=== PATIENT | male | born 1945 | race Caucasian/White ===

== ENCOUNTER 2017-05-03 09:51 | Observation (INO) ==
--- NOTE | 2017-05-03 09:58 | Emergency Department Note ---
Disposition Clinical Impression: Thyroid nodule Dysphagia Qualifiers: Dysphagia type: unspecified Qualified Code(s): R13.10 - Dysphagia, unspecified Failure to thrive Qualifiers: Failure to thrive age range: in adult Qualified Code(s): R62.7 - Adult failure to thrive Disposition: Admitted As Inpatient Condition: Good Time of Disposition: 12:27 General Adult HPI - General Chief complaint: ED General Medical Stated complaint: Sore throat Time Seen by Provider: 05/03/17 09:54 Source: patient, EMS Mode of arrival: EMS Limitations: no limitations Nursing Notes Reviewed: Yes Vital Signs Reviewed: Yes - History of Present Illness HPI Narrative: 71-year-old who states he's had a sore throat for about 48 hours. States it's to the point he cannot swallow anything. He points to the anterior throat when asked where it hurts. Pt Subjective Complaint: Sore throat unable to eat or drink Onset (ago): hour(s) (48) Location: other (Throat) Radiation: non-radiation Pain Severity: moderate Quality: aching Consistency: constant Improves with: nothing Worsens with: other (Swallowing) Treatments Prior to Arrival: none - Related Data Home Medications Medication Instructions Recorded Confirmed Amlodipine [Norvasc] 5 mg PO BID 07/05/15 05/03/17 Metoprolol [Lopressor] 12.5 mg PO BID PRN 07/05/15 05/03/17 Simvastatin [Zocor] 20 mg PO HS 07/05/15 05/03/17 Temazepam [Restoril] 15 mg PO HS 09/07/15 05/03/17 Escitalopram [Lexapro] 20 mg PO DAILY 06/18/16 05/03/17 Glucagon,Human Recombinant 1 mg IJ AD PRN 06/18/16 05/03/17 [Glucagon Emergency Kit] Dextran 70/Hypromellose 1 drop OP DAILY PRN 12/08/16 05/03/17 [Artificial Tears Eye Drops] Docusate [Colace] 100 mg PO BID PRN 12/08/16 05/03/17 Insulin Glargine,Hum.rec.anlog 7 unit SQ BID 12/08/16 05/03/17 [Lantus Solostar] Insulin Lispro Protamin/Lispro 0 unit SQ TIDAC MDD SLIDING SCALE 12/08/16 [Humalog Mix 50-50 Kwikpen] Previous Rx's Medication Instructions Recorded hydrALAZINE [HydrALAZINE] 100 mg PO Q8HR #60 tablet 06/23/16 Allergies Allergy/AdvReac Type Severity Reaction Status Date / Time tamsulosin [From Flomax] Allergy Dizziness Verified 07/05/15 17:45 All systems ED: reviewed and negative except as stated. Constitutional: Denies: fever, chills, weakness, weight change Eyes: Denies: eye pain, eye discharge, vision change ENT ED: Reports: throat pain, dysphagia. Denies: ear pain, dental pain, hearing loss, epistaxis, congestion Cardiovascular: Denies: chest pain, palpitations, dyspnea on exertion, edema, syncope Respiratory: Denies: cough, dyspnea, wheezes, hemoptysis, stridor Gastrointestinal: Denies: abdominal pain, nausea, vomiting, diarrhea, constipation, hematemesis, melena, hematochezia Genitourinary: Denies: urgency, dysuria, frequency, hematuria Musculoskeletal: Denies: back pain, neck pain, arthralgia, myalgia Integumentary: Denies: rash, abrasion, lesions Neurological: Denies: headache, weakness, numbness, paresthesias, confusion, abnormal gait, vertigo Psychiatric: Denies: anxiety, depression, suicidal thoughts, homicidal thoughts , auditory hallucinations, visual hallucinations Endocrine: Denies: fatigue Hematological/Lymphatic: Denies: easy bleeding, easy bruising Allergic/Immunologic: Denies: facial swelling, urticaria Past Medical History - Past Medical History Medical history: Reports: diabetes, hyperlipidemia Surgical history: Reports: appendectomy, other Psychiatric history: Reports: depression - Social History Smoking Status: Never smoker Smokeless Tobacco Status: No Alcohol use: Reports: none Drug use: Reports: none Physical Exam - General Limitations: no limitations General appearance: alert, in no apparent distress - Head Head exam: atraumatic, normocephalic, normal inspection - Eye Eye exam: Present: normal appearance, PERRL, EOMI - ENT ENT exam: normal exam, normal oropharynx, mucous membranes moist - Neck Neck exam: Present: normal inspection, full ROM, trachea midline - Chest Chest inspection: Present: normal inspection, symmetric chest wall rise - Respiratory Respiratory exam: Present: normal lung sounds bilaterally - Cardiovascular Cardiovascular exam: Present: regular rate, normal rhythm, normal heart sounds - Abdominal Exam Abdominal exam: Present: soft, Non-Tender. Absent: tenderness, distention, guarding, rebound, rigidity - Extremities Exam Extremities exam: Present: normal inspection, full ROM. Absent: tenderness, pedal edema - Expanded Lower Extremity Exam Neurovascular/Tendon exam: Present: normal capillary refill Gait: observed and normal - Back Exam Back exam: Present: normal inspection, full ROM. Absent: tenderness - Neurological Exam Neurological exam: Present: alert, oriented X3 - Psychiatric Psychiatric exam: Present: normal affect, normal mood - Skin Skin exam: Present: warm, dry, intact, normal color Course - Reevaluation(s) Reevaluation #1: 71-year-old who states he cannot swallow. States it began over the last 48 hours. It has progressed to the point where he says he can't take his medicines. Workup here in the emergency department included a normal visual inspection and a normal CT of soft tissue neck. In light of the patient's inability to take his medications and eat we will go ahead and admit. We did obtain consultation with ENT. Time: 12:25 - Consultations Consultation #1: Discussed with Dr. Green ENT who will see the patient in consultation Time: 12:00 Consultation #2: Discussed with Dr. Severino, admit Time: 12:27 Vital Signs Temperature 98.8 F 05/03/17 09:56 Pulse Rate 107 05/03/17 09:56 Respiratory Rate 18 05/03/17 09:56 Blood Pressure 171/76 05/03/17 09:56 O2 Sat by Pulse Oximetry 97 05/03/17 09:56 Temperature 98.8 F 05/03/17 09:56 Pulse Rate 117 05/03/17 12:39 Respiratory Rate 18 05/03/17 12:39 Blood Pressure 156/66 05/03/17 12:39 O2 Sat by Pulse Oximetry 96 05/03/17 12:39 Oxygen Delivery Oxygen Delivery Room Air Medical Decision Making - Lab Data Result diagrams: 05/03/17 10:25 05/03/17 10:25 Lab Results 05/03/17 05/03/17 Range/Units 10:25 10:25 WBC 11.8 H (4.3-11.1) K/mcL RBC 2.98 L (4.19-5.50) M/mcL Hgb 9.0 L (12.9-16.9) g/dL Hct 29.0 L (37.5-50.1) % MCV 97.3 (83.0-100.0) fL MCH 30.2 (28.0-33.3) pg MCHC 31.0 L (31.6-35.5) g/dL RDW 13.2 (11.5-14.5) % Plt Count 196 (140-400) K/mcL MPV 10.9 (9.4-12.4) fL Immature Gran % 0.7 (0-4) % Seg Neutrophils % 80.0 % Lymphocytes % 10.6 % Monocytes % 8.4 % Eosinophils % 0.0 % Basophils % 0.3 % Neutrophils # 9.4 H (1.6-8.9) K/mcL Lymphocytes # 1.3 (0.6-4.6) K/mcL Monocytes # 1.0 (0.0-1.3) K/mcL Eosinophils # 0.0 (0.0-0.6) K/mcL Basophils # 0.0 (0.0-0.2) K/mcL Sodium 137 (136-145) mEq/L Potassium 5.3 H (3.5-4.5) mEq/L Chloride 108 (98-109) mEq/L Carbon Dioxide 13 L (19-29) mEq/L BUN 67 H (8-26) mg/dL Creatinine 4.12 H (0.72-1.25) mg/dL Est GFR ( Amer) 17 L (> 60) Est GFR (Non-Af Amer) 14 L (> 60) BUN/Creatinine Ratio 16 (6-26) Glucose 406 H (70-99) mg/dL Calculated Osmolality 320 H (280-300) Calcium 9.3 (8.6-10.8) mg/dL
[2017-05-03 10:35] LABS: Basophils % 0.3 %; Immature Granulocytes % 0.7 % (0-4); Lymphocytes # 1.3 K/mcL (0.6-4.6); Lymphocytes % 10.6 %; Mean Corpuscular Hemoglobin 30.2 pg (28.0-33.3); Mean Corpuscular Volume 97.3 fL (83.0-100.0); Mean Platelet Volume 10.9 fL (9.4-12.4); Monocytes % 8.4 %; Neutrophils # 9.4 K/mcL (1.6-8.9); Platelet Count 196 K/mcL (140-400); Red Blood Count 2.98 M/mcL (4.19-5.50); Red Cell Distribution Width 13.2 % (11.5-14.5)
[2017-05-03 10:49] LABS: Calcium 9.3 mg/dL (8.6-10.8); Potassium 5.3 mEq/L (3.5-4.5)
[2017-05-03] MEDS ORDERED: amLODIPine 5 MG TABLET PO ONE (12:24)
[2017-05-03] MEDS ORDERED: Naloxone 0.4 MG/ML INJ IVP PRN (13:17)
[2017-05-03] MEDS ORDERED: Acetaminophen 325 MG TABLET PO PRN (13:17)
[2017-05-03] MEDS ORDERED: 0.9 % Sodium Chloride 1,000 ML IVC SCH (13:30)
[2017-05-03] MEDS ORDERED: D5% in Water 1,000 ML IVC PRN (13:36)
[2017-05-03] MEDS ORDERED: *HR* Dextrose 50 % in Water (Syg) 50 ML SYRINGE IVP PRN (13:36)
[2017-05-03] MEDS ORDERED: Dextrose Gel 15 GM PO PRN ×2 (13:36)
[2017-05-03] MEDS ORDERED: *HR* LORazepam 2 MG/ML VIAL IVP PRN (13:37)
--- NOTE | 2017-05-03 13:44 | Internal Med History&Physical ---
<Eloise Lopez M - Last Filed: 05/03/17 18:28> Date of Encounter: 05/03/17 Time of Encounter: 13:41 Assessment and Plan (1) Dysphagia Current visit: Yes Status: Acute Patient reports severe pain with swallowing over the last 2 days, resulting in poor oral intake and inability to take medications. Exam reveals oral thrush. ENT was consulted by ED, will appreciate their input. Magic mouthwash QID Nystatin swish and swallow QID. Qualifiers: Dysphagia type: unspecified Qualified Code(s): R13.10 - Dysphagia, unspecified (2) Chronic kidney disease, stage V Current visit: Yes Status: Chronic Patient follows with Dr. Card as an outpatient. He is supposed to be educated about dialysis options in the near future. He is at his baseline today. Daily chemistry. Consider consult to Dr. Card. Avoid NSAIDS and nephrotoxins (3) Hypertension Current visit: Yes Status: Chronic Patient reports he has not been taking his medications the last 2 days because of pain with swallowing. BP was elevated here, likely because of failure to take medications. Patient given his dose of amlodipine in ED. Metoprolol 2.5mg IVP Q6hr scheduled. Hydralazine 10mg IVP Q6hr PRN for SBP > 160 or DBP > 100. Transition to home doses of oral medications once patient tolerating PO. Qualifiers: Hypertension type: essential hypertension Qualified Code(s): I10 - Essential (primary) hypertension (4) Thyroid nodule Current visit: Yes Status: Acute CT of the neck revealed 1.7cm thyroid nodule. Thyroid ultrasound ordered. (5) Hyperkalemia Current visit: Yes Status: Acute potassium of 5.3. Kayexalate x 1 dose Will be giving insulin for hyperglycemia as well, which should also bring down the potassium. Recheck chemistry daily. (6) Metabolic acidosis Current visit: Yes Status: Acute CO2 of 13. Give 1 amp of bicarb IVP, followed by 150mEq in 0.45NS at 125mL/hr Recheck chemistry daily. (7) Diabetes mellitus Current visit: Yes Status: Acute check blood sugars Q4hr sliding scale correction dose q4hr long acting insulin levemir 3u BID (home dose 7u BID) hypoglycemic protocol. Qualifiers: Diabetes mellitus type: type 1 Diabetes mellitus complication status: with unspecified complications Qualified Code(s): E10.8 - Type 1 diabetes mellitus with unspecified complications (8) DVT prophylaxis Current visit: Yes Status: Acute anti-embolic stockings heparin SQ TID Internal Medicine - H&P: HPI Chief complaint: throat pain Admitted From: Emergency Dept Plans for Post Hospital Care: Home History of present illness: Mr. Ruiz is a 71 year old male with diabetes, hypertension, hyperlipidemia, chronic kidney disease presented to the emergency department today with sore throat, difficulty swallowing due to the pain, inability to take medications at home. Patient reports that the pain started about 2 days ago and is worsened, he has been unable to eat or drink, and has not been taking his medications because of this. He denies headache, lightheadedness, chest pain, palpitations , shortness of breath. He denies a sensation that his throat is swollen. He reports that his throat hurts all the time but is worse with swallowing. He complains of feeling weak and tired. Evaluation in the ED revealed hyperkalemia with potassium of 5.3, low bicarb of 13. He was hyperglycemic with glucose of 406. BUN and Creatinine were at baseline of 67 and 4.12, respectively and consistent with his CKD 4. Hemoglobin of 9 was stable. Soft tissue neck CT showed no acute abnormality of the soft tissue structures of the neck also revealed a 1.7 cm thyroid nodule. He was tachycardic to the 110s, his blood pressure was also elevated. On exam, patient alert and oriented, in no acute distress. Heart irregular rhythm, tachycardic rate, loud systolic murmur. Lungs are clear bilaterally to auscultation. Tongue with white patches consistent with oral thrush. Pharynx was nonedematous, nonerythematous , no purulent drainage noted. Past Med Surg Social Fam HX - Past Medical History Medical history: diabetes, hyperlipidemia, hypertension, renal disease Psychiatric history: depression - Past Surgical History Surgical History: appendectomy, orthopedic, other, other - Social History Smoking Status: Never smoker Smokeless Tobacco Status: No Alcohol use: none Drug use: none - Family History Mother Living Status: Hx Family Cardiac Disorders: No Hx Family Respiratory Disorders: Yes (TB) Hx Family Cancer: No Hx Family GI Disorders: No Hx Family Endocrine Disorder: No Hx Family Neuromuscular Disorders: No Hx Family Neurologic Disorders: No Hx Family HEENT Disorders: No Hx Family Autoimmune Disorders: No Father Living Status: Hx Family Cardiac Disorders: Yes Hx Family Respiratory Disorders: Yes Hx Family Cancer: No Hx Family GI Disorders: No Hx Family Endocrine Disorder: No Hx Family Neuromuscular Disorders: Yes Hx Family Neurologic Disorders: No Hx Family HEENT Disorders: No Hx Family Autoimmune Disorders: No Internal Medicine - H&P: Meds Amlodipine [Norvasc] 5 mg PO BID 07/05/15 [History] Metoprolol [Lopressor] 12.5 mg PO BID PRN 07/05/15 [History] Simvastatin [Zocor] 20 mg PO HS 07/05/15 [History] Temazepam [Restoril] 15 mg PO HS 09/07/15 [History] Escitalopram [Lexapro] 20 mg PO DAILY 06/18/16 [History] Glucagon,Human Recombinant [Glucagon Emergency Kit] 1 mg IJ AD PRN 06/18/16 [ History] hydrALAZINE [HydrALAZINE] 100 mg PO Q8HR #60 tablet 06/23/16 [Rx] Dextran 70/Hypromellose [Artificial Tears Eye Drops] 1 drop OP DAILY PRN [History] Docusate [Colace] 100 mg PO BID PRN 12/08/16 [History] Insulin Glargine,Hum.rec.anlog [Lantus Solostar] 7 unit SQ BID 12/08/16 [History ] Insulin Lispro Protamin/Lispro [Humalog Mix 50-50 Kwikpen] 0 unit SQ TIDAC MDD SLIDING SCALE 12/08/16 [History] 3 Allergy/AdvReac Type Severity Reaction Status Date / Time tamsulosin [From Flomax] Allergy Dizziness Verified 07/05/15 17:45 All Systems PM: A 10-system review of systems was performed and is negative for pertinent findings except as documented above in the HPI. - Constitutional Constitutional: fatigue, weakness, no chills, no fever(s), no night sweats - EENT Eyes: no change in vision, no discharge, no pain, no photophobia Ears: no ear discharge, no ear pain, no tinnitus Nose, mouth and throat: sore throat, no dysphagia, no nasal discharge, no neck pain - Cardiovascular Cardiovascular ROS IM: no chest pain, no diaphoresis, no dyspnea, no lightheadedness, no palpitations, no syncope - Respiratory Respiratory: no cough, no dyspnea, no wheezing, no excessive phlegm production - Gastrointestinal Gastrointestinal: no abdominal pain, no diarrhea, no hematemesis, no hematochezia, no melena, no nausea, no vomiting - Musculoskeletal Musculoskeletal ROS IM: no numbness, no tingling - Integumentary Integumentary IM: no rash, no unusual bruising - Neurological Neurological ROS: no confusion, no convulsions, no focal weakness, no numbness, no tingling, no tremor(s) - Hematologic/Lymphatic Hematologic/Lymphatic: no easy bruising - Constitutional Vitals: Temp Pulse Resp BP Pulse Ox 98.8 F 117 18 167/68 96 05/03/17 09:56 05/03/17 12:39 05/03/17 13:31 05/03/17 13:31 05/03/17 12:39 General appearance: Present: A&O X 3, pleasant, no acute distress - Head Head exam: Present: atraumatic, normocephalic - Eye Eye exam: Present: PERRL, conjuntiva pink, sclera anicteric Pupils: Present: PERRL - ENT Additional comments: tongue covered in white patch. - Expanded ENT Exam Throat exam: Present: normal inspection. Absent: post pharyngeal edema, tonsillar erythema, tonsillar exudate - Neck Neck exam general surgery: Present: supple, trachea midline. Absent: lymphadenopathy - Respiratory Respiratory exam: Present: CTAB. Absent: accessory muscle use, rales, rhonchi, wheezes - Cardiovascular Cardiovascular exam: Present: RRR, +S1, +S2. Absent: diastolic murmur, gallop, rubs, systolic murmur - GI/Abdominal GI/Abdominal exam: Present: normal bowel sounds, soft, no peritoneal signs. Absent: distended, tenderness - Extremities Exam Extremities exam: Present: warm, radial pulses palpable and symmetrical. Absent : calf tenderness, cyanotic, pedal edema - Neurological Exam Neurological exam: Present: CN II-XII intact, oriented X3, no focal deficits. Absent: facial droop, speech deficit - Skin Skin exam: Present: dry, intact Internal Med - H&P Results - Labs CBC & Chem 7: 05/03/17 10:25 05/03/17 10:25 Labs: All Lab Results (24 Hours) 05/03/17 05/03/17 Range/Units 10:25 10:25 WBC 11.8 H (4.3-11.1) K/mcL RBC 2.98 L (4.19-5.50) M/mcL Hgb 9.0 L (12.9-16.9) g/dL Hct 29.0 L (37.5-50.1) % MCV 97.3 (83.0-100.0) fL MCH 30.2 (28.0-33.3) pg MCHC 31.0 L (31.6-35.5) g/dL RDW 13.2 (11.5-14.5) % Plt Count 196 (140-400) K/mcL MPV 10.9 (9.4-12.4) fL Immature Gran % 0.7 (0-4) % Seg Neutrophils % 80.0 % Lymphocytes % 10.6 % Monocytes % 8.4 % Eosinophils % 0.0 % Basophils % 0.3 % Neutrophils # 9.4 H (1.6-8.9) K/mcL Lymphocytes # 1.3 (0.6-4.6) K/mcL Monocytes # 1.0 (0.0-1.3) K/mcL Eosinophils # 0.0 (0.0-0.6) K/mcL Basophils # 0.0 (0.0-0.2) K/mcL Sodium 137 (136-145) mEq/L Potassium 5.3 H (3.5-4.5) mEq/L Chloride 108 (98-109) mEq/L Carbon Dioxide 13 L (19-29) mEq/L BUN 67 H (8-26) mg/dL Creatinine 4.12 H (0.72-1.25) mg/dL Est GFR ( Amer) 17 L (> 60) Est GFR (Non-Af Amer) 14 L (> 60) BUN/Creatinine Ratio 16 (6-26) Glucose 406 H (70-99) mg/dL Calculated Osmolality 320 H (280-300) Calcium 9.3 (8.6-10.8) mg/dL - Diagnostic Studies Chest x-ray Additional comments: Chest X-Ray 05/03/17 12:21 IMPRESSION: No acute cardiopulmonary process. D/ / 05/03/2017 13:04:00 Dario Higgins MD / [facility] Interpreting Provider: Dario Higgins MD Other Images Additional comments: Soft Tissue Neck CT 05/03/17 09:54 IMPRESSION: No acute abnormality of the soft tissue structures of the neck. D/ / 05/03/2017 11:35:15 Dario Higgins MD / [facility] Interpreting Provider: Dario Higgins MD <Karime Severino - Last Filed: 05/03/17 18:46> Date of Encounter: 05/03/17 Internal Medicine - H&P: HPI History of present illness: Mr. Ruiz is a 71 year old male All Systems PM: A 10-system review of systems was performed and is negative for pertinent findings except as documented above in the HPI. - Constitutional Vitals: Temp Pulse Resp BP Pulse Ox 99.2 F 98 16 133/67 96 05/03/17 18:35 05/03/17 18:35 05/03/17 18:35 05/03/17 18:35 05/03/17 18:35 Internal Med - H&P Results - Labs CBC & Chem 7: 05/03/17 10:25 05/03/17 10:25 - Attending Attestation Patient independently seen and examined with family present at bedside. Pt admitted for dysphagia. ENT on board. Speech therapy consulted. Case discussed with SHAINA Lopez, I agree with her documented findings, assessment, and plan.
[2017-05-03] MEDS ORDERED: Insulin LISPRO 300 UNITS/3 ML VIAL SQ SCH ×2 (15:17→18:00)
[2017-05-03] MEDS: Sodium Bicarbonate 150 MEQ in 0.45 % Sodium Chloride 1,000 ML IVC SCH (15:54)
--- NOTE | 2017-05-03 16:31 | ENT - Consult Note ---
Date of Encounter: 05/03/17 Time of Encounter: 16:28 Assessment and Plan (1) Sore throat Current Visit: Yes Status: Acute 71 y/o M here for sore throat and odynophagia. The only thing remarkable on my exam that I see is what appears to be refluxate on the supraglottic larynx - appears to be the soup he had just eaten before I arrived. Not sure if this is refluxate (which it appears to be as I see this material coming from the posterior CP region) or if it is evidence of penetration on swallow. I don't see signs of infection or any lesions of concern. CT scan showed upper esophageal air, kyphosis, multiple cervical spinal segment fusion w/ osteophytes but no evidence of abscess or lesion. 1. Recommend [facility] eval for swallow to ensure he is not penetrating/aspirating and needs a specialized diet 2. Given the lack of findings otherwise, could consider a PPI trial but given his lack of sx prior to this I don't give this a strong recommendation 3. Given the lack of surgical issue here or issue to follow from an ENT perspective will sign off Call with questions/concerns. History of Present Illness Consult date: 05/03/17 Reason for ENT Consult: other (throat pain) History of present illness: 71 y/o M here for throat pain for 2 days. He woke up at 0200 yesterday AM with a painful throat and trouble swallowing. Also has had a rough voice x 2 days. He has felt run down during this period but not sure what this is related to. No prior throat surgery. Smoking hx as noted in intake H&P. H/O neck fracture years ago. No reflux or trouble swallowing prior to this. Neck mobility stable. No fevers. No trouble breathing. Went to the ED where this AM he had a CT neck w/o contrast (due to kidney issues) that didn't show any acute problems. Admitted for hydration and workup. Past Med Surg Social Fam HX - Past Medical History Medical history: diabetes, hyperlipidemia, hypertension, renal disease Psychiatric history: depression - Past Surgical History Surgical History: appendectomy, orthopedic, other, other - Social History Smoking Status: Never smoker Smokeless Tobacco Status: No Alcohol use: none Drug use: none - Family History Mother Living Status: Hx Family Cardiac Disorders: No Hx Family Respiratory Disorders: Yes (TB) Hx Family Cancer: No Hx Family GI Disorders: No Hx Family Endocrine Disorder: No Hx Family Neuromuscular Disorders: No Hx Family Neurologic Disorders: No Hx Family HEENT Disorders: No Hx Family Autoimmune Disorders: No Father Living Status: Hx Family Cardiac Disorders: Yes Hx Family Respiratory Disorders: Yes Hx Family Cancer: No Hx Family GI Disorders: No Hx Family Endocrine Disorder: No Hx Family Neuromuscular Disorders: Yes Hx Family Neurologic Disorders: No Hx Family HEENT Disorders: No Hx Family Autoimmune Disorders: No Medications and Allergies Amlodipine [Norvasc] 5 mg PO BID 07/05/15 [History] Metoprolol [Lopressor] 12.5 mg PO BID PRN 07/05/15 [History] Simvastatin [Zocor] 20 mg PO HS 07/05/15 [History] Temazepam [Restoril] 15 mg PO HS 09/07/15 [History] Escitalopram [Lexapro] 20 mg PO DAILY 06/18/16 [History] Glucagon,Human Recombinant [Glucagon Emergency Kit] 1 mg IJ AD PRN 06/18/16 [ History] hydrALAZINE [HydrALAZINE] 100 mg PO Q8HR #60 tablet 06/23/16 [Rx] Dextran 70/Hypromellose [Artificial Tears Eye Drops] 1 drop OP DAILY PRN [History] Docusate [Colace] 100 mg PO BID PRN 12/08/16 [History] Insulin Glargine,Hum.rec.anlog [Lantus Solostar] 7 unit SQ BID 12/08/16 [History ] Insulin Lispro Protamin/Lispro [Humalog Mix 50-50 Kwikpen] 0 unit SQ TIDAC MDD SLIDING SCALE 12/08/16 [History] 3 Allergy/AdvReac Type Severity Reaction Status Date / Time tamsulosin [From Flomax] Allergy Dizziness Verified 07/05/15 17:45 ENT Exam Initial Vital Signs Temp Pulse Resp BP Pulse Ox 98.8 F 107 18 171/76 97 05/03/17 09:56 05/03/17 09:56 05/03/17 09:56 05/03/17 09:56 05/03/17 09:56 - ENT normal pinna, normal mucosa, poor chcf, dentures, atraumatic, CN 2-12 grossly intact, Other (scope exam showed what appeared to be refluxate on the supraglottic larynx, moderate VC edema but no mass lesions, ulcerations or lesions otherwise). negative: deviated nasal septum, nasal discharge - Neck no masses, trachea midline, no lymphadectomy Exam Initial Vital Signs Temp Pulse Resp BP Pulse Ox 98.8 F 107 18 171/76 97 05/03/17 09:56 05/03/17 09:56 05/03/17 09:56 05/03/17 09:56 05/03/17 09:56 Results - Labs 05/03/17 10:25 05/03/17 10:25 Abnormal lab results WBC 11.8 K/mcL (4.3-11.1) H 05/03/17 10:25 RBC 2.98 M/mcL (4.19-5.50) L 05/03/17 10:25 Hgb 9.0 g/dL (12.9-16.9) L 05/03/17 10:25 Hct 29.0 % (37.5-50.1) L 05/03/17 10:25 MCHC 31.0 g/dL (31.6-35.5) L 05/03/17 10:25 Neutrophils # 9.4 K/mcL (1.6-8.9) H 05/03/17 10:25 Potassium 5.3 mEq/L (3.5-4.5) H 05/03/17 10:25 Carbon Dioxide 13 mEq/L (19-29) L 05/03/17 10:25 BUN 67 mg/dL (8-26) H 05/03/17 10:25 Creatinine 4.12 mg/dL (0.72-1.25) H 05/03/17 10:25 Est GFR ( Amer) 17 (> 60) L 05/03/17 10:25 Est GFR (Non-Af Amer) 14 (> 60) L 05/03/17 10:25 Glucose 406 mg/dL (70-99) H 05/03/17 10:25 Calculated Osmolality 320 (280-300) H 05/03/17 10:25 All other labs normal. Consult Discharge Plan - Plan Referrals: Sheng Alexandra MD [Primary Care Provider] -
[2017-05-03] MEDS: Pantoprazole 40 MG VIAL IVP SCH (17:51)
[2017-05-03] MEDS: Nystatin SUSP 5 ML UD.LIQ PO SCH ×2 (17:53→21:10)
[2017-05-03] MEDS: *HR* Metoprolol 5 MG/5 ML VIAL IVP SCH ×2 (17:54→18:15)
[2017-05-03] MEDS: Magic Mouthwash 10 ML UD Cup PO SCH ×3 (17:54→21:32)
[2017-05-03] MEDS ORDERED: *HR* Metoprolol 5 MG/5 ML VIAL IVP SCH (18:00)
[2017-05-03] MEDS: Insulin LISPRO 300 UNITS/3 ML VIAL SQ SCH ×2 (18:02→21:09)
[2017-05-03] MEDS: Insulin DETEMIR 100 UNIT/ML X5UNITS SQ SCH (21:07)
[2017-05-03] MEDS: *HR* Heparin 5,000 UNIT/ML VIAL SQ SCH (21:16)
[2017-05-04] MEDS: *HR* Metoprolol 5 MG/5 ML VIAL IVP SCH ×2 (00:27→06:34)
[2017-05-04] MEDS: Insulin LISPRO 300 UNITS/3 ML VIAL SQ SCH ×6 (00:27→21:45)
[2017-05-04] MEDS: Sodium Bicarbonate 150 MEQ in 0.45 % Sodium Chloride 1,000 ML IVC SCH (01:45)
[2017-05-04 05:13] LABS: Basophils % 0.2 %; Eosinophils % 0.1 %; Hematocrit 23.1 % (37.5-50.1); Hemoglobin 7.7 g/dL (12.9-16.9); Immature Granulocytes % 0.4 % (0-4); Lymphocytes # 1.5 K/mcL (0.6-4.6); Lymphocytes % 10.1 %; Mean Corpuscular HGB Conc 33.3 g/dL (31.6-35.5); Mean Corpuscular Hemoglobin 30.7 pg (28.0-33.3); Mean Platelet Volume 11.1 fL (9.4-12.4); Monocytes # 1.3 K/mcL (0.0-1.3); Neutrophils # 11.9 K/mcL (1.6-8.9); Platelet Count 171 K/mcL (140-400); Red Blood Count 2.51 M/mcL (4.19-5.50); Red Cell Distribution Width 13.2 % (11.5-14.5); Segmented Neutrophils % 80.2 %
[2017-05-04] MEDS: *HR* Heparin 5,000 UNIT/ML VIAL SQ SCH ×3 (06:34→21:45)
[2017-05-04 07:22] LABS: Calcium 8.9 mg/dL (8.6-10.8)
[2017-05-04 07:26] LABS: Potassium 3.9 mEq/L (3.5-4.5)
[2017-05-04 08:32] LABS: Bilirubin,Urine Negative (Negative); Blood,Urine Negative (Negative); Clarity,Urine Clear (Clear); Color,Urine Yellow (Yellow); Glucose,Urine (UA) >=1000 mg/dL (Normal); Ketones,Urine Trace mg/dL (Negative); Leukocyte Esterase,Urine Negative (Negative); Nitrite,Urine Negative (Negative); Protein,Urine 100 mg/dL (Neg-Trace); Specific Gravity,Urine 1.019 (1.010-1.025); Urobilinogen,Urine Normal (Normal)
[2017-05-04 08:34] LABS: Bacteria,Urine None Seen per hpf (None-Few); Hyaline Casts,Urine None Seen per lpf (None-Few); Squamous Epithelial Cell,Urine Few per lpf (None-Few); WBC,Urine 0-3 per hpf (0-3)
[2017-05-04] MEDS: Magic Mouthwash 10 ML UD Cup PO SCH ×4 (11:03→21:44)
[2017-05-04] MEDS: Pantoprazole 40 MG VIAL IVP SCH (11:03)
[2017-05-04] MEDS: Insulin DETEMIR 100 UNIT/ML X5UNITS SQ SCH ×2 (11:03→21:45)
[2017-05-04] MEDS: Nystatin SUSP 5 ML UD.LIQ PO SCH ×4 (11:04→21:44)
--- NOTE | 2017-05-04 12:05 | Internal Med Progress Note ---
Date of Encounter: 05/04/17 Time of Encounter: 10:00 - Assessment and plan (1) Dysphagia Current Visit: Yes Status: Acute Assessment and plan: Symptoms have improved since admission. Soft tissue CT of the neck unremarkable. Patient had a modified barium swallow that was unremarkable and he was cleared for soft diet with thin liquids per speech therapy. He was seen and evaluated by ENT who have also signed off. Thyroid ultrasound still pending. On examination, no stridor or drooling. Lungs clear to auscultation bilaterally. We will continue diet as ordered and monitor. Continue Protonix. Of note, patient's girlfriend is leaving for vacation and will be gone for approximately 2 weeks. Patient appears anxious about this making this dysphagia possibly related to globus sensation. We will continue to monitor. ITS Impressions Soft Tissue Neck CT 05/03/17 09:54 IMPRESSION: No acute abnormality of the soft tissue structures of the neck. D/ / 05/03/2017 11:35:15 Dario Higgins MD / [facility] Interpreting Provider: Dario Higgins MD Chest X-Ray 05/03/17 12:21 IMPRESSION: No acute cardiopulmonary process. D/ / 05/03/2017 13:04:00 Dario Higgins MD / [facility] Interpreting Provider: Dario Higgins MD Videofluoroscopic Swallow 05/04/17 07:48 IMPRESSION: Deep laryngeal penetration with thin and nectar thick liquids. No definite evidence of aspiration. Please see separate speech pathology report for full discussion of findings and recommendations. D/ / Long Cummings MD / Long Cummings MD Interpreting Provider: Long Cummings MD Qualifiers: Dysphagia type: unspecified Qualified Code(s): R13.10 - Dysphagia, unspecified (2) Sore throat Current Visit: Yes Status: Acute (3) Thyroid nodule Current Visit: Yes Status: Acute Assessment and plan: Thyroid functioning normal last month. Thyroid ultrasound pending. (4) Anemia in CKD (chronic kidney disease) Current Visit: No Status: Chronic Assessment and plan: Currently at the low end of his normal, we will continue to trend. No signs of active bleeding. Patient stating he does not believe he has ever had to have a blood transfusion. (5) CAD (coronary artery disease) Current Visit: No Status: Chronic Assessment and plan: Patient denies chest pain or shortness of breath (6) Chronic kidney disease, stage IV (severe) Current Visit: No Status: Chronic Assessment and plan: Stable and consistent with his baseline, we will continue to trend closely. (7) Diabetes mellitus Current Visit: Yes Status: Chronic Assessment and plan: Controlled with a recent A1c of 6.2%. Continue sliding scale while admitted. Qualifiers: Diabetes mellitus type: type 1 Diabetes mellitus complication status: with kidney complications Diabetes mellitus complication detail: with chronic kidney disease Chronic kidney disease stage: stage 4 (severe) Qualified Code (s): E10.22 - Type 1 diabetes mellitus with diabetic chronic kidney disease; N18.4 - Chronic kidney disease, stage 4 (severe) Code(s): E11.9 - Type 2 diabetes mellitus without complications (8) Hyperkalemia Current Visit: Yes Status: Resolved (9) Hypertension Current Visit: Yes Status: Chronic Assessment and plan: Poorly controlled. At home, patient is on hydralazine 100 mg 3 times a day, metoprolol 12.5 mg twice a day as needed, amlodipine 5 mg twice a day. These have been continued in PO form now that the patient is able to tolerate a diet. Will monitor and adjust his medications as indicated. Qualifiers: Hypertension type: essential hypertension Qualified Code(s): I10 - Essential (primary) hypertension (10) Metabolic acidosis Current Visit: Yes Status: Resolved (11) DVT prophylaxis Current Visit: Yes Status: Acute Assessment and plan: Subcutaneous heparin being held at this time given his worsening anemia. We will place IPCs - Subjective Interval history: Patient seen and examined. On examination, patient initially asleep. He awakened easily to voice and stated that he was feeling better. He states that he wants to try to eat and drink. - Constitutional Vitals: Temp Pulse Resp BP Pulse Ox 98.3 F 90 18 195/87 97 05/04/17 11:20 05/04/17 11:20 05/04/17 11:20 05/04/17 11:20 05/04/17 11:20 General appearance: Present: A&O X 3, pleasant, no acute distress, answers questions appropriately - Head Head exam: Present: atraumatic, normocephalic - Eye Eye exam: Present: PERRL, conjuntiva pink, sclera anicteric Pupils: Present: PERRL - Neck Neck exam general surgery: Present: supple, trachea midline. Absent: lymphadenopathy - Respiratory Respiratory exam: Present: CTAB. Absent: accessory muscle use, rales, respiratory distress, rhonchi, wheezes - Cardiovascular Cardiovascular exam: Present: RRR, +S1, +S2. Absent: diastolic murmur, gallop, rubs, systolic murmur - GI/Abdominal GI/Abdominal exam: Present: normal bowel sounds, soft, no peritoneal signs. Absent: distended, tenderness - Extremities Exam Extremities exam: Present: warm, radial pulses palpable and symmetrical. Absent : calf tenderness, cyanotic, pedal edema - Neurological Exam Neurological exam: Present: alert, CN II-XII intact, oriented X3, no focal deficits, strengths equal and symetr throughout. Absent: pronater drift, facial droop, speech deficit - Skin Skin exam: Present: dry, intact, pallor, warm Internal Medicine: Result - Labs CBC & Chem 7: 05/04/17 04:52 05/04/17 04:52 Labs: Short CBC 05/04/17 Range/Units 04:52 WBC 14.9 H (4.3-11.1) K/mcL Hgb 7.7 L (12.9-16.9) g/dL Hct 23.1 L (37.5-50.1) % Plt Count 171 (140-400) K/mcL Neutrophils # 11.9 H (1.6-8.9) K/mcL BMP 05/04/17 04:52 Sodium 144 D Potassium 3.9 D Chloride 103 Carbon Dioxide 26 BUN 66 H Creatinine 3.90 H Glucose 92 Calcium 8.9 Urine 05/04/17 Range/Units 08:24 Urine Color Yellow (Yellow) Urine Clarity Clear (Clear) Urine pH 6.0 (5.0-8.0) pH Units Ur Specific [place] 1.019 (1.010-1.025) Urine Protein 100 H (Neg-Trace) mg/dL Urine Glucose (UA) >=1000 H (Normal) mg/dL - Impressions Impressions Videofluoroscopic Swallow 05/04/17 07:48 IMPRESSION: Deep laryngeal penetration with thin and nectar thick liquids. No definite evidence of aspiration. Please see separate speech pathology report for full discussion of findings and recommendations. D/ / Long Cummigns MD / Long Cummings MD Interpreting Provider: Long Cummings MD Consult Discharge Plan - Plan Referrals: Sheng Alexandra MD [Primary Care Provider] -
[2017-05-04] MEDS ORDERED: Artificial Tears SOLN 15 ML BOTTLE OP PRN (12:13)
[2017-05-04] MEDS ORDERED: *HR* HYDROcodone/Acet 5/325 mg TABLET PO PRN (12:22)
[2017-05-04] MEDS ORDERED: *HR* Morphine 2 MG/ML SYRINGE IVP PRN (12:22)
[2017-05-04] MEDS: amLODIPine 5 MG TABLET PO SCH ×2 (13:03→21:44)
[2017-05-04] MEDS: hydrALAZINE 25 MG TABLET PO SCH (18:19)
[2017-05-04] MEDS: Temazepam 15 MG CAPSULE PO SCH (21:44)
[2017-05-05] MEDS: Insulin LISPRO 300 UNITS/3 ML VIAL SQ SCH ×8 (00:01→23:49)
[2017-05-05] MEDS: hydrALAZINE 25 MG TABLET PO SCH ×4 (00:03→23:52)
[2017-05-05 05:03] LABS: Basophils % 0.4 %; Eosinophils # 0.2 K/mcL (0.0-0.6); Eosinophils % 1.7 %; Hematocrit 21.3 % (37.5-50.1); Immature Granulocytes % 0.4 % (0-4); Lymphocytes # 1.6 K/mcL (0.6-4.6); Lymphocytes % 15.4 %; Mean Corpuscular HGB Conc 32.9 g/dL (31.6-35.5); Mean Corpuscular Hemoglobin 30.7 pg (28.0-33.3); Mean Corpuscular Volume 93.4 fL (83.0-100.0); Mean Platelet Volume 10.8 fL (9.4-12.4); Monocytes # 0.8 K/mcL (0.0-1.3); Monocytes % 8.1 %; Neutrophils # 7.5 K/mcL (1.6-8.9); Platelet Count 151 K/mcL (140-400); Red Blood Count 2.28 M/mcL (4.19-5.50); Red Cell Distribution Width 13.3 % (11.5-14.5)
[2017-05-05 05:14] LABS: Calcium 8.5 mg/dL (8.6-10.8); Potassium 3.7 mEq/L (3.5-4.5)
[2017-05-05] MEDS: *HR* Heparin 5,000 UNIT/ML VIAL SQ SCH ×3 (05:53→20:07)
[2017-05-05] MEDS: Nystatin SUSP 5 ML UD.LIQ PO SCH ×4 (08:43→20:06)
[2017-05-05] MEDS: Magic Mouthwash 10 ML UD Cup PO SCH ×4 (08:43→20:06)
[2017-05-05] MEDS: Insulin DETEMIR 100 UNIT/ML X5UNITS SQ SCH ×2 (08:43→20:07)
[2017-05-05] MEDS: amLODIPine 5 MG TABLET PO SCH ×2 (08:43→20:06)
[2017-05-05] MEDS: Pantoprazole 40 MG VIAL IVP SCH (08:43)
[2017-05-05 10:24] LABS: % Iron Saturation 25 % (20-55); Iron 45 mcg/dL (65-175); Transferrin 129 mg/dL (174-364)
[2017-05-05 10:45] LABS: Ferritin 1019 ng/ml (22-275)
[2017-05-05 11:26] LABS: Folate 11.3 ng/mL (7.0-31.4)
--- NOTE | 2017-05-05 13:03 | Internal Med Progress Note ---
Date of Encounter: 05/05/17 Time of Encounter: 10:00 - Assessment and plan (1) Dysphagia Current Visit: Yes Status: Acute Assessment and plan: Symptoms have improved since admission and he is tolerating a soft diet with thin liquids. Soft tissue CT of the neck unremarkable. Patient had a modified barium swallow that was unremarkable. Speech therapy remains onboard. He was seen and evaluated by ENT who have also signed off. Thyroid ultrasound still pending. In review of his chart, patient had an thyroid ultrasound earlier this year and has been seen by oncology. On examination, no stridor or drooling. Lungs clear to auscultation bilaterally. We will continue diet as ordered and monitor. Continue Protonix. Of note, patient's girlfriend is leaving for vacation and will be gone for approximately 2 weeks. Patient appears anxious about this making this dysphagia possibly related to globus sensation. We will continue to monitor. Of note, need to address his worsening anemia prior to disposition. ITS Impressions Soft Tissue Neck CT 05/03/17 09:54 IMPRESSION: No acute abnormality of the soft tissue structures of the neck. D/ / 05/03/2017 11:35:15 Dario Higgins MD / [facility] Interpreting Provider: Dario Higgins MD Chest X-Ray 05/03/17 12:21 IMPRESSION: No acute cardiopulmonary process. D/ / 05/03/2017 13:04:00 Dario Higgins MD / [facility] Interpreting Provider: Dario Higgins MD Videofluoroscopic Swallow 05/04/17 07:48 IMPRESSION: Deep laryngeal penetration with thin and nectar thick liquids. No definite evidence of aspiration. Please see separate speech pathology report for full discussion of findings and recommendations. D/ / Long Cummings MD / Long Cummings MD Interpreting Provider: Long Cummings MD Qualifiers: Dysphagia type: unspecified Qualified Code(s): R13.10 - Dysphagia, unspecified (2) Sore throat Current Visit: Yes Status: Acute (3) Thyroid nodule Current Visit: Yes Status: Acute Assessment and plan: Thyroid functioning normal last month. Thyroid ultrasound pending. He had a thyroid ultrasound with a subsequent biopsy earlier this year. He has been seen by oncology outpatient. (4) Anemia in CKD (chronic kidney disease) Current Visit: No Status: Chronic Assessment and plan: Lower than his normal. Hemoglobin 7.0. Nearly a point drop overnight despite patient not receiving IV fluids. In review of his chart, it appears as if he was needed one unit of packed red blood cells back in 2014 but does not appear as if he has been transfused since that time. Patient stating that he was getting regular doses of IV iron at the cancer center but states that he has not gone for quite some time. We will check iron studies as well as B12 and folate. We will bring nephrology on board. He is followed by Dr. Alicea. Renal functioning stable, possible consideration for Aranesp and IV iron if needed. Appreciate nephrology's input. Patient denies any hematuria, hematochezia. (5) CAD (coronary artery disease) Current Visit: No Status: Chronic Assessment and plan: Patient denies chest pain or shortness of breath (6) Chronic kidney disease, stage IV (severe) Current Visit: No Status: Chronic Assessment and plan: Stable and consistent with his baseline, we will continue to trend closely. Nephrology now on board. (7) Diabetes mellitus Current Visit: Yes Status: Chronic Assessment and plan: Controlled at home with a recent A1c of 6.2%. Of note, patient was given a regular breakfast with regular syrup. Glucose now in excess of 400, we will treat accordingly and monitor closely. Continue sliding scale while admitted. Qualifiers: Diabetes mellitus type: type 1 Diabetes mellitus complication status: with kidney complications Diabetes mellitus complication detail: with chronic kidney disease Chronic kidney disease stage: stage 4 (severe) Qualified Code (s): E10.22 - Type 1 diabetes mellitus with diabetic chronic kidney disease; N18.4 - Chronic kidney disease, stage 4 (severe) Code(s): E11.9 - Type 2 diabetes mellitus without complications (8) Hyperkalemia Current Visit: Yes Status: Resolved (9) Hypertension Current Visit: Yes Status: Chronic Assessment and plan: Poorly controlled yesterday, better controlled today. At home, patient is on hydralazine 100 mg 3 times a day, metoprolol 12.5 mg twice a day as needed, amlodipine 5 mg twice a day. These have been continued in PO form now that the patient is able to tolerate a diet. Will monitor and adjust his medications as indicated. Qualifiers: Hypertension type: essential hypertension Qualified Code(s): I10 - Essential (primary) hypertension (10) Metabolic acidosis Current Visit: Yes Status: Resolved (11) DVT prophylaxis Current Visit: Yes Status: Acute Assessment and plan: Subcutaneous heparin being held at this time given his worsening anemia. We will place IPCs - Subjective Interval history: Patient seen and examined. On examination, patient initially asleep. He awakened easily to voice and stated that he was feeling better. He states that he ate all of his breakfast. He states that he is cold but denies other concerns. - Constitutional Vitals: Temp Pulse Resp BP Pulse Ox 97.8 F 75 16 151/76 94 05/05/17 10:57 05/05/17 10:57 05/05/17 10:57 05/05/17 10:57 05/05/17 10:57 General appearance: Present: A&O X 3, pleasant, no acute distress, answers questions appropriately - Head Head exam: Present: atraumatic, normocephalic - Eye Eye exam: Present: PERRL, conjuntiva pink, sclera anicteric Pupils: Present: PERRL - Neck Neck exam general surgery: Present: supple, trachea midline. Absent: lymphadenopathy - Respiratory Respiratory exam: Present: CTAB. Absent: accessory muscle use, rales, respiratory distress, rhonchi, wheezes - Cardiovascular Cardiovascular exam: Present: RRR, +S1, +S2. Absent: diastolic murmur, gallop, rubs, systolic murmur - GI/Abdominal GI/Abdominal exam: Present: normal bowel sounds, soft, no peritoneal signs. Absent: distended, tenderness - Extremities Exam Extremities exam: Present: warm, radial pulses palpable and symmetrical. Absent : calf tenderness, cyanotic, pedal edema - Neurological Exam Neurological exam: Present: alert, CN II-XII intact, oriented X3, no focal deficits, strengths equal and symetr throughout. Absent: pronater drift, facial droop, speech deficit - Skin Skin exam: Present: dry, intact, pallor, warm Internal Medicine: Result - Labs CBC & Chem 7: 05/05/17 04:49 05/05/17 04:49 Labs: Short CBC 05/05/17 Range/Units 04:49 WBC 10.1 (4.3-11.1) K/mcL Hgb 7.0 L (12.9-16.9) g/dL Hct 21.3 L (37.5-50.1) % Plt Count 151 (140-400) K/mcL Neutrophils # 7.5 (1.6-8.9) K/mcL BMP 05/05/17 04:49 Sodium 138 Potassium 3.7 Chloride 101 Carbon Dioxide 28 BUN 61 H Creatinine 3.46 H Glucose 105 H Calcium 8.5 L Consult Discharge Plan - Plan Referrals: Sheng Alexandra MD [Primary Care Provider] -
[2017-05-05] MEDS ORDERED: Ferumoxytol 510 MG in 0.9 % Sodium Chloride 100 ML IVPB ONE ×2 (13:26→13:30)
[2017-05-05] MEDS ORDERED: Darbepoetin 100 MCG/0.5 ML SYRINGE SQ SCH (13:30)
[2017-05-05] MEDS: Temazepam 15 MG CAPSULE PO SCH (20:06)
[2017-05-06] MEDS: Insulin LISPRO 300 UNITS/3 ML VIAL SQ SCH ×2 (04:06→07:59)
[2017-05-06] MEDS: *HR* Heparin 5,000 UNIT/ML VIAL SQ SCH (04:11)
[2017-05-06 07:09] LABS: Basophils % 0.5 %; Eosinophils # 0.2 K/mcL (0.0-0.6); Eosinophils % 2.7 %; Hematocrit 21.7 % (37.5-50.1); Hemoglobin 7.2 g/dL (12.9-16.9); Immature Granulocytes % 0.8 % (0-4); Lymphocytes # 1.5 K/mcL (0.6-4.6); Mean Corpuscular HGB Conc 33.2 g/dL (31.6-35.5); Mean Corpuscular Hemoglobin 31.3 pg (28.0-33.3); Mean Corpuscular Volume 94.3 fL (83.0-100.0); Mean Platelet Volume 11.3 fL (9.4-12.4); Monocytes # 0.6 K/mcL (0.0-1.3); Monocytes % 10.3 %; Neutrophils # 3.6 K/mcL (1.6-8.9); Platelet Count 158 K/mcL (140-400); Red Cell Distribution Width 12.9 % (11.5-14.5); Segmented Neutrophils % 60.7 %
[2017-05-06 07:11] LABS: Calcium 8.5 mg/dL (8.6-10.8); Potassium 3.6 mEq/L (3.5-4.5)
[2017-05-06 07:41] VITALS: BP 145/77
--- NOTE | 2017-05-06 08:34 | Nephrology Consult Note ---
Date of Encounter: 05/06/17 Time of Encounter: 08:32 Assessment and Plan (1) Anemia in CKD (chronic kidney disease) Current Visit: No Status: Chronic Patient has anemia of chronic kidney disease with mild iron deficiency. He is receiving parenteral iron here in the hospital. He also has been started on Aranesp. He will follow up as an outpatient we will continue the Aranesp and monitor his blood work. In the meantime stool guaiac should also be done to rule out any component of GI blood loss. Qualifiers: Chronic kidney disease stage: stage 4 (severe) Qualified Code(s): N18.4 - Chronic kidney disease, stage 4 (severe); D63.1 - Anemia in chronic kidney disease (2) Odynophagia Current Visit: Yes Status: Acute (3) Chronic kidney disease, stage IV (severe) Current Visit: No Status: Chronic (4) Type 1 diabetes mellitus with diabetic chronic kidney disease Current Visit: No Status: Chronic Qualifiers: Chronic kidney disease stage: stage 4 (severe) Qualified Code(s): E10.22 - Type 1 diabetes mellitus with diabetic chronic kidney disease; N18.4 - Chronic kidney disease, stage 4 (severe) History of Present Illness - History of Present Illness This is a 71-year-old male who is followed as an outpatient for 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 Patient was admitted several days earlier with complaints of odynophagia. He underwent an ENT evaluation as well as a swallowing evaluation. Etiology remains unclear. However his symptoms have now resolved. From a renal perspective he is stable. Creatinine is 3.46 with a GFR of 18. Baseline creatinine is 3.5-4.0. Since patient's been in the hospitals hemoglobin has gone down to 7.2. He is mildly iron deficient. I discussed the case with the hospitalist yesterday and the patient has subsequently received some parenteral iron has been started on Aranesp. Past Med Surg Social Fam HX - Past Medical History Medical history: diabetes, hyperlipidemia, hypertension, renal disease Psychiatric history: depression - Past Surgical History Surgical History: appendectomy, orthopedic, other, other - Social History Smoking Status: Never smoker Smokeless Tobacco Status: No Alcohol use: none Drug use: none - Family History Mother Living Status: Hx Family Cardiac Disorders: No Hx Family Respiratory Disorders: Yes (TB) Hx Family Cancer: No Hx Family GI Disorders: No Hx Family Endocrine Disorder: No Hx Family Neuromuscular Disorders: No Hx Family Neurologic Disorders: No Hx Family HEENT Disorders: No Hx Family Autoimmune Disorders: No Father Living Status: Hx Family Cardiac Disorders: Yes Hx Family Respiratory Disorders: Yes Hx Family Cancer: No Hx Family GI Disorders: No Hx Family Endocrine Disorder: No Hx Family Neuromuscular Disorders: Yes Hx Family Neurologic Disorders: No Hx Family HEENT Disorders: No Hx Family Autoimmune Disorders: No Medications and Allergies Amlodipine [Norvasc] 5 mg PO BID 07/05/15 [History] Metoprolol [Lopressor] 12.5 mg PO BID PRN 07/05/15 [History] Simvastatin [Zocor] 20 mg PO HS 07/05/15 [History] Temazepam [Restoril] 15 mg PO HS 09/07/15 [History] Escitalopram [Lexapro] 20 mg PO DAILY 06/18/16 [History] Glucagon,Human Recombinant [Glucagon Emergency Kit] 1 mg IJ AD PRN 06/18/16 [ History] hydrALAZINE [HydrALAZINE] 100 mg PO Q8HR #60 tablet 06/23/16 [Rx] Dextran 70/Hypromellose [Artificial Tears Eye Drops] 1 drop OP DAILY PRN [History] Docusate [Colace] 100 mg PO BID PRN 12/08/16 [History] Insulin Glargine,Hum.rec.anlog [Lantus Solostar] 7 unit SQ BID 12/08/16 [History ] Insulin Lispro Protamin/Lispro [Humalog Mix 50-50 Kwikpen] 0 unit SQ TIDAC MDD SLIDING SCALE 12/08/16 [History] 3 Allergy/AdvReac Type Severity Reaction Status Date / Time tamsulosin [From Flomax] Allergy Dizziness Verified 07/05/15 17:45 Review of Systems Constitutional: as per HPI Eyes: bilateral: blurred vision (patient denies), diplopia (patient denies) Nose, mouth and throat: sore throat, no dizziness, no headache(s) Cardiovascular: no chest pain, no palpitations Respiratory: no cough, no dyspnea Gastrointestinal: no abdominal pain, no change in bowel habits Musculoskeletal: no muscle weakness, no numbness Integumentary: other Neurological: as per HPI Exam - Vital Signs Vital signs: Initial Vital Signs Temp Pulse Resp BP Pulse Ox 98.8 F 107 18 171/76 97 05/03/17 09:56 05/03/17 09:56 05/03/17 09:56 05/03/17 09:56 05/03/17 09:56 Vital Signs - Last 8 Hours Temp Pulse Resp BP Pulse Ox 05/06/17 07:41 97.8 F 81 16 145/77 95 05/06/17 03:18 98.6 F 86 16 117/53 95 Intake and Output 05/05/17 05/06/17 05/06/17 23:59 07:59 15:59 Intake Total 540 / 540 Output Total 1250 / 1250 Balance 540 / 540 -1250 / -1250 Intake: Oral 540 / 540 Output: Urine 1250 / 1250 Other: Weight 72 kg Blood Glucose* 316 82 Patient Weight 05/06/17 23:59 Weight 72 kg - General Appearance Exam: Patient is alert and oriented. He is in no acute distress. Vital signs are stable. He has diffuse vitiligo. Lungs diminished breath sounds otherwise clear. Heart regular rate and rhythm with a 2/6 talk ejection murmur. Abdomen shows bowel sounds are bruised muscles megaly or tenderness. There is no lower extremity swelling. Results - Lab Results 05/06/17 06:21 05/06/17 06:21 Most recent lab results Calcium 8.5 mg/dL (8.6-10.8) L 05/06/17 06:21 Consult Discharge Plan - Plan Referrals: Sheng Alexandra MD [Primary Care Provider] -
[2017-05-06] MEDS: Magic Mouthwash 10 ML UD Cup PO SCH (08:46)
[2017-05-06] MEDS: hydrALAZINE 25 MG TABLET PO SCH (08:46)
[2017-05-06] MEDS: Nystatin SUSP 5 ML UD.LIQ PO SCH (08:46)
[2017-05-06] MEDS: Pantoprazole 40 MG VIAL IVP SCH (08:46)
[2017-05-06] MEDS: amLODIPine 5 MG TABLET PO SCH (08:46)
[2017-05-06] MEDS: Insulin DETEMIR 100 UNIT/ML X5UNITS SQ SCH (08:47)
--- NOTE | 2017-05-06 09:46 | Discharge Summary ---
Date of Encounter: 05/06/17 Time of Encounter: 09:00 - Discharge Diagnosis (1) Dysphagia Priority: Primary Status: Resolved Comments: able to tolerate soft diet and thin liquids while admitted. Qualifiers: Dysphagia type: unspecified Qualified Code(s): R13.10 - Dysphagia, unspecified (2) Oral candidiasis Priority: Primary Status: Acute Comments: Treated with nystatin and Magic mouthwash while admitted. Will continue upon discharge and have follow-up outpatient. (3) Sore throat Priority: Primary Status: Resolved (4) Thyroid nodule Priority: Secondary Status: Chronic Comments: Thyroid functioning normal last month. Thyroid ultrasound performed earlier this year and was followed by a biopsy. No changes to size. Continue outpatient follow-up with oncology. (5) Anemia in CKD (chronic kidney disease) Priority: Secondary Status: Chronic Comments: Renal functioning remained stable and consistent with his baseline during this admission. He remained at the low end of his hemodynamic status. No indication for blood transfusion. He was given 2 doses of Feraheme and started on Aranesp. Close outpatient follow-up with nephrology and oncology. (6) CAD (coronary artery disease) Priority: Secondary Status: Chronic Comments: Patient denied chest pain or shortness of breath while admitted (7) Chronic kidney disease, stage IV (severe) Priority: Secondary Status: Chronic Comments: Remained stable. He was seen by his vp client services in consultation during this admission. Close outpatient follow-up (8) Diabetes mellitus Priority: Secondary Status: Chronic Comments: Controlled at home with a recent A1c of 6.2%. Slightly uncontrolled initially upon admission given that he was given a non ADA diet, much better controlled prior to discharge. Follow-up outpatient Qualifiers: Diabetes mellitus type: type 1 Diabetes mellitus complication status: with kidney complications Diabetes mellitus complication detail: with chronic kidney disease Chronic kidney disease stage: stage 4 (severe) Qualified Code (s): E10.22 - Type 1 diabetes mellitus with diabetic chronic kidney disease; N18.4 - Chronic kidney disease, stage 4 (severe) Code(s): E11.9 - Type 2 diabetes mellitus without complications (9) Hyperkalemia Priority: Primary Status: Resolved (10) Hypertension Priority: Secondary Status: Chronic Comments: Poorly controlled yesterday initially, but better controlled prior to discharge. He has home health services, recommend continue daily blood pressure checks and keeping a log for primary care team. At home, patient is on hydralazine 100 mg 3 times a day, metoprolol 12.5 mg twice a day as needed, amlodipine 5 mg twice a day. Qualifiers: Hypertension type: essential hypertension Qualified Code(s): I10 - Essential (primary) hypertension (11) Metabolic acidosis Priority: Primary Status: Resolved (12) DVT prophylaxis Priority: Primary Status: Acute Comments: Subcutaneous heparin held given his worsening anemia. IPCs ordered while admitted - Discharge Medications Prescriptions: Magic Mouthwash [Magic Mouthwash BLM] 10 ml PO QID PRN #240 ml PRN Reason: mouth pain Nystatin [Nystatin Suspension] 500,000 units PO QID #120 ml Home Medications: Amlodipine [Norvasc] 5 mg PO BID 07/05/15 [History] Metoprolol [Lopressor] 12.5 mg PO BID PRN 07/05/15 [History] Simvastatin [Zocor] 20 mg PO HS 07/05/15 [History] Temazepam [Restoril] 15 mg PO HS 09/07/15 [History] Escitalopram [Lexapro] 20 mg PO DAILY 06/18/16 [History] Glucagon,Human Recombinant [Glucagon Emergency Kit] 1 mg IJ AD PRN 06/18/16 [ History] hydrALAZINE [HydrALAZINE] 100 mg PO Q8HR #60 tablet 06/23/16 [Rx] Dextran 70/Hypromellose [Artificial Tears Eye Drops] 1 drop OP DAILY PRN [History] Docusate [Colace] 100 mg PO BID PRN 12/08/16 [History] Insulin Glargine,Hum.rec.anlog [Lantus Solostar] 7 unit SQ BID 12/08/16 [History ] Insulin Lispro Protamin/Lispro [Humalog Mix 50-50 Kwikpen] 0 unit SQ TIDAC MDD SLIDING SCALE 12/08/16 [History] Darbepoetin [Aranesp] 100 mcg SQ QWEEK 05/06/17 [Rx] Magic Mouthwash [Magic Mouthwash BLM] 10 ml PO QID PRN #240 ml 05/06/17 [Rx] Nystatin [Nystatin Suspension] 500,000 units PO QID #120 ml 05/06/17 [Rx] Allergies/Adverse Reactions: 3 Allergy/AdvReac Type Severity Reaction Status Date / Time tamsulosin [From Flomax] Allergy Dizziness Verified 07/05/15 17:45 Date of admission: 05/03/17 12:48 Primary care physician: Sheng Alexandra MD Consults: 05/03/17 16:51 Consult to Speech Therapy [CONS] Routine Comment: Evaluate, develop and implement POC Reason for Consult: painful swallowing, please evalute swallow. Call Completed: No 05/05/17 12:55 Consult to Nephrology [CONS] Routine Consulting Provider: Dionicio Alicea Reason for Consult: known to you. CKD4. was getting regular iron infusions but none recently. Hb 7. please eval and advise, thanks Time Notified: 12:56 Call Completed: Yes Discharging clinician: Rachel Bryan Anticipated date of discharge: 05/06/17 - Patient Status Disposition: Home, Self-Care Condition: Good Functional capacity at discharge: independent ambulation Overall status at discharge: patient is progressing back to baseline - Discharge Instructions Follow Up With: Sheng Alexandra MD [Primary Care Provider] - (Appointment web requested. Office to contact patient at home to schedule appointment. ) Dionicio Alicea, [Non-Partnered Physician] - Additional Instructions: Follow-up with primary care provider within one to 2 weeks, follow-up with nephrology as scheduled - Diet and Activity Activity: increase activity as tolerated Diet: diabetic diet, low salt diet Hospital course: Mr. Ruiz is a 71 year old male with past medical history of diabetes, hypertension, hyperlipidemia, chronic kidney disease stage IV. Patient presented to the emergency department chief complaint of sore throat, and difficulty swallowing secondary to pain and inability to take his medications home. Patient stating the pain started 2 days prior to presentation and had worsened and he was unable to eat or drink and has not been able to take his medications. He denied headache, lightheadedness, chest pain, palpitations, shortness of breath. Patient denied sensation that his throat was swollen. He also complained of feeling weak and tired. Workup in the emergency department notable for hyperkalemia and metabolic acidosis. Patient was also hyperglycemic with glucose in excess over 400 upon arrival. Soft tissue neck CT unremarkable. Chest x-ray negative. Patient was admitted to the hospitalist service for further evaluation and management. ENT was brought on board and recommend speech therapy consultation and cleared him from an ENT perspective. Speech therapy recommended a modified barium swallow which was unremarkable and the patient was started on soft food and thin liquid diet which he tolerated well while admitted. He was admitted and observed over the course of 3 nights. Urinalysis was negative. GS swab negative. Blood cultures negative. Metabolic acidosis resolved. His anemia had worsened slightly and became consistent with the low end of his normal. Nephrology was brought on board and he was given 2 doses of IV ferriheme and he was started on weekly Aranesp. Patient remained hemodynamically stable and a transfusion was not indicated. He denied any hematochezia or melena or hematuria. On day of discharge, patient was much more alert and interactive and stated he felt much better. Patient was initially reluctant to go home on Monday because his aide is only available to him on Monday through Monday but he stated that he had sons that could help them out if he needed it. On examination, oral candidiasis was noted the patient was treated with Magic mouthwash and nystatin and his symptoms improved. These were continued upon discharge. He was discharged home in stable of note, patient has had a history of poor follow-up at times-patient stating that he was afraid to follow up with his vp client services because she was afraid of going on dialysis. Patient and I discussed this at length and he stated that he would go to his next appointment. ITS Impressions Soft Tissue Neck CT 05/03/17 09:54 IMPRESSION: No acute abnormality of the soft tissue structures of the neck. D/ / 05/03/2017 11:35:15 Dario Higgins MD / [facility] Interpreting Provider: Dario Higgins MD Chest X-Ray 05/03/17 12:21 IMPRESSION: No acute cardiopulmonary process. D/ / 05/03/2017 13:04:00 Dario Higgins MD / [facility] Interpreting Provider: Dario Higgins MD Videofluoroscopic Swallow 05/04/17 07:48 IMPRESSION: Deep laryngeal penetration with thin and nectar thick liquids. No definite evidence of aspiration. Please see separate speech pathology report for full discussion of findings and recommendations. D/ / Long Cummings MD / Long Cummings MD Interpreting Provider: Long Cummings MD - Time Spent with Patient Total time spent providing and/or coordinating discharge services: - Constitutional Vitals: Temp Pulse Resp BP Pulse Ox 97.8 F 81 16 145/77 95 05/06/17 07:41 05/06/17 07:41 05/06/17 07:41 05/06/17 07:41 05/06/17 07:41 General appearance: Present: A&O X 3, pleasant, no acute distress, answers questions appropriately - Head Head exam: Present: atraumatic, normocephalic - Eye Eye exam: Present: PERRL, conjuntiva pink, sclera anicteric Pupils: Present: PERRL - Neck Neck exam general surgery: Present: supple, trachea midline. Absent: lymphadenopathy - Respiratory Respiratory exam: Present: CTAB. Absent: accessory muscle use, rales, respiratory distress, rhonchi, wheezes - Cardiovascular Cardiovascular exam: Present: RRR, +S1, +S2. Absent: diastolic murmur, gallop, rubs, systolic murmur - GI/Abdominal GI/Abdominal exam: Present: normal bowel sounds, soft, no peritoneal signs. Absent: distended, tenderness - Extremities Exam Extremities exam: Present: warm, radial pulses palpable and symmetrical. Absent : calf tenderness, cyanotic, pedal edema - Neurological Exam Neurological exam: Present: alert, CN II-XII intact, oriented X3, no focal deficits, strengths equal and symetr throughout. Absent: pronater drift, facial droop, speech deficit - Skin Skin exam: Present: dry, intact, pallor, warm
[2017-05-06] MEDS ORDERED: Ferumoxytol 510 MG in 0.9 % Sodium Chloride 100 ML IVPB ONE (13:27)
== END 2017-05-06 12:03 | disposition home health service (06) ==
LOC: 3BNU 09:51 → EMEROO 09:51 → 3BNU 13:51
PROVIDERS: ADMIT Internal Medicine; ATTEND Nurse Practitioner Family

== ENCOUNTER 2019-02-06 00:51 | Inpatient (IN) ==
[2019-02-06 01:35] LABS: Bilirubin,Urine Negative (Negative); Blood,Urine Negative (Negative); Clarity,Urine Cloudy (Clear); Color,Urine Yellow (Yellow); Glucose,Urine (UA) 250 mg/dL (Normal); Ketones,Urine Negative (Negative); Leukocyte Esterase,Urine Negative (Negative); Nitrite,Urine Negative (Negative); PH,Urine 5.5 pH Units (5.0-8.0); Protein,Urine 100 mg/dL (Neg-Trace); Specific Gravity,Urine 1.015 (1.010-1.025); Urobilinogen,Urine Normal (Normal)
[2019-02-06 01:37] LABS: Basophils # 0.1 K/mcL (0.0-0.2); Basophils % 0.2 %; Eosinophils % 0.1 %; Hematocrit 29.5 % (37.5-50.1); Hemoglobin 9.6 g/dL (12.9-16.9); Immature Granulocytes % 0.7 % (0-4); Lymphocytes % 4.5 %; Mean Corpuscular HGB Conc 32.5 g/dL (31.6-35.5); Mean Corpuscular Hemoglobin 32.8 pg (28.0-33.3); Mean Corpuscular Volume 100.7 fL (83.0-100.0); Mean Platelet Volume 9.6 fL (9.4-12.4); Monocytes # 0.7 K/mcL (0.0-1.3); Monocytes % 3.3 %; Neutrophils # 19.5 K/mcL (1.6-8.9); Platelet Count 322 K/mcL (140-400); Red Blood Count 2.93 M/mcL (4.19-5.50); Red Cell Distribution Width 13.4 % (11.5-14.5); Segmented Neutrophils % 91.2 %
[2019-02-06 01:38] LABS: Bacteria,Urine None Seen per hpf (None-Few); Hyaline Casts,Urine None Seen per lpf (None-Few); RBC,Urine 0-3 per hpf (0-3); Squamous Epithelial Cell,Urine Many per lpf (None-Few); WBC,Urine 0-3 per hpf (0-3)
[2019-02-06 01:45] LABS: INR 0.9; Prothrombin Time 10.3 Seconds (9.4-12.1)
[2019-02-06 01:45] LABS: Amphetamine Screen,Urine Negative ng/mL (Cutoff=1000); Barbiturate Screen,Urine Negative ng/mL (Cutoff=200); Benzodiazepines Screen,Urine Negative ng/mL (Cutoff=200); Cannabinoid Screen,Urine Negative ng/mL (Cutoff = 50); Cocaine Screen,Urine Negative ng/mL (Cutoff= 300); Opiate Screen,Urine Negative ng/mL (Cutoff=300); Phencyclidine Screen,Urine Negative ng/mL (Cutoff=25)
[2019-02-06 01:48] LABS: Activated Partial Thrombo Time 33.7 Seconds (26.0-36.0)
[2019-02-06 01:59] LABS: Alanine Aminotransferase 10 Units/L (7-52); Albumin 3.9 g/dL (3.5-5.7); Albumin/Globulin Ratio 1.4 (1.1-2.2); Alkaline Phosphatase 72 Units/L (34-104); Aspartate Amino Transferase 10 Units/L (13-39); BUN/Creatinine Ratio 14 (6-26); Bilirubin,Indirect 0.3 mg/dL (0.0-1.2); Bilirubin,Total 0.3 mg/dL (0.3-1.0); Blood Urea Nitrogen 64 mg/dL (8-23); Calcium 9.5 mg/dL (8.6-10.3); Carbon Dioxide 22 mEq/L (23-29); Chloride 106 mEq/L (98-107); Ethanol < 10 mg/dL (Less than 10); Globulin 2.7 g/dL (2.4-3.5); Glucose 161 mg/dL (70-105); Osmolality,Calculated 308 (280-300); Potassium 5.1 mEq/L (3.5-5.1); Sodium 138 mEq/L (136-145); Total Protein 6.6 g/dL (6.4-8.9); Troponin I 0.14 ng/mL (< 0.04); eGFR For Non-African Americans 13 (> 60)
[2019-02-06] MEDS ORDERED: *HR* LORazepam 2 MG/ML VIAL IVP ONE ×2 (02:18→11:55)
--- NOTE | 2019-02-06 03:59 | Emergency Department Note ---
Disposition Clinical Impression: Acute alteration in mental status, Hypoglycemia Diabetes Qualifiers: Diabetes mellitus type: type 2 Diabetes mellitus snf insulin use: with snf use Diabetes mellitus complication status: with hypoglycemia Diabetes mellitus complication detail: without coma Qualified Code(s): E11.649 - Type 2 diabetes mellitus with hypoglycemia without coma Disposition: Still a Patient Condition: Good Referrals: NONE,PCP [Primary Care Provider] - Forms: ED Satisfaction Letter Time of Disposition: 06:00 Altered Mental Status HPI - General Chief Complaint: ED Altered Mental Status Stated Complaint: AMS Time Seen by Provider: 02/06/19 00:56 Source: EMS Mode of arrival: EMS Limitations: altered mental status Nursing Notes Reviewed: Yes Vital Signs Reviewed: Yes - History of Present Illness HPI Narrative: 73 year old male presents emergency department for EMS for alteration of mental status after being hypoglycemic. Pt is a known brittle diabetic Son states at 1930 pt was eating dinner when son left the house, son returns at 2225 to find patient sitting on the couch with his head down drooling unconscious. Patient was unresponsive to stimuli. Son checked his sugar and found that it was 31, he did give him 1 mg of glucagon and 15 minutes later sugar was 90, patient was not wanting to come out of the unresponsiveness and it did take several minutes with patient did start to arouse. When patient was arousing he remained altered in mental status, he was fighting his son and seemed very confused. Son called the squad. Squad arrived around 2345 the patient remained altered mental status, he was kind combative and crawling up. Squad nose patient well and states he is a known brittle diabetic however he is normally alert and oriented 3, pleasant. Son denies knowing any ailments, illnesses. Son is unsure patient takes his medicine as prescribed. He states his dad hides a lot and he thinks he takes his medicine but he is not sure. Son does note patient is on a fast acting and long-acting insulin. Pt does have home health that comes M-F in themornings to assist patient. Son checks in on him 1-2 times a day. complaint: altered mental status Onset (ago): Just CHEMICAL EDUCATOR Timing confirmed by: family member Context: history of similar presentation, diabetes Treatments prior to arrival: EMS treatment/medication, other - Related Data Home Medications Medication Instructions Recorded Confirmed Amlodipine [Norvasc] 5 mg PO BID 07/05/15 02/06/18 Metoprolol [Lopressor] 12.5 mg PO BID 07/05/15 02/06/18 Simvastatin [Zocor] 20 mg PO HS 07/05/15 02/06/18 Escitalopram [Lexapro] 20 mg PO DAILY 06/18/16 02/06/18 Glucagon,Human Recombinant 1 mg IJ AD PRN 06/18/16 02/06/18 [Glucagon Emergency Kit] Docusate [Colace] 100 mg PO BID PRN 12/08/16 02/06/18 Insulin Glargine,Hum.rec.anlog 7 unit SQ BID 12/08/16 02/06/18 [Lantus Solostar] Insulin Lispro Protamin/Lispro 0 unit SQ TIDAC MDD SLIDING SCALE 12/08/16 02/06/18 [Humalog Mix 50-50 Kwikpen] hydrALAZINE [HydrALAZINE] 100 mg PO BID 01/23/18 02/06/18 Previous Rx's Medication Instructions Recorded Oxycodone HCl/Acetaminophen 1 each PO Q4HR PRN #5 tablet 07/15/17 [Percocet 5-325 mg Tablet] Ibuprofen [Motrin] 600 mg PO Q6HR PRN #20 tab 03/26/18 Lidocaine Patch [Lidoderm 5% patch] 1 each TP DAILY #7 adh..patch 03/26/18 Allergies Allergy/AdvReac Type Severity Reaction Status Date / Time tamsulosin [From Flomax] Allergy Dizziness Verified 02/06/18 15:33 Limitations: ROS unobtainable due to patients medical condition Past Medical History - Past Medical History Attestation: Yes The following information was validated with the patient. Source: old records reviewed, obtained from family Medical history: Reports: diabetes, hyperlipidemia, hypertension, renal disease Surgical history: Reports: appendectomy, orthopedic, other, other Psychiatric history: Reports: depression - Social History Smoking Status: Never smoker Smokeless Tobacco Status: No Alcohol use: Reports: none Drug use: Reports: none Physical Exam - General Limitations: altered mental status - Head Head exam: atraumatic, normocephalic, normal inspection - Eye Eye exam: Present: normal appearance, PERRL, EOMI - ENT ENT exam: mucous membranes moist - Neck Neck exam: Present: normal inspection, full ROM, trachea midline - Chest Chest inspection: Present: normal inspection, symmetric chest wall rise - Respiratory Respiratory exam: Present: normal lung sounds bilaterally - Cardiovascular Cardiovascular exam: Present: regular rate, normal rhythm, normal heart sounds - Extremities Exam Extremities exam: Present: normal inspection, full ROM. Absent: tenderness, pedal edema - Skin Skin exam: Present: warm, dry, intact, normal color Course Course Narrative: Cachectic appearing male in no acute distress. Patient is related on the bed, he moves all extremities and head, she is awake however she is not speaking, he is not responding, he appears very confused. EOMIs are intact, no facial drooping, moves all extremities. Unable to follow commands. Accu-Chek upon arrival 162. EKG upon arrival completed 01:08 reveals a sinus tachycardia with ventricular rate of 124 beats for minute. No evidence of ischemic pathology or ectopy. Rest of physical exam other than neurologically is unremarkable. Potential alteration of mental status related to the hypoglycemic, possibly acute cerebral issue, unknown illness. We will obtain labs, head CT, chest x- ray as well as monitor glucose. - Reevaluation(s) Reevaluation #1: Patient remains confused, he is a bit more alert, he answers to his name, he is able to say his name and birthday, his son's name, his dog's name and answer some questions. He is asking for water. Patient does continue to pull at cords and is otherwise continues to be altered. Labs returned with elevated white blood cell count of 12.4, baseline CMP, troponin elevated 0.14, UA is unremarkable, no tox screen. Head CT is having completed 2, first a nondiagnostic given the alteration of mental status and moving, patient is a little bit of Ativan and sent back, again patient extremely anxious and moving however radiologist showed as no obvious intracranial trauma with repeat exams recommended. Chest x-ray returns unremarkable. Patient with elevated white count, no evidence of an infectious etiology, will hold on antibiotics until further testing or symptomology presents itself. Patient does however remain slightly tachycardic, again, no evidence of infectious etiology however we will start giving fluids as patient is cachectic and potentially hypovolemic. Patient is a elevated troponin however his stage IV kidney disease, are most recent troponin was from 2016, patient has not had any chest pain, he has not had any complaints to the son. We will obtain blood cultures, given aspirin. The son is fairly certain patient takes his medicines as prescribed, he does not think he is skipping or taking extra doses states it is possible. Patient will need to be admitted to the hospital for continuation of monitoring of the alteration of mental status. The son is agreeable plan of care. Son fears the patient is released due to his continued headache status and being unable to get around the house well and does continue to have problems as patient only has minimal home healthcare, patient may need a higher level care, adoption social worker and put will be appreciated. Hospitalat this time. Time: 05:08 Reevaluation #2: Continue to away hospitals:, Case will be transferred to [facility] due to shift change. Time: 06:02 Vital Signs Temperature 97.4 F L 02/06/19 00:59 Pulse Rate 125 02/06/19 00:59 Respiratory Rate 22 02/06/19 00:59 Blood Pressure 188/104 02/06/19 00:59 O2 Sat by Pulse Oximetry 100 02/06/19 00:59 Temperature 97.4 F L 02/06/19 00:59 Pulse Rate 126 02/06/19 03:12 Respiratory Rate 20 02/06/19 03:12 Blood Pressure 133/84 02/06/19 03:12 O2 Sat by Pulse Oximetry 97 02/06/19 03:12 Oxygen Delivery Oxygen Delivery Room Air Altered Mental Status - Differential Diagnosis Likely: altered mental status, hypoglycemia. Unlikely: alcoholic intoxication, delirium, dementia, hyponatremia, psychiatric disease, subarachnoid hemorrhage, sepsis, substance use - Lab Data Lab results reviewed: Yes I reviewed the patient's lab results. Result diagrams: 02/06/19 01:28 02/06/19 01:28 Lab Results 02/06/19 02/06/19 02/06/19 Range/Units 01:27 01:27 01:28 WBC 21.4 H (4.3-11.1) K/mcL RBC 2.93 L (4.19-5.50) M/mcL Hgb 9.6 L (12.9-16.9) g/dL Hct 29.5 L (37.5-50.1) % MCV 100.7 H (83.0-100.0) fL MCH 32.8 (28.0-33.3) pg MCHC 32.5 (31.6-35.5) g/dL RDW 13.4 (11.5-14.5) % Plt Count 322 (140-400) K/mcL MPV 9.6 (9.4-12.4) fL Immature Gran % 0.7 (0-4) % Seg Neutrophils % 91.2 % Lymphocytes % 4.5 % Monocytes % 3.3 % Eosinophils % 0.1 % Basophils % 0.2 % Neutrophils # 19.5 H (1.6-8.9) K/mcL Lymphocytes # 1.0 (0.6-4.6) K/mcL Monocytes # 0.7 (0.0-1.3) K/mcL Eosinophils # 0.0 (0.0-0.6) K/mcL Basophils # 0.1 (0.0-0.2) K/mcL PT (9.4-12.1) Seconds INR APTT (26.0-36.0) Seconds Sodium (136-145) mEq/L Potassium (3.5-5.1) mEq/L Chloride (98-107) mEq/L Carbon Dioxide (23-29) mEq/L BUN (8-23) mg/dL Creatinine (0.70-1.30) mg/dL Est GFR ( Amer) (> 60) Est GFR (Non-Af Amer) (> 60) BUN/Creatinine Ratio (6-26) Glucose (70-105) mg/dL Calculated Osmolality (280-300) Lactic Acid (0.5-2.2) mmol/L Calcium (8.6-10.3) mg/dL Total Bilirubin (0.3-1.0) mg/dL Direct Bilirubin (0.0-0.2) mg/dL Indirect Bilirubin (0.0-1.2) mg/dL AST (13-39) Units/L ALT (7-52) Units/L Alkaline Phosphatase (34-104) Units/L Troponin I (< 0.04) ng/mL Serum Total Protein (6.4-8.9) g/dL Albumin (3.5-5.7) g/dL Globulin (2.4-3.5) g/dL Albumin/Globulin Ratio (1.1-2.2) Urine Color Yellow (Yellow) Urine Clarity Cloudy A (Clear) Urine pH 5.5 (5.0-8.0) pH Units Ur Specific [place] 1.015 (1.010-1.025) Urine Protein 100 H (Neg-Trace) mg/dL Urine Glucose (UA) 250 H (Normal) mg/dL Urine Ketones Negative (Negative) mg/dL Urine Blood Negative (Negative) Urine Nitrite Negative (Negative) Urine Bilirubin Negative (Negative) Urine Urobilinogen Normal (Normal) mg/dL Ur Leukocyte Esterase Negative (Negative) Urine Microscopic RBC 0-3 (0-3) per hpf Urine Microscopic WBC 0-3 (0-3) per hpf Ur Squamous Epith Cells Many H (None-Few) per lpf Urine Bacteria None Seen (None-Few) per hpf Hyaline Casts None Seen (None-Few) per lpf Ur Culture Indicated? NO (NO) Urine Opiates Screen Negative (Jwyipc=271) ng/mL Ur Barbiturates Screen Negative (Ugrvin=714) ng/mL Ur Phencyclidine Scrn Negative (Cutoff=25) ng/mL Ur Amphetamines Screen Negative (Ruiiop=2017) ng/mL U Benzodiazepines Scrn Negative (Hcblij=533) ng/mL Urine Cocaine Screen Negative (Cutoff= 300) ng/mL U Marijuana (THC) Screen Negative (Cutoff = 50) ng/mL Ur Drug Screen Interp See Below Ethyl Alcohol (Less than 10) mg/dL 02/06/19 02/06/19 02/06/19 Range/Units 01:28 01:28 01:28 WBC (4.3-11.1) K/mcL RBC (4.19-5.50) M/mcL Hgb (12.9-16.9) g/dL Hct (37.5-50.1) % MCV (83.0-100.0) fL MCH (28.0-33.3) pg MCHC (31.6-35.5) g/dL RDW (11.5-14.5) % Plt Count (140-400) K/mcL MPV (9.4-12.4) fL Immature Gran % (0-4) % Seg Neutrophils % % Lymphocytes % % Monocytes % % Eosinophils % % Basophils % % Neutrophils # (1.6-8.9) K/mcL Lymphocytes # (0.6-4.6) K/mcL Monocytes # (0.0-1.3) K/mcL Eosinophils # (0.0-0.6) K/mcL Basophils # (0.0-0.2) K/mcL PT 10.3 (9.4-12.1) Seconds INR 0.9 APTT 33.7 (26.0-36.0) Seconds Sodium 138 (136-145) mEq/L Potassium 5.1 (3.5-5.1) mEq/L Chloride 106 (98-107) mEq/L Carbon Dioxide 22 L (23-29) mEq/L BUN 64 H (8-23) mg/dL Creatinine 4.42 H (0.70-1.30) mg/dL Est GFR ( Amer) 16 L (> 60) Est GFR (Non-Af Amer) 13 L (> 60) BUN/Creatinine Ratio 14 (6-26) Glucose 161 H (70-105) mg/dL Calculated Osmolality 308 H (280-300) Lactic Acid 2.2 (0.5-2.2) mmol/L Calcium 9.5 (8.6-10.3) mg/dL Total Bilirubin 0.3 (0.3-1.0) mg/dL Direct Bilirubin 0.0 (0.0-0.2) mg/dL Indirect Bilirubin 0.3 (0.0-1.2) mg/dL AST 10 L (13-39) Units/L ALT 10 (7-52) Units/L Alkaline Phosphatase 72 (34-104) Units/L Troponin I 0.14 H* (< 0.04) ng/mL Serum Total Protein 6.6 (6.4-8.9) g/dL Albumin 3.9 (3.5-5.7) g/dL Globulin 2.7 (2.4-3.5) g/dL Albumin/Globulin Ratio 1.4 (1.1-2.2) Urine Color (Yellow) Urine Clarity (Clear) Urine pH (5.0-8.0) pH Units Ur Specific [place] (1.010-1.025) Urine Protein (Neg-Trace) mg/dL Urine Glucose (UA) (Normal) mg/dL Urine Ketones (Negative) mg/dL Urine Blood (Negative) Urine Nitrite (Negative) Urine Bilirubin (Negative) Urine Urobilinogen (Normal) mg/dL Ur Leukocyte Esterase (Negative) Urine Microscopic RBC (0-3) per hpf Urine Microscopic WBC (0-3) per hpf Ur Squamous Epith Cells (None-Few) per lpf Urine Bacteria (None-Few) per hpf Hyaline Casts (None-Few) per lpf Ur Culture Indicated? (NO) Urine Opiates Screen (Xyuocn=800) ng/mL Ur Barbiturates Screen (Lqyfhh=543) ng/mL Ur Phencyclidine Scrn (Cutoff=25) ng/mL Ur Amphetamines Screen (Xgpvse=9743) ng/mL U Benzodiazepines Scrn (Yzwznc=236) ng/mL Urine Cocaine Screen (Cutoff= 300) ng/mL U Marijuana (THC) Screen (Cutoff = 50) ng/mL Ur Drug Screen Interp Ethyl Alcohol < 10 (Less than 10) mg/dL - Radiology Data Radiology results reviewed: Yes I reviewed the patient's radiology results. - EKG Data EKG attestation: Yes I reviewed and interpreted this EKG. TPA Checklist - LKW: 3-4.5 hrs Add. Warnings/Precautions Patient/family understanding: The patient/family members have been counseled and understood the risk, benefit, and alternatives of treatment. S.B.A.Obed. - S.B.A.Juany Situation: Demographics, MOA Background: Presenting Complaint, Relevant PMH, Meds, & Allergies Assessment: Vital Signs, Course and respsone to treatment, Exam Concerns, Patient/Family Expectation, Pertinant Lab Results, Outstanding Labs Recommendation: Barrier(s) to disposition, Recommendation based on pending studies, treatments, or consults S.B.A.R. Report Given to: Cyndie Linares CNP SMaximiliano Repor Time: 06:00
[2019-02-06] MEDS ORDERED: Aspirin 325 MG TABLET PO ONE (04:13)
[2019-02-06] MEDS ORDERED: Haloperidol Lactate 5 MG/ML VIAL IVP ONE (05:01)
--- NOTE | 2019-02-06 06:09 | Emergency Department Note ---
Disposition Clinical Impression: Acute alteration in mental status, Hypoglycemia Diabetes Qualifiers: Diabetes mellitus type: type 2 Diabetes mellitus prison insulin use: with prison use Diabetes mellitus complication status: with hypoglycemia Diabetes mellitus complication detail: without coma Qualified Code(s): E11.649 - Type 2 diabetes mellitus with hypoglycemia without coma Disposition: Admitted As Inpatient Condition: Good Referrals: NONE,PCP [Primary Care Provider] - Forms: ED Satisfaction Letter Time of Disposition: 06:34 General Adult HPI - General Chief complaint: ED Altered Mental Status Stated complaint: AMS Time Seen by Provider: 02/06/19 00:56 Source: EMS Mode of arrival: EMS Limitations: altered mental status - History of Present Illness Pain Scale: 0 - Related Data Home Medications Medication Instructions Recorded Confirmed Amlodipine [Norvasc] 5 mg PO BID 07/05/15 02/06/18 Metoprolol [Lopressor] 12.5 mg PO BID 07/05/15 02/06/18 Simvastatin [Zocor] 20 mg PO HS 07/05/15 02/06/18 Escitalopram [Lexapro] 20 mg PO DAILY 06/18/16 02/06/18 Glucagon,Human Recombinant 1 mg IJ AD PRN 06/18/16 02/06/18 [Glucagon Emergency Kit] Docusate [Colace] 100 mg PO BID PRN 12/08/16 02/06/18 Insulin Glargine,Hum.rec.anlog 7 unit SQ BID 12/08/16 02/06/18 [Lantus Solostar] Insulin Lispro Protamin/Lispro 0 unit SQ TIDAC MDD SLIDING SCALE 12/08/16 02/06/18 [Humalog Mix 50-50 Kwikpen] hydrALAZINE [HydrALAZINE] 100 mg PO BID 01/23/18 02/06/18 Previous Rx's Medication Instructions Recorded Oxycodone HCl/Acetaminophen 1 each PO Q4HR PRN #5 tablet 07/15/17 [Percocet 5-325 mg Tablet] Ibuprofen [Motrin] 600 mg PO Q6HR PRN #20 tab 03/26/18 Lidocaine Patch [Lidoderm 5% patch] 1 each TP DAILY #7 adh..patch 03/26/18 Allergies Allergy/AdvReac Type Severity Reaction Status Date / Time tamsulosin [From Flomax] Allergy Dizziness Verified 02/06/18 15:33 Past Medical History - Past Medical History Medical history: Reports: diabetes, hyperlipidemia, hypertension, renal disease Surgical history: Reports: appendectomy, orthopedic, other, other Psychiatric history: Reports: depression - Social History Smoking Status: Never smoker Smokeless Tobacco Status: No Alcohol use: Reports: none Drug use: Reports: none Physical Exam - General Limitations: altered mental status Course Vital Signs Temperature 97.4 F L 02/06/19 00:59 Pulse Rate 125 02/06/19 00:59 Respiratory Rate 22 02/06/19 00:59 Blood Pressure 188/104 02/06/19 00:59 O2 Sat by Pulse Oximetry 100 02/06/19 00:59 Temperature 97.4 F L 02/06/19 00:59 Pulse Rate 126 02/06/19 03:12 Respiratory Rate 20 02/06/19 03:12 Blood Pressure 133/84 02/06/19 03:12 O2 Sat by Pulse Oximetry 97 02/06/19 03:12 Oxygen Delivery Oxygen Delivery Room Air Medical Decision Making - Lab Data Result diagrams: 02/06/19 01:28 02/06/19 01:28 Lab Results 02/06/19 02/06/19 02/06/19 Range/Units 01:27 01:27 01:28 WBC 21.4 H (4.3-11.1) K/mcL RBC 2.93 L (4.19-5.50) M/mcL Hgb 9.6 L (12.9-16.9) g/dL Hct 29.5 L (37.5-50.1) % MCV 100.7 H (83.0-100.0) fL MCH 32.8 (28.0-33.3) pg MCHC 32.5 (31.6-35.5) g/dL RDW 13.4 (11.5-14.5) % Plt Count 322 (140-400) K/mcL MPV 9.6 (9.4-12.4) fL Immature Gran % 0.7 (0-4) % Seg Neutrophils % 91.2 % Lymphocytes % 4.5 % Monocytes % 3.3 % Eosinophils % 0.1 % Basophils % 0.2 % Neutrophils # 19.5 H (1.6-8.9) K/mcL Lymphocytes # 1.0 (0.6-4.6) K/mcL Monocytes # 0.7 (0.0-1.3) K/mcL Eosinophils # 0.0 (0.0-0.6) K/mcL Basophils # 0.1 (0.0-0.2) K/mcL PT (9.4-12.1) Seconds INR APTT (26.0-36.0) Seconds Sodium (136-145) mEq/L Potassium (3.5-5.1) mEq/L Chloride (98-107) mEq/L Carbon Dioxide (23-29) mEq/L BUN (8-23) mg/dL Creatinine (0.70-1.30) mg/dL Est GFR ( Amer) (> 60) Est GFR (Non-Af Amer) (> 60) BUN/Creatinine Ratio (6-26) Glucose (70-105) mg/dL Calculated Osmolality (280-300) Lactic Acid (0.5-2.2) mmol/L Calcium (8.6-10.3) mg/dL Total Bilirubin (0.3-1.0) mg/dL Direct Bilirubin (0.0-0.2) mg/dL Indirect Bilirubin (0.0-1.2) mg/dL AST (13-39) Units/L ALT (7-52) Units/L Alkaline Phosphatase (34-104) Units/L Troponin I (< 0.04) ng/mL Serum Total Protein (6.4-8.9) g/dL Albumin (3.5-5.7) g/dL Globulin (2.4-3.5) g/dL Albumin/Globulin Ratio (1.1-2.2) Urine Color Yellow (Yellow) Urine Clarity Cloudy A (Clear) Urine pH 5.5 (5.0-8.0) pH Units Ur Specific [place] 1.015 (1.010-1.025) Urine Protein 100 H (Neg-Trace) mg/dL Urine Glucose (UA) 250 H (Normal) mg/dL Urine Ketones Negative (Negative) mg/dL Urine Blood Negative (Negative) Urine Nitrite Negative (Negative) Urine Bilirubin Negative (Negative) Urine Urobilinogen Normal (Normal) mg/dL Ur Leukocyte Esterase Negative (Negative) Urine Microscopic RBC 0-3 (0-3) per hpf Urine Microscopic WBC 0-3 (0-3) per hpf Ur Squamous Epith Cells Many H (None-Few) per lpf Urine Bacteria None Seen (None-Few) per hpf Hyaline Casts None Seen (None-Few) per lpf Ur Culture Indicated? NO (NO) Urine Opiates Screen Negative (Yiwtot=568) ng/mL Ur Barbiturates Screen Negative (Gmhnrt=180) ng/mL Ur Phencyclidine Scrn Negative (Cutoff=25) ng/mL Ur Amphetamines Screen Negative (Cxpsfo=1228) ng/mL U Benzodiazepines Scrn Negative (Kcqpcd=287) ng/mL Urine Cocaine Screen Negative (Cutoff= 300) ng/mL U Marijuana (THC) Screen Negative (Cutoff = 50) ng/mL Ur Drug Screen Interp See Below Ethyl Alcohol (Less than 10) mg/dL 02/06/19 02/06/19 02/06/19 Range/Units 01:28 01:28 01:28 WBC (4.3-11.1) K/mcL RBC (4.19-5.50) M/mcL Hgb (12.9-16.9) g/dL Hct (37.5-50.1) % MCV (83.0-100.0) fL MCH (28.0-33.3) pg MCHC (31.6-35.5) g/dL RDW (11.5-14.5) % Plt Count (140-400) K/mcL MPV (9.4-12.4) fL Immature Gran % (0-4) % Seg Neutrophils % % Lymphocytes % % Monocytes % % Eosinophils % % Basophils % % Neutrophils # (1.6-8.9) K/mcL Lymphocytes # (0.6-4.6) K/mcL Monocytes # (0.0-1.3) K/mcL Eosinophils # (0.0-0.6) K/mcL Basophils # (0.0-0.2) K/mcL PT 10.3 (9.4-12.1) Seconds INR 0.9 APTT 33.7 (26.0-36.0) Seconds Sodium 138 (136-145) mEq/L Potassium 5.1 (3.5-5.1) mEq/L Chloride 106 (98-107) mEq/L Carbon Dioxide 22 L (23-29) mEq/L BUN 64 H (8-23) mg/dL Creatinine 4.42 H (0.70-1.30) mg/dL Est GFR ( Amer) 16 L (> 60) Est GFR (Non-Af Amer) 13 L (> 60) BUN/Creatinine Ratio 14 (6-26) Glucose 161 H (70-105) mg/dL Calculated Osmolality 308 H (280-300) Lactic Acid 2.2 (0.5-2.2) mmol/L Calcium 9.5 (8.6-10.3) mg/dL Total Bilirubin 0.3 (0.3-1.0) mg/dL Direct Bilirubin 0.0 (0.0-0.2) mg/dL Indirect Bilirubin 0.3 (0.0-1.2) mg/dL AST 10 L (13-39) Units/L ALT 10 (7-52) Units/L Alkaline Phosphatase 72 (34-104) Units/L Troponin I 0.14 H* (< 0.04) ng/mL Serum Total Protein 6.6 (6.4-8.9) g/dL Albumin 3.9 (3.5-5.7) g/dL Globulin 2.7 (2.4-3.5) g/dL Albumin/Globulin Ratio 1.4 (1.1-2.2) Urine Color (Yellow) Urine Clarity (Clear) Urine pH (5.0-8.0) pH Units Ur Specific [place] (1.010-1.025) Urine Protein (Neg-Trace) mg/dL Urine Glucose (UA) (Normal) mg/dL Urine Ketones (Negative) mg/dL Urine Blood (Negative) Urine Nitrite (Negative) Urine Bilirubin (Negative) Urine Urobilinogen (Normal) mg/dL Ur Leukocyte Esterase (Negative) Urine Microscopic RBC (0-3) per hpf Urine Microscopic WBC (0-3) per hpf Ur Squamous Epith Cells (None-Few) per lpf Urine Bacteria (None-Few) per hpf Hyaline Casts (None-Few) per lpf Ur Culture Indicated? (NO) Urine Opiates Screen (Qamnbi=114) ng/mL Ur Barbiturates Screen (Zdgaqf=905) ng/mL Ur Phencyclidine Scrn (Cutoff=25) ng/mL Ur Amphetamines Screen (Zjrqyw=3449) ng/mL U Benzodiazepines Scrn (Gmqlbh=699) ng/mL Urine Cocaine Screen (Cutoff= 300) ng/mL U Marijuana (THC) Screen (Cutoff = 50) ng/mL Ur Drug Screen Interp Ethyl Alcohol < 10 (Less than 10) mg/dL Attestation Statement - Attestation Attestation: For this encounter, I have reviewed the [employer]VENTION SPECIALIST or PA documentation, treatment plan, and medical decision making; and I have had face to face time with this patient. Patient 73-year-old Katheryn presents to emergency department with chief complaint of altered mental status after hypoglycemic episode. Patient has a history of brittle diabetes and poorly compliant with his medications. Patient lives alone with minimal home health care. Patient was found unresponsive after an unknown period of time covered in urine. Patient initially had blood sugars in the 30s and was given glucagon and also IV dextrose. The patient normally comes back to his baseline status. Quickly that has been slow to return back to his baseline status family reports that he still confused compared to his normal Physical exam patient is awake alert but does appear to be somewhat drowsy. The patient is slow to answer questions, is able answer some basic questions. Given the patient has significant leukocytosis as well as altered mental status and also given his current home situation the patient's case will be discussed with the hospitalist and the patient to the hospital diagnosis: hypoglycemia, altered mental status, leukocytosis, elevated troponin
[2019-02-06] MEDS: D5% in 0.9% NACL 1,000 ML IVC SCH ×2 (07:10→19:48)
--- NOTE | 2019-02-06 08:30 | Internal Med History&Physical ---
Date of Encounter: 02/06/19 Time of Encounter: 08:30 Internal Medicine - H&P: HPI Chief complaint: Change of mental status History of present illness: Mr. 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 The daughter at bedside stated that her father was in his normal mental status condition at known yesterday and she talked to him on the phone twice, however when her brother return to check on him at night he found his head down and unconscious as well as unresponsive to stimuli the patient son checked his blood sugar and it was 31 so he gave him 1 mg of glucagon . Patient become more arousable however continue to be confused , at the bedside he would not respond to verbal stimuli cannot answer any questions, 2 attempts to obtain CAT scan of his head was unsuccessful due to agitation, that did not respond to Ativan and Haldol administration. neurology was consulted for further evaluation and management Past Med Surg Social Fam HX - Past Medical History Medical history: diabetes, hyperlipidemia, hypertension, renal disease Additional medical history: diabetic foot ulcers, osteomyelitis, vitiligo, nephrolithasis, neuropathy, ed, Psychiatric history: depression - Past Surgical History Surgical History: appendectomy, orthopedic, other, other Additional surgical history: foot surgeries, hip fracture repair - Social History Smoking Status: Never smoker Smokeless Tobacco Status: No Alcohol use: none Drug use: none - Family History Mother Living Status: Hx Family Cardiac Disorders: No Hx Family Respiratory Disorders: Yes (TB) Hx Family Cancer: No Hx Family GI Disorders: No Hx Family Endocrine Disorder: No Hx Family Neuromuscular Disorders: No Hx Family Neurologic Disorders: No Hx Family HEENT Disorders: No Hx Family Autoimmune Disorders: No Father Living Status: Hx Family Cardiac Disorders: Yes Hx Family Respiratory Disorders: Yes Hx Family Cancer: No Hx Family GI Disorders: No Hx Family Endocrine Disorder: No Hx Family Neuromuscular Disorders: Yes Hx Family Neurologic Disorders: No Hx Family HEENT Disorders: No Hx Family Autoimmune Disorders: No Internal Medicine - H&P: Meds Amlodipine [Norvasc] 5 mg PO BID 07/05/15 [History] Metoprolol [Lopressor] 12.5 mg PO BID 07/05/15 [History] Simvastatin [Zocor] 20 mg PO HS 07/05/15 [History] Escitalopram [Lexapro] 20 mg PO DAILY 06/18/16 [History] Glucagon,Human Recombinant [Glucagon Emergency Kit] 1 mg IJ AD PRN 06/18/16 [History] Docusate [Colace] 100 mg PO BID PRN 12/08/16 [History] Insulin Glargine,Hum.rec.anlog [Lantus Solostar] 7 unit SQ BID 12/08/16 [History] Insulin Lispro Protamin/Lispro [Humalog Mix 50-50 Kwikpen] 0 unit SQ TIDAC MDD SLIDING SCALE 12/08/16 [History] Oxycodone HCl/Acetaminophen [Percocet 5-325 mg Tablet] 1 each PO Q4HR PRN #5 tablet 07/15/17 [Rx] hydrALAZINE [HydrALAZINE] 100 mg PO BID 01/23/18 [History] Ibuprofen [Motrin] 600 mg PO Q6HR PRN #20 tab 03/26/18 [Rx] Lidocaine Patch [Lidoderm 5% patch] 1 each TP DAILY #7 adh..patch 03/26/18 [Rx] Allergy/AdvReac Type Severity Reaction Status Date / Time tamsulosin [From Flomax] Allergy Dizziness Verified 02/06/18 15:33 ROS unobtainable: due to endotracheal tube - Constitutional Vitals: Temp Pulse Resp BP Pulse Ox 98.8 F 97 18 171/83 96 02/06/19 07:56 02/06/19 07:56 02/06/19 07:56 02/06/19 07:56 02/06/19 07:56 Exam: As below - Head Head exam: Present: atraumatic, normocephalic - Neck Neck exam general surgery: Present: supple, trachea midline. Absent: lymphadenopathy - Cardiovascular Cardiovascular exam: Present: RRR, +S1, +S2. Absent: diastolic murmur, gallop, rubs, systolic murmur - GI/Abdominal GI/Abdominal exam: Present: normal bowel sounds, soft, no peritoneal signs. Absent: distended, tenderness - Extremities Exam Extremities exam: Present: warm, radial pulses palpable and symmetrical. Absent: calf tenderness, cyanotic, pedal edema - Neurological Exam Neurological exam: Present: altered Internal Med - H&P Results - Labs CBC & Chem 7: 02/07/19 06:40 02/07/19 06:40 Labs: Short CBC 02/06/19 Range/Units 01:28 WBC 21.4 H (4.3-11.1) K/mcL Hgb 9.6 L (12.9-16.9) g/dL Hct 29.5 L (37.5-50.1) % Plt Count 322 (140-400) K/mcL Neutrophils # 19.5 H (1.6-8.9) K/mcL BMP 02/06/19 01:28 Sodium 138 Potassium 5.1 Chloride 106 Carbon Dioxide 22 L BUN 64 H Creatinine 4.42 H Glucose 161 H Calcium 9.5 Cardiac Enzymes 02/06/19 Range/Units 01:28 Troponin I 0.14 H* (< 0.04) ng/mL Liver Function 02/06/19 Range/Units 01:28 Total Bilirubin 0.3 (0.3-1.0) mg/dL Direct Bilirubin 0.0 (0.0-0.2) mg/dL AST 10 L (13-39) Units/L ALT 10 (7-52) Units/L Alkaline Phosphatase 72 (34-104) Units/L Albumin 3.9 (3.5-5.7) g/dL Urine 02/06/19 Range/Units 01:27 Urine Color Yellow (Yellow) Urine Clarity Cloudy A (Clear) Urine pH 5.5 (5.0-8.0) pH Units Ur Specific [place] 1.015 (1.010-1.025) Urine Protein 100 H (Neg-Trace) mg/dL Urine Glucose (UA) 250 H (Normal) mg/dL - Impressions ITS Impressions Chest X-Ray 02/06/19 00:57 IMPRESSION: No acute findings. D/ / Cherelle Jones MD / Cherelle Jones MD Interpreting Provider: Cherelle Jones MD Head CT 02/06/19 00:57 IMPRESSION: Nondiagnostic examination secondary to severe motion artifact, despite repeating the imaging sequence. Short-term interval follow-up examination could be performed when patient is better able to tolerate the exam. D/ / Mihai Lorenz MD / Mihai Lorenz MD Interpreting Provider: Mihai Lorenz MD Head CT 02/06/19 02:53 IMPRESSION: Exam severely limited by motion artifact. No convincing evidence of acute process. Repeat examination could be performed when patient is better able to tolerate the exam. D/ / Mihai Lorenz MD / Mihai Lorenz MD Interpreting Provider: Mihai Lorenz MD - Assessment and Plan (1) Delirium Current Visit: Yes Status: Acute Assessment and plan: The patient neurological status of unclear etiology , could be related to underlying infectious etiology giving elevated white blood cells , however there is no obvious source of infection. Toxic metabolic encephalopathy and seizure could not be excluded, CT of head limited by motion artifact however repeat imaging shows no obvious acute process, we will repeat CT scan of the head and consult neurology for further evaluation and management . (2) Hypoglycemia Current Visit: Yes Status: Acute Assessment and plan: We will hold home medication and start the patient and insulin sliding scale with coverage (3) Diabetes Current Visit: No Status: Chronic Assessment and plan: We will hold home medication and start the patient on insulin sliding scales, Qualifiers: Diabetes mellitus type: type 1 Diabetes mellitus complication status: with kidney complications Diabetes mellitus complication detail: with chronic kidney disease Chronic kidney disease stage: stage 5, not on chronic dialysis Qualified Code(s): E10.22 - Type 1 diabetes mellitus with diabetic chronic kidney disease; N18.5 - Chronic kidney disease, stage 5 (4) Anemia in CKD (chronic kidney disease) Current Visit: No Status: Chronic Assessment and plan: We will obtain iron studies, patient might require to be initiated on this routinely stimulating agents, consider consulting with nephrology for further evaluation and management. Qualifiers: Chronic kidney disease stage: stage 4 (severe) Qualified Code(s): N18.4 - Chronic kidney disease, stage 4 (severe); D63.1 - Anemia in chronic kidney disea se (5) Chronic kidney disease, stage IV (severe) Current Visit: No Status: Chronic Assessment and plan: The patient has history of CK disease stage V secondary to diabetic nephropathy 1, creatinine at baseline, we will continue to monitor I&O's, renal dosing of medication as better current EGFR, avoid nephrotoxic meds (6) Hypertension Current Visit: No Status: Chronic Assessment and plan: We will start the patient on when necessary IV antihypertensive for systolic blood pressure above 180 and diastolic blood pressure above 100 Qualifiers: Hypertension type: essential hypertension Qualified Code(s): I10 - Essential (primary) hypertension (7) Metabolic acidosis Current Visit: No Status: Resolved Assessment and plan: Secondary to renal impairment, bicarbonate target is 22 , consider starting sodium bicarbonate tablet. (8) DVT prophylaxis Current Visit: No Status: Acute Assessment and plan: We will start the patient on heparin subcutaneous twice a day - Time Spent With Patient Total time spent is greater than 50% in coordination of care (as documented) at patient's floor/unit and/or counseling patient:
[2019-02-06] MEDS ORDERED: *HR* Dextrose 50 % in Water (Syg) 50 ML SYRINGE IVP PRN (09:26)
[2019-02-06] MEDS ORDERED: D5% in Water 1,000 ML IVC PRN (09:26)
[2019-02-06] MEDS ORDERED: Dextrose Gel 15 GM/37.5 ML TUBE PO PRN ×2 (09:26)
[2019-02-06] MEDS ORDERED: Ondansetron 4 MG/2 ML VIAL IVP PRN (09:28)
[2019-02-06] MEDS ORDERED: Naloxone 0.4 MG/ML INJ IVP PRN (09:28)
--- NOTE | 2019-02-06 09:39 | Electrocardiograph Report ---
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
--- NOTE | 2019-02-06 11:07 | Neurology - Consult Note ---
<Richard Coto - Last Filed: 02/06/19 11:02> Date of Encounter: 02/06/19 Time of Encounter: 11:02 Assessment and Plan (1) Delirium Current Visit: Yes Status: Acute Neurology consulted for acute delirium of unclear etiology Was found at home unresponsive; eventually became easily agitated and combative SIRS x4 with leukocytosis 21.4, Lactic acid 2.2 on admission, tacycardic, and elevated troponin of 0.14 Also found to have hypoglycemia at home with FSBG of 31, serum BG 161 this morning DDX includes toxic metabolic encephalopathy, seizures (no prior hx but did have hypoglycemia and a strong suspicion for infection), [employer] infectious etiology, cerebral ischemia, and other Patient with an acute delirious state, decreased level of consciousness, agitated and combative; baseline he is A&OX3 and calm/cooperative CT of head limited by motion artifact however repeat imaging shows no obvious acute process Chest x-ray negative for acute pulmonary process UA negative for infectious source Urine tox screen negative Neurological exam is limited by delirium, however he is able to freely move all 4 extremities spontaneously. Brainstem reflexes are intact. Deep tendon reflexes are diminished diffusely but intact nonetheless, sensory also intact. I did not identify any meningeal signs on exam, specifically Kernig's and Brudzinski's are negative, also he is afebrile. PLAN: Agree with continuing to rule out infectious sources; blood cultures are pending. Defer to primary team for management Will need repeat CT imaging when stable; ultimately, we will most likely need an MRI to evaluate for cerebral ischemic causes of delirium We will get an EEG now to evaluate for seizures; seizures are certainly a possibility given concern for sepsis/infection and hypoglycemia. However, we will hold off on AEDs. Consider LP if patient does not begin to improve or should he develop fevers History of Present Illness Chief complaint: Altered mental state HPI: Mr. Ruiz is a 73 year old male with a PMH of DM, HLD, HTN and CKD 4. The patient's mental status severely altered and he is unable to provide history of present illness or ROS. No family at bedside at this time. All information obtained from chart review and physician/nurse report. The patient presents to [facility] with an altered mental state. Last known well was approximately 1930 yesterday evening when family reports he was eating dinner and they left the house. His son returned at 2225 to find the patient in an unresponsive state sitting with his head in a downward position and drooling. At that time he was found to be hypoglycemic with a fingerstick blood glucose of 31. His family provided 1 g of glucagon and called EMS. The patient remained unresponsive and did not began to arouse until the EMS arrived. Upon arrival of EMS the patient became slightly more responsive but was very confused, agitated and combative. At baseline the patient is alert and oriented 3 and pleasant. While in the ED he was found to have leukocytosis of unknown etiology. Additionally, he has 3 total positive SIRS criteria with leukocytosis, tachycardia, and an elevated troponin. CBC also revealed a stable chronic anemia. Cancer panel revealed stable chronic kidney disease. Both urinalysis and urine tox screen are negative. CT of the head attempted 2; first CT of the head nondiagnostic due to motion. Repeat CT still limited by motion artifact but does not show any convincing evidence of an acute process. At the time of my evaluation this morning the patient continues to be delirious, noncooperative and combative. He is lethargic and responds to gentle verbal stimulus but will not open eyes or participate in examination. At this juncture etiology for her delirium is unclear. Neurology will continue to follow and evaluate. Past Med Surg Social Fam HX - Past Medical History Medical history: diabetes, hyperlipidemia, hypertension, renal disease Additional medical history: diabetic foot ulcers, osteomyelitis, vitiligo, nephrolithasis, neuropathy, ed, Psychiatric history: depression - Past Surgical History Surgical History: appendectomy, orthopedic, other, other Additional surgical history: foot surgeries, hip fracture repair - Social History Smoking Status: Never smoker Smokeless Tobacco Status: No Alcohol use: none Drug use: none - Family History Mother Living Status: Hx Family Cardiac Disorders: No Hx Family Respiratory Disorders: Yes (TB) Hx Family Cancer: No Hx Family GI Disorders: No Hx Family Endocrine Disorder: No Hx Family Neuromuscular Disorders: No Hx Family Neurologic Disorders: No Hx Family HEENT Disorders: No Hx Family Autoimmune Disorders: No Father Living Status: Hx Family Cardiac Disorders: Yes Hx Family Respiratory Disorders: Yes Hx Family Cancer: No Hx Family GI Disorders: No Hx Family Endocrine Disorder: No Hx Family Neuromuscular Disorders: Yes Hx Family Neurologic Disorders: No Hx Family HEENT Disorders: No Hx Family Autoimmune Disorders: No Medications and Allergies RX: Amlodipine [Norvasc] 5 mg PO BID 07/05/15 [History] RX: Metoprolol [Lopressor] 12.5 mg PO BID 07/05/15 [History] RX: Simvastatin [Zocor] 20 mg PO HS 07/05/15 [History] RX: Escitalopram [Lexapro] 20 mg PO DAILY 06/18/16 [History] RX: Glucagon,Human Recombinant [Glucagon Emergency Kit] 1 mg IJ AD PRN 06/18/16 [History] RX: Docusate [Colace] 100 mg PO BID PRN 12/08/16 [History] RX: Insulin Glargine,Hum.rec.anlog [Lantus Solostar] 7 unit SQ BID 12/08/16 [History] RX: Insulin Lispro Protamin/Lispro [Humalog Mix 50-50 Kwikpen] 0 unit SQ TIDAC MDD SLIDING SCALE 12/08/16 [History] Oxycodone HCl/Acetaminophen [Percocet 5-325 mg Tablet] 1 each PO Q4HR PRN #5 tablet 07/15/17 [Rx] RX: hydrALAZINE [HydrALAZINE] 100 mg PO BID 01/23/18 [History] Ibuprofen [Motrin] 600 mg PO Q6HR PRN #20 tab 03/26/18 [Rx] RX: Lidocaine Patch [Lidoderm 5% patch] 1 each TP DAILY #7 adh..patch 03/26/18 [Rx] Allergy/AdvReac Type Severity Reaction Status Date / Time tamsulosin [From Flomax] Allergy Dizziness Verified 02/06/18 15:33 ROS unobtainable: due to mental status All Systems: The remainder of the systems were reviewed and are negative Physical Examination - Vital Signs Vital Signs: Initial Vital Signs Temp Pulse Resp BP Pulse Ox 97.4 F L 125 22 188/104 100 02/06/19 00:59 02/06/19 00:59 02/06/19 00:59 02/06/19 00:59 02/06/19 00:59 - Exam Exam: Examination: Neurological exam is severely complicated by patient's delirious state General Examination: *CONSTITUTIONAL: Disoriented and delirious. Moderate distress, agitated and combative *GENERAL APPEARANCE OF PATIENT ill-appearing elderly male *EYES: pupils equal, round, reactive to light *CARDIOVASCULAR S1, S2, TACHYCARDIC, no peripheral edema, distal temperature normal, dorsalis pedis pulses normal. See vital signs Musculoskeletal: *GAIT AND STATION not assessed *ASSESSMENT OF MUSCLE STRENGTH IN THE UPPER AND LOWER EXTREMITIES not cooperative with exam but moves all 4 extremities spontaneously *MUSCLE TONE IN THE UPPER AND LOWER EXTREMITIES normal, no rigidity present. No abnormal movements, fasciculations or atrophy identified. *INTEGUMENTARY: No rashes or lesions. Healing ulcerations on bilateral arms Neurological: *ORIENTATION delirious *MENTAL attention span are extremely altered and delirious state *CN II not cooperative with exam; appears to have photophobia, winces and becomes extremely agitated when assessing pupils with light *CN III,IV, PERRLA, doll's eyes intact *SENSORY EXAMINATION agitated to tactile stimuli *REFLEXES: deep tendon reflexes were diminished diffusely, no pathological reflexes were noted. Results - Laboratory Findings CBC and BMP: 02/06/19 01:02/06/19 01:28 Abnormal lab findings: Abnormal lab results WBC 21.4 K/mcL (4.3-11.1) H 02/06/19 01: RBC 2.93 M/mcL (4.19-5.50) L 02/06/19 01:28 Hgb 9.6 g/dL (12.9-16.9) L 02/06/19: Hct 29.5 % (37.5-50.1) L 02/06/19: MCV 100.7 fL (83.0-100.0) H 02/06/19 01:28 19.5 K/mcL (1.6-8.9) H 02/06/19:28 Carbon Dioxide 22 mEq/L (23-29) L 02/06/19 01:28 BUN 64 mg/dL (8-23) H 02/06/19 01:28 4.42 mg/dL (0.70-1.30) H 02/06/19 01:28 Est GFR ( Amer) 16 (> 60) L 02/06/19 01: Est GFR (Non-Af Amer) 13 (> 60) L 02/06/19 01: Glucose 161 mg/dL (70-105) H 02/06/19 01:28 308 (280-300) H 02/06/19 01:28 AST 10 Units/L (13-39) L 02/06/19 01:28 0.14 ng/mL (< 0.04) H* 02/06/19 01:28 Cloudy (Clear) A 02/06/19 01:27 100 mg/dL (Neg-Trace) H 02/06/19 01:27 250 mg/dL (Normal) H 02/06/19 01:27 Ur Squamous Epith Cells Many per lpf (None-Few) H 02/06/19 01:27 - Diagnostic Findings Additional findings: CT/CT head/brain wo con IMPRESSION: Exam severely limited by motion artifact. No convincing evidence of acute process. Repeat examination could be performed when patient is better able to tolerate the exam. Consult Discharge Plan - Plan Referrals: NONE,PCP [Primary Care Provider] - <Leo Campbell - Last Filed: 02/06/19 17:15> Date of Encounter: 02/06/19 Assessment and Plan (1) Delirium Current Visit: Yes Status: Acute I have personally performed a [id number] assessment of the patient and have reviewed the PA/MORTARMAN note. My impressions are as follows: My primary suspicion is that the acute encephalopathy here is more than likely due to the hypoglycemia. Unfortunately this patient has had recurrent episodes of hypoglycemia due to noncompliance. His BUN and creatinine were also elevated at 64 and 4.42 respectively. However his mental status seems to be improving to some extent. He is only briefly arousable and does state his name and knows he is in [facility]. And he drifts back off to sleep. He has no focal or lateralized deficits on exam, there is no nuchal rigidity present. CT scan of the head is degraded by motion artifact however did not reveal any acute hemorrhagic process, no evidence of hydrocephalus. MRI scan is yet pending. I will interpret the EEG today. Urine tox screen was negative UA was negative for infection. We will observe for now. Further recommendations regarding the necessity for lumbar puncture will depend upon how he does overnight. His MAXIMUM TEMPERATURE was 99.2 axillary. History of Present Illness HPI: The chart was reviewed, patient was seen and examined independently. Family members were present in the room and case was discussed with them. Case was discussed with the LUNCH COOK. I agree with his documentation as stated above. Patient has had recurrent episodes of dramatic hypoglycemia. According to the f leslie that there are issues with compliance. Patient is now, but arousable. He knows his name, he knows he is in the hospital. However he is still somewhat agitated and wants to be left alone. ROS unobtainable: due to mental status All Systems: The remainder of the systems were reviewed and are negative Physical Examination - Vital Signs Vital Signs: Initial Vital Signs Temp Pulse Resp BP Pulse Ox 97.4 F L 125 22 188/104 100 02/06/19 00:59 02/06/19 00:59 02/06/19 00:59 02/06/19 00:59 02/06/19 00:59 - Exam Exam: I have personally performed a [id number] assessment of the patient and have reviewed the PA/MORTARMAN note. My impressions are as follows: I agree with the accuracy of the neurologic examination is documented above. Results - Laboratory Findings CBC and BMP: 02/06/19 01:28 02/06/19 01:28 Abnormal lab findings: Abnormal lab results WBC 21.4 K/mcL (4.3-11.1) H 02/06/19 01:28 RBC 2.93 M/mcL (4.19-5.50) L 02/06/19 01:28 Hgb 9.6 g/dL (12.9-16.9) L 02/06/19 01:28 Hct 29.5 % (37.5-50.1) L 02/06/19 01:28 MCV 100.7 fL (83.0-100.0) H 02/06/19 01:28 19.5 K/mcL (1.6-8.9) H 02/06/19 01:28 Carbon Dioxide 22 mEq/L (23-29) L 02/06/19 01:28 BUN 64 mg/dL (8-23) H 02/06/19 01:28 4.42 mg/dL (0.70-1.30) H 02/06/19 01:28 Est GFR ( Amer) 16 (> 60) L 02/06/19 01:28 Est GFR (Non-Af Amer) 13 (> 60) L 02/06/19 01:28 Glucose 161 mg/dL (70-105) H 02/06/19 01:28 POC Glucose 345 mg/dL (70-99) H 02/06/19 16:14 6.5 % (-5.6) H 02/06/19 01:28 308 (280-300) H 02/06/19 01:28 AST 10 Units/L (13-39) L 02/06/19 01:28 0.14 ng/mL (< 0.04) H* 02/06/19 01:28 Cloudy (Clear) A 02/06/19 01:27 100 mg/dL (Neg-Trace) H 02/06/19 01:27 250 mg/dL (Normal) H 02/06/19 01:27 Ur Squamous Epith Cells Many per lpf (None-Few) H 02/06/19 01:27
[2019-02-06] MEDS: Insulin LISPRO 300 UNITS/3 ML VIAL SQ SCH ×3 (12:32→22:16)
[2019-02-06 15:22] LABS: Estimated Average Glucose 140 mg/dl; Hemoglobin A1C 6.5 %
[2019-02-06] MEDS: 0.9 % Sodium Chloride 1,000 ML IVC SCH (17:02)
[2019-02-07] MEDS: 0.9 % Sodium Chloride 1,000 ML IVC SCH ×2 (06:36→17:28)
--- NOTE | 2019-02-07 07:38 | EEG/EMG/Oth Biometrics Report ---
EEG Procedure Report Date of procedure: 02/07/19 EEG Procedure: Routine EEG Procedure Note: This is a report of a 21 channel bipolar and referential montage EEG. A posterior dominant rhythm of 6-7 Hz low voltage theta frequencies identified symmetrically in the posterior head regions. This rhythm does not attenuate with eye opening. Hyperventilation is not performed during the recording. Periods of drowsiness and stage II sleep identified as reference by dropout of posterior dominant rhythm and emergence of vertex activity, K complexes and sleep spindles. Photostimulation is performed and does not produce a driving response. The EKG rhythm strip reveals sinus tachycardia at 108 bpm. Impressions: This EEG recording is abnormal and is consistent with a mild generalized encephalopathy. Is no evidence of epileptiform activity identified during the study. Comment: Etiologies of this interpretation might include toxic, metabolic, postictal or degenerative. Sinus tachycardia is identified during the study is well. Please correlate clinically.
[2019-02-07 07:46] LABS: Basophils % 0.4 %; Eosinophils # 0.1 K/mcL (0.0-0.6); Hematocrit 26.4 % (37.5-50.1); Hemoglobin 8.7 g/dL (12.9-16.9); Immature Granulocytes % 0.6 % (0-4); Lymphocytes # 1.7 K/mcL (0.6-4.6); Lymphocytes % 18.5 %; Mean Corpuscular Hemoglobin 32.8 pg (28.0-33.3); Mean Corpuscular Volume 99.6 fL (83.0-100.0); Mean Platelet Volume 10.3 fL (9.4-12.4); Monocytes # 0.8 K/mcL (0.0-1.3); Neutrophils # 6.4 K/mcL (1.6-8.9); Platelet Count 287 K/mcL (140-400); Red Blood Count 2.65 M/mcL (4.19-5.50); Red Cell Distribution Width 13.2 % (11.5-14.5); Segmented Neutrophils % 70.5 %
[2019-02-07 07:47] LABS: Albumin 3.2 g/dL (3.5-5.7); Albumin/Globulin Ratio 1.5 (1.1-2.2); Bilirubin,Total 0.5 mg/dL (0.3-1.0); Chol/HDL Ratio 6.3 (0-4.9); Globulin 2.2 g/dL (2.4-3.5); Potassium 5.1 mEq/L (3.5-5.1); Total Protein 5.4 g/dL (6.4-8.9)
[2019-02-07 08:13] LABS: Prothrombin Time 10.8 Seconds (9.4-12.1)
[2019-02-07 08:16] LABS: Activated Partial Thrombo Time 30.5 Seconds (26.0-36.0)
[2019-02-07 09:26] LABS: Creatine Kinase 77 Units/L (30-223)
[2019-02-07] MEDS: Insulin LISPRO 300 UNITS/3 ML VIAL SQ SCH ×4 (09:27→23:22)
--- NOTE | 2019-02-07 10:10 | Internal Med Progress Note ---
<Tim Guaman - Last Filed: 02/07/19 14:31> Hospitalist Progress Note - Encounter Date of Encounter: 02/07/19 Time of Encounter: 09:14 - Subjective Interval History: Mr. Ruiz is a 73 yo M with PMH of type 1DM, HLD, HTN, CKD IV, and depression, presented with AMS and hypoglycemia. Patient seen and examined at bedside. He is feeling much better this morning. He is alert and oriented to person and place, but not time or situation. He has no memory of what happened to bring him in to the hospital. He was very agitated and confused throughout the night, but this is improved. Denies any acute complaints. Denies fevers, chills, chest pain, dyspnea, abdominal pain, N/V/D, dysuria, or edema. - Exam Vitals: Temp Pulse Resp BP Pulse Ox 98.8 F 108 18 136/71 97 02/07/19 07:50 02/07/19 07:50 02/07/19 07:50 02/07/19 07:50 02/07/19 07:50 Exam: GEN: No acute distress, A&O2 (person, place) HEAD: Atraumatic, normocephalic EENT: Pupils symmetric, sclera white, conjunctiva pink, mucous membranes moist HEART: RRR, normal S1 and S2, systolic murmur LUNGS: Clear to auscultation bilaterally, no wheezes, rhonchi, or crackles ABD: Soft, nontender, nondistended, bowel sounds present EXT: No edema noted, pulses 2/4 NEURO: No focal deficits, cooperative with exam - Assessment and Plan (1) Elevated troponin Current Visit: Yes Status: Acute Assessment and Plan: Initial troponin 0.14, recheck of 1.49 Denies chest pain or dyspnea EKG in the ED showed sinus tachycardia, repolarization abnormality, borderline ST elevation Demand ischemia 2/2 hypoglycemia vs ACS (risk of DM, HTN, HLD, age) Will start Heparin drip - to be completed 02/09/19 after 48 hours Recheck EKG now (2) Delirium Current Visit: Yes Status: Acute Assessment and Plan: Unclear etiology, but likely secondary to hypoglycemia Unlikely infectious without clear source, leukocytosis resolved after IV fluids Possibly seizure related to hypoglycemia - EEG with only diffuse encephalopathic changes Head CT limited by motion artifact - hold on MRI as he has clinically improved Neurology following - appreciate recommendations PT/OT/SW for discharge planning - he will likely need assistance with his medications even at baseline (3) Type 1 diabetes mellitus Current Visit: Yes Status: Acute Assessment and Plan: A1c 6.5%, patient is now hyperglycemic Required 27U total yesterday for SSI Home regimen from pharmacy is Basaglar 7U + Novolog 3-13U TIDWM Will restart the patient on 10U basal insulin + medium dose SSI (4) Hypoglycemia Current Visit: Yes Status: Resolved Assessment and Plan: Has now resolved. Pt now hyperglycemic The patient is very unclear about what his insulin regimen it Will resume basal insulin at 10 U nightly + medium dose SSI (5) Chronic kidney disease, stage IV (severe) Current Visit: Yes Status: Chronic Assessment and Plan: Renal function stable Monitor I/O's, continue MIVF at this time Avoid nephrotoxic agents as able and renally dose medications (6) Anemia in CKD (chronic kidney disease) Current Visit: No Status: Chronic Assessment and Plan: Hgb 8.7, Iron studies pending No signs of bleeding May require stimulation therapy (7) Hypertension Current Visit: Yes Status: Chronic Assessment and Plan: Has been elevated Will restart home metoprolol 12.5mg BID (8) Depression Current Visit: No Status: Chronic Assessment and Plan: Will hold home lexapro at this time DVT Prophylaxis: currently on heparin drip - Time Spent with Patient Total time spent is greater than 50% in coordination of care (as documented) at patient's floor/unit and/or counseling patient: Internal Medicine: Result - Labs CBC & Chem 7: 02/07/19 06:40 02/07/19 06:40 Labs: Short CBC 02/07/19 Range/Units 06:40 WBC 9.1 D (4.3-11.1) K/mcL Hgb 8.7 L (12.9-16.9) g/dL Hct 26.4 L (37.5-50.1) % Plt Count 287 (140-400) K/mcL Neutrophils # 6.4 (1.6-8.9) K/mcL BMP 02/06/19 02/07/19 01:28 06:40 Sodium 138 136 Potassium 5.1 5.1 Chloride 106 106 Carbon Dioxide 22 L 19 L BUN 64 H 61 H Creatinine 4.42 H 4.34 H Glucose 161 H 310 H Calcium 9.5 9.0 Cardiac Enzymes 02/06/19 Range/Units 01:28 Troponin I 0.14 H* (< 0.04) ng/mL Liver Function 02/06/19 02/07/19 Range/Units 01:28 06:40 Total Bilirubin 0.3 0.5 (0.3-1.0) mg/dL Direct Bilirubin 0.0 (0.0-0.2) mg/dL AST 10 L 14 (13-39) Units/L ALT 10 8 (7-52) Units/L Alkaline Phosphatase 72 64 (34-104) Units/L Albumin 3.9 3.2 L (3.5-5.7) g/dL - ABG Interpretation ABG results: PT/INR, D-dimer PT 10.8 Seconds (9.4-12.1) 02/07/19 06:40 Consult Discharge Plan - Plan Referrals: Sheng Alexandra MD [Partnered Physician] - <Christopher San - Last Filed: 02/07/19 15:13> Hospitalist Progress Note - Encounter Date of Encounter: 02/07/19 Internal Medicine: Result - Labs CBC & Chem 7: 02/07/19 14:19 02/07/19 06:40 - Attending Attestation Patient seen and examined independently, including review of objective data including labs, imaging, and ECGs. I agree with plan of care as documented above by the resident with the following comments: Pt found unresponsive in evening of 02/05 with glucose 30, and pt has since improved to baseline mental status after glucose elevated. Notably, patient appears ready for discharge and denies chest pain; however he did have a mildly elevated troponin on admission which upon recheck today was significantly elevated to 1.4, and thus patient will be started on heparin gtt, started on ASA and statin, resume home metoprolol, check TTE, and repeat ECG today shows sinus rhythm without ST/T abnormalities. Suspect this is all demand from hypoglycemia, but without interval assessments unable to tell until recheck this evening if trop peaked soon after admission and is currently downtrending (which I suspect is the case) or if is still elevating. Also, re discharge planning, pt lives home alone and son says he falls and skips meds and is likely unsafe for return despite his stated desire to go home, and will have PT/OT/SW evaluate and d patuss. <Tim Guaman R - Last Filed: 02/07/19 14:31> (3) Type 1 diabetes mellitus Qualifiers: Diabetes mellitus complication status: with kidney complications Diabetes mellitus complication detail: with chronic kidney disease Chronic kidney disease stage: stage 4 (severe) Qualified Code(s): E10.22 - Type 1 diabetes mellitus with diabetic chronic kidney disease; N18.4 - Chronic kidney disease, stage 4 (severe) (6) Anemia in CKD (chronic kidney disease) Qualifiers: Chronic kidney disease stage: stage 4 (severe) Qualified Code(s): N18.4 - Chronic kidney disease, stage 4 (severe); D63.1 - Anemia in chronic kidney disease (7) Hypertension Qualifiers: Hypertension type: essential hypertension Qualified Code(s): I10 - Essential (primary) hypertension (8) Depression Qualifiers: Depression Type: unspecified Qualified Code(s): F32.9 - Major depressive disorder, single episode, unspecified
--- NOTE | 2019-02-07 12:40 | Neurology Progress Note ---
<Richard Coto - Last Filed: 02/07/19 12:36> Date of Encounter: 02/07/19 Time of Encounter: 12:36 Assessment and Plan (1) Delirium Current Visit: Yes Status: Acute Clinically, the patient has improved significantly overnight and he is no longer encephalopathic. The neurological exam is nonfocal. Last night the MRI scan was unable to be completed. However, with significant improvement and did not feel that this is necessary at this time, also there is no need for lumbar puncture. The EEG was obtained yesterday and was consistent with a mild generalized encephalopathy, no evidence of epileptiform activity identified. At this juncture we feel most likely that his encephalopathic state was caused by hypoglycemia. After thorough discussion with patient and appears that he may be confusing his long-acting and short-acting insulin doses. As we deferred to the primary team for management. Consider a professor of social work consultation for in home management of medications to avoid further hypoglycemic events. The patient is okay to discharge the discretion of the primary team. Subjective Principal diagnosis: Encephalopathy Interval history: The patient was seen in follow-up today for acute delirium. Clinically, the patient has improved significantly overnight. Today he is alert and oriented 4 without any focal neurologic deficits on exam. Objective - Constitutional Vitals: Temp Pulse Resp BP Pulse Ox 98.8 F 102 18 153/76 97 02/07/19 11:13 02/07/19 11:13 02/07/19 11:13 02/07/19 11:13 02/07/19 11:13 Exam: Examination: General Examination: *CONSTITUTIONAL: Alert and oriented x3, no acute distress *GENERAL APPEARANCE OF PATIENT appears healthy and well groomed *EYES: pupils equal, round, reactive to light and accommodation, conjunctiva clear without masses or ulcerations, fundi normal. *CARDIOVASCULAR no peripheral edema, distal temperature normal, dorsalis pedis pulses normal. See vital signs Musculoskeletal: *GAIT AND STATION normal, with normal Romberg testing, no abnormalities such as broad base gait or spasticity *ASSESSMENT OF MUSCLE STRENGTH IN THE UPPER AND LOWER EXTREMITIES bilateral deltoid, bicep, tricep, carburetor rebuilder strength, hip flexors ,anterior tibialis, dorsoflexion of the foot 5/5 *MUSCLE TONE IN THE UPPER AND LOWER EXTREMITIES normal. No abnormal movements, fasciculations or atrophy identified. Neurological: *ORIENTATION to person, situation, time and place *RECURRENT AND REMOTE MEMORY intact *ATTENTION AND CONCENTRATION are normal *LANGUAGE FUNCTION no significant aphasia or dysarthia was noted. *FUND OF KNOWLEDGE aware of current events, past history, vocabulary *MENTAL attention span and concentration normal. *CN II optic fundi were normal, no papilledema noted. *CN III,IV, PERRLA extraocular eye movements were full, no nystagmus and no ptosis noted. *CN V shows normal sensation and jaw opens symmetrically. *CN VII shows normal facial movement symmetrically, upper and lower bilaterally. *CN VIII shows no significant hearing loss on exam *CN IX,,X palate elevated symmetrically *CN XI normal strength in the sternocleidomastoid muscles, symmetrical shoulder shrugging. *CN XII tongue protruded in the midline, with normal strength and movement. *SENSORY EXAMINATION light touch intact *REFLEXES: deep tendon reflexes were normal and symmetrical , grade 2/4 diffusely, no pathological reflexes were noted. *CEREBELLAR TESTING normal finger to nose, heel/knee/garcia *PAIN LEVEL 0/10 Results - Laboratory Findings CBC and BMP: 02/07/19 06:40 02/07/19 06:40 Abnormal lab findings: Abnormal lab results WBC 21.4 K/mcL (4.3-11.1) H 02/06/19 01:28 RBC 2.65 M/mcL (4.19-5.50) L 02/07/19 06:40 Hgb 8.7 g/dL (12.9-16.9) L 02/07/19 06:40 Hct 26.4 % (37.5-50.1) L 02/07/19 06:40 MCV 100.7 fL (83.0-100.0) H 02/06/19 01:28 19.5 K/mcL (1.6-8.9) H 02/06/19 01:28 Carbon Dioxide 19 mEq/L (23-29) L 02/07/19 06:40 BUN 61 mg/dL (8-23) H 02/07/19 06:40 4.34 mg/dL (0.70-1.30) H 02/07/19 06:40 Est GFR ( Amer) 16 (> 60) L 02/07/19 06:40 Est GFR (Non-Af Amer) 13 (> 60) L 02/07/19 06:40 Glucose 310 mg/dL (70-105) H 02/07/19 06:40 POC Glucose 308 mg/dL (70-99) H 02/07/19 12:11 6.5 % (-5.6) H 02/06/19 01:28 311 (280-300) H 02/07/19 06:40 Phosphorus 5.0 mg/dL (2.7-4.5) H 02/07/19 06:40 AST 10 Units/L (13-39) L 02/06/19 01:28 0.14 ng/mL (< 0.04) H* 02/06/19 01:28 5.4 g/dL (6.4-8.9) L 02/07/19 06:40 3.2 g/dL (3.5-5.7) L 02/07/19 06:40 2.2 g/dL (2.4-3.5) L 02/07/19 06:40 Cholesterol 208 mg/dL (< 200) H 02/07/19 06:40 LDL Cholesterol, Calc 155 mg/dL (0-99) H 02/07/19 06:40 33 mg/dL (40-59) L 02/07/19 06:40 6.3 (0-4.9) H 02/07/19 06:40 Cloudy (Clear) A 02/06/19 01:27 100 mg/dL (Neg-Trace) H 02/06/19 01:27 250 mg/dL (Normal) H 02/06/19 01:27 Ur Squamous Epith Cells Many per lpf (None-Few) H 02/06/19 01:27 Consult Discharge Plan - Plan Referrals: Sheng Alexandra MD [Partnered Physician] - <Leo Campbell - Last Filed: 02/07/19 16:50> Date of Encounter: 02/07/19 Assessment and Plan (1) Delirium Current Visit: Yes Status: Acute I have personally performed a [id number] assessment of the patient and have reviewed the PA/STRATEGIC INTELLIGENCE OFFICER note. My impressions are as follows: I agree with the documentation as stated above by CHEMIC MANGLER. Patient had a hypoglycemic encephalopathy. He is physically exhausted however his mentation is back to baseline. Patient will need some counseling and supervision regarding medication administration so that this does not continue to occur. I did explain to he and the family that this can be a life-threatening matter. He also complains of ongoing left hip pain. Perhaps evaluation by orthopedics may be in order. Otherwise, primary etiology for his mental status change was metabolic we will sign off at this time. We will reevaluate your request. Subjective Interval history: Chart was reviewed, patient was seen and examined independently. His was discussed with the CHEMIC MANGLER. I agree with his assessment as stated above. Patient today does report some left hip pain and discomfort. Objective - Constitutional Vitals: Temp Pulse Resp BP Pulse Ox 98.8 F 102 18 153/76 97 02/07/19 11:13 02/07/19 11:13 02/07/19 11:13 02/07/19 11:13 02/07/19 11:13 Exam: I have personally performed a [id number] assessment of the patient and have reviewed the PA/STRATEGIC INTELLIGENCE OFFICER note. My impressions are as follows: The patient does have some give way weakness of the left hip flexors. My examination is otherwise consistent with that which is documented above. Results - Laboratory Findings CBC and BMP: 02/07/19 14:19 02/07/19 06:40 Abnormal lab findings: Abnormal lab results WBC 21.4 K/mcL (4.3-11.1) H 02/06/19 01:28 RBC 2.52 M/mcL (4.19-5.50) L 02/07/19 14: Hgb 8.1 g/dL (12.9-16.9) L 02/07/19 14: Hct 25.2 % (37.5-50.1) L 02/07/19 14:19 MCV 100.7 fL (83.0-100.0) H 02/06/19 01:28 19.5 K/mcL (1.6-8.9) H 02/06/19 01:28 Heparin Anti-Xa, Unfract 0.03 IU/mL (0.30-0.70) L 02/07/19 14:19 Carbon Dioxide 19 mEq/L (23-29) L 02/07/19 06:40 BUN 61 mg/dL (8-23) H 02/07/19 06:40 4.34 mg/dL (0.70-1.30) H 02/07/19 06:40 Est GFR ( Amer) 16 (> 60) L 02/07/19 06:40 Est GFR (Non-Af Amer) 13 (> 60) L 02/07/19 06:40 Glucose 310 mg/dL (70-105) H 02/07/19 06:40 POC Glucose 308 mg/dL (70-99) H 02/07/19 12:11 6.5 % (-5.6) H 02/06/19 01:28 311 (280-300) H 02/07/19 06:40 Phosphorus 5.0 mg/dL (2.7-4.5) H 02/07/19 06:40 AST 10 Units/L (13-39) L 02/06/19 01:28 1.49 ng/mL (< 0.04) H* 02/07/19 11:20 5.4 g/dL (6.4-8.9) L 02/07/19 06:40 3.2 g/dL (3.5-5.7) L 02/07/19 06:40 2.2 g/dL (2.4-3.5) L 02/07/19 06:40 Cholesterol 208 mg/dL (< 200) H 02/07/19 06:40 LDL Cholesterol, Calc 155 mg/dL (0-99) H 02/07/19 06:40 33 mg/dL (40-59) L 02/07/19 06:40 6.3 (0-4.9) H 02/07/19 06:40 Cloudy (Clear) A 02/06/19 01:27 100 mg/dL (Neg-Trace) H 02/06/19 01:27 250 mg/dL (Normal) H 02/06/19 01:27 Ur Squamous Epith Cells Many per lpf (None-Few) H 02/06/19 01:27
[2019-02-07] MEDS ORDERED: Aspirin 325 MG TABLET PO ONE (13:43)
[2019-02-07] MEDS ORDERED: *HR* Heparin 5,000 UNIT/ML VIAL IVP ONE (13:44)
[2019-02-07] MEDS ORDERED: *HR* Heparin 5,000 UNIT/ML VIAL IVP PRN ×2 (13:44)
[2019-02-07] MEDS ORDERED: Heparin 25,000 UNIT/250 ML D5W 25,000 UNIT/250 ML IV.SOLN IVC SCH (13:45)
[2019-02-07 14:33] LABS: Hematocrit 25.2 % (37.5-50.1); Hemoglobin 8.1 g/dL (12.9-16.9); Mean Corpuscular HGB Conc 32.1 g/dL (31.6-35.5); Mean Corpuscular Hemoglobin 32.1 pg (28.0-33.3); Mean Platelet Volume 9.8 fL (9.4-12.4); Platelet Count 250 K/mcL (140-400); Red Blood Count 2.52 M/mcL (4.19-5.50); Red Cell Distribution Width 13.2 % (11.5-14.5)
[2019-02-07 14:40] LABS: Heparin anti-factor XA UFH 0.03 IU/mL (0.30-0.70)
[2019-02-07 14:41] LABS: Prothrombin Time 10.8 Seconds (9.4-12.1)
[2019-02-07] MEDS ORDERED: *HR* Heparin 5,000 UNIT/ML VIAL SQ SCH (18:00)
[2019-02-07] MEDS ORDERED: Insulin DETEMIR 100 UNIT/ML X5UNITS SQ SCH ×2 (21:00)
--- NOTE | 2019-02-07 21:19 | Event Note ---
Date of Encounter: 02/07/19 Time of Encounter: 19:30 I was contacted by patient's nurse with a troponin elevation of 14.46. I arrived at the bedside shortly thereafter to assess patient. Patient is chest pain-free and denies any dyspnea. I reviewed his initial EKG earlier today and ordered stat EKG, which was relatively unchanged. I then contacted interventional cardiology and spoke with Dr. Gonzalez regarding the patient case and his EKG's. Given that he is chest pain-free and asymptomatic, he agrees with the conservative measures at the present time including heparin drip, aspirin he received, beta brian, and statin therapy. Dr. Gonzalez did not feel he needed emergent intervention tonight -- I agree. I discussed with patient and his significant other the need for left heart catheterization and possible intervention tomorrow. Additionally, I explained to him that such intervention may lead to contrast-induced nephropathy and likely end-stage renal disease requiring dialysis. He voiced that he would not want dialysis. I recommended that he at least discuss with cardiology and nephrology all options the morning and weight the risks and benefits. I am moving him to 2A and am also consulting nephrology -- discussed with Drs. Gonzalez and Dr. Saravia.
[2019-02-08 05:44] LABS: Hematocrit 23.3 % (37.5-50.1); Hemoglobin 7.6 g/dL (12.9-16.9); Mean Corpuscular HGB Conc 32.6 g/dL (31.6-35.5); Mean Corpuscular Hemoglobin 32.8 pg (28.0-33.3); Mean Corpuscular Volume 100.4 fL (83.0-100.0); Mean Platelet Volume 10.1 fL (9.4-12.4); Platelet Count 250 K/mcL (140-400); Red Blood Count 2.32 M/mcL (4.19-5.50); Red Cell Distribution Width 13.2 % (11.5-14.5)
[2019-02-08 06:03] LABS: Calcium 8.5 mg/dL (8.6-10.3); Troponin I 11.16 ng/mL (< 0.04)
[2019-02-08] MEDS ORDERED: Insulin LISPRO 300 UNITS/3 ML VIAL SQ ONE (08:10)
--- NOTE | 2019-02-08 08:24 | Internal Med Progress Note ---
<DenizTim Obed - Last Filed: 02/08/19 16:50> Hospitalist Progress Note - Encounter Date of Encounter: 02/08/19 Time of Encounter: 09:32 - Subjective Interval History: Mr. Ruiz is a 73 yo M with PMH of type 1DM, HLD, HTN, CKD IV, and depression, presented with AMS and hypoglycemia. Patient seen and examined at bedside. Overnight events include an increasing troponin, but EKG remained the same. He denies any acute complaints. He continues to deny chest pain or any other acute complaints. He is alert and oriented to person and place, but not time. - Exam Vitals: Temp Pulse Resp BP Pulse Ox 98.4 F 84 19 162/78 98 02/08/19 04:31 02/08/19 04:31 02/08/19 04:31 02/08/19 04:02/08/19 04:31 Exam: GEN: No acute distress, A&O2 (person, place) HEAD: Atraumatic, normocephalic EENT: Pupils symmetric, sclera white, conjunctiva pink, mucous membranes moist HEART: RRR, normal S1 and S2, systolic murmur LUNGS: Clear to auscultation bilaterally, no wheezes, rhonchi, or crackles ABD: Soft, nontender, nondistended, bowel sounds present EXT: No edema noted, pulses 2/4 NEURO: No focal deficits, cooperative with exam - Assessment and Plan (1) Delirium Current Visit: Yes Status: Acute Assessment and Plan: Unclear etiology, but likely secondary to hypoglycemia Unlikely infectious without clear source, leukocytosis resolved after IV fluids Possibly seizure related to hypoglycemia - EEG with only diffuse encephalopathic changes Head CT limited by motion artifact - hold on MRI as he has clinically improved Neurology following - appreciate recommendations PT/OT/SW for discharge planning - he will likely need assistance with his medications even at baseline (2) Type 1 diabetes mellitus Current Visit: Yes Status: Acute Assessment and Plan: A1c 6.5%, patient is now hyperglycemic BG this AM > 400 Home regimen from pharmacy is Basaglar 7U + Novolog 3-13U TIDWM Will increase basal insulin to 15U + medium dose SSI (3) Hypoglycemia Current Visit: Yes Status: Resolved Assessment and Plan: Resolved. Now hyperglycemic The patient is very unclear about what his insulin regimen it Plan as above (4) Chronic kidney disease, stage IV (severe) Current Visit: Yes Status: Chronic Assessment and Plan: Renal function stable Monitor I/O's, continue MIVF at this time Avoid nephrotoxic agents as able and renally dose medications (5) Anemia in CKD (chronic kidney disease) Current Visit: No Status: Chronic Assessment and Plan: Hgb 7.6, drop >2 in 2 days No identifiable source of bleeding Will give 1U pRBCs (6) Hypertension Current Visit: Yes Status: Chronic Assessment and Plan: Elevated on metoprolol Add amlodipine 5mg (7) Depression Current Visit: No Status: Chronic Assessment and Plan: Will hold home lexapro at this time (8) NSTEMI (non-ST elevated myocardial infarction) Current Visit: Yes Status: Acute Assessment and Plan: Troponin now downtrending Denies chest pain or dyspnea EKG has remained consistent with NSR, repolarization abnormality, borderline ST elevation Cardiology consulted - patient does not want LHC d/t poor renal function Stopped heparin drip and started Plavix Continue statin and BB DVT Prophylaxis: SQ heparin - Time Spent with Patient Total time spent is greater than 50% in coordination of care (as documented) at patient's floor/unit and/or counseling patient: Internal Medicine: Result - Labs CBC & Chem 7: 02/08/19 05:00 02/08/19 05:00 Labs: Short CBC 02/07/19 02/08/19 Range/Units 14:19 05:00 WBC 9.4 10.2 (4.3-11.1) K/mcL Hgb 8.1 L 7.6 L (12.9-16.9) g/dL Hct 25.2 L 23.3 L (37.5-50.1) % Plt Count 250 250 (140-400) K/mcL BMP 02/06/19 02/08/19 01:28 05:00 Sodium 138 136 Potassium 5.1 5.0 Chloride 106 106 Carbon Dioxide 22 L 19 L BUN 64 H 64 H Creatinine 4.42 H 4.13 H Glucose 161 H 413 H Calcium 9.5 8.5 L Cardiac Enzymes 02/06/19 02/07/19 02/07/19 Range/Units 01:28 11:20 17:51 Troponin I 0.14 H* 1.49 H* 14.46 H* (< 0.04) ng/mL 02/08/19 Range/Units 05:00 Troponin I 11.16 H* (< 0.04) ng/mL Liver Function 02/06/19 Range/Units 01:28 Total Bilirubin 0.3 (0.3-1.0) mg/dL Direct Bilirubin 0.0 (0.0-0.2) mg/dL AST 10 L (13-39) Units/L ALT 10 (7-52) Units/L Alkaline Phosphatase 72 (34-104) Units/L Albumin 3.9 (3.5-5.7) g/dL - ABG Interpretation ABG results: PT/INR, D-dimer PT 10.8 Seconds (9.4-12.1) 02/07/19 14:19 - Impressions Impressions Echocardiogram 02/07/19 13:45 Impressions: LVEF 65-70%. Mild concentric left ventricular hypertrophy. Mild left ventricular diastolic dysfunction. Normal right ventricular structure and function. Mild-moderate tricuspid regurgitation. Mild pulmonary hypertension. Left Ventricular Wall Motion: Rest Echo Findings All wall segments showed normal motion. Findings: Study Quality * Technically adequate exam. ECG Findings * Normal sinus rhythm. Left Ventricle * LVEF 65-70%. * Normal LV chamber size and systolic function. * Mild concentric left ventricular hypertrophy. * Mild left ventricular diastolic dysfunction. Right Ventricle * Normal right ventricular structure and function. Left Atrium * Normal left atrial size. Right Atrium * Normal right atrial size. Interatrial Septum * Interatrial septum not well evaluated. * No evidence of PFO by color Doppler. Aortic Valve * Trileaflet aortic valve. * Mildly calcified aortic valve leaflets. * No aortic stenosis. * No aortic regurgitation. Mitral Valve * Normal mitral valve structure. * No mitral stenosis. * Trace mitral regurgitation. Tricuspid Valve * Normal tricuspid valve structure. * No tricuspid stenosis. * Mild-moderate tricuspid regurgitation. * Estimated RVSP is 43 mmHg. * Estimated RA pressure is 15 mmHg. * Mild pulmonary hypertension. Pulmonic Valve * Pulmonic valve is not well visualized. * No pulmonic stenosis. * Trace pulmonic regurgitation. Aorta * Normally sized aortic root. Pericardium * The pericardium appears normal. IVC * The IVC is dilated. * < 50% respiratory change. Consult Discharge Plan - Plan Referrals: Sheng Alexandra MD [Partnered Physician] - <Christopher San - Last Filed: 02/08/19 18:12> Hospitalist Progress Note - Encounter Date of Encounter: 02/08/19 - Assessment and Plan (1) Chronic kidney disease, stage IV (severe) Current Visit: Yes Status: Chronic (2) Anemia in CKD (chronic kidney disease) Current Visit: No Status: Chronic (3) Depression Current Visit: No Status: Chronic (4) Hypertension Current Visit: Yes Status: Chronic (5) Hypoglycemia Current Visit: Yes Status: Resolved (6) Delirium Current Visit: Yes Status: Acute (7) Type 1 diabetes mellitus Current Visit: Yes Status: Acute (8) NSTEMI (non-ST elevated myocardial infarction) Current Visit: Yes Status: Acute Internal Medicine: Result - Labs CBC & Chem 7: 02/08/19 05:00 02/08/19 05:00 - Attending Attestation Patient seen and examined independently, including review of objective data including labs and imaging. I agree with plan of care as documented above by the resident with the following comments: Pt p/w encephalopathy 2/2 hypoglycemia further complicated by development of NSTEMI, possibly type 2 demand in setting of hypoglycemia but unable to determine. Pt asymptomatic at this time. TTE unremarkable. Cardio evaluated and after discussion of risks in this gentleman w CKD4, he opted to proceed with medical management. He will continue hep gtt until tomorrow, is started on appropriate medical therapy w exception of ACEi given renal fxn, and will likely d/c to SNF on Monday. <Tim Guaman - Last Filed: 02/08/19 16:50> (2) Type 1 diabetes mellitus Qualifiers: Diabetes mellitus complication status: with kidney complications Diabetes mellitus complication detail: with chronic kidney disease Chronic kidney disease stage: stage 4 (severe) Qualified Code(s): E10.22 - Type 1 diabetes mellitus with diabetic chronic kidney disease; N18.4 - Chronic kidney disease, stage 4 (severe) (5) Anemia in CKD (chronic kidney disease) Qualifiers: Chronic kidney disease stage: stage 4 (severe) Qualified Code(s): N18.4 - Chronic kidney disease, stage 4 (severe); D63.1 - Anemia in chronic kidney disease (6) Hypertension Qualifiers: Hypertension type: essential hypertension Qualified Code(s): I10 - Essential (primary) hypertension (7) Depression Qualifiers: Depression Type: unspecified Qualified Code(s): F32.9 - Major depressive disorder, single episode, unspecified <Christopher San - Last Filed: 02/08/19 18:12> (2) Anemia in CKD (chronic kidney disease) Qualifiers: Chronic kidney disease stage: stage 4 (severe) Qualified Code(s): N18.4 - Chronic kidney disease, stage 4 (severe); D63.1 - Anemia in chronic kidney disease (3) Depression Qualifiers: Depression Type: unspecified Qualified Code(s): F32.9 - Major depressive disorder, single episode, unspecified (4) Hypertension Qualifiers: Hypertension type: essential hypertension Qualified Code(s): I10 - Essential (primary) hypertension (7) Type 1 diabetes mellitus Qualifiers: Diabetes mellitus complication status: with kidney complications Diabetes me llitus complication detail: with chronic kidney disease Chronic kidney disease stage: stage 4 (severe) Qualified Code(s): E10.22 - Type 1 diabetes mellitus with diabetic chronic kidney disease; N18.4 - Chronic kidney disease, stage 4 (s robbie)
[2019-02-08] MEDS: Acetaminophen 325 MG TABLET PO PRN ×2 (10:58→17:32)
[2019-02-08] MEDS: Insulin LISPRO 300 UNITS/3 ML VIAL SQ SCH ×4 (10:59→21:04)
--- NOTE | 2019-02-08 11:29 | Cardiology Consult Note ---
Date of Encounter: 02/08/19 Time of Encounter: 11:26 Assessment and Plan (1) NSTEMI (non-ST elevated myocardial infarction) Current Visit: Yes Status: Acute Presented to the ED for alteration of mental status after being hypoglycemic. Troponin 0.14, 14.46, 11.16. He denies chest pain or dyspnea. No acute ischemic changes on ECG. TTE 02/07/19: LVEF 65-70%. Mild cLVH. Mild LVDD. Normal RV structure and function. Mild-moderate TR. Mild phtn. On heparin gtt. Discussed at length with pt and regarding LHC vs medical management. He has CKD stage IV and is not willing to go on dialysis. Since he is pain free with preserved EF, they prefer medical management. Ideally would recommend heparing gtt ~24-48 hours. HGB this AM 7.6, was 9.6 on admission. Discussed and reviewed with Dr. Gonzalez. Will stop heparin gtt. Start Plavix 75mg daily. Continue ASA, Statin, BB. Discussion w patient/family: The assessment and plan as outlined above was discussed with the patient and/or family members who expressed understanding and agreement. All questions were answered. Thank you for involving us in the care of your patient. Please call with any questions. I will discuss all the above with Dr. Gonzalez and make changes as necessary. History of Present Illness Consult date: 02/08/19 Requesting physician: David Soliman Consult reason: NSTEMI Chief complaint: confusion History of present illness: Mr. 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 Once he woke he was confused/combative. Neurology was consulted for delirium. Troponin 0.14, 14.46, 11.16. Cardiology consulted for further recs. He denies chest pain or dyspnea. Prior CV testing: TTE 02/07/19: LVEF 65-70%. Mild cLVH. Mild LVDD. Normal RV structure and function. Mild-moderate TR. Mild phtn. Past Med Surg Social Fam HX - Past Medical History Medical history: diabetes, hyperlipidemia, hypertension, renal disease Additional medical history: diabetic foot ulcers, osteomyelitis, vitiligo, neph rolithasis, neuropathy, ed, Psychiatric history: depression - Past Surgical History Surgical History: appendectomy, orthopedic, other, other Additional surgical history: foot surgeries, hip fracture repair - Social History Smoking Status: Never smoker Smokeless Tobacco Status: No Alcohol use: none Drug use: none - Family History Mother Living Status: Hx Family Cardiac Disorders: No Hx Family Respiratory Disorders: Yes (TB) Hx Family Cancer: No Hx Family GI Disorders: No Hx Family Endocrine Disorder: No Hx Family Neuromuscular Disorders: No Hx Family Neurologic Disorders: No Hx Family HEENT Disorders: No Hx Family Autoimmune Disorders: No Father Living Status: Hx Family Cardiac Disorders: Yes Hx Family Respiratory Disorders: Yes Hx Family Cancer: No Hx Family GI Disorders: No Hx Family Endocrine Disorder: No Hx Family Neuromuscular Disorders: Yes Hx Family Neurologic Disorders: No Hx Family HEENT Disorders: No Hx Family Autoimmune Disorders: No Medications and Allergies Metoprolol [Lopressor] 12.5 mg PO BID 07/05/15 [History] Escitalopram [Lexapro] 20 mg PO DAILY 06/18/16 [History] Glucagon,Human Recombinant [Glucagon Emergency Kit] 1 mg IJ AD PRN 06/18/16 [History] Acetaminophen [Tylenol] 650 mg PO DAILY PRN 02/07/19 [History] Insulin ASPART [Novolog Flexpen] 3 - 13 units SQ TIDAC 02/07/19 [History] Insulin Glargine,Hum.rec.anlog [Basaglar Kwikpen U-100] 7 unit SQ HS 02/07/19 [ History] Allergy/AdvReac Type Severity Reaction Status Date / Time tamsulosin [From Flomax] Allergy HEADACHES Verified 02/07/19 13:31 All Systems Review: The remainder of the systems were reviewed and are negative - Cardiovascular Cardiovascular: as per HPI Physical Examination Vital Signs, Last 4 Hours Temp Pulse Resp BP Pulse Ox 02/08/19 10:12 98.1 F 93 20 152/89 99 Vital Signs Temp Pulse Resp BP Pulse Ox 02/08/19 10:12 98.1 F 93 20 152/89 99 02/08/19 04:31 98.4 F 84 19 162/78 98 02/08/19 01:43 98.4 F 92 19 156/72 98 02/07/19 22:08 98.5 F 82 19 162/84 98 02/07/19 17:24 98.2 F 81 18 126/68 99 Intake and Output 05/30/19 05/31/19 05/31/19 23:59 07:59 15:59 Intake Total 1111 / 3191 Output Total 300 / 525 300 / 300 Balance 811 / 2666 20 / -280 -300 / -280 Intake: IV Fluids 1110 0.9 % Sodium Chloride 1,000 ML 1000 / 2000 @ 100 mls/hr IVC .Q10H [facility] Rx#: [id number] Heparin 25,000 UNIT/250 ML D5W 111 / 111 25,000 unit In 250 ml @ 12 UNIT /KG/HR 8.97 mls/hr IVC .Q24H [facility] Rx#:[id number] Output: Urine 300 / 525 300 / 300 Other: Blood Glucose* 176 426 General: Conversant, No Apparent Distress HEENT: Atraumatic, Normocephaly, Mucus Membranes Moist Neck: No JVD, Normal carotid pulses Cardiac: Reg Rate and Rhythm, Normal S1 and S2, No Murmur Lungs: Normal Breath Sounds, No Wheeze, Rales, Rhonchi Neuro: Alert and responsive, Other (confused at times) Abdomen: Soft, Non-Tender Skin: No rashes noted on visualized skin Musculoskeletal: No Chest Wall Tenderness Extremities: No Clubbing, No Cyanosis, No Edema, Normal Pulses Results 02/08/19 05:00 02/08/19 05:00 Lab Results 02/07/19 02/07/19 02/07/19 11:20 14:19 14:19 WBC 9.4 Hgb 8.1 L Hct 25.2 L Plt Count 250 INR 1.0 Sodium Potassium Chloride Carbon Dioxide BUN Creatinine Glucose Calcium Troponin I 1.49 H* 02/07/19 02/08/19 02/08/19 17:51 05:00 05:00 WBC 10.2 Hgb 7.6 L Hct 23.3 L Plt Count 250 INR Sodium 136 Potassium 5.0 Chloride 106 Carbon Dioxide 19 L BUN 64 H Creatinine 4.13 H Glucose 413 H Calcium 8.5 L Troponin I 14.46 H* 11.16 H* Short CBC 02/08/19 02/07/19 Range/Units 05:00 14:19 WBC 10.2 9.4 (4.3-11.1) K/mcL Hgb 7.6 L 8.1 L (12.9-16.9) g/dL Hct 23.3 L 25.2 L (37.5-50.1) % Plt Count 250 250 (140-400) K/mcL BMP 02/08/19 Range/Units 05:00 Sodium 136 (136-145) mEq/L Potassium 5.0 (3.5-5.1) mEq/L Chloride 106 (98-107) mEq/L Carbon Dioxide 19 L (23-29) mEq/L BUN 64 H (8-23) mg/dL Creatinine 4.13 H (0.70-1.30) mg/dL Glucose 413 H (70-105) mg/dL Calcium 8.5 L (8.6-10.3) mg/dL Cardiac Enzymes 02/08/19 02/07/19 02/07/19 Range/Units 05:00 17:51 11:20 Troponin I 11.16 H* 14.46 H* 1.49 H* (< 0.04) ng/mL Impressions Echocardiogram 02/07/19 13:45 Impressions: LVEF 65-70%. Mild concentric left ventricular hypertrophy. Mild left ventricular diastolic dysfunction. Normal right ventricular structure and function. Mild-moderate tricuspid regurgitation. Mild pulmonary hypertension. Left Ventricular Wall Motion: Rest Echo Findings All wall segments showed normal motion. Findings: Study Quality * Technically adequate exam. ECG Findings * Normal sinus rhythm. Left Ventricle * LVEF 65-70%. * Normal LV chamber size and systolic function. * Mild concentric left ventricular hypertrophy. * Mild left ventricular diastolic dysfunction. Right Ventricle * Normal right ventricular structure and function. Left Atrium * Normal left atrial size. Right Atrium * Normal right atrial size. Interatrial Septum * Interatrial septum not well evaluated. * No evidence of PFO by color Doppler. Aortic Valve * Trileaflet aortic valve. * Mildly calcified aortic valve leaflets. * No aortic stenosis. * No aortic regurgitation. Mitral Valve * Normal mitral valve structure. * No mitral stenosis. * Trace mitral regurgitation. Tricuspid Valve * Normal tricuspid valve structure. * No tricuspid stenosis. * Mild-moderate tricuspid regurgitation. * Estimated RVSP is 43 mmHg. * Estimated RA pressure is 15 mmHg. * Mild pulmonary hypertension. Pulmonic Valve * Pulmonic valve is not well visualized. * No pulmonic stenosis. * Trace pulmonic regurgitation. Aorta * Normally sized aortic root. Pericardium * The pericardium appears normal. IVC * The IVC is dilated. * < 50% respiratory change. Active Medications Acetaminophen (Tylenol) 650 mg PO Q6HR PRN PRN Reason: Mild Pain/Fever Stop: 08/08/19 09:29 Last Admin: 02/08/19 10:58 Dose: 650 mg Documented by: Aspirin (Aspirin Ec) 81 mg PO DAILY [facility] Stop: 08/11/19 09:01 Atorvastatin Calcium (Lipitor) 80 mg PO HS [facility] Stop: 08/10/19 21:01 Dextrose/Water (Dextrose 50% (Syg)) 25 ml IVP AD PRN PRN Reason: Hypoglycemia Stop: 08/08/19 09:27 Glucagon (Glucagen) 1 mg IM ONCE PRN PRN Reason: Hypoglycemia Stop: 08/08/19 09:27 Glucose (Gluctose) 15 gm PO ONCE PRN PRN Reason: Hypoglycemia Stop: 08/08/19 09:27 Glucose (Gluctose) 30 gm PO ONCE PRN PRN Reason: Hypoglycemia Stop: 08/08/19 09:27 Heparin Sodium (Porcine) (Heparin) 4,000 unit IVP Q6HR PRN PRN Reason: SEE COMMENTS Stop: 08/09/19 13:45 Heparin Sodium (Porcine) (Heparin) 2,000 unit IVP Q6H PRN PRN Reason: SEE COMMENTS Stop: 08/09/19 13:45 Dextrose (Dextrose 5%) 1,000 mls @ 100 mls/hr IVC .Q10H PRN PRN Reason: HYPOGLYCEMIA Stop: 08/08/19 09:27 Sodium Chloride (0.9 % Sodium Chloride) 1,000 mls @ 100 mls/hr IVC .Q10H [facility] Stop: 08/08/19 16:31 Last Admin: 02/07/19 17:28 Dose: 100 mls/hr Documented by: Heparin Sodium/Dextrose (Heparin 25,000 Unit/250 Ml D5w) 25,000 unit in 250 mls @ 8.97 mls/hr IVC .Q24H [facility]; Protocol Stop: 08/09/19 13:46 Last Titration: 02/08/19 06:50 Dose: 10.03 unit/kg/hr, 7.5 mls/hr Documented by: Insulin Detemir (Levemir) 15 unit SQ [facility] Stop: 08/10/19 21:01 Insulin Human Lispro (Humalog) 0 units SQ HS [facility]; Protocol Stop: 08/08/19 21:01 Last Admin: 02/07/19 23:22 Dose: Not Given Documented by: Insulin Human Lispro (Humalog) 0 units SQ TIDAC [facility]; Protocol Stop: 08/08/19 11:31 Last Admin: 02/08/19 10:59 Dose: 16 units Documented by: Metoprolol Tartrate (Lopressor) 12.5 mg PO BID [facility] Stop: 08/09/19 14:01 Last Admin: 02/08/19 10:58 Dose: 12.5 mg Documented by: Naloxone HCl (Narcan) 0.4 mg IVP Q2MPRN PRN PRN Reason: SEE COMMENTS Stop: 08/08/19 09:29 Ondansetron HCl (Zofran) 4 mg IVP Q8HR PRN PRN Reason: Nausea And Vomiting Stop: 08/08/19 09:29 - Imaging and Cardiology Echo: report reviewed - EKG Interpretation EKG results cardiology: personally reviewed, other (12 hr tele AVG HR 76, SR) Consult Discharge Plan - Plan Referrals: Sheng Alexandra MD [Partnered Physician] -
[2019-02-08] MEDS ORDERED: 0.9 % Sodium Chloride 250 ML ONE (12:59)
--- NOTE | 2019-02-08 14:17 | Electrocardiograph Report ---
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
[2019-02-08] MEDS: 0.9 % Sodium Chloride 1,000 ML IVC SCH ×2 (17:32→17:37)
[2019-02-08] MEDS: *HR* Heparin 5,000 UNIT/ML VIAL SQ SCH (17:55)
[2019-02-08 18:34] LABS: Hematocrit 26.4 % (37.5-50.1); Hemoglobin 8.6 g/dL (12.9-16.9)
--- NOTE | 2019-02-08 18:45 | Nephrology Consult Note ---
Date of Encounter: 02/08/19 Time of Encounter: 09:40 Assessment and Plan (1) Chronic kidney disease, stage V Current Visit: No Status: Chronic He has long-standing chronic kidney disease stage V, it appears. He was formally followed by Dr. Card who, per report, recently retired. Most of the history was derived from the patient's longtime partner who sat with him at bedside. Of note, the patient told me he would not want a heart cath, as he would never want to be placed on chronic dialysis. I updated the patient's nurse. He appears to be at his baseline renal function, and since I respect his wishes, I will not recommend dialysis at this point, but if he were to change his mind, then dialysis would be an option. I recommend following a renal protective strategy; such as avoiding nephrotoxic agents, strict I's and O's, daily weights, renal diet. Thank you for consult in the [facility], and I will follow with you. (2) Anemia in CKD (chronic kidney disease) Current Visit: No Status: Chronic I would only recommend EPO if he were to start chronic dialysis in this setting. Okay to replace iron if needed. Qualifiers: Chronic kidney disease stage: stage 4 (severe) Qualified Code(s): N18.4 - Chronic kidney disease, stage 4 (severe); D63.1 - Anemia in chronic kidney disease (3) Hypertension Current Visit: Yes Status: Chronic Will monitor Qualifiers: Hypertension type: essential hypertension Qualified Code(s): I10 - Essential (primary) hypertension (4) NSTEMI (non-ST elevated myocardial infarction) Current Visit: Yes Status: Acute As per primary/cardiology (5) Diabetes mellitus Current Visit: Yes Status: Chronic Long-standing diabetes, as per primary. Qualifiers: Diabetes mellitus type: type 2 Diabetes mellitus fpc insulin use: with superintendent terminal use Diabetes mellitus complication status: with hypoglycemia Diabetes mellitus complication detail: without coma Qualified Code(s): E11.649 - Type 2 diabetes mellitus with hypoglycemia without coma; Z79.4 - nursing home (c urrent) use of insulin History of Present Illness - Reason for Consult Consult date: 02/07/19 Acute Kidney Injury, Chronic Kidney Disease Requesting physician: David Soliman - Chief Complaint COLLIN on CKD - History of Present Illness The patient is a very pleasant 73-year-old male with a past medical history of long-standing insulin-dependent diabetes, chronic kidney disease stage V, anemia, coronary artery disease and etc. Nephrology was consulted overnight while my colleague Dr. Ndiaye was on-call. I started my call today at 0800. The patient was accompanied by his longtime partner, and they both reported that he would never want long-term dialysis, but he may be open the short-term dialysis if it was absolutely needed. He affirmed feeling generally fatigued, diminished appetite, but did not affirming having madalyn chest pain d uring my interview and exam. He stated that he has been known to have chronic kidney disease stage V for quite some time. He said that he formally saw Dr. Card in the past (of note, this provider no longer practices at [facility] per report, and so the [facility] group was consulted instead). The patient denied taking NSAIDs, has not had recent surgeries at another facility. He reported having good urine flow without burning urination or abdominal pain, and affirmed that he has no first-degree relatives with any family history of ESRD. Past Med Surg Social Fam HX - Past Medical History Medical history: diabetes, hyperlipidemia, hypertension, renal disease Additional medical history: diabetic foot ulcers, osteomyelitis, vitiligo, nephrolithasis, neuropathy, ed, Psychiatric history: depression - Past Surgical History Surgical History: appendectomy, orthopedic, other, other Additional surgical history: foot surgeries, hip fracture repair - Social History Smoking Status: Never smoker Smokeless Tobacco Status: No Alcohol use: none Drug use: none - Family History Mother Living Status: Hx Family Cardiac Disorders: No Hx Family Respiratory Disorders: Yes (TB) Hx Family Cancer: No Hx Family GI Disorders: No Hx Family Endocrine Disorder: No Hx Family Neuromuscular Disorders: No Hx Family Neurologic Disorders: No Hx Family HEENT Disorders: No Hx Family Autoimmune Disorders: No Father Living Status: Hx Family Cardiac Disorders: Yes Hx Family Respiratory Disorders: Yes Hx Family Cancer: No Hx Family GI Disorders: No Hx Family Endocrine Disorder: No Hx Family Neuromuscular Disorders: Yes Hx Family Neurologic Disorders: No Hx Family HEENT Disorders: No Hx Family Autoimmune Disorders: No Medications and Allergies Metoprolol [Lopressor] 12.5 mg PO BID 07/05/15 [History] Escitalopram [Lexapro] 20 mg PO DAILY 06/18/16 [History] Glucagon,Human Recombinant [Glucagon Emergency Kit] 1 mg IJ AD PRN 06/18/16 [History] Acetaminophen [Tylenol] 650 mg PO DAILY PRN 02/07/19 [History] Insulin ASPART [Novolog Flexpen] 3 - 13 units SQ TIDAC 02/07/19 [History] Insulin Glargine,Hum.rec.anlog [Basaglar Kwikpen U-100] 7 unit SQ HS 02/07/19 [History] Allergy/AdvReac Type Severity Reaction Status Date / Time tamsulosin [From Flomax] Allergy HEADACHES Verified 02/07/19 13:31 Review of Systems All Systems: reviewed and no additional remarkable complaints except as stated Exam - Vital Signs Vital signs: Initial Vital Signs Temp Pulse Resp BP Pulse Ox 97.4 F L 125 22 188/104 100 02/06/19 00:59 02/06/19 00:59 02/06/19 00:59 02/06/19 00:59 02/06/19 00:59 Vital Signs - Last 8 Hours Temp Pulse Resp BP Pulse Ox 02/08/19 16:17 98 F 89 14 183/83 99 02/08/19 13:34 98.1 F 83 16 163/88 99 02/08/19 13:19 98.1 F 83 16 156/80 99 02/08/19 12:58 97.8 F 81 19 153/67 99 Intake and Output 02/08/19 02/08/19 02/08/19 07:59 15:59 23:59 Intake Total 1020 / 1320 0 / 1320 300 / 1320 Output Total 300 / 1000 700 / 1000 Balance 1020 / 320 -300 / 320 -400 / 320 Intake: IV Fluids 1020 / 1020 0.9 % Sodium Chloride 1,000 ML 1000 / 1000 @ 100 mls/hr IVC .Q10H [facility] Rx#: [id number] Heparin 25,000 UNIT/250 ML D5W 20 / 20 25,000 unit In 250 ml @ 12 UNIT /KG/HR 8.97 mls/hr IVC .Q24H [facility] Rx#:[id number] Blood Product 0 / 300 300 / 300 Rbcs Leuko Poor As-1 Unit 0 / 300 300 / 300 [id number] Output: Urine 300 / 1000 700 / 1000 Other: Blood Glucose* 426 213 101 - General Appearance General appearance: appears started age, cachectic, chronically ill, fatigue, frail EENT: ATNC, PERRL, mucous membranes dry Neck: no JVD, supple Respiratory: course breath sounds Cardiology: no edema, normal S1, normal S2 - Dialysis Access Additional Comments: In terms of AV access, he does not have a Fistula First in place Gastrointestinal: normoactive bowel sounds, no tenderness, no guarding Integumentary: ecchymotic, hyperpigmentation Neurologic: no focal deficit, no asterixis, disoriented Musculoskeletal: no erythema, no cyanosis, no clubbing Psychiatric: mood/affect appropriate, cooperative Results - Lab Results 02/08/19 05:00 02/08/19 05:00 Consult Discharge Plan - Plan Referrals: Sheng Alexandra MD [Partnered Physician] -
[2019-02-08] MEDS ORDERED: Insulin DETEMIR 100 UNIT/ML X5UNITS SQ SCH (21:00)
--- NOTE | 2019-02-08 21:14 | Electrocardiograph Report ---
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
[2019-02-09] MEDS: 0.9 % Sodium Chloride 1,000 ML IVC SCH ×2 (00:09→02:59)
[2019-02-09] MEDS: Acetaminophen 325 MG TABLET PO PRN (00:32)
[2019-02-09] MEDS: *HR* Heparin 5,000 UNIT/ML VIAL SQ SCH ×2 (05:05→17:17)
--- NOTE | 2019-02-09 07:49 | Internal Med Progress Note ---
<Tim Guaman - Last Filed: 02/09/19 12:58> Hospitalist Progress Note - Encounter Date of Encounter: 02/09/19 Time of Encounter: 12:58 - Subjective Interval History: Mr. Ruiz is a 73 yo M with PMH of type 1DM, HLD, HTN, CKD IV, and depression, presented with AMS and hypoglycemia. Patient seen and examined at bedside. No acute overnight events. States he is feeling well with no acute complaints. - Exam Vitals: Temp Pulse Resp BP Pulse Ox 99.8 F H 80 16 171/97 98 02/09/19 04:28 02/09/19 04:28 02/09/19 04:28 02/09/19 04:28 02/09/19 04:28 Exam: GEN: No acute distress, alert and oriented HEAD: Atraumatic, normocephalic EENT: Pupils symmetric, sclera white, conjunctiva pink, mucous membranes moist HEART: RRR, normal S1 and S2, systolic murmur LUNGS: Clear to auscultation bilaterally, no wheezes, rhonchi, or crackles ABD: Soft, nontender, nondistended, bowel sounds present EXT: No edema noted, pulses 2/4 NEURO: No focal deficits, cooperative with exam - Assessment and Plan (1) Delirium Current Visit: Yes Status: Acute Assessment and Plan: Unclear etiology, but likely secondary to hypoglycemia. Now improving Unlikely infectious without clear source, leukocytosis resolved after IV fluids Possibly seizure related to hypoglycemia - EEG with only diffuse encephalopathic changes Head CT limited by motion artifact - hold on MRI as he has clinically improved PT/OT/SW for discharge planning - planning for ECF when available, likely 02/11/19 (2) Type 1 diabetes mellitus Current Visit: Yes Status: Acute Assessment and Plan: BG remains elevated now Increase basal insulin to 18 U and increase to high-dose scale (3) Hypoglycemia Current Visit: Yes Status: Resolved Assessment and Plan: Resolved. Now hyperglycemic The patient is very unclear about what his insulin regimen it Plan as above (4) Chronic kidney disease, stage IV (severe) Current Visit: Yes Status: Chronic Assessment and Plan: Renal function stable yesterday, still waiting on this AM labs Monitor I/O's, may discontinue MIVF at this time Avoid nephrotoxic agents as able and renally dose medications (5) Anemia in CKD (chronic kidney disease) Current Visit: No Status: Chronic Assessment and Plan: Hgb stable last night, waiting AM labs No acute bleeding, anemia appears chronic Continue iron supplementation (6) Hypertension Current Visit: Yes Status: Chronic Assessment and Plan: On metoprolol, added amlodipine 5mg this morning Continue to monitor and adjust as needed (7) Depression Current Visit: No Status: Chronic Assessment and Plan: Resume home Lexapro (8) NSTEMI (non-ST elevated myocardial infarction) Current Visit: Yes Status: Acute Assessment and Plan: Continues to deny chest pain or dyspnea Patient does not want [facility] d/t poor renal function Cardiology has stopped the heparin drip and switch the patient to Plavix Continue aspirin, statin, and beta brian DVT Prophylaxis: SQ heparin - Time Spent with Patient Total time spent is greater than 50% in coordination of care (as documented) at patient's floor/unit and/or counseling patient: Internal Medicine: Result - Labs CBC & Chem 7: 02/08/19 18:10 02/08/19 05:00 Labs: Short CBC 02/08/19 Range/Units 18:10 Hgb 8.6 L (12.9-16.9) g/dL Hct 26.4 L (37.5-50.1) % - ABG Interpretation ABG results: PT/INR, D-dimer PT 10.8 Seconds (9.4-12.1) 02/07/19 14:19 Consult Discharge Plan - Plan Referrals: Sheng Alexandra MD [Partnered Physician] - <Christopher San - Last Filed: 02/09/19 14:03> Hospitalist Progress Note - Encounter Date of Encounter: 02/09/19 - Assessment and Plan (1) Hypoglycemia Current Visit: Yes Status: Resolved (2) NSTEMI (non-ST elevated myocardial infarction) Current Visit: Yes Status: Acute (3) Chronic kidney disease, stage IV (severe) Current Visit: Yes Status: Chronic (4) Delirium Current Visit: Yes Status: Acute (5) Type 1 diabetes mellitus Current Visit: Yes Status: Acute Internal Medicine: Result - Labs CBC & Chem 7: 02/08/19 18:10 02/08/19 05:00 - Attending Attestation Patient seen and examined independently, including review of objective data including labs. I agree with plan of care as documented above by the resident with the following comments: 73 M w hx DM1, CKD4, CAD, who p/w delirium 2/2 hypoglycemia, subsequently found to have NSTEMI trop peak 14. Due to CKD4 and strong desire to avoid HD, pt opted to forego [facility] and pursue medical therapy. Is on BB, statin, ASA, Plavix, and not on ACEi 2/2 renal dysfxn. Sugars difficult to control as mostly quite elevated, although pt did have hypoglycemia this AM w reported BG 31 which was rapidly corrected. Plan d/c to SNF on Monday. <Tim Guaman R - Last Filed: 02/09/19 12:58> (2) Type 1 diabetes mellitus Qualifiers: Diabetes mellitus complication status: with kidney complications Diabetes mellitus complication detail: with chronic kidney disease Chronic kidney disease stage: stage 4 (severe) Qualified Code(s): E10.22 - Type 1 diabetes mellitus with diabetic chronic kidney disease; N18.4 - Chronic kidney disease, stage 4 (severe) (5) Anemia in CKD (chronic kidney disease) Qualifiers: Chronic kidney disease stage: stage 4 (severe) Qualified Code(s): N18.4 - Chronic kidney disease, stage 4 (severe); D63.1 - Anemia in chronic kidney disease (6) Hypertension Qualifiers: Hypertension type: essential hypertension Qualified Code(s): I10 - Essential (primary) hypertension (7) Depression Qualifiers: Depression Type: unspecified Qualified Code(s): F32.9 - Major depressive disorder, single episode, unspecified <Christopher San - Last Filed: 02/09/19 14:03> (5) Type 1 diabetes mellitus Qualifiers: Diabetes mellitus complication status: with kidney complications Diabetes mellitus complication detail: with chronic kidney disease Chronic kidney disease stage: stage 4 (severe) Qualified Code(s): E10.22 - Type 1 diabetes mellitus with diabetic chronic kidney disease; N18.4 - Chronic kidney disease, stage 4 (severe)
[2019-02-09] MEDS: Insulin LISPRO 300 UNITS/3 ML VIAL SQ SCH ×4 (08:26→21:54)
[2019-02-09] MEDS: amLODIPine 5 MG TABLET PO SCH (08:44)
[2019-02-09] MEDS: Aspirin Enteric Coated 81 MG Tablet PO SCH (08:44)
--- NOTE | 2019-02-09 11:02 | Nephrology Progress Note ---
Date of Encounter: 02/09/19 Time of Encounter: 08:55 - Assessment and Plan (1) Chronic kidney disease, stage V Current Visit: No Status: Chronic He has long-standing chronic kidney disease stage V. Yesterday his labs demonstrated stable renal function, but today there are still no renal function labs (though ordered in advance). I called the inpatient laboratory/phlebotomy Department and inquired why blood work has not been drawn yet. They said they are short staffed. Assuming that his labs are stable, then I would be reassured. He was formally followed by Dr. Card who, per report, recently retired. Of note, the patient told me he would not want a heart cath, as he would never want to be placed on chronic dialysis. I recommend following a renal protective strategy; such as avoiding nephrotoxic agents, strict I's and O's, daily weights, renal diet. Thank you (2) Anemia in CKD (chronic kidney disease) Current Visit: No Status: Chronic I would only recommend EPO if he were to start chronic dialysis in this setting. Okay to replace iron if needed. Qualifiers: Chronic kidney disease stage: stage 4 (severe) Qualified Code(s): N18.4 - Chronic kidney disease, stage 4 (severe); D63.1 - Anemia in chronic kidney disease (3) Hypertension Current Visit: Yes Status: Chronic Will monitor Qualifiers: Hypertension type: essential hypertension Qualified Code(s): I10 - Essential (primary) hypertension (4) NSTEMI (non-ST elevated myocardial infarction) Current Visit: Yes Status: Acute As per primary/cardiology (5) Diabetes mellitus Current Visit: Yes Status: Chronic Long-standing diabetes, as per primary. Qualifiers: Diabetes mellitus type: type 2 Diabetes mellitus [facility] insulin use: with adjunct faculty for medical terminology use Diabetes mellitus complication status: with hypoglycemia Diabetes mellitus complication detail: without coma Qualified Code(s): E11.649 - Type 2 diabetes mellitus with hypoglycemia without coma; Z79.4 - half-way (current) use of insulin Subjective Principal diagnosis: Encephalopathy Interval history: Patient was by himself in his room when he was seen and examined earlier today. He did not affirm nausea, vomiting, diarrhea, and reported feeling slightly better. He says he has chronic mobility issues and is frail when he tries to walk (pre-existing); and, he typically uses a walker. Objective - Vital Signs Vital signs: Vital Signs Temp Pulse Resp BP Pulse Ox 02/09/19 07:54 97.9 F 90 20 189/80 92 02/09/19 04:28 99.8 F H 80 16 171/97 98 02/08/19 23:48 98.7 F 90 17 99 02/08/19 19:24 98.3 F 86 17 176/88 99 02/08/19 16:17 98 F 89 14 183/83 99 02/08/19 13:34 98.1 F 83 16 163/88 99 02/08/19 13:19 98.1 F 83 16 156/80 99 02/08/19 12:58 97.8 F 81 19 153/67 99 Intake and Output 02/08/19 02/09/19 02/09/19 23:59 07:59 15:59 Intake Total 420 / 1440 1000 / 1360 360 / 1360 Output Total 1000 / 1300 250 / 250 Balance -580 / 140 1000 / 1110 110 / 1110 Intake: IV Fluids 1000 / 1000 0.9 % Sodium Chloride 1,000 ML 1000 / 1000 @ 100 mls/hr IVC .Q10H [facility] Rx#: [id number] Oral 120 / 120 360 / 360 Blood Product 300 / 300 Rbcs Leuko Poor As-1 Unit 300 / 300 [id number] Output: Urine 1000 / 1300 250 / 250 Other: Meal Breakfast Percent of Meal Consumed 90% Blood Glucose* 271 34 128 - General Appearance General appearance: Present: appears started age, cachectic, fatigue, frail EENT: Present: ATNC, PERRL, mucous membranes moist Neck: Present: no JVD, supple Respiratory: Present: clear Cardiology: Present: no edema, regular rate, regular rhythm, normal S1, normal S2 Gastrointestinal: Present: normoactive bowel sounds, no tenderness, no guarding Integumentary: Present: hyperpigmentation Neurologic: Present: no focal deficit, no asterixis, alert and oriented x3 Musculoskeletal: Present: no erythema, no cyanosis, no clubbing Psychiatric: Present: mood/affect appropriate, cooperative - Lab 02/08/19 18:10 02/08/19 05:00 Consult Discharge Plan - Plan Referrals: Sheng Alexandra MD [Partnered Physician] -
[2019-02-09] MEDS ORDERED: Insulin LISPRO 300 UNITS/3 ML VIAL SQ SCH ×2 (13:03)
[2019-02-09] MEDS ORDERED: Insulin DETEMIR 100 UNIT/ML X5UNITS SQ SCH ×2 (21:00)
[2019-02-10] MEDS: *HR* Heparin 5,000 UNIT/ML VIAL SQ SCH ×2 (05:34→16:48)
[2019-02-10] MEDS: Insulin LISPRO 300 UNITS/3 ML VIAL SQ SCH ×4 (07:11→20:36)
[2019-02-10] MEDS: Aspirin Enteric Coated 81 MG Tablet PO SCH (08:23)
[2019-02-10] MEDS: amLODIPine 5 MG TABLET PO SCH (08:23)
[2019-02-10 10:02] LABS: Basophils % 0.6 %; Eosinophils # 0.1 K/mcL (0.0-0.6); Eosinophils % 1.9 %; Hematocrit 25.1 % (37.5-50.1); Hemoglobin 8.1 g/dL (12.9-16.9); Immature Granulocytes % 0.4 % (0-4); Lymphocytes # 1.7 K/mcL (0.6-4.6); Lymphocytes % 22.8 %; Mean Corpuscular HGB Conc 32.3 g/dL (31.6-35.5); Mean Corpuscular Hemoglobin 31.9 pg (28.0-33.3); Mean Corpuscular Volume 98.8 fL (83.0-100.0); Monocytes # 0.8 K/mcL (0.0-1.3); Monocytes % 10.6 %; Neutrophils # 4.6 K/mcL (1.6-8.9); Platelet Count 240 K/mcL (140-400); Red Blood Count 2.54 M/mcL (4.19-5.50); Red Cell Distribution Width 14.1 % (11.5-14.5); Segmented Neutrophils % 63.7 %
[2019-02-10 10:17] LABS: Calcium 8.8 mg/dL (8.6-10.3); Potassium 4.8 mEq/L (3.5-5.1)
--- NOTE | 2019-02-10 10:40 | Nephrology Progress Note ---
Date of Encounter: 02/10/19 Time of Encounter: 09:33 - Assessment and Plan (1) Chronic kidney disease, stage V Current Visit: No Status: Chronic He has had GFRs for Non- of <15 for >3 months, which equals stage V CKD. He has not been uremic, and he voiced that dialysis is not a treatment that he would ever want. Continue to follow a renal protective strategy to help preserve renal function. Since he is at his baseline, and dialysis is not an option according to the patient, I will politely sign-off at this time. Please feel free to call or page me with any nephrology related questions. I recommend he follow up with any book store associate, and he had previously seen Dr. Card, but I would be happy to help in the clinic (patient's choice). (2) Anemia in CKD (chronic kidney disease) Current Visit: No Status: Chronic Qualifiers: Chronic kidney disease stage: stage 5, not on chronic dialysis Qualified Code(s): N18.5 - Chronic kidney disease, stage 5; D63.1 - Anemia in chronic kidney disease (3) Hypertension Current Visit: Yes Status: Chronic Qualifiers: Hypertension type: essential hypertension Qualified Code(s): I10 - Essential (primary) hypertension (4) NSTEMI (non-ST elevated myocardial infarction) Current Visit: Yes Status: Acute (5) Diabetes mellitus Current Visit: Yes Status: Chronic Qualifiers: Diabetes mellitus type: type 2 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 No family members are present in the room at the time. Objective - Vital Signs Vital signs: Vital Signs Temp Pulse Resp BP Pulse Ox 02/10/19 07:04 99.3 F 88 16 160/79 98 02/10/19 04:11 98.9 F 79 17 155/71 98 02/10/19 00:50 99.2 F 82 17 157/72 98 02/09/19 19:54 98.3 F 97 16 189/73 99 02/09/19 16:54 97.6 F 91 20 154/57 100 02/09/19 11:07 97.9 F 79 20 195/70 97 Intake and Output 02/09/19 02/10/19 02/10/19 23:59 07:59 15:59 Intake Total 400 / 1760 360 / 840 480 / 840 Output Total 800 / 1050 425 / 875 450 / 875 Balance -400 / 710 -65 / -35 30 / -35 Intake: Oral 400 / 760 360 / 840 480 / 840 Output: Urine 800 / 1050 425 / 875 450 / 875 Other: Meal Dinner lg coffee ham sandwich Breakfast Percent of Meal Consumed 95% 100% # Voids 1 Blood Glucose* 185 35 110 - General Appearance General appearance: Present: appears started age Exam: He appeared to be resting comfortably in bed EENT: Present: ATNC Neurologic: Present: no focal deficit - Lab 02/10/19 09:28 02/10/19 09:28 Most recent lab results 02/10/19 09:28 Calcium 8.8 Consult Discharge Plan - Plan Additional Instructions: You have several new medications - amlodipine 5mg daily - plavix 75mg daily - aspirin 81mg daily - atorvastatin 40mg every night Continue to monitor blood sugars and eat regular meals to avoid having your blood sugar go too low Referrals: Sheng Alexandra MD [Partnered Physician] - Prescriptions: Aspirin Enteric Coated [Aspirin EC] 81 mg PO DAILY #30 tablet. Ferrous Sulfate 325 mg PO BIDWM #60 tablet Atorvastatin [Lipitor] 40 mg PO HS #30 tablet amLODIPine [Norvasc] 5 mg PO DAILY #30 tablet Clopidogrel [Plavix] 75 mg PO DAILY #30 tablet
--- NOTE | 2019-02-10 13:40 | Discharge Summary ---
<Tim Guaman R - Last Filed: 02/10/19 13:37> - NOTES TO OUTPATIENT PROVIDER Notes to Outpatient Provider: Added amlodipine for better control of HTN. Added plavix by cardiology. Found to have NSTEMI, but did not want LHC due to poor renal function. Orders not resulted at time of discharge: Pending orders 02/06/19 08:31 Culture,Blood [BC] Stat Estimated PT Needs at Discharge: SNF/ECF Estimated OT Needs at Discharge: SNF/ECF Date of Encounter: 02/10/19 Time of Encounter: 13:37 - Discharge Diagnosis (1) Delirium Priority: Secondary Status: Acute (2) Hypoglycemia Priority: Secondary Status: Resolved (3) Chronic kidney disease, stage IV (severe) Priority: Secondary Status: Chronic (4) Type 1 diabetes mellitus Priority: Secondary Status: Acute Qualifiers: Diabetes mellitus complication status: with kidney complications Diabetes mellitus complication detail: with chronic kidney disease Chronic kidney disease stage: stage 4 (severe) Qualified Code(s): E10.22 - Type 1 diabetes mellitus with diabetic chronic kidney disease; N18.4 - Chronic kidney disease, stage 4 (severe) (5) NSTEMI (non-ST elevated myocardial infarction) Priority: Primary Status: Acute Hospital course: Mr. Ruiz is a 73 yo M with PMH of type 1 DM, HTN, HLD, and CKD stage V, presented to the hospital with altered mental status after family found him hypoglycemic (blood glucose of 31). He was very somnolent and confused on initial presentation. Head CT showed no convincing evidence of acute process, however was limited by motion artifact. His hypoglycemia was treated, and the patient's delirium improved. EEG showed generalized encephalopathy, without evidence of epilepsy. Neurology was consult and he stated that his altered mental status was likely secondary to his hypoglycemia. He had a non-focal neurological exam. Can not rule out an isolated seizure related to hypoglycemia. It appears the patient has been confused about his insulin regimen at home, and may even be switching his basal and short-acting insulins. He was also found to have an NSTEMI, but denied any chest pain. Cardiology consulted, but the patient did not want a LHC due to fear of worsening renal function from the contrast. He has non-oliguric CKD V and does not want dialysis. He was transitioned from heparin drip to plavix. He will continue plavix, atorvastatin, and aspirin. He was also hypertensive during his hospitalization, so amlodipine was added to his home metoprolol. He also has anemia with Hgb stable around 8- 9. He did get 1U pRBCs in anticipation for LHC that eventually never happened. Started iron supplementation as well. That patient was evaluated by PT, OT, and SW, who recommended SNF upon discharge. Discharge discussed with: patient - Time Spent with Patient Total time spent providing and/or coordinating discharge services: - Discharge Medications Prescriptions: New RX: Clopidogrel [Plavix] 75 mg PO DAILY #30 tablet RX: Ferrous Sulfate 325 mg PO BIDWM #60 tablet RX: Atorvastatin [Lipitor] 40 mg PO HS #30 tablet RX: amLODIPine [Norvasc] 5 mg PO DAILY #30 tablet RX: Aspirin Enteric Coated [Aspirin EC] 81 mg PO DAILY #30 tablet. Continued RX: Metoprolol [Lopressor] 12.5 mg PO BID RX: Escitalopram [Lexapro] 20 mg PO DAILY RX: Glucagon,Human Recombinant [Glucagon Emergency Kit] 1 mg IJ AD PRN PRN Reason: sugar RX: Insulin ASPART [Novolog Flexpen] 3 - 13 units SQ TIDAC RX: Insulin Glargine,Hum.rec.anlog [Basaglar Kwikpen U-100] 7 unit SQ HS RX: Acetaminophen [Tylenol] 650 mg PO DAILY PRN PRN Reason: Pain Home Medications: RX: Metoprolol [Lopressor] 12.5 mg PO BID 07/05/15 [History] RX: Escitalopram [Lexapro] 20 mg PO DAILY 06/18/16 [History] RX: Glucagon,Human Recombinant [Glucagon Emergency Kit] 1 mg IJ AD PRN 06/18/16 [History] RX: Acetaminophen [Tylenol] 650 mg PO DAILY PRN 02/07/19 [History] RX: Insulin ASPART [Novolog Flexpen] 3 - 13 units SQ TIDAC 02/07/19 [History] RX: Insulin Glargine,Hum.rec.anlog [Basaglar Kwikpen U-100] 7 unit SQ HS 02/07/19 [History] RX: Aspirin Enteric Coated [Aspirin EC] 81 mg PO DAILY #30 tablet. 02/10/19 [Rx] RX: Atorvastatin [Lipitor] 40 mg PO HS #30 tablet 02/10/19 [Rx] RX: Clopidogrel [Plavix] 75 mg PO DAILY #30 tablet 02/10/19 [Rx] RX: Ferrous Sulfate 325 mg PO BIDWM #60 tablet 02/10/19 [Rx] RX: amLODIPine [Norvasc] 5 mg PO DAILY #30 tablet 02/10/19 [Rx] Allergies/Adverse Reactions: Allergy/AdvReac Type Severity Reaction Status Date / Time tamsulosin [From Flomax] Allergy HEADACHES Verified 02/07/19 13:31 Date of admission: 02/07/19 17:52 Primary care physician: PCP NONE Consults: 02/06/19 10:17 Consult to Medical Information Officer [CONS] Routine Reason for SW Consult: family may want ECF 02/06/19 16:33 Consult to Interpret Exam [CONS] Routine Consulting Provider: Leo Campbell Consult to Interpret Exam: Interpret EEG 02/07/19 11:57 Consult to Occupational Therapy [CONS] Routine Comment: Evaluate, develop and implement POC Reason for Consult: weakness Does patient have active BEDREST order?: No Is patient medically & hemodynamically stable?: Yes Patient assessed for mobility or mobilized this visit?: No Consult to Physical Therapy [CONS] Routine Comment: Evaluate, develop and implement POC Reason for Consult: weakness Does patient have active BEDREST order?: No Is patient medically & hemodynamically stable?: Yes Patient assessed for mobility or mobilized this visit?: No 02/07/19 19:36 Consult to Cardiology [CONS] Routine Comment: Consulting Provider: Cardiology Vashti Reason for Consult: NSTEMI Call Completed: No 02/07/19 21:03 Consult to Nephrology [CONS] Routine Consulting Provider: Kidney Vashti/KING/RANDY/GAUDENCIO Reason for Consult: CKD5; needs [facility] Call Completed: Yes Discharging clinician: Christopher San Anticipated date of discharge: 02/11/19 - Constitutional Vitals: Temp Pulse Resp BP Pulse Ox 98.2 F 78 16 182/91 99 02/10/19 11:01 02/10/19 11:01 02/10/19 11:01 02/10/19 11:01 02/10/19 11:01 General appearance: Present: mild distress Exam: GEN: No acute distress, alert and oriented HEAD: Atraumatic, normocephalic EENT: Pupils symmetric, sclera white, conjunctiva pink, mucous membranes moist HEART: RRR, normal S1 and S2, systolic murmur LUNGS: Clear to auscultation bilaterally, no wheezes, rhonchi, or crackles ABD: Soft, nontender, nondistended, bowel sounds present EXT: No edema noted, pulses 2/4 NEURO: No focal deficits, cooperative with exam - Patient Status Disposition: Transfer SNF Condition: Fair - Discharge Instructions Follow Up With: Sheng Alexandra MD [Partnered Physician] - Additional Instructions: You have several new medications - amlodipine 5mg daily - plavix 75mg daily - aspirin 81mg daily - atorvastatin 40mg every night Continue to monitor blood sugars and eat regular meals to avoid having your blood sugar go too low - Diet and Activity Activity: as per physical therapy Diet: diabetic diet, low fat, low cholesterol <Christopher San - Last Filed: 02/10/19 14:25> Date of Encounter: 02/10/19 Date of admission: 02/07/19 17:52 Primary care physician: PCP NONE Consults: 02/06/19 10:17 Consult to Medical Information Officer [CONS] Routine Reason for SW Consult: family may want ECF 02/06/19 16:33 Consult to Interpret Exam [CONS] Routine Consulting Provider: Leo Campbell Consult to Interpret Exam: Interpret EEG 02/07/19 11:57 Consult to Occupational Therapy [CONS] Routine Comment: Evaluate, develop and implement POC Reason for Consult: weakness Does patient have active BEDREST order?: No Is patient medically & hemodynamically stable?: Yes Patient assessed for mobility or mobilized this visit?: No Consult to Physical Therapy [CONS] Routine Comment: Evaluate, develop and implement POC Reason for Consult: weakness Does patient have active BEDREST order?: No Is patient medically & hemodynamically stable?: Yes Patient assessed for mobility or mobilized this visit?: No 02/07/19 19:36 Consult to Cardiology [CONS] Routine Comment: Consulting Provider: Cardiology Vashti Reason for Consult: NSTEMI Call Completed: No 02/07/19 21:03 Consult to Nephrology [CONS] Routine Consulting Provider: Kidney Vashti/KING/RANDY/GAUDENCIO Reason for Consult: CKD5; needs [facility] Call Completed: Yes - Patient Status Functional capacity at discharge: independent ambulation Overall status at discharge: patient is back to baseline - Attending Attestation Patient seen and examined. I agree with the discharge plan as documented above by the resident. In summary, pt w hx DM1 and CKD4 p/w acute metabolic encephalopathy from severe hypoglycemia, which improved with glucose supplementation. Did end up initially getting head CT, neuro consult, and EEG, all of which were unremarkable. Pt noted on admission to [facility], peaked at 14 during hospitalization, suggestive of NSTEMI. Due to pt's CKD4, he was wary of possibly needing HD following LHC, and thus per Cardio and Neph opted for medical management except ACEi due to renal function. Per PT/OT, pt needing skilled care and will d/c to SNF. Initially planned d/c for today but will now not be until tomorrow.
--- NOTE | 2019-02-10 14:00 | Physician Discharge Referral ---
ExtendedCare Referral Info Transfer To: SNF Provider in Charge: Felt Machine Mechanic Institutional Level of Care: Skilled - Diagnosis (1) NSTEMI (non-ST elevated myocardial infarction) Priority: Primary Status: Acute (2) Delirium Priority: Secondary Status: Acute (3) Hypoglycemia Priority: Secondary Status: Resolved (4) Chronic kidney disease, stage IV (severe) Priority: Secondary Status: Chronic (5) Type 1 diabetes mellitus Priority: Secondary Status: Acute Prognosis: Fair - Transfer Medications Prescriptions: Aspirin Enteric Coated [Aspirin EC] 81 mg PO DAILY #30 tablet. Ferrous Sulfate 325 mg PO BIDWM #60 tablet Atorvastatin [Lipitor] 40 mg PO HS #30 tablet amLODIPine [Norvasc] 5 mg PO DAILY #30 tablet Clopidogrel [Plavix] 75 mg PO DAILY #30 tablet Home Medications: Metoprolol [Lopressor] 12.5 mg PO BID 07/05/15 [History] Escitalopram [Lexapro] 20 mg PO DAILY 06/18/16 [History] Glucagon,Human Recombinant [Glucagon Emergency Kit] 1 mg IJ AD PRN 06/18/16 [History] Acetaminophen [Tylenol] 650 mg PO DAILY PRN 02/07/19 [History] Insulin ASPART [Novolog Flexpen] 3 - 13 units SQ TIDAC 02/07/19 [History] Insulin Glargine,Hum.rec.anlog [Basaglar Kwikpen U-100] 7 unit SQ HS 02/07/19 [History] Aspirin Enteric Coated [Aspirin EC] 81 mg PO DAILY #30 tablet. 02/10/19 [Rx] Atorvastatin [Lipitor] 40 mg PO HS #30 tablet 02/10/19 [Rx] Clopidogrel [Plavix] 75 mg PO DAILY #30 tablet 02/10/19 [Rx] Ferrous Sulfate 325 mg PO BIDWM #60 tablet 02/10/19 [Rx] amLODIPine [Norvasc] 5 mg PO DAILY #30 tablet 02/10/19 [Rx] Allergies/Adverse Reactions: Allergy/AdvReac Type Severity Reaction Status Date / Time tamsulosin [From Flomax] Allergy HEADACHES Verified 02/07/19 13:31 - Respiratory Orders Smoking Cessation: Smoking cessation has been advised. For more information, call the [employer] Tobacco Quit Line at 5-217-HZCU-NOW. - Advance Directives Code Status: Full Code - Rehabiliation Orders Rehab Orders: Evaluation for Physical Therapy, Evaluation for Occupational Therapy - Diet Orders Renal CERTIFICATION: I certify that the transfer of the above named patient to an Extended Care Facility is necessary for the continuing treatment of the diagnosis listed. The above information is true and accurate reflection of patient's current condition. Confidential - Redisclosure prohibited without a patient's written consent.
[2019-02-10] MEDS: Acetaminophen 325 MG TABLET PO PRN (14:52)
[2019-02-10] MEDS ORDERED: Insulin DETEMIR 100 UNIT/ML X5UNITS SQ SCH (21:00)
[2019-02-11] MEDS: *HR* Heparin 5,000 UNIT/ML VIAL SQ SCH (05:17)
--- NOTE | 2019-02-11 08:06 | Internal Med Progress Note ---
Hospitalist Progress Note - Encounter Date of Encounter: 02/11/19 Time of Encounter: 08:06 - Subjective Interval History: Pt denies acute needs. Ready for d/c. - Exam Vitals: Temp Pulse Resp BP Pulse Ox 98.4 F 88 16 197/85 97 02/11/19 07:42 02/11/19 07:42 02/11/19 07:42 02/11/19 07:42 02/11/19 07:42 Exam: GEN: No acute distress, awake and oriented HEAD: Atraumatic, normocephalic EENT: Pupils symmetric, sclera white, conjunctiva pink, mucous membranes moist HEART: RRR, normal S1 and S2, systolic murmur LUNGS: Clear to auscultation bilaterally, no wheezes, rhonchi, or crackles ABD: Soft, nontender EXT: No edema noted, pulses 2+ NEURO: No focal deficits, cooperative with exam - Summary of Assessment and Plan Summary of Assessment and Plan: Pt p/w altered mental status from hypoglycemia and found to have NSTEMI, managed medically in context of CKD4 and resistance to idea of dialysis. Per PT/OT, meets for skilled care and will d/c today. See d/c summary dated 02/10 for full d/c details. Internal Medicine: Result - Labs CBC & Chem 7: 02/10/19 09:28 02/10/19 09:28 Labs: Short CBC 02/10/19 Range/Units 09:28 WBC 7.3 (4.3-11.1) K/mcL Hgb 8.1 L (12.9-16.9) g/dL Hct 25.1 L (37.5-50.1) % Plt Count 240 (140-400) K/mcL Neutrophils # 4.6 (1.6-8.9) K/mcL BMP 02/10/19 09:28 Sodium 138 Potassium 4.8 Chloride 108 H Carbon Dioxide 21 L BUN 60 H Creatinine 4.26 H Glucose 141 H Calcium 8.8 - ABG Interpretation ABG results: PT/INR, D-dimer PT 10.8 Seconds (9.4-12.1) 02/07/19 14:19 Consult Discharge Plan - Plan Additional Instructions: You have several new medications - amlodipine 5mg daily - plavix 75mg daily - aspirin 81mg daily - atorvastatin 40mg every night Continue to monitor blood sugars and eat regular meals to avoid having your blood sugar go too low Referrals: Sheng Alexandra MD [Partnered Physician] - Prescriptions: Aspirin Enteric Coated [Aspirin EC] 81 mg PO DAILY #30 tablet. Ferrous Sulfate 325 mg PO BIDWM #60 tablet Atorvastatin [Lipitor] 40 mg PO HS #30 tablet amLODIPine [Norvasc] 5 mg PO DAILY #30 tablet Clopidogrel [Plavix] 75 mg PO DAILY #30 tablet
[2019-02-11] MEDS: Insulin LISPRO 300 UNITS/3 ML VIAL SQ SCH ×2 (08:15→11:38)
[2019-02-11] MEDS: Aspirin Enteric Coated 81 MG Tablet PO SCH (08:15)
[2019-02-11] MEDS ORDERED: amLODIPine 5 MG TABLET PO SCH (09:00)
[2019-02-11 11:23] VITALS: BP 170/68
== END 2019-02-11 13:18 | DRG 280 ==
LOC: EMEROOARM 00:51 → 3ANU 00:51 → SUATTDRO 06:42 → 3ANU 07:47 → 2ANU 02-07 21:47
PROVIDERS: ADMIT Pediatrics; ATTEND Internal Medicine

== ENCOUNTER 2019-02-12 19:29 | Inpatient (IN) ==
[2019-02-12] MEDS ORDERED: 0.9 % Sodium Chloride 1,000 ML IVC ONE (19:54)
--- NOTE | 2019-02-12 20:01 | Emergency Department Note ---
Disposition Clinical Impression: Acute non-ST segment elevation myocardial infarction, Chronic progressive renal failure, Hyperkalemia, DKA (diabetic ketoacidoses), Cardiac dysrhythmia, unspecified Disposition: Admitted As Inpatient Condition: Critical Forms: ED Satisfaction Letter Time of Disposition: 22:40 General Adult HPI - General Chief complaint: ED Nausea/Vomiting/Diarrhea Stated complaint: high blood sugar Time Seen by Provider: 02/12/19 19:38 Source: EMS Limitations: no limitations Nursing Notes Reviewed: Yes Vital Signs Reviewed: Yes - History of Present Illness HPI Narrative: Patient presents to emergency Department from residential facility for high blood sugar. He was just discharged from the hospital after a three-day admission to the hospital for low blood sugar and non-ST segment elevation myocardial infarction. The patient has no acute symptoms he states he feels tired but that sustained when he fell he was discharged from the hospital. He denies headache neck pain chest pain shortness of breath abdominal pain nausea vomiting diarrhea or urinary changes. He is a relatively poor historian and does not volunteer much information but answers all questions appropriately and is awake and oriented. Unclear from the nursing facility at this time is whether or not they gave him his insulin we will contact them and find out if they provided his diabetic medications as he does have these. They reported a fingerstick greater than 500, paramedics report blood sugar 436, upon arrival 455 at the bedside. Patient is denying any fevers or chills he is denying diarrhea he is denying unilateral numbness or weakness Pain Scale: 0 - Related Data Home Medications Medication Instructions Recorded Confirmed Metoprolol [Lopressor] 12.5 mg PO BID 07/05/15 02/12/19 Glucagon,Human Recombinant 1 mg IM AD PRN 06/18/16 02/12/19 [Glucagon Emergency Kit] Acetaminophen [Tylenol] 650 mg PO DAILY PRN 02/07/19 02/12/19 Insulin ASPART [Novolog Flexpen] 0 units SQ TIDAC 02/07/19 02/12/19 Insulin Glargine,Hum.rec.anlog 7 unit SQ HS 02/07/19 02/12/19 [Basaglar Kwikpen U-100] Aspirin 81 mg PO DAILY 02/12/19 02/12/19 Escitalopram [Lexapro] 10 mg PO DAILY 02/12/19 02/12/19 Mirtazapine 7.5 mg PO HS 02/12/19 02/12/19 Previous Rx's Medication Instructions Recorded Atorvastatin [Lipitor] 40 mg PO HS #30 tablet 02/10/19 Clopidogrel [Plavix] 75 mg PO DAILY #30 tablet 02/10/19 Ferrous Sulfate 325 mg PO BIDWM #60 tablet 02/10/19 amLODIPine [Norvasc] 5 mg PO DAILY #30 tablet 02/10/19 Allergies Allergy/AdvReac Type Severity Reaction Status Date / Time tamsulosin [From Flomax] Allergy HEADACHES Verified 02/07/19 13:31 All systems ED: reviewed and negative except as stated. Review of Systems: As Per HPI (Poor historian, as above however denies any si gnificant symptoms on review of systems) Past Medical History - Past Medical History Medical history: Reports: diabetes, hyperlipidemia, hypertension, renal disease Surgical history: Reports: appendectomy, orthopedic, other, other Psychiatric history: Reports: depression - Social History Smoking Status: Never smoker Smokeless Tobacco Status: No Alcohol use: Reports: none Drug use: Reports: none Physical Exam - General Limitations: no limitations General appearance: alert, in no apparent distress Course Vital Signs Temperature 98.4 F 02/12/19 19:33 Pulse Rate 99 02/12/19 19:33 Respiratory Rate 16 02/12/19 19:33 Blood Pressure 146/73 02/12/19 19:33 O2 Sat by Pulse Oximetry 100 02/12/19 19:33 Temperature 98.4 F 02/12/19 19:33 Pulse Rate 107 02/12/19 22:00 Respiratory Rate 18 02/12/19 22:12 Blood Pressure 124/56 02/12/19 22:00 O2 Sat by Pulse Oximetry 99 02/12/19 22:12 Oxygen Delivery Oxygen Delivery Room Air Medical Decision Making - MDM Narrative Medical decision making narrative: Patient had an IV placed, fingerstick was 455 he was started on IV hydration, I did review his echocardiogram which showed an EF of 65% from 2 days ago when he was admitted to the hospital. The patient remained completely symptom free, EKG was performed which showed a normal sinus rhythm with poor R-wave progression, but with no acute change from prior EKG with no ST elevation no ST depression no T-wave inversions no difference from EKG from recent admission within the last 4 days. Chest x-ray as interpreted by radiology showed no acute findings. Patient found to have multiple laboratory abnormalities. He was found to have a leukocytosis of 17,000, stable hemoglobin of 8.4, baseline of 8.1-8.6, platelets were within acceptable limits. Based upon the remainder of his findings have believe his leukocytosis is likely a stress response, he has no clinical evidence of significant infection I did order urinalysis however he was unable to provide a urine sample here in the ER. Prior to laboratory studies being resulted, the patient had an episode on the monitor where he had what appeared to be a sinus pause, he had P waves that march out but no QRS complexes, this lasted about 10-15 seconds before he had spontaneous recurrence of QRS complexes the security systems technician notified us, we immediately went down to the room his heart rate was now normal and he recalls having no symptoms today did not have any witnessed altered mental status was completely alert and awake upon my presentation back to the room, immediately ordered IV calcium, for concerns that he could have some hyperkalemia His laboratory studies then resulted Laboratory studies also demonstrated evidence to suggest diabetic ketoacidosis with a pH of 7.18 a bicarbonate of 12, blood glucose of 455, sodium 126, greater than 2 ketones, a insulin drip was ordered for this patient in regards to this. Potassium was 6.2. High-dose albuterol was also ordered, his insulin drip was ordered already. I contacted nephrology, discuss consideration of a bicarbonate drip he is in agreement with this he was also given a 1 amp pusher bicarbonate. Thereafter the patient had no recurrent cardiac dysrhythmia. The nephrology service is also made aware that the patient is agreeable to dialysis temporarily should he require this. Other laboratory studies were reviewed, and the patient has a troponin of greater than 73 which is up from 11, from his n-STEMI previously consistent with further non-STEMI. I contacted cardiology in regards to this as well as the cardiac sinus pause, they recommended initiating heparin drip and bolus ACS protocol which was ordered. A consideration of potential temporary pacemaker should he have further cardiac dysrhythmia although they recommend correcting blood sugar and hyperkalemia as well. Patient had 3 large-bore IVs initiated, drips included insulin heparin and bicarbonate. Patient managed with high-dose albuterol, IV fluids, IV bicarbonate and IV calcium pushes as well. Patient was admitted to the ICU by the hospitalist service for further evaluation and management. On multiple evaluations of this patient he remains without any recurrence of cardiac dysrhythmia, and without respiratory symptoms or progressive respiratory symptoms and he remains completely asymptomatic. I spent a long time talking with the family and patient about his wishes, he would like to be a full code and would be agreeable to potential intubation as well as dialysis as well as pacemaker placement temporarily should this be needed, here in the emergency department he remains without further recurrent cardiac dysrhythmia or findings. Total critical care time as provided by myself excluding any procedures performed evaluation and management and consultation and multiple repeat evaluations is 105 minutes. - Lab Data Result diagrams: 02/12/19 22:14 02/12/19 20:22 Lab Results 02/12/19 02/12/19 02/12/19 Range/Units 20:22 20:22 20:22 WBC 16.5 H D (4.3-11.1) K/mcL RBC 2.68 L (4.19-5.50) M/mcL Hgb 8.6 L (12.9-16.9) g/dL Hct 26.4 L (37.5-50.1) % MCV 98.5 (83.0-100.0) fL MCH 32.1 (28.0-33.3) pg MCHC 32.6 (31.6-35.5) g/dL RDW 13.6 (11.5-14.5) % Plt Count 298 (140-400) K/mcL MPV 10.0 (9.4-12.4) fL Immature Gran % 1.3 (0-4) % Seg Neutrophils % 82.6 % Lymphocytes % 8.1 % Monocytes % 7.8 % Eosinophils % 0.0 % Basophils % 0.2 % Neutrophils # 13.6 H (1.6-8.9) K/mcL Lymphocytes # 1.3 (0.6-4.6) K/mcL Monocytes # 1.3 (0.0-1.3) K/mcL Eosinophils # 0.0 (0.0-0.6) K/mcL Basophils # 0.0 (0.0-0.2) K/mcL PT (9.4-12.1) Seconds INR Heparin Anti-Xa, Unfract (0.30-0.70) IU/mL VBG pH (7.32-7.42) pH Units VBG pCO2 (41-51) mmHg VBG pO2 (25-50) mmHg VBG HCO3 (21-27) mEq/L Sodium 126 L (136-145) mEq/L Potassium 6.2 H (3.5-5.1) mEq/L Chloride 96 L (98-107) mEq/L Carbon Dioxide 12 L (23-29) mEq/L BUN 92 H (8-23) mg/dL Creatinine 5.04 H (0.70-1.30) mg/dL Est GFR ( Amer) 14 L (> 60) Est GFR (Non-Af Amer) 11 L (> 60) BUN/Creatinine Ratio 18 (6-26) Glucose 449 H (70-105) mg/dL Calculated Osmolality 310 H (280-300) Calcium 9.3 (8.6-10.3) mg/dL Troponin I > 73.00 H* (< 0.04) ng/mL Beta-Hydroxybutyric Acd > 2.00 H (0.02-0.27) mmol/L Person Notif of Crit 02/12/19 02/12/19 02/12/19 Range/Units 20:34 22:14 22:14 WBC 17.9 H (4.3-11.1) K/mcL RBC 2.56 L (4.19-5.50) M/mcL Hgb 8.4 L (12.9-16.9) g/dL Hct 25.1 L (37.5-50.1) % MCV 98.0 (83.0-100.0) fL MCH 32.8 (28.0-33.3) pg MCHC 33.5 (31.6-35.5) g/dL RDW 13.5 (11.5-14.5) % Plt Count 277 (140-400) K/mcL MPV 10.3 (9.4-12.4) fL Immature Gran % (0-4) % Seg Neutrophils % % Lymphocytes % % Monocytes % % Eosinophils % % Basophils % % Neutrophils # (1.6-8.9) K/mcL Lymphocytes # (0.6-4.6) K/mcL Monocytes # (0.0-1.3) K/mcL Eosinophils # (0.0-0.6) K/mcL Basophils # (0.0-0.2) K/mcL PT 10.7 (9.4-12.1) Seconds INR 1.0 Heparin Anti-Xa, Unfract 0.40 (0.30-0.70) IU/mL VBG pH 7.18 L* (7.32-7.42) pH Units VBG pCO2 31 L (41-51) mmHg VBG pO2 68 H (25-50) mmHg VBG HCO3 12 L (21-27) mEq/L Sodium (136-145) mEq/L Potassium (3.5-5.1) mEq/L Chloride (98-107) mEq/L Carbon Dioxide (23-29) mEq/L BUN (8-23) mg/dL Creatinine (0.70-1.30) mg/dL Est GFR ( Amer) (> 60) Est GFR (Non-Af Amer) (> 60) BUN/Creatinine Ratio (6-26) Glucose (70-105) mg/dL Calculated Osmolality (280-300) Calcium (8.6-10.3) mg/dL Troponin I (< 0.04) ng/mL Beta-Hydroxybutyric Acd (0.02-0.27) mmol/L Person Notif of Crit [facility]
[2019-02-12 20:34] LABS: Basophils % 0.2 %; Hematocrit 26.4 % (37.5-50.1); Hemoglobin 8.6 g/dL (12.9-16.9); Immature Granulocytes % 1.3 % (0-4); Lymphocytes # 1.3 K/mcL (0.6-4.6); Lymphocytes % 8.1 %; Mean Corpuscular HGB Conc 32.6 g/dL (31.6-35.5); Mean Corpuscular Hemoglobin 32.1 pg (28.0-33.3); Mean Corpuscular Volume 98.5 fL (83.0-100.0); Monocytes # 1.3 K/mcL (0.0-1.3); Monocytes % 7.8 %; Neutrophils # 13.6 K/mcL (1.6-8.9); Platelet Count 298 K/mcL (140-400); Red Blood Count 2.68 M/mcL (4.19-5.50); Red Cell Distribution Width 13.6 % (11.5-14.5); Segmented Neutrophils % 82.6 %; White Blood Count 16.5 K/mcL (4.3-11.1)
[2019-02-12 20:41] LABS: VBG HCO3 12 mEq/L (21-27); VBG PCO2 31 mmHg (41-51); VBG PH 7.18 pH Units (7.32-7.42); VBG PO2 68 mmHg (25-50)
[2019-02-12] MEDS ORDERED: Insulin Human Regular 100 UNIT in 0.9 % Sodium Chloride 100 ML IVC SCH (20:45)
[2019-02-12 20:56] LABS: BUN/Creatinine Ratio 18 (6-26); Blood Urea Nitrogen 92 mg/dL (8-23); Calcium 9.3 mg/dL (8.6-10.3); Carbon Dioxide 12 mEq/L (23-29); Chloride 96 mEq/L (98-107); Glucose 449 mg/dL (70-105); Osmolality,Calculated 310 (280-300); Potassium 6.2 mEq/L (3.5-5.1); Sodium 126 mEq/L (136-145); eGFR For African Americans 14 (> 60); eGFR For Non-African Americans 11 (> 60)
[2019-02-12 21:05] LABS: Troponin I > 73.00 ng/mL (< 0.04)
[2019-02-12] MEDS ORDERED: Albuterol 2.5 MG/3 ML NEBULIZER IH ONE (21:09)
[2019-02-12] MEDS ORDERED: Calcium Gluconate 1gm/50mL 1 GM/50 ML BAG IV ONE (21:15)
[2019-02-12] MEDS ORDERED: Sodium Bicarbonate 50 MEQ/50 ML VIAL IVP ONE (21:25)
[2019-02-12] MEDS ORDERED: *HR* Heparin 5,000 UNIT/ML VIAL IVP ONE (21:29)
[2019-02-12] MEDS ORDERED: SODIUM BICARBONATE IVC SCH (21:45)
[2019-02-12] MEDS ORDERED: WATER FOR IRRIGATION IVC SCH (21:45)
[2019-02-12] MEDS: Heparin 25,000 UNIT/250 ML D5W 25,000 UNIT/250 ML IV.SOLN IVC SCH (21:58)
[2019-02-12] MEDS ORDERED: 0.9 % Sodium Chloride 500 ML ONE (22:06)
[2019-02-12] MEDS: Sodium Bicarbonate 150 MEQ in D5% in Water 1,000 ML IVC SCH (22:15)
[2019-02-12 22:27] LABS: Hematocrit 25.1 % (37.5-50.1); Hemoglobin 8.4 g/dL (12.9-16.9); Mean Corpuscular HGB Conc 33.5 g/dL (31.6-35.5); Mean Corpuscular Hemoglobin 32.8 pg (28.0-33.3); Mean Platelet Volume 10.3 fL (9.4-12.4); Platelet Count 277 K/mcL (140-400); Red Blood Count 2.56 M/mcL (4.19-5.50); Red Cell Distribution Width 13.5 % (11.5-14.5); White Blood Count 17.9 K/mcL (4.3-11.1)
[2019-02-12 22:41] LABS: Heparin anti-factor XA UFH 0.4 IU/mL (0.30-0.70)
[2019-02-12 22:42] LABS: Prothrombin Time 10.7 Seconds (9.4-12.1)
[2019-02-12] MEDS ORDERED: Naloxone 0.4 MG/ML INJ IVP PRN (22:59)
--- NOTE | 2019-02-12 22:59 | Internal Med History&Physical ---
<Mir Basurto S - Last Filed: 02/12/19 23:24> Date of Encounter: 02/12/19 Time of Encounter: 23:04 Internal Medicine - H&P: HPI Chief complaint: high sugar Admitted From: Long-term Nursing Facility Plans for Post Hospital Care: Home History of present illness: Mr. Ruiz is a 73 year old male with PMH of T1 diabetes, hyperlipidemia, hypertension, vitiligo, and renal disease. He is presenting from snf facility for high blood sugar. They took his blood sugar this afternoon before dinner and it read as critically high. He reportedly slumped over in his chair while the doctor there was evaluating him. The pt reports no acute symptoms or concerns. He does feel tired but states that he has felt real lethargic lately and that it is unchanged from his hospital stay. He denies fevers/chills, any chest pain, breathing difficulties, N/V/D, abdominal pain, numbness or tingling. He was recently at the hospital for hypoglycemia and NSTEMI, where he refused LHC or intervention. In the ER he was found to have an elevated BG. Troponin >73. Cardiology consulted. Appears to be in acute renal failure, nephrology consulted. He also had what appeared to be a sinus pause for 10-15 seconds per t he ER attending where there were P waved but no QRS complexes. He was started on a heparin drip and a bicarbonate drip. He will be admitted to ICU for further treatment. Past Med Surg Social Fam HX - Past Medical History Medical history: diabetes, hyperlipidemia, hypertension, renal disease Additional medical history: diabetic foot ulcers, osteomyelitis, vitiligo, nephrolithasis, neuropathy, ed, Psychiatric history: depression - Past Surgical History Surgical History: appendectomy, orthopedic, other, other Additional surgical history: foot surgeries, hip fracture repair - Social History Smoking Status: Never smoker Smokeless Tobacco Status: No Alcohol use: none Drug use: none - Family History Mother Living Status: Hx Family Cardiac Disorders: No Hx Family Respiratory Disorders: Yes (TB) Hx Family Cancer: No Hx Family GI Disorders: No Hx Family Endocrine Disorder: No Hx Family Neuromuscular Disorders: No Hx Family Neurologic Disorders: No Hx Family HEENT Disorders: No Hx Family Autoimmune Disorders: No Father Living Status: Hx Family Cardiac Disorders: Yes Hx Family Respiratory Disorders: Yes Hx Family Cancer: No Hx Family GI Disorders: No Hx Family Endocrine Disorder: No Hx Family Neuromuscular Disorders: Yes Hx Family Neurologic Disorders: No Hx Family HEENT Disorders: No Hx Family Autoimmune Disorders: No Internal Medicine - H&P: Meds Metoprolol [Lopressor] 12.5 mg PO BID 07/05/15 [History] Glucagon,Human Recombinant [Glucagon Emergency Kit] 1 mg IM AD PRN 06/18/16 [History] Acetaminophen [Tylenol] 650 mg PO DAILY PRN 02/07/19 [History] Insulin ASPART [Novolog Flexpen] 0 units SQ TIDAC 02/07/19 [History] Insulin Glargine,Hum.rec.anlog [Basaglar Kwikpen U-100] 7 unit SQ HS 02/07/19 [History] Atorvastatin [Lipitor] 40 mg PO HS #30 tablet 02/10/19 [Rx] Clopidogrel [Plavix] 75 mg PO DAILY #30 tablet 02/10/19 [Rx] Ferrous Sulfate 325 mg PO BIDWM #60 tablet 02/10/19 [Rx] amLODIPine [Norvasc] 5 mg PO DAILY #30 tablet 02/10/19 [Rx] Aspirin 81 mg PO DAILY 02/12/19 [History] Escitalopram [Lexapro] 10 mg PO DAILY 02/12/19 [History] Mirtazapine 7.5 mg PO HS 02/12/19 [History] Allergy/AdvReac Type Severity Reaction Status Date / Time tamsulosin [From Flomax] Allergy HEADACHES Verified 02/07/19 13:31 All Systems PM: A 10-system review of systems was performed and is negative for pertinent findings except as documented above in the HPI. - Constitutional Constitutional: fatigue, no chills, no fever(s) - EENT Eyes: no blurry vision, no change in vision Ears: no tinnitus Nose, mouth and throat: no bleeding gums, no dysphagia - Cardiovascular Cardiovascular ROS IM: no chest pain, no dyspnea, no dyspnea on exertion - Respiratory Respiratory: no cough, no dyspnea, no hemoptysis, no dyspnea on exertion - Gastrointestinal Gastrointestinal: no abdominal pain, no diarrhea, no nausea, no vomiting - Genitourinary Genitourinary ROS male: no difficulty urinating, no dysuria - Musculoskeletal Musculoskeletal ROS IM: arthralgias, back pain, neck pain - Integumentary Integumentary IM: no erythema, no unusual bruising - Neurological Neurological ROS: weakness, no numbness, no tingling - Psychiatric Psychiatric: anxiety, depression - Endocrine Endocrine IM: no fatigue, no polydipsia, no polyuria - Hematologic/Lymphatic Hematologic/Lymphatic: no easy bleeding, no easy bruising - Constitutional Vitals: Temp Pulse Resp BP Pulse Ox 98.4 F 107 18 124/56 99 02/12/19 19:33 02/12/19 22:00 02/12/19 22:12 02/12/19 22:00 02/12/19 22:12 Exam: general - aox3, nad, laying in bed, pleasant and cooperative heent - ncat, vitiligo on the face, dry MM neck - supple, no jvd cardio - rrr,s1s2,cta no mrg lungs - ctab, not in respiratory distress, no wheeze/rhonchi/rales abd - soft, NTND, no peritoneal signs, no rebound or guarding extremities - moves all extremities equally, no peripheral edema, strength intact neuro - no FND, CN2-12 grossly intact, follows command psych - normal affect/mood skin - warm, dry, some diabetic ulcers on the B/L LE Internal Med - H&P Results - Labs CBC & Chem 7: 02/12/19 22:14 02/12/19 20:22 Labs: Short CBC 02/12/19 02/12/19 Range/Units 20:22 22:14 WBC 16.5 H D 17.9 H (4.3-11.1) K/mcL Hgb 8.6 L 8.4 L (12.9-16.9) g/dL Hct 26.4 L 25.1 L (37.5-50.1) % Plt Count 298 277 (140-400) K/mcL Neutrophils # 13.6 H (1.6-8.9) K/mcL BMP 02/12/19 20:22 Sodium 126 L Potassium 6.2 H Chloride 96 L Carbon Dioxide 12 L BUN 92 H Creatinine 5.04 H Glucose 449 H Calcium 9.3 Cardiac Enzymes 02/12/19 Range/Units 20:22 Troponin I > 73.00 H* (< 0.04) ng/mL - ABG Interpretation ABG results: 02/12/19 20:34 VBG pH 7.18 L* VBG pCO2 31 L VBG pO2 68 H VBG HCO3 12 L - Impressions ITS Impressions Chest X-Ray 02/12/19 19:38 IMPRESSION: No acute cardiopulmonary disease or significant interval change from prior study 02/06/2019 D/ / Deni Pop / Deni Pop Interpreting Provider: Deni oPp - Assessment and Plan (1) DKA (diabetic ketoacidoses) Current Visit: Yes Status: Acute Assessment and plan: Pt with hx of T1DM diagnosed as a child presenting with DKA - no source of infxn identified at this time, possibly precipitated by multiple medical comorbidities and acute illness WBC 17.9, likely componenet of stress demargination Glucose on arrival 449 Sodium 126, psedohyponatremia corrects to 132 (probably some component of poor PO intake as well) Beta hydroxybutyric acid >2 XR chest showed no acute cardiopulmonary disease ABG: pH 7.18, pCO2 31, pO2 68, HCO3 12 - metabolic anion gap acidosis; delta/delta = 1/2, pt does appear to have a component of NAG met acidosis Plan: - UA pending - blood cx pending - complete fluid bolus started in the ER - electrolyte protocol - IVF as per HHS/DKA protocol - insulin drip as per HHS/DKA protocol - continue bicarbonate drip - continue telemetry monitoring - ABG in AM - BMP q2hr - FEN: NPO - dvt prophylaxis: heparin drip - dispo: pt to be evaluated by cardiology, nephrology, ICU admission Qualifiers: Diabetes mellitus type: type 1 Diabetes mellitus complication detail: without coma Qualified Code(s): E10.10 - Type 1 diabetes mellitus with ketoacidosis without coma (2) Acute non-ST segment elevation myocardial infarction Current Visit: Yes Status: Acute Assessment and plan: Pt with troponin of >73, previous admission did defer [facility] - pt denies active chest pain EKG showed NSR without acute ST changes or T wave inversions from previous admission Recent ECHO from 02/07/19: LVEF 65-70%. Mild concentric left ventricular hypertrophy. Mild left ventricular diastolic dysfunction. Normal right ventricular structure and function. Mild-moderate tricuspid regurgitation. Mild pulmonary hypertension. Plan: - cardiology consulted - continue heparin drip - troponin pending for 04:00 - at this time pt wishes to be a FULL CODE and pursue all treatment possibilities (3) Acute renal failure Current Visit: Yes Status: Acute Assessment and plan: Pt with increased creatinine from baseline - admission creatinine 5.04; baseline around 3-4.5 Plan: - nephrology consulted - continue to monitor renal fxn and bmp - strict I&O - avoid nephrotoxic agents - urine studies pending Qualifiers: Acute renal failure type: unspecified Qualified Code(s): N17.9 - Acute kidney failure, unspecified (4) Vitiligo Current Visit: No Status: Chronic Assessment and plan: Chronic. (5) Cardiac dysrhythmia, unspecified Current Visit: Yes Status: Acute Assessment and plan: Pt noted to have dropped beats for about 10-15 mins, completely asymptomatic. Cardiology notified. Pt will continue telemetry monitoring in ICU. Qualifiers: Arrhythmia type: unspecified cardiac arrhythmia Qualified Code(s): I49.9 - Cardiac arrhythmia, unspecified (6) Hyperkalemia Current Visit: Yes Status: Acute Assessment and plan: Potassium 6.2 on admission. Given calcium glucuronate and duonebs in the ER. Repeat pending for midnight 02/13/19. (7) DVT prophylaxis Current Visit: No Status: Acute Assessment and plan: heparin drip (8) Elevated troponin Current Visit: No Status: Acute Assessment and plan: Likely type 1 PR, troponin >73. Pt did refuse LHC on previous admission but now wishes for all intervention. (9) Failure to thrive Current Visit: No Status: Acute Assessment and plan: BMI 19.9, nutrition consulted. Qualifiers: Failure to thrive age range: in adult Qualified Code(s): R62.7 - Adult failure to thrive - Time Spent With Patient Total time spent is greater than 50% in coordination of care (as documented) at patient's floor/unit and/or counseling patient: 25 - 35 minutes <Juan Gonzalez - Last Filed: 02/13/19 02:55> Date of Encounter: 02/12/19 All Systems PM: A 10-system review of systems was performed and is negative for pertinent findings except as documented above in the HPI. - Constitutional Vitals: Temp Pulse Resp BP Pulse Ox 98.4 F 107 18 124/56 99 02/12/19 19:33 02/12/19 22:00 02/12/19 22:12 02/12/19 22:00 02/12/19 22:12 Internal Med - H&P Results - Labs CBC & Chem 7: 02/12/19 22:14 02/13/19 00:58 Labs: Short CBC 02/12/19 02/12/19 Range/Units 20:22 22:14 WBC 16.5 H D 17.9 H (4.3-11.1) K/mcL Hgb 8.6 L 8.4 L (12.9-16.9) g/dL Hct 26.4 L 25.1 L (37.5-50.1) % Plt Count 298 277 (140-400) K/mcL Neutrophils # 13.6 H (1.6-8.9) K/mcL BMP 02/12/19 20:22 Sodium 126 L Potassium 6.2 H Chloride 96 L Carbon Dioxide 12 L BUN 92 H Creatinine 5.04 H Glucose 449 H Calcium 9.3 Cardiac Enzymes 02/12/19 Range/Units 20:22 Troponin I > 73.00 H* (< 0.04) ng/mL - ABG Interpretation ABG results: 02/12/19 20:34 VBG pH 7.18 L* VBG pCO2 31 L VBG pO2 68 H VBG HCO3 12 L - Impressions ITS Impressions Chest X-Ray 02/12/19 19:38 IMPRESSION: No acute cardiopulmonary disease or significant interval change from prior study 02/06/2019 D/ / Deni Pop / Deni Pop Interpreting Provider: Deni Pop - Time Spent With Patient Total time spent is greater than 50% in coordination of care (as documented) at patient's floor/unit and/or counseling patient: Greater than 35 minutes - Attending Attestation I performed a history and physical exam of the patient and discussed management with the resident. I reviewed the resident's note and agree with the documented findings and plan of care. Nii Ruiz is a 73 year old man with diabetes, hypertension, stage V chronic kidney disease and coronary artery disease who was discharged from here only yesterday after being admitted for altered mental status deemed secondary to hypoglycemia but was also found to have an NSTEMI with left heart catheter deferred due to his poor kidney function and his desire to not be on dialysis. He was discharged to nursing facility and was referred back in today because of elevated blood sugar. He denies any clinical symptoms but lab work revealed a troponin level greater than 73, glucose 450, potassium 6.2 and elevated serum ketones. He has an elevated anion from diabetic ketoacidosis and a non-anion gap metabolic acidosis present likely from renal failure with a pH of 7.18 in conjunction with hyperkalemia. His EKG revealed anterior Q waves and T-waves that appear more elevated than his baseline. Will administer calcium gluconate for cardiac membrane stabilization, insulin for both hyperkalemia and DKA as well as sodium bicarbonate infusion tem porarily. Will also start heparin drip for NSTEMI; the elevation in troponin is unprecedented but he lacks any clinical symptoms. Unclear if it is secondary to the DKA and hyperkalemia compounded by worsening renal failure. We will consult both nephrology and cardiology for management assistance. Check electrolytes q2- 4hrs. Monitor on telemetry. Leukocytosis is currently unexplained; again suspect secondary to stress response as there are no signs of infection present. All the same will draw empiric blood cultures and check a urine sample; no indication for antimicrobials at the moment however. SHEILA BONNER.
[2019-02-12] MEDS ORDERED: Potassium Phosphate 44 MEQ in 0.9 % Sodium Chloride 250 ML IVPB PRN (23:02)
[2019-02-12] MEDS ORDERED: D5% in 0.45% NACL 1,000 ML IVC PRN (23:02)
[2019-02-12] MEDS ORDERED: Calcium Gluconate 1gm/50mL 1 GM/50 ML BAG IV PRN (23:10)
[2019-02-13 00:53] LABS: Sodium, Urine 28.5 mEq/L
[2019-02-13] MEDS ORDERED: Insulin Human Regular 10 UNIT in 0.9 % Sodium Chloride 10 ML IV ONE (01:10)
[2019-02-13 01:22] LABS: VBG PH 7.11 pH Units (7.32-7.42)
[2019-02-13] MEDS: 0.9 % Sodium Chloride 1,000 ML IVC SCH ×5 (01:24→07:02)
[2019-02-13] MEDS: Insulin Human Regular 100 UNIT in 0.9 % Sodium Chloride 100 ML IVC SCH ×4 (01:29→08:03)
[2019-02-13 01:47] LABS: Bilirubin,Urine Negative (Negative); Blood,Urine Small (Negative); Clarity,Urine Clear (Clear); Color,Urine Yellow (Yellow); Glucose,Urine (UA) >=1000 mg/dL (Normal); Ketones,Urine Trace mg/dL (Negative); Leukocyte Esterase,Urine Negative (Negative); Nitrite,Urine Negative (Negative); Protein,Urine 30 mg/dL (Neg-Trace); Urobilinogen,Urine Normal (Normal)
[2019-02-13 01:48] LABS: Calcium 8.9 mg/dL (8.6-10.3); Magnesium 1.8 mg/dL (1.6-2.6); Phosphorous 4.9 mg/dL (2.7-4.5); Potassium 4.2 mEq/L (3.5-5.1)
[2019-02-13 01:49] LABS: Bacteria,Urine None Seen per hpf (None-Few); Hyaline Casts,Urine Few per lpf (None-Few); RBC,Urine 0-3 per hpf (0-3); Squamous Epithelial Cell,Urine Many per lpf (None-Few)
[2019-02-13] MEDS: 0.9 % Sodium Chloride w KCl 20 MEQ/1,000 ML MLS IVC SCH ×3 (02:07→06:06)
[2019-02-13 03:47] LABS: Hematocrit 23.4 % (37.5-50.1); Hemoglobin 7.8 g/dL (12.9-16.9); Mean Corpuscular HGB Conc 33.3 g/dL (31.6-35.5); Mean Corpuscular Volume 95.9 fL (83.0-100.0); Mean Platelet Volume 9.9 fL (9.4-12.4); Platelet Count 273 K/mcL (140-400); Red Blood Count 2.44 M/mcL (4.19-5.50); Red Cell Distribution Width 13.4 % (11.5-14.5); White Blood Count 18.9 K/mcL (4.3-11.1)
[2019-02-13 03:56] LABS: Prothrombin Time 10.9 Seconds (9.4-12.1)
[2019-02-13 04:08] LABS: VBG HCO3 14 mEq/L (21-27); VBG PCO2 37 mmHg (41-51); VBG PO2 76 mmHg (25-50)
[2019-02-13 04:09] LABS: Calcium 8.8 mg/dL (8.6-10.3)
[2019-02-13] MEDS: Sodium Bicarbonate 150 MEQ in D5% in Water 1,000 ML IVC SCH ×2 (06:05→15:07)
[2019-02-13 06:11] LABS: Calcium 8.6 mg/dL (8.6-10.3)
[2019-02-13] MEDS: D5% in 0.45% NACL w KCl 20 MEQ/1,000 ML MLS IVC PRN ×2 (07:55→11:57)
--- NOTE | 2019-02-13 08:13 | Nephrology Consult Note ---
Date of Encounter: 02/13/19 Time of Encounter: 08:00 Assessment and Plan (1) ESRD (end stage renal disease) Current Visit: Yes Status: Acute He has a long-standing history of chronic kidney disease and has been in stage V over the last several months. During a recent admission he had adamantly refused starting dialysis. He returns with DKA. The DKA had induced such severe hyperglycemia that he had pseudohyponatremia and hyperkalemia as well as a metabolic acidosis over night. He developed cardiac arrhythmia issues as well, and a very elevated troponin. Last night I had recommended IV fluids, insulin drip protocol for DKA, and because of the hyperkalemic induced arrhythmia(s), I also recommended a bicarbonate drip. The hyperkalemia did res pond with medical management; however, he still is in renal failure and ultimately needs to start chronic dialysis. I previously informed the patient on the last admission that if he were to change his mind, he would have indications to initiate dialysis. He said that he has now changed his mind, and agrees to proceed with initiation of dialysis. Therefore I reviewed the consent process with him including the risks, benefits, alternatives, pros versus cons; and, he he verbally agreed to proceed. The CRUSHER SUPERVISOR was present in the room. Since he does not have a fistula first (his previous geological engineer was Dr. Card who has since retired and no longer has coverage in [facility] for his prior patients, per report), I recommend placement of a dialysis catheter. Ultimately he will need a permacath, but given that he is still in the ICU with an elevated WBC and the BCx are not yet finalized, I will at first request a temporary HD catheter. IR will be consulted. I will place dialysis orders to initiate slowly with a slowly ramp up of the blood flow and dialysate flow over the next 3 days with 3 consecutive dialysis treatments (this approach may help minimize the risks for dialysis dysequalibrium). Thank you for consultation the [facility], and I will closely follow with you. He required critical care time of approximately 40 minutes, which involved documentation, exam/ face to face, the logistics of communication overnight as well as this morning with the ER, IR, the dialysis RNs, as well as the primary hospitalist team. (2) Chronic kidney disease, stage V Current Visit: No Status: Chronic He will now be declared ESRD. (3) DKA (diabetic ketoacidoses) Current Visit: Yes Status: Acute Appreciate the primary team Qualifiers: Diabetes mellitus type: type 1 Diabetes mellitus complication detail: without coma Qualified Code(s): E10.10 - Type 1 diabetes mellitus with ketoacidosis without coma (4) Hyperkalemia Current Visit: Yes Status: Acute Improving, and high risk. (5) Hyponatremia Current Visit: Yes Status: Acute Slowly trending better. Likely multifactorial but probably related to both pseudohyponatremia from the severe DKA/hyperglycemia and renal failure. (6) Anemia in CKD (chronic kidney disease) Current Visit: No Status: Chronic Goal hemoglobin is 10-11. I recommend initiating EPO since he will also be started on chronic dialysis. This is likely a multifactorial anemia. He will need iron studies checked to determine if he needs IV iron as well. Discussed with primary hospitalist/resident. Qualifiers: Chronic kidney disease stage: stage 5, not on chronic dialysis Qualified Code(s): N18.5 - Chronic kidney disease, stage 5; D63.1 - Anemia in chronic kidney disease History of Present Illness - Reason for Consult Consult date: 02/12/19 end stage renal disease Requesting physician: Mir Basurto - Chief Complaint Renal failure - History of Present Illness The patient is a pleasant 73-year-old male with a past medical history of CKD stage V, hypertension, and etc. Nephrology was consulted overnight as he presented with DKA and multiple electrolyte abnormalities. He was recently hospitalized at [facility], and he had turned down the option for starting hemodialysis. Previously he said he saw the now semiretired Dr. Card in the past for Nephrology care. The [facility] no longer has providers that round on their patients in the hospital, so on the last admission the [facility] was consulted; and previously the patient said he wanted to follow up with me in the office. When I spoke to the ER attending overnight, the patient and his family said that he was now willing to initiate dialysis at this point. When I saw the patient this morning in the ICU, his CRUSHER SUPERVISOR was present, and after reviewing the pros and cons as well as the risks, benefits, indications, alternative and etc, he affirmed that he wanted to initiate dialysis. He also had some fluctuating mild confusion (which is consistent with uremia), so a complete history of present illness and review of systems are not thoroughly reliably obtainable from the patient. He has not been taking NSAIDs according to his medicine list. He affirmed having poor appetite, with periodic nausea but no diarrhea or vomiting. He affirmed feeling fatigued and short of breath as well as some generalized chest pain when admitted. He had been placed on an insulin drip as well as a bicarbonate drip when I discussed overnight with the ER. Past Med Surg Social Fam HX - Past Medical History Medical history: diabetes, GERD, hyperlipidemia, hypertension, myocardial infarction, renal disease Additional medical history: diabetic foot ulcers, osteomyelitis, vitiligo, nephrolithasis, neuropathy, ed, Psychiatric history: depression - Past Surgical History Surgical History: appendectomy, orthopedic, other, other Additional surgical history: foot surgeries, hip fracture repair - Social History Smoking Status: Never smoker Smokeless Tobacco Status: No Alcohol use: none Drug use: none - Family History Mother Living Status: Hx Family Cardiac Disorders: No Hx Family Respiratory Disorders: Yes (TB) Hx Family Cancer: No Hx Family GI Disorders: No Hx Family Endocrine Disorder: No Hx Family Neuromuscular Disorders: No Hx Family Neurologic Disorders: No Hx Family HEENT Disorders: No Hx Family Autoimmune Disorders: No Father Living Status: Hx Family Cardiac Disorders: Yes Hx Family Respiratory Disorders: Yes Hx Family Cancer: No Hx Family GI Disorders: No Hx Family Endocrine Disorder: No Hx Family Neuromuscular Disorders: Yes Hx Family Neurologic Disorders: No Hx Family HEENT Disorders: No Hx Family Autoimmune Disorders: No Medications and Allergies Metoprolol [Lopressor] 12.5 mg PO BID 07/05/15 [History] Glucagon,Human Recombinant [Glucagon Emergency Kit] 1 mg IM AD PRN 06/18/16 [History] Acetaminophen [Tylenol] 650 mg PO DAILY PRN 02/07/19 [History] Insulin ASPART [Novolog Flexpen] 0 units SQ TIDAC 02/07/19 [History] Insulin Glargine,Hum.rec.anlog [Basaglar Kwikpen U-100] 7 unit SQ HS 02/07/19 [History] Atorvastatin [Lipitor] 40 mg PO HS #30 tablet 02/10/19 [Rx] Clopidogrel [Plavix] 75 mg PO DAILY #30 tablet 02/10/19 [Rx] Ferrous Sulfate 325 mg PO BIDWM #60 tablet 02/10/19 [Rx] amLODIPine [Norvasc] 5 mg PO DAILY #30 tablet 02/10/19 [Rx] Aspirin 81 mg PO DAILY 02/12/19 [History] Escitalopram [Lexapro] 10 mg PO DAILY 02/12/19 [History] Mirtazapine 7.5 mg PO HS 02/12/19 [History] Allergy/AdvReac Type Severity Reaction Status Date / Time tamsulosin [From Flomax] Allergy HEADACHES Verified 02/07/19 13:31 Review of Systems All Systems: reviewed and no additional remarkable complaints except as stated Exam - Vital Signs Vital signs: Initial Vital Signs Temp Pulse Resp BP Pulse Ox 98.4 F 99 16 146/73 100 02/12/19 19:33 02/12/19 19:33 02/12/19 19:33 02/12/19 19:33 02/12/19 19:33 Vital Signs - Last 8 Hours Temp Pulse Resp BP Pulse Ox 02/13/19 07:59 98.4 F 02/13/19 07:28 99 16 111/67 97 02/13/19 06:00 101 20 103/75 98 02/13/19 05:00 100 16 120/63 98 02/13/19 04:00 102 16 112/91 97 02/13/19 03:07 103 02/13/19 03:00 103 16 116/62 97 02/13/19 02:00 104 18 103/54 96 02/13/19 01:00 104 18 117/71 96 Intake and Output 02/12/19 02/13/19 02/13/19 23:59 07:59 15:59 Intake Total 1578.5 / 1619.0 3206.1 / 3206.1 Output Total 150 / 150 Balance 1578.5 / 1619.0 3056.1 / 3056.1 Intake: IV Fluids 1578.5 / 1619.0 3206.1 / 3206.1 0.9 % Sodium Chloride 500 ML @ 500 / 500 0 mls/hr .ROUTE .STK-MED ONE Rx #:[id number] Calcium Gluconate 1gm/50mL 1 gm 50 / 50 In 50 ml @ 100 mls/hr IV ONCE ONE Rx#:[id number] HumuLIN R 10 UNIT In Normal 10.1 / 10.1 Saline Flush 10 ML @ 1212 mls/ hr IV ONCE ONE Rx#:[id number] 0.9 % Sodium Chloride 1,000 ML 1000 / 1000 @ 999 mls/hr IVC .Q1H1M ONE Rx# :[id number] KCl 20 mEq in 0.9% Sodium 1800 / 1800 Chloride 20 meq In 1,000 ml @ 500 mls/hr IVC .Q2H [facility] Rx#: [id number] Heparin 25,000 UNIT/250 ML D5W 49.2 / 49.2 25,000 unit In 250 ml @ 12 UNIT /KG/HR 8.219 mls/hr IVC .Q24H [facility] Rx#:[id number] HumuLIN R 100 UNIT In 0.9 % 28.5 / 69.0 196.8 / 196.8 Sodium Chloride 100 ML @ 0.1 UNIT/KG/HR 6.918 mls/hr IVC CONT [facility] Rx#:[id number] Sodium Bicarbonate 150 MEQ In 1150 / 1150 Dextrose 5% 1,000 ML @ 150 mls/ hr IVC .Q7H40M [facility] Rx#: [id number] Output: Catheter 150 / 150 Other: Stool Size Large Stool Consistency soft Stool Color Brown # Bowel Movements 1 Weight 68.492 kg 72.8 kg Blood Glucose* 473 170 Patient Weight 02/13/19 23:59 Weight 72.8 kg - General Appearance General appearance: appears started age, cachectic, fatigue, frail EENT: ATNC, PERRL, mucous membranes dry Neck: no JVD, supple Respiratory: clear Cardiology: no murmurs, no edema, regular rate, regular rhythm, normal S1, normal S2 - Dialysis Access Additional Comments: AC access: he does not have a Fistula First. Gastrointestinal: normoactive bowel sounds, no tenderness, no guarding Integumentary: warm and dry Neurologic: no focal deficit, no asterixis, disoriented Musculoskeletal: no deformities, no erythema, no cyanosis, no clubbing Psychiatric: depressed, cooperative Results - Lab Results 02/13/19 03:24 02/13/19 09:38 Most recent lab results 02/12/19 02/13/19 02/13/19 20:22 00:20 00:58 Calcium 9.3 8.9 Phosphorus 4.9 H Magnesium 1.8 Urine Creatinine 61 Urine Sodium 28.5 02/13/19 02/13/19 03:24 05:16 Calcium 8.8 8.6 Phosphorus Magnesium Urine Creatinine Urine Sodium Consult Discharge Plan - Plan Referrals: NONE,PCP [Primary Care Provider] -
[2019-02-13] MEDS ORDERED: 0.9 % Sodium Chloride 250 ML IVC PRN (08:36)
[2019-02-13] MEDS ORDERED: 0.9 % Sodium Chloride 1,000 ML PRIME SCH (08:45)
--- NOTE | 2019-02-13 09:40 | Cardiology Consult Note ---
<Esequiel Velasquez R - Last Filed: 02/13/19 10:48> Date of Encounter: 02/13/19 Time of Encounter: 09:36 Assessment and Plan (1) NSTEMI (non-ST elevated myocardial infarction) Current Visit: No Status: Acute Troponin >73, then 42.47. In setting of DKA and CKD. Recently hospitalized with NSTEMI, declined [facility] d/t risk of NEHA. Peak troponin at that time was 14.46 Creatinine 5.04 on admission. Nephrology consulted and pt is now willing to have dialysis. TTE 02/07/19: LVEF 65-70%. Mild cLVH. Mild LVDD. Normal RV structure and function. Mild-moderate TR. Mild phtn. Check limited TTE. Pt is on heparin gtt. Continue ASA, Statin. Will hold BB d/t sinus pause noted on admission. No recurrence. HBG 7.8 (8.4 on admission). Reviewed past labs. Near baseline. Suspect anemia of chronic disease with his CKD. No recent GI evaluation. Recommend GI consult and evaluation prior to [facility]. Discussed [facility]. Pt would now be willing since he is going on dialysis. Will wait until his overall condition improves, dialysis has been intiated and evaluated by GI. Continue to follow. (2) ESRD (end stage renal disease) Current Visit: Yes Status: Acute Nephrology following with plans to start dialysis. (3) Sinus pause Current Visit: Yes Status: Acute Reported 15 second pause on ED. No recurrence on tele overnight. Hold BB. Continue to monitor. Discussion w patient/family: The assessment and plan as outlined above was discussed with the patient and/or family members who expressed understanding and agreement. All questions were answered. Thank you for involving us in the care of your patient. Please call with any questions. I will discuss all the above with Dr. Jamil and make changes as necessary. History of Present Illness Consult date: 02/13/19 Consult reason: NSTEMI History of present illness: Mr. Ruiz is a 73 year old male PMH of Type I DM, HLD, HTN, vitiligo, and CKD that presents from assisted facility for high blood sugar. They took his blood sugar this afternoon before dinner and it read as critically high. Pt reported feeling tired since his recent hospital stay. He denies fevers/chills, any chest pain or shortness of breath. Troponin >73, then 42.47. Cardiology consulted for further recs. He was recently at the hospital for hypoglycemia and NSTEMI, where he declined [facility] d/t risk of NEHA. Reported sinus pause for 10-15 seconds per the ER attending. Pt found to be in DKA. Creatinine 5.04 on admission. Nephrology consulted and pt is now willing to have dialysis. Prior CV testing: TTE 02/07/19: LVEF 65-70%. Mild cLVH. Mild LVDD. Normal RV structure and func tion. Mild-moderate TR. Mild phtn. Past Med Surg Social Fam HX - Past Medical History Medical history: diabetes, GERD, hyperlipidemia, hypertension, myocardial infarction, renal disease Additional medical history: diabetic foot ulcers, osteomyelitis, vitiligo, nephrolithasis, neuropathy, ed, Psychiatric history: depression - Past Surgical History Surgical History: appendectomy, orthopedic, other, other Additional surgical history: foot surgeries, hip fracture repair - Social History Smoking Status: Never smoker Smokeless Tobacco Status: No Alcohol use: none Drug use: none - Family History Mother Living Status: Hx Family Cardiac Disorders: No Hx Family Respiratory Disorders: Yes (TB) Hx Family Cancer: No Hx Family GI Disorders: No Hx Family Endocrine Disorder: No Hx Family Neuromuscular Disorders: No Hx Family Neurologic Disorders: No Hx Family HEENT Disorders: No Hx Family Autoimmune Disorders: No Father Living Status: Hx Family Cardiac Disorders: Yes Hx Family Respiratory Disorders: Yes Hx Family Cancer: No Hx Family GI Disorders: No Hx Family Endocrine Disorder: No Hx Family Neuromuscular Disorders: Yes Hx Family Neurologic Disorders: No Hx Family HEENT Disorders: No Hx Family Autoimmune Disorders: No Medications and Allergies Metoprolol [Lopressor] 12.5 mg PO BID 07/05/15 [History] Glucagon,Human Recombinant [Glucagon Emergency Kit] 1 mg IM AD PRN 06/18/16 [History] Acetaminophen [Tylenol] 650 mg PO DAILY PRN 02/07/19 [History] Insulin ASPART [Novolog Flexpen] 0 units SQ TIDAC 02/07/19 [History] Insulin Glargine,Hum.rec.anlog [Basaglar Kwikpen U-100] 7 unit SQ HS 02/07/19 [History] Atorvastatin [Lipitor] 40 mg PO HS #30 tablet 02/10/19 [Rx] Clopidogrel [Plavix] 75 mg PO DAILY #30 tablet 02/10/19 [Rx] Ferrous Sulfate 325 mg PO BIDWM #60 tablet 02/10/19 [Rx] amLODIPine [Norvasc] 5 mg PO DAILY #30 tablet 02/10/19 [Rx] Aspirin 81 mg PO DAILY 02/12/19 [History] Escitalopram [Lexapro] 10 mg PO DAILY 02/12/19 [History] Mirtazapine 7.5 mg PO HS 02/12/19 [History] Allergy/AdvReac Type Severity Reaction Status Date / Time tamsulosin [From Flomax] Allergy HEADACHES Verified 02/07/19 13:31 All Systems Review: The remainder of the systems were reviewed and are negative - Constitutional Constitutional: fatigue Physical Examination Vital Signs, Last 4 Hours Temp Pulse Resp BP Pulse Ox 02/13/19 09:00 101 15 108/57 95 02/13/19 08:00 100 17 120/63 95 02/13/19 07:59 98.4 F 02/13/19 07:30 102 02/13/19 07:28 99 16 111/67 97 02/13/19 06:00 101 20 103/75 98 Vital Signs Temp Pulse Resp BP Pulse Ox 02/13/19 09:00 101 15 108/57 95 02/13/19 08:00 100 17 120/63 95 02/13/19 07:59 98.4 F 02/13/19 07:30 102 02/13/19 07:28 99 16 111/67 97 02/13/19 06:00 101 20 103/75 98 02/13/19 05:00 100 16 120/63 98 02/13/19 04:00 102 16 112/91 97 02/13/19 03:07 103 02/13/19 03:00 103 16 116/62 97 02/13/19 02:00 104 18 103/54 96 02/13/19 01:00 104 18 117/71 96 02/13/19 00:00 97.8 F 107 18 101/55 96 02/12/19 22:12 18 99 02/12/19 22:00 107 16 124/56 100 02/12/19 21:00 100 22 145/75 99 02/12/19 19:33 98.4 F 99 16 146/73 100 Intake and Output 02/12/19 02/13/19 02/13/19 23:59 07:59 15:59 Intake Total 1578.5 / 1619.0 3206.1 / 3230.3 24.2 / 3230.3 Output Total 150 / 150 Balance 1578.5 / 1619.0 3056.1 / 3080.3 24.2 / 3080.3 Intake: IV Fluids 1578.5 / 1619.0 3206.1 / 3230.3 24.2 / 3230.3 0.9 % Sodium Chloride 500 ML @ 500 / 500 0 mls/hr .ROUTE .STK-MED ONE Rx #:[id number] Calcium Gluconate 1gm/50mL 1 gm 50 / 50 In 50 ml @ 100 mls/hr IV ONCE ONE Rx#:[id number] HumuLIN R 10 UNIT In Normal 10.1 / 10.1 Saline Flush 10 ML @ 1212 mls/ hr IV ONCE ONE Rx#:[id number] 0.9 % Sodium Chloride 1,000 ML 1000 / 1000 @ 999 mls/hr IVC .Q1H1M ONE Rx# :[id number] KCl 20 mEq in 0.9% Sodium 1800 / 1800 Chloride 20 meq In 1,000 ml @ 500 mls/hr IVC .Q2H [facility] Rx#: [id number] Heparin 25,000 UNIT/250 ML D5W 49.2 / 49.2 25,000 unit In 250 ml @ 12 UNIT /KG/HR 8.219 mls/hr IVC .Q24H [facility] Rx#:[id number] HumuLIN R 100 UNIT In 0.9 % 28.5 / 69.0 196.8 / 221.0 24.2 / 221.0 Sodium Chloride 100 ML @ 0.1 UNIT/KG/HR 6.918 mls/hr IVC CONT [facility] Rx#:[id number] Sodium Bicarbonate 150 MEQ In 1150 / 1150 Dextrose 5% 1,000 ML @ 150 mls/ hr IVC .Q7H40M [facility] Rx#: [id number] Output: Catheter 150 / 150 Other: Stool Size Large Stool Consistency soft Stool Color Brown # Bowel Movements 1 Weight 68.492 kg 72.8 kg Blood Glucose* 473 170 80 Patient Weight 02/13/19 23:59 Weight 72.8 kg General: Conversant, No Apparent Distress HEENT: Atraumatic, Normocephaly, Mucus Membranes Moist Neck: No JVD, Normal carotid pulses Cardiac: Reg Rate and Rhythm, Normal S1 and S2, No Murmur Lungs: Normal Breath Sounds, No Wheeze, Rales, Rhonchi Neuro: Other (lethargic) Abdomen: Soft, Non-Tender Skin: No rashes noted on visualized skin Musculoskeletal: No Chest Wall Tenderness Extremities: No Clubbing, No Cyanosis, No Edema, Normal Pulses Results 02/13/19 03:24 02/13/19 09:38 Lab Results 02/12/19 02/12/19 02/12/19 20:22 20:22 22:14 WBC 16.5 H D 17.9 H Hgb 8.6 L 8.4 L Hct 26.4 L 25.1 L Plt Count 298 277 INR Sodium 126 L Potassium 6.2 H Chloride 96 L Carbon Dioxide 12 L BUN 92 H Creatinine 5.04 H Glucose 449 H Calcium 9.3 Magnesium Troponin I > 73.00 H* 02/12/19 02/13/19 02/13/19 22:14 00:58 03:24 WBC 18.9 H Hgb 7.8 L Hct 23.4 L Plt Count 273 INR 1.0 Sodium 130 L Potassium 4.2 D Chloride 100 Carbon Dioxide 11 L BUN 90 H Creatinine 5.02 H Glucose 458 H Calcium 8.9 Magnesium 1.8 Troponin I 02/13/19 02/13/19 02/13/19 03:24 03:24 03:24 WBC Hgb Hct Plt Count INR 1.0 Sodium 132 L Potassium 4.0 Chloride 103 Carbon Dioxide 14 L BUN 88 H Creatinine 4.80 H Glucose 358 H Calcium 8.8 Magnesium Troponin I 42.47 H* 02/13/19 05:16 WBC Hgb Hct Plt Count INR Sodium 133 L Potassium 4.0 Chloride 104 Carbon Dioxide 17 L BUN 86 H Creatinine 4.61 H Glucose 284 H Calcium 8.6 Magnesium Troponin I Short CBC 02/13/19 02/12/19 02/12/19 Range/Units 03:24 22:14 20:22 WBC 18.9 H 17.9 H 16.5 H D (4.3-11.1) K/mcL Hgb 7.8 L 8.4 L 8.6 L (12.9-16.9) g/dL Hct 23.4 L 25.1 L 26.4 L (37.5-50.1) % Plt Count 273 277 298 (140-400) K/mcL Neutrophils # 13.6 H (1.6-8.9) K/mcL BMP 02/13/19 02/13/19 02/13/19 Range/Units 05:16 03:24 00:58 Sodium 133 L 132 L 130 L (136-145) mEq/L Potassium 4.0 4.0 4.2 D (3.5-5.1) mEq/L Chloride 104 103 100 (98-107) mEq/L Carbon Dioxide 17 L 14 L 11 L (23-29) mEq/L BUN 86 H 88 H 90 H (8-23) mg/dL Creatinine 4.61 H 4.80 H 5.02 H (0.70-1.30) mg/dL Glucose 284 H 358 H 458 H (70-105) mg/dL Calcium 8.6 8.8 8.9 (8.6-10.3) mg/dL 02/12/19 Range/Units 20:22 Sodium 126 L (136-145) mEq/L Potassium 6.2 H (3.5-5.1) mEq/L Chloride 96 L (98-107) mEq/L Carbon Dioxide 12 L (23-29) mEq/L BUN 92 H (8-23) mg/dL Creatinine 5.04 H (0.70-1.30) mg/dL Glucose 449 H (70-105) mg/dL Calcium 9.3 (8.6-10.3) mg/dL Cardiac Enzymes 02/13/19 02/12/19 Range/Units 03:24 20:22 Troponin I 42.47 H* > 73.00 H* (< 0.04) ng/mL Urine 02/13/19 Range/Units 00:20 Urine Color Yellow (Yellow) Urine Clarity Clear (Clear) Urine pH 5.0 (5.0-8.0) pH Units Ur Specific [place] 1.020 (1.010-1.025) Urine Protein 30 H (Neg-Trace) mg/dL Urine Glucose (UA) >=1000 H (Normal) mg/dL Impressions Chest X-Ray 02/12/19 19:38 IMPRESSION: No acute cardiopulmonary disease or significant interval change from prior study 02/06/2019 D/ / Deni Pop / Deni Pop Interpreting Provider: Deni Pop Active Medications Dextrose/Water (Dextrose 50% (Syg)) 25 ml IVP ONCE PRN PRN Reason: Hypoglycemia Heparin Sodium (Porcine) (Heparin) 2,000 unit IVP Q6H PRN PRN Reason: SEE COMMENTS Stop: 08/14/19 21:30 Heparin Sodium/Dextrose (Heparin 25,000 Unit/250 Ml D5w) 25,000 unit in 250 mls @ 8.219 mls/hr IVC .Q24H [facility]; Protocol Stop: 08/14/19 21:31 Last Titration: 02/13/19 04:12 Dose: 11.97 unit/kg/hr, 8.2 mls/hr Documented by: Sodium Bicarbonate 150 meq/ (Dextrose) 1,150 mls @ 150 mls/hr IVC .Q7H40M [facility] Stop: 08/14/19 22:01 Last Admin: 02/13/19 06:05 Dose: Not Given Documented by: Dextrose/Sodium Chloride (D5% And 0.45% Nacl 1000 Ml Bag) 1,000 mls @ 250 mls/hr IVC .Q4H PRN PRN Reason: See comments Stop: 08/14/19 23:03 Potassium Chloride/Dextrose/Sod Cl (Kcl 20meq In D5%-0.45 Nacl) 20 meq in 1,000 mls @ 250 mls/hr IVC .Q4H PRN PRN Reason: See Comments Stop: 08/14/19 23:03 Last Admin: 02/13/19 07:55 Dose: 250 mls/hr Documented by: Magnesium Sulfate 2 gm/ Sodium (Chloride) 104 mls @ 52 mls/hr IVPB Q6H PRN PRN Reason: hypomagnesemia Stop: 08/14/19 23:03 Potassium Chloride (Potassium Chloride 10 Meq/100ml) 10 meq in 100 mls @ 100 mls/hr IVPB Q1H PRN PRN Reason: Potassium less than 3.3 mEq/L Potassium Phosphate 44 meq/ (Sodium Chloride) 260 mls @ 40 mls/hr IVPB Q10H PRN PRN Reason: Phosphate less than 3 Stop: 08/14/19 23:03 Calcium Gluconate (Calcium Gluconate 1gm/50ml) 1 gm in 50 mls @ 100 mls/hr IV Q6H PRN PRN Reason: [id number] Stop: 08/14/19 23:11 Insulin Human Regular 100 unit (/ Sodium Chloride) 101 mls @ 6.918 mls/hr IVC CONT [facility]; Protocol Stop: 08/15/19 00:16 Last Titration: 02/13/19 07:01 Dose: 0.4 unit/kg/hr, 27.7 mls/hr Documented by: Insulin Human Regular 100 unit (/ Sodium Chloride) 101 mls @ 6.918 mls/hr IVC CONT [facility]; Protocol Stop: 08/15/19 00:16 Last Titration: 02/13/19 09:04 Dose: 0.3 unit/kg/hr, 20.8 mls/hr Documented by: Sodium Chloride (0.9 % Sodium Chloride) 250 mls @ 937.5 mls/hr IVC .Q16M PRN PRN Reason: Hypotension Stop: 08/15/19 08:37 Sodium Chloride (0.9 % Sodium Chloride) 1,000 mls @ 0 mls/hr PRIME .Q0M [facility] Stop: 08/15/19 08:46 Naloxone HCl (Narcan) 0.4 mg IVP Q2MPRN PRN PRN Reason: SEE COMMENTS Stop: 08/14/19 23:00 - Imaging and Cardiology Echo: report reviewed - EKG Interpretation EKG results cardiology: personally reviewed (SR), other (No significant events on tele overnight. Pause noted on ED tele strip.) Consult Discharge Plan - Plan Referrals: NONE,PCP [Primary Care Provider] - <Gonzales Jamil - Last Filed: 02/13/19 15:17> Date of Encounter: 02/13/19 - Attending Attestation I have personally performed a face to face evaluation on this patient. I have reviewed and agree with the care plan. History and Exam by me shows: 73-year-old male presents to the emergency department with chest pain recently discharged after a myocardial infarction she is a medical management over any in vasive procedures. Patient. He declined any procedures and wished to continue only with medical management. Today he presents with a significantly elevated troponin and has ultimately decided to pursue cardiac procedures and a possible LHC. His primary decision initially was secondary to chronic kidney disease and fear of worsening kidney function and ultimately hemodialysis. Patient today is likely to pursue hemodialysis therefore the LHC is more reasonable for him at this point. Echocardiogram currently pending previous ejection fraction was preserved. Anemia with unknown cause possibly anemia of chronic disease secondary to see CKD we will defer to primary team and GI for workup in anticipation of possible LHC and dual antiplatelet therapy Assessment and Plan Discussion w patient/family: The assessment and plan as outlined above was discussed with the patient and/or family members who expressed understanding and agreement. All questions were answered. Thank you for involving us in the care of your patient. Please call with any questions. History of Present Illness History of present illness: Mr. Ruiz is a 73 year old male All Systems Review: The remainder of the systems were reviewed and are negative Physical Examination Vital Signs, Last 4 Hours Temp Pulse Resp BP Pulse Ox 02/13/19 15:00 121/66 02/13/19 14:45 133/86 02/13/19 14:30 97.6 F 17 134/75 02/13/19 14:00 100 18 126/59 98 02/13/19 12:00 99 16 131/76 99 02/13/19 11:40 97.6 F Results 02/13/19 03:24 02/13/19 09:38 Lab Results 02/12/19 02/12/19 02/12/19 20:22 20:22 22:14 WBC 16.5 H D 17.9 H Hgb 8.6 L 8.4 L Hct 26.4 L 25.1 L Plt Count 298 277 INR Sodium 126 L Potassium 6.2 H Chloride 96 L Carbon Dioxide 12 L BUN 92 H Creatinine 5.04 H Glucose 449 H Calcium 9.3 Magnesium Troponin I > 73.00 H* 02/12/19 02/13/19 02/13/19 22:14 00:58 03:24 WBC 18.9 H Hgb 7.8 L Hct 23.4 L Plt Count 273 INR 1.0 Sodium 130 L Potassium 4.2 D Chloride 100 Carbon Dioxide 11 L BUN 90 H Creatinine 5.02 H Glucose 458 H Calcium 8.9 Magnesium 1.8 Troponin I 02/13/19 02/13/19 02/13/19 03:24 03:24 03:24 WBC Hgb Hct Plt Count INR 1.0 Sodium 132 L Potassium 4.0 Chloride 103 Carbon Dioxide 14 L BUN 88 H Creatinine 4.80 H Glucose 358 H Calcium 8.8 Magnesium Troponin I 42.47 H* 02/13/19 02/13/19 05:16 09:38 WBC Hgb Hct Plt Count INR Sodium 133 L 137 Potassium 4.0 4.1 Chloride 104 107 Carbon Dioxide 17 L 19 L BUN 86 H 82 H Creatinine 4.61 H 4.78 H Glucose 284 H 66 L Calcium 8.6 8.9 Magnesium Troponin I
[2019-02-13] MEDS ORDERED: *HR* Heparin 5,000 UNIT/ML VIAL ONE (09:48)
--- NOTE | 2019-02-13 09:49 | Internal Med Progress Note ---
<Rachel Wolf - Last Filed: 02/13/19 16:19> Hospitalist Progress Note - Encounter Date of Encounter: 02/13/19 Time of Encounter: 08:00 - Subjective Interval History: Mr. Ruiz is a 73 year old male with PMH of T1 diabetes, hyperlipidemia, hypertension, vitiligo, and renal disease. He is presenting from senior living facility was admitted with DKA, NSTEMI, renal failure. He was started on insulin drip, heparin drip. Today, the patient is resting comfortably in bed alert and oriented times 3. He is tired. He denied any chest pain, palpitations on the shortness of breath, nausea, diaphoresis. He is still able to urinate. He denied feel that he was symptomatic from the hyperglycemia. He has no complaints at this time. - Exam Vitals: Temp Pulse Resp BP Pulse Ox 98.4 F 101 15 108/57 95 02/13/19 07:59 02/13/19 09:00 02/13/19 09:00 02/13/19 09:00 02/13/19 09:00 Exam: Gen.: Vitals noted. No acute distress. AAOx3 HEENT: oropharynx clear, Normocephalic, atraumatic Cardiac: RRR, no murmur, +S1/S2 Pulmonary: CTA bilaterally, no wheezes, rales or rhonchi, equal chest expansion Abdomen: soft, nontender, Bowel sounds noted, no guarding MSK: ROM intact, no joint swelling noted Extremities: no BLE edema, nontender calf, no cyanosis or clubbing Neuro: A&Ox3, moves all extremities, no focal deficits Psych: Appropriate mood and behavior - Assessment and Plan (1) DKA (diabetic ketoacidoses) Current Visit: Yes Status: Acute Assessment and Plan: Diabetic ketoacidosis in the setting of NSTEMI. -Etiology may be NSTEMI as there is no obvious source of infection at this time. Patient a report that he recently improved from having a cough a couple days ago. -Anion gap at admission 18 -anion gap now 11 -chest x-ray unremarkable -urinalysis unremarkable -WBC 18.9 -lactic acid 4.2(3.9) -VBG: pH 7.2, CO2 37, HCO3 14 -beta hydroxybutyric acid > 2.0 -blood cultures negative to date Plan -the patient's anionic gap has closed and will plan for starting subcutaneous insulin and stopping the insulin drip -will recheck lactic acid -will continue to closely monitor electrolytes and glucose -continue Accu check -diabetic diet when able -bicarb drip stop per nephrology (2) ESRD (end stage renal disease) Current Visit: Yes Status: Acute Assessment and Plan: ESRD. He has had CKD-IV for a while now however is now agreeable to dialysis. Previous gynecological assistant Dr. Hicks. -GFR 13 -Creatinine 4.61 -poor urine output Plan -nephrology following and planning for temporary hemodialysis catheter placement today and begin dialysis tomorrow. -Will avoid nephrotoxic agents and renal dose medications -will continue to monitor I&O (3) High anion gap metabolic acidosis Current Visit: Yes Status: Acute Assessment and Plan: Improving. High anion gap metabolic acidosis in the setting of DKA. Anion gap at admission 18 -anion gap now 11 -plan is DKA protocol (4) Anemia in CKD (chronic kidney disease) Current Visit: No Status: Chronic Assessment and Plan: Anemia likely of chronic disease but may be multifactorial with iron deficiency. Baseline hemoglobin 8-9. -hemoglobin 7.8 -MVC normal -patient denies blood in stool. -No obvious active bleeding Plan -gastroenterology consulted at cardiology request for anemia workup. Patient to go for EGD tomorrow morning. NPO midnight -will order iron profile and ferritin, vitamin B12, folate -nephrology planning to give epo -will ask patient about endoscopy history -goal hemoglobin 10 to 11 (5) NSTEMI (non-ST elevated myocardial infarction) Current Visit: No Status: Acute Assessment and Plan: NSTEMI -this is in the setting of DKA. Patient reports being compliant with his medications. -troponin > 73, now 42 -during last admission patient had NSTEMI and refused LHC. -Risk factors diabetes, hypertension, hyperlipidemia, CKD -EKG showed NSR without acute ST changes or T wave inversions from previous admission -ECHO from 02/07/19: LVEF 65-70%. Mild concentric left ventricular hypertrophy. Mild left ventricular diastolic dysfunction. Normal right ventricular structure and function. Mild-moderate tricuspid regurgitation. Mild pulmonary hypertension. Plan -cardiology following and is planning for left heart Tomorrow after initiation of dialysis as the patient is agreeable at this time. -continue heparin drip -continue cardiac telemetry -continue to monitor for chest pain -will plan to treat aggressively risk factor modifications -aspirin, Plavix, atorvastatin, beta brian, CCB when able per cardiology recommendations (6) Hyperkalemia Current Visit: Yes Status: Acute Assessment and Plan: Hyperkalemia in the setting of DKA and ESRD. Potassium admission 6.2. Patient received bicarb drip in ED. -Potassium within normal limits -will continue to monitor (7) Hyponatremia Current Visit: Yes Status: Acute Assessment and Plan: Hyponatremia that is suitable hyponatremia from hyperglycemia. Sodium at admission 126. Sodium now improved. Will continue to monitor. (8) Vitiligo Current Visit: No Status: Chronic Assessment and Plan: Chronic (9) Type 1 diabetes mellitus with diabetic chronic kidney disease Current Visit: No Status: Chronic Assessment and Plan: Patient is known history of type I diabetes on treatment was insulin. Plan as above. (10) Failure to thrive Current Visit: No Status: Acute Assessment and Plan: Nutrition consulted. Patient has a BMI of 21 (11) DVT prophylaxis Current Visit: No Status: Acute Assessment and Plan: Heparin drip (12) Leukocytosis Current Visit: Yes Status: Acute Assessment and Plan: Leukocytosis in the setting of DKA and NSTEMI. -Afebrile, hemodynamically stable. Does not appear septic -No obvious source of infection. Patient denies fever, chills, cough, shortness of breath, abdominal pain, diarrhea, dysuria. -chest x-ray unremarkable -urinalysis unremarkable -WBC 18.9 -lactic acid 4.2(3.9) -blood cultures negative to date Plan -will continue to monitor for fevers -will continue to monitor the WBC -no indication for antibiotics at this time but will continue to reevaluate -will continue to monitor blood cultures - Time Spent with Patient Total time spent is greater than 50% in coordination of care (as documented) at patient's floor/unit and/or counseling patient: Internal Medicine: Result - Labs CBC & Chem 7: 02/13/19 03:24 02/13/19 09:38 Labs: Short CBC 02/12/19 02/12/19 02/13/19 Range/Units 20:22 22:14 03:24 WBC 16.5 H D 17.9 H 18.9 H (4.3-11.1) K/mcL Hgb 8.6 L 8.4 L 7.8 L (12.9-16.9) g/dL Hct 26.4 L 25.1 L 23.4 L (37.5-50.1) % Plt Count 298 277 273 (140-400) K/mcL Neutrophils # 13.6 H (1.6-8.9) K/mcL BMP 02/12/19 02/13/19 02/13/19 20:22 00:58 03:24 Sodium 126 L 130 L 132 L Potassium 6.2 H 4.2 D 4.0 Chloride 96 L 100 103 Carbon Dioxide 12 L 11 L 14 L BUN 92 H 90 H 88 H Creatinine 5.04 H 5.02 H 4.80 H Glucose 449 H 458 H 358 H Calcium 9.3 8.9 8.8 02/13/19 05:16 Sodium 133 L Potassium 4.0 Chloride 104 Carbon Dioxide 17 L BUN 86 H Creatinine 4.61 H Glucose 284 H Calcium 8.6 Cardiac Enzymes 02/12/19 02/13/19 Range/Units 20:22 03:24 Troponin I > 73.00 H* 42.47 H* (< 0.04) ng/mL Urine 02/13/19 Range/Units 00:20 Urine Color Yellow (Yellow) Urine Clarity Clear (Clear) Urine pH 5.0 (5.0-8.0) pH Units Ur Specific [place] 1.020 (1.010-1.025) Urine Protein 30 H (Neg-Trace) mg/dL Urine Glucose (UA) >=1000 H (Normal) mg/dL - ABG Interpretation ABG results: PT/INR, D-dimer PT 10.9 Seconds (9.4-12.1) 02/13/19 03:24 - Impressions Impressions Chest X-Ray 02/12/19 19:38 IMPRESSION: No acute cardiopulmonary disease or significant interval change from prior study 02/06/2019 D/ / Deni Pop / Deni Pop Interpreting Provider: Deni Pop Consult Discharge Plan - Plan Referrals: NONE,PCP [Primary Care Provider] - <Kobi Medina - Last Filed: 02/13/19 18:43> Hospitalist Progress Note - Encounter Date of Encounter: 02/13/19 - Exam Vitals: Temp Pulse Resp BP Pulse Ox 97.3 F L 100 14 145/84 98 02/13/19 16:45 02/13/19 14:00 02/13/19 16:45 02/13/19 16:45 02/13/19 14:00 - Assessment and Plan (1) Type 1 diabetes mellitus with diabetic chronic kidney disease Current Visit: No Status: Chronic (2) Anemia in CKD (chronic kidney disease) Current Visit: No Status: Chronic (3) DVT prophylaxis Current Visit: No Status: Acute (4) Failure to thrive Current Visit: No Status: Acute (5) NSTEMI (non-ST elevated myocardial infarction) Current Visit: No Status: Acute (6) Hyperkalemia Current Visit: Yes Status: Acute (7) DKA (diabetic ketoacidoses) Current Visit: Yes Status: Acute (8) Vitiligo Current Visit: No Status: Chronic (9) ESRD (end stage renal disease) Current Visit: Yes Status: Acute (10) Hyponatremia Current Visit: Yes Status: Acute (11) High anion gap metabolic acidosis Current Visit: Yes Status: Acute (12) Leukocytosis Current Visit: Yes Status: Acute - Time Spent with Patient Total time spent is greater than 50% in coordination of care (as documented) at patient's floor/unit and/or counseling patient: Internal Medicine: Result - Labs CBC & Chem 7: 02/13/19 03:24 02/13/19 09:38 Labs: Short CBC 02/12/19 02/12/19 02/13/19 Range/Units 20:22 22:14 03:24 WBC 16.5 H D 17.9 H 18.9 H (4.3-11.1) K/mcL Hgb 8.6 L 8.4 L 7.8 L (12.9-16.9) g/dL Hct 26.4 L 25.1 L 23.4 L (37.5-50.1) % Plt Count 298 277 273 (140-400) K/mcL Neutrophils # 13.6 H (1.6-8.9) K/mcL BMP 02/12/19 02/13/19 02/13/19 20:22 00:58 03:24 Sodium 126 L 130 L 132 L Potassium 6.2 H 4.2 D 4.0 Chloride 96 L 100 103 Carbon Dioxide 12 L 11 L 14 L BUN 92 H 90 H 88 H Creatinine 5.04 H 5.02 H 4.80 H Glucose 449 H 458 H 358 H Calcium 9.3 8.9 8.8 02/13/19 02/13/19 05:16 09:38 Sodium 133 L 137 Potassium 4.0 4.1 Chloride 104 107 Carbon Dioxide 17 L 19 L BUN 86 H 82 H Creatinine 4.61 H 4.78 H Glucose 284 H 66 L Calcium 8.6 8.9 Cardiac Enzymes 02/12/19 02/13/19 Range/Units 20:22 03:24 Troponin I > 73.00 H* 42.47 H* (< 0.04) ng/mL Urine 02/13/19 Range/Units 00:20 Urine Color Yellow (Yellow) Urine Clarity Clear (Clear) Urine pH 5.0 (5.0-8.0) pH Units Ur Specific [place] 1.020 (1.010-1.025) Urine Protein 30 H (Neg-Trace) mg/dL Urine Glucose (UA) >=1000 H (Normal) mg/dL - ABG Interpretation ABG results: PT/INR, D-dimer PT 10.9 Seconds (9.4-12.1) 02/13/19 03:24 - Impressions Impressions Chest X-Ray 02/12/19 19:38 IMPRESSION: No acute cardiopulmonary disease or significant interval change from prior study 02/06/2019 D/ / Deni Pop / Deni Pop Interpreting Provider: Deni Pop Guidance Ultrasound 02/13/19 00:00 IMPRESSION: Ultrasound-guided temporary HD catheter placement. No immediate complications. A postprocedure radiograph confirms appropriate position in the SVC. The catheter is ready for use. D/ / Stu Shirley MD / Stu Shirley MD Interpreting Provider: Stu Shirley MD Insertion Non-Tunneled Catheter 02/13/19 00:00 IMPRESSION: Ultrasound-guided temporary HD catheter placement. No immediate complications. A postprocedure radiograph confirms appropriate position in the SVC. The catheter is ready for use. D/ / Stu Shirley MD / Stu Shirley MD Interpreting Provider: Stu Shirley MD Chest X-Ray 02/13/19 09:52 IMPRESSION: 1. Right internal jugular approach catheter with the tip at lower SVC. 2. Increased interstitial markings could be due to fluid overload. D/ / Balta Rouse MD / Balta Rouse MD Interpreting Provider: Balta Rouse MD - Attending Attestation I examined this patient and my medical decision-making was reviewed with the Resident Physician. I agree with the documented findings, disposition and treatment plan as described except to the extent set forth below. ____ <Rachel Wolf - Last Filed: 02/13/19 16:19> (1) DKA (diabetic ketoacidoses) Qualifiers: Diabetes mellitus type: type 1 Diabetes mellitus complication detail: without coma Qualified Code(s): E10.10 - Type 1 diabetes mellitus with ketoacidosis without coma (4) Anemia in CKD (chronic kidney disease) Qualifiers: Chronic kidney disease stage: stage 5, not on chronic dialysis Qualified Code(s): N18.5 - Chronic kidney disease, stage 5; D63.1 - Anemia in chronic kidney disease (9) Type 1 diabetes mellitus with diabetic chronic kidney disease Qualifiers: Chronic kidney disease stage: stage 4 (severe) Qualified Code(s): E10.22 - Type 1 diabetes mellitus with diabetic chronic kidney disease; N18.4 - Chronic kidney disease, stage 4 (severe) (10) Failure to thrive Qualifiers: Failure to thrive age range: in adult Qualified Code(s): R62.7 - Adult failure to thrive <RickmaximBeau Schulte - Last Filed: 02/13/19 18:43> (1) Type 1 diabetes mellitus with diabetic chronic kidney disease Qualifiers: Chronic kidney disease stage: stage 4 (severe) Qualified Code(s): E10.22 - Type 1 diabetes mellitus with diabetic chronic kidney disease; N18.4 - Chronic kidney disease, stage 4 (severe) (2) Anemia in CKD (chronic kidney disease) Qualifiers: Chronic kidney disease stage: stage 5, not on chronic dialysis Qualified Code(s): N18.5 - Chronic kidney disease, stage 5; D63.1 - Anemia in chronic kidney disease (4) Failure to thrive Qualifiers: Failure to thrive age range: in adult Qualified Code(s): R62.7 - Adult failure to thrive (7) DKA (diabetic ketoacidoses) Qualifiers: Diabetes mellitus type: type 1 Diabetes mellitus complication detail: without coma Qualified Code(s): E10.10 - Type 1 diabetes mellitus with ketoacidosis without coma
--- NOTE | 2019-02-13 09:54 | IR Procedure Note ---
Date of procedure: 02/13/19 Consent Obtained: Verbal consent, Written consent Timeout: Correct patient and procedure verified, Correct site verified, Time out performed, Skin prep completed Local anesthetic: Lidocaine 1% Was there an assistant refinery operator present: No Results/Findings: Temp HD catheter placement Estimated blood loss (cc): 1 Complications: None; Tolerated procedure well Indications: Renal failure Procedure Performed: Temp HD catheter placement Site/Technique: Temp HD catheter placed bedside Results/Findings (any specimens removed): Catheter is functional Post Procedure Treatment Plan: CXR pending Specimen: none
[2019-02-13 10:13] LABS: Calcium 8.9 mg/dL (8.6-10.3); Potassium 4.1 mEq/L (3.5-5.1)
[2019-02-13] MEDS: *HR* Dextrose 50 % in Water (Syg) 50 ML SYRINGE IVP PRN ×4 (10:20→22:04)
[2019-02-13] MEDS ORDERED: D5% in Water 1,000 ML IVC PRN (11:11)
[2019-02-13] MEDS ORDERED: Dextrose Gel 15 GM/37.5 ML TUBE PO PRN (11:11)
[2019-02-13 11:19] LABS: Hepatitis B Surface Antibody < 3.10 mIU/mL
[2019-02-13 11:31] LABS: Hepatitis B Surface Antigen Nonreactive (Nonreactive)
[2019-02-13] MEDS: Insulin DETEMIR 100 UNIT/ML X5UNITS SQ SCH (11:52)
[2019-02-13] MEDS: Insulin LISPRO 300 UNITS/3 ML VIAL SQ SCH ×4 (12:02→22:33)
[2019-02-13] MEDS ORDERED: *HR* Heparin 10,000 UNIT/10 ML VIAL IV PRN (13:47)
[2019-02-13] MEDS ORDERED: Acetaminophen 325 MG TABLET PO PRN (15:47)
[2019-02-13] MEDS: Dextrose Gel 15 GM/37.5 ML TUBE PO PRN (16:26)
--- NOTE | 2019-02-13 16:52 | Electrocardiograph Report ---
[place] [id number] Test Date: 2019-02-12 Pat Name: Nii Ruiz Department: EXAM5 Room: [facility] Gender: M Inspector Balance Truing: ELENA: 1945 Requested By: Girish Del Rosario Order Number: [id number] Reading MD: Robby Hernandez Measurements Intervals [place] Rate: 99 P: 84 NV: 211 QRS: 59 QRSD: 102 T: 81 QT: 359 QTc: 461 Interpretive Statements Sinus rhythm Anterior infarct, old Electronically Signed On 02-13-2019 16:51:01 EDT by Robby Hernandez
--- NOTE | 2019-02-13 16:55 | Electrocardiograph Report ---
[place] [id number] Test Date: 2019-02-12 Pat Name: Nii Ruiz Department: EXAM5 Room: [facility] Gender: M Director Systems: : 1945 Requested By: Girish Del Rosario Order Number: [id number] Reading MD: Robby Hernandez Measurements Intervals [place] Rate: 107 P: 85 NH: 171 QRS: 59 QRSD: 91 T: 88 QT: 339 QTc: 453 Interpretive Statements Sinus tachycardia Minimal ST depression, lateral leads Borderline ST elevation, anterior leads Electronically Signed On 02-13-2019 16:54:28 EDT by Robby Hernandez
--- NOTE | 2019-02-13 21:46 | Anesthesia Evaluation PreOp ---
Date of Encounter: 02/13/19 Time of Encounter: 21:44 - Past History Planned Operation: EGD (r/o bleed prior to [facility] for NSTEMI) Cardiac History: [place] (admitted for NSTEMI 02-06-19 and d/c'ed with trop peak of 14 and down to 11; TTE 02-07-19 unremarkable; refused LHC at that time due to significant CKD; re-admitted 02-12-19 and noted to have elevated troponin in setting of hypoglycemia and Acute on Chronic renal disease resulting in ESRD requiring dialysis; new NSTEMI? with peak troponin > 70 on 02-12-19; patient underwent first HD session today; limited TTE was completed 02-12-19 for wall motion abnormalities - has NOT been read yet), HTN, Hyperlipidemia, Other (PVD; Patient had recent TTT for NSTEMI 02-06-19 that was unremarkable; however, patient underwent Limited TTE 02-12-19 due to peak trop > 70 - result still pending) Pulmonary History: Denies Any Significant HX ELEVATOR OPERATOR History: Other (altered mental status since admission 02-12-19 for severe hypoglycemia of unknown duration; improved somewhat since admission) Other Medical History: Diabetes Type I (poorly controlled; hypo-glycemic odalis quently), Other (anemia - suspected to be chronic disease but cardiology requested GI eval to rule out bleed since patient is now agreeable to [facility]) Anesthesia History: No Prior Anesthetic Complications (except difficult to emerge after a surgery (either his neck or his hip surgery)) Alcohol Use: none Drug use: none Medications and Allergies Metoprolol [Lopressor] 12.5 mg PO BID 07/05/15 [History] Glucagon,Human Recombinant [Glucagon Emergency Kit] 1 mg IM AD PRN 06/18/16 [History] Acetaminophen [Tylenol] 650 mg PO DAILY PRN 02/07/19 [History] Insulin ASPART [Novolog Flexpen] 0 units SQ TIDAC 02/07/19 [History] Insulin Glargine,Hum.rec.anlog [Basaglar Kwikpen U-100] 7 unit SQ HS 02/07/19 [History] Atorvastatin [Lipitor] 40 mg PO HS #30 tablet 02/10/19 [Rx] Clopidogrel [Plavix] 75 mg PO DAILY #30 tablet 02/10/19 [Rx] Ferrous Sulfate 325 mg PO BIDWM #60 tablet 02/10/19 [Rx] amLODIPine [Norvasc] 5 mg PO DAILY #30 tablet 02/10/19 [Rx] Aspirin 81 mg PO DAILY 02/12/19 [History] Escitalopram [Lexapro] 10 mg PO DAILY 02/12/19 [History] Mirtazapine 7.5 mg PO HS 02/12/19 [History] Allergy/AdvReac Type Severity Reaction Status Date / Time tamsulosin [From Flomax] Allergy HEADACHES Verified 02/07/19 13:31 - Meds/Allergy Pre-op Review Medications Reviewed: Yes Allergies Reviewed: Yes Beta Blockers on Current Med List: No (holding BB due to significant sinus pause on admission) Anesthesia Results - Labs 02/13/19 03:24 02/13/19 09:38 - Imaging EKG: report reviewed, image reviewed (Sinus tachycardia Minimal ST depression, lateral leads Borderline ST elevation, anterior leads) Additional studies: 02-07-19 TTE: Impressions: LVEF 65-70%. Mild concentric left ventricular hypertrophy. Mild left ventricular diastolic dysfunction. Normal right ventricular structure and function. Mild-moderate tricuspid regurgitation. Mild pulmonary hypertension. 02-12-19 Limited TTE resulting PENDING Anesthesia Exam Last Vital Signs Temp 97.7 F 02/13/19 19:02 Pulse 100 02/13/19 19:02 Resp 16 02/13/19 19:02 BP 160/82 02/13/19 19:02 Pulse Ox 98 02/13/19 19:02 Weight: 73 kg - HEENT Pupil (Motor): Pupils equal, EOMI Mallampati: III Teeth: Edentulous Oral Opening: Greater than 3 - ELEVATOR OPERATOR LOC: Oriented - Cardiac Rhythm: Regular Murmur: None - Pulmonary Breath Sounds: bilateral Clear Respiratory Effort: Symmetrical Anesthesia Assess/Plan ASA Score: 4 Level of consciousness: Cooperative Anesthetic Plan: MAC Monitoring Plan: Standard Monitors Recovery Plan: PACU
[2019-02-13] MEDS: Heparin 25,000 UNIT/250 ML D5W 25,000 UNIT/250 ML IV.SOLN IVC SCH (23:19)
[2019-02-14 04:14] LABS: Basophils % 0.1 %; Hematocrit 22.6 % (37.5-50.1); Hemoglobin 7.8 g/dL (12.9-16.9); Immature Granulocytes % 0.5 % (0-4); Lymphocytes # 0.8 K/mcL (0.6-4.6); Lymphocytes % 6.3 %; Mean Corpuscular HGB Conc 34.5 g/dL (31.6-35.5); Mean Corpuscular Hemoglobin 32.2 pg (28.0-33.3); Mean Corpuscular Volume 93.4 fL (83.0-100.0); Mean Platelet Volume 10.1 fL (9.4-12.4); Monocytes # 1.3 K/mcL (0.0-1.3); Monocytes % 9.4 %; Neutrophils # 11.2 K/mcL (1.6-8.9); Platelet Count 252 K/mcL (140-400); Red Blood Count 2.42 M/mcL (4.19-5.50); Red Cell Distribution Width 13.4 % (11.5-14.5); Segmented Neutrophils % 83.7 %; White Blood Count 13.4 K/mcL (4.3-11.1)
[2019-02-14] MEDS: Insulin DETEMIR 100 UNIT/ML X5UNITS SQ SCH ×2 (04:25→19:44)
[2019-02-14 04:32] LABS: Albumin 2.9 g/dL (3.5-5.7); Calcium 8.3 mg/dL (8.6-10.3); Phosphorous 3.3 mg/dL (2.7-4.5); Potassium 4.5 mEq/L (3.5-5.1)
[2019-02-14] MEDS: Heparin 25,000 UNIT/250 ML D5W 25,000 UNIT/250 ML IV.SOLN IVC SCH (04:53)
[2019-02-14 04:57] LABS: Folate 9.2 ng/mL (3.0-16.0)
[2019-02-14] MEDS ORDERED: 0.9 % Sodium Chloride 250 ML IVC PRN (06:54)
[2019-02-14] MEDS ORDERED: *HR* Heparin 5,000 UNIT/ML VIAL IVP PRN (07:28)
--- NOTE | 2019-02-14 08:42 | Internal Med Progress Note ---
<Kobi Medina - Last Filed: 02/14/19 17:40> Hospitalist Progress Note - Encounter Date of Encounter: 02/14/19 - Exam Vitals: Temp Pulse Resp BP Pulse Ox 98.7 F 93 16 153/84 92 02/14/19 16:05 02/14/19 16:05 02/14/19 16:05 02/14/19 16:05 02/14/19 16:05 - Assessment and Plan (1) Type 1 diabetes mellitus with diabetic chronic kidney disease Current Visit: No Status: Chronic (2) Anemia in CKD (chronic kidney disease) Current Visit: No Status: Chronic (3) DVT prophylaxis Current Visit: No Status: Acute (4) Failure to thrive Current Visit: No Status: Acute (5) NSTEMI (non-ST elevated myocardial infarction) Current Visit: Yes Status: Acute (6) Hyperkalemia Current Visit: Yes Status: Resolved (7) DKA (diabetic ketoacidoses) Current Visit: Yes Status: Acute (8) Vitiligo Current Visit: No Status: Chronic (9) ESRD (end stage renal disease) Current Visit: Yes Status: Acute (10) Hyponatremia Current Visit: Yes Status: Acute (11) High anion gap metabolic acidosis Current Visit: Yes Status: Resolved (12) Leukocytosis Current Visit: Yes Status: Acute - Time Spent with Patient Total time spent is greater than 50% in coordination of care (as documented) at patient's floor/unit and/or counseling patient: Internal Medicine: Result - Labs CBC & Chem 7: 02/14/19 04:05 02/14/19 04:05 Labs: Short CBC 02/14/19 Range/Units 04:05 WBC 13.4 H (4.3-11.1) K/mcL Hgb 7.8 L (12.9-16.9) g/dL Hct 22.6 L (37.5-50.1) % Plt Count 252 (140-400) K/mcL Neutrophils # 11.2 H (1.6-8.9) K/mcL BMP 02/14/19 04:05 Sodium 132 L Potassium 4.5 Chloride 100 Carbon Dioxide 24 BUN 46 H Creatinine 3.10 H Glucose 152 H Calcium 8.3 L Liver Function 02/14/19 Range/Units 04:05 Albumin 2.9 L (3.5-5.7) g/dL - ABG Interpretation ABG results: PT/INR, D-dimer PT 10.9 Seconds (9.4-12.1) 02/13/19 03:24 - Impressions Impressions Echocardiogram Limited Views 02/13/19 13:29 Impressions: LVEF 60%. Normal LV chamber size, wall thickness and overall function. Mild segmental left ventricular systolic dysfunction, not described on previous report from 02/07/2019. Left Ventricular Wall Motion: Rest Echo Findings The apical septal and mid anterior septal to were hypokinetic. All other wall segments showed normal motion. Findings: Study Quality * Technically adequate exam. ECG Findings * Normal sinus rhythm. Left Ventricle * LVEF 60%. * Normal LV chamber size, wall thickness and overall function. * Mild segmental left ventricular systolic dysfunction, not described on previous report from 02/07/2019. Right Ventricle * Normal right ventricular structure and function. Retroperitoneum Ultrasound 02/13/19 19:30 IMPRESSION: Overall increased echogenicity of the renal parenchyma, nonspecific finding suggesting medical renal disease. No hydronephrosis. D/ / Waleska Peterson Cha, MD / Waleska Peterson Cha, MD Interpreting Provider: Waleska Peterson Cha, MD Consult Discharge Plan - Plan Referrals: NONE,PCP [Primary Care Provider] - - Attending Attestation I examined this patient and my medical decision-making was reviewed with the Resident Physician. I agree with the documented findings, disposition and maykel tment plan as described except to the extent set forth below. No acute events. Vitals reviewed, labs reviewed. Plan for EGD today. <Nicki Fierro - Last Filed: 02/14/19 20:01> Hospitalist Progress Note - Encounter Date of Encounter: 02/14/19 Time of Encounter: 08:42 - Subjective Interval History: This is a 73-year-old male with past medical history significant for type 1 diabetes mellitus on home insulin, coronary artery disease, hypertension, hyperlipidemia, end-stage renal disease who [facility] with [facility] k[facility]. Patient had been recently admitted and discharged due to hypoglycemia and NSTEMI on 02/11/19. Left heart cath on previous admission had been postponed due to poor renal function. Patient was seen and examined at bedside this morning. No acute complaints at this time. He denies any chest pain, palpitations, shortness of breath, wheezing. Resting comfortably in no acute distress. Vitals hemodynamically stable. Breathing comfortably on room air. - Exam Vitals: Temp Pulse Resp BP Pulse Ox 99.7 F H 105 16 168/95 94 02/14/19 07:10 02/14/19 07:10 02/14/19 07:10 02/14/19 07:10 02/14/19 07:10 Exam: GEN: Vitals stable. No acute distress. AAOx3 HEENT: Atraumatic, Normocephalic, PERRLA, EOMI NECK: Supple, no lymphadenopathy, no JVD CARDIAC: RRR, s1 and s2 present, no murmurs, rubs, gallops PULM: CTAB, not in respiratory distress, no wheezes, rales, crackles, rhonchi ABD: Soft, non-tender, non-distended, no guarding or rebound tenderness. Bowel sounds present EXT: No peripheral edema. No calf tenderness, cyanosis, clubbing NEURO: CN 2-12 grossly intact. No focal neurologic deficits. Follows commands PSYCH: Appropriate mood and affect - Assessment and Plan (1) DKA (diabetic ketoacidoses) Current Visit: Yes Status: Acute Assessment and Plan: This is a 73-year-old male with past medical history significant for type 1 diabetes mellitus on home insulin, coronary artery disease, hypertension, hyperlipidemia, end-stage renal disease who [facility] with diabetic k[facility]. Patient had been recently admitted and discharged due to hypoglycemia and NSTEMI on 02/11/19. Left heart cath on previous admission had been postponed due to poor renal function. - On admission: Anion gap = 18, glucose = 449, beta hydroxybutyric acid greater than 2.00, K = 6.2, lactic acid = 4.2; VBG = 7. - Currently anion gap closed = 8 - Blood glucose this a.m. = 152 - CXR = unremarkable - UA = negative - Blood cultures remain negative to date PLAN: - Continue with low-dose insulin sliding scale - Continue Accu-Cheks before meals and at bedtime - Continue to monitor electrolytes - Begin diabetic diet when patient starts diet - Given ESRD, we will avoid metformin and SGL to inhibitors on discharge (given patient's GFR less than 30) (2) ESRD (end stage renal disease) Current Visit: Yes Status: Acute Assessment and Plan: Patient has end-stage renal disease CKD stage V. - Previous rn charge was Dr. Card - Patient does report that he does still make urine - BUN/Cr = 46/3.10 - Patient had previously refused hemodialysis, but after returning critically ill with DKA yesterday, he agreed to initiate dialysis. - Temporary hemodialysis catheter placed yesterday (02/13/19) - Initial hemodialysis was yesterday. PLAN: - Nephrology is following. We appreciate the recommendations. - They do note that patient will need chronic dialysis moving forward - Plan for hemodialysis today, and possibly tomorrow. - Avoid nephrotoxic agents and renally dose medications - Continue to monitor I's and O's - Daily weights - Pt will need renal diet when starts eating (3) High anion gap metabolic acidosis Current Visit: Yes Status: Resolved Assessment and Plan: High anion gap metabolic acidosis resolved as of today - Anion gap on admission = 18 - Anion gap today = 8 PLAN: - Continue with sliding scale insulin - Accu-Cheks before meals and at bedtime (4) Anemia in CKD (chronic kidney disease) Current Visit: No Status: Chronic Assessment and Plan: Patient likely has anemia of chronic disease, but anemia is likely multifactorial - His baseline hemoglobin seems to be in the 8-10 range - Hb = 7.8 at lowest - Patient has normal MCV; folate and B12 also within normal limits - Patient denied any blood in stool. No signs of any active bleeding PLAN: - Gastroenterology on board. Recommendations appreciated - Plan for EGD today - Follow up iron studies - Per nephrology, goal hemoglobin = 10-11 - With negative EGD, nephrology may consider EPO (5) NSTEMI (non-ST elevated myocardial infarction) Current Visit: Yes Status: Acute Assessment and Plan: Patient presented with an NSTEMI in the setting of DKA - Initial troponins on admission = 73 which trended down to 42 - At previous admission, patient was noted to have NSTEMI; however left heart catheter was not completed due to poor renal function - EKG: Showed normal sinus rhythm without acute ST changes. No changes from previous admission - Most recent echocardiogram (02/13/19): LVEF = 60%, normal left ventricular size, wall thickness, function; mild segmental left ventricular systolic dysfunction which was not described on previous report on 02/07/19 PLAN: - Cardiology is following. Appreciate recommendations. Plan for left heart cath at some point during this admission - Continue on telemetry. Continue to monitor for chest pain - Aggressively treat risk factor modifications - Continue with aspirin and Plavix, amlodipine, atorvastatin, metoprolol - Continue with heparin drip (6) Hyperkalemia Current Visit: Yes Status: Resolved Assessment and Plan: Patient initially noted to have hyperkalemia in the setting of ESRD and DKA - Received bicarbonate drip in the emergency department - K = 4.5 today PLAN: - Continue to monitor (7) Hyponatremia Current Visit: Yes Status: Acute Assessment and Plan: Patient initially noted to have hyponatremia = 126 on admission. Patient p resented with DKA so likely pseudohyponatremia - Currently NA = 132 PLAN: - Continue to monitor (8) Vitiligo Current Visit: No Status: Chronic Assessment and Plan: Chronic condition (9) Type 1 diabetes mellitus with diabetic chronic kidney disease Current Visit: No Status: Chronic Assessment and Plan: Patient has known history of type 1 diabetes mellitus - Treatment with insulin PLAN: - Continue with Accu-Cheks before meals and at bedtime - Continue with low-dose sliding scale - Continue with long-acting Levemir 10 units at bedtime (10) Secondary hyperparathyroidism Current Visit: Yes Status: Acute Assessment and Plan: Calcium = 8.3 - Phosphorus = 3.3 - Vitamin D = 17 - PTH = 230 PLAN: - Given elevated PTH, low calcium, normal phosphate, patient likely has secondary hyperparathyroidism. May be secondary to underlying renal disease. We will treat vitamin D deficiency - We will treat with ergocalciferol 50,000 units once weekly (11) DVT prophylaxis Current Visit: No Status: Acute Assessment and Plan: PLAN: - Currently on heparin drip DVT Prophylaxis: Currently on heparin drip - Time Spent with Patient Total time spent is greater than 50% in coordination of care (as documented) at patient's floor/unit and/or counseling patient: less than 15 minutes Plan of Care Discussed with: patient Internal Medicine: Result - Labs CBC & Chem 7: 02/14/19 04:05 02/14/19 04:05 Labs: Short CBC 06/06/19 Range/Units 04:05 WBC 13.4 H (4.3-11.1) K/mcL Hgb 7.8 L (12.9-16.9) g/dL Hct 22.6 L (37.5-50.1) % Plt Count 252 (140-400) K/mcL Neutrophils # 11.2 H (1.6-8.9) K/mcL BMP 02/13/19 02/14/19 09:38 04:05 Sodium 137 132 L Potassium 4.1 4.5 Chloride 107 100 Carbon Dioxide 19 L 24 BUN 82 H 46 H Creatinine 4.78 H 3.10 H Glucose 66 L 152 H Calcium 8.9 8.3 L Liver Function 02/14/19 Range/Units 04:05 Albumin 2.9 L (3.5-5.7) g/dL - ABG Interpretation ABG results: PT/INR, D-dimer PT 10.9 Seconds (9.4-12.1) 02/13/19 03:24 - Impressions Impressions Guidance Ultrasound 02/13/19 00:00 IMPRESSION: Ultrasound-guided temporary HD catheter placement. No immediate complications. A postprocedure radiograph confirms appropriate position in the SVC. The catheter is ready for use. D/ / Stu Shirley MD / Stu Shirley MD Interpreting Provider: Stu Shirley MD Insertion Non-Tunneled Catheter 02/13/19 00:00 IMPRESSION: Ultrasound-guided temporary HD catheter placement. No immediate complications. A postprocedure radiograph confirms appropriate position in the SVC. The catheter is ready for use. D/ / Stu Shirley MD / Stu Shirley MD Interpreting Provider: Stu Shirley MD Chest X-Ray 02/13/19 09:52 IMPRESSION: 1. Right internal jugular approach catheter with the tip at lower SVC. 2. Increased interstitial markings could be due to fluid overload. D/ / Balta Rouse MD / Balta Rouse MD Interpreting Provider: Balta Rouse MD Retroperitoneum Ultrasound 02/13/19 19:30 IMPRESSION: Overall increased echogenicity of the renal parenchyma, nonspecific finding suggesting medical renal disease. No hydronephrosis. D/ / Waleska Peterson Cha, MD / Waleska Peterson Cha, MD Interpreting Provider: Waleska Peterson Cha, MD <Kobi Medina - Last Filed: 02/14/19 17:40> (1) Type 1 diabetes mellitus with diabetic chronic kidney disease Qualifiers: Chronic kidney disease stage: stage 4 (severe) Qualified Code(s): E10.22 - Type 1 diabetes mellitus with diabetic chronic kidney disease; N18.4 - Chronic kidney disease, stage 4 (severe) (2) Anemia in CKD (chronic kidney disease) Qualifiers: Chronic kidney disease stage: stage 5, not on chronic dialysis Qualified Code(s): N18.5 - Chronic kidney disease, stage 5; D63.1 - Anemia in chronic kidney disease (4) Failure to thrive Qualifiers: Failure to thrive age range: in adult Qualified Code(s): R62.7 - Adult failure to thrive (7) DKA (diabetic ketoacidoses) Qualifiers: Diabetes mellitus type: type 1 Diabetes mellitus complication detail: without coma Qualified Code(s): E10.10 - Type 1 diabetes mellitus with ketoacidosis without coma <Nicki Fierro - Last Filed: 02/14/19 20:01> (1) DKA (diabetic ketoacidoses) Qualifiers: Diabetes mellitus type: type 1 Diabetes mellitus complication detail: without coma Qualified Code(s): E10.10 - Type 1 diabetes mellitus with ketoacidosis without coma (4) Anemia in CKD (chronic kidney disease) Qualifiers: Chronic kidney disease stage: stage 5, not on chronic dialysis Qualified Code(s): N18.5 - Chronic kidney disease, stage 5; D63.1 - Anemia in chronic kidney disease (9) Type 1 diabetes mellitus with diabetic chronic kidney disease Qualifiers: Chronic kidney disease stage: stage 4 (severe) Qualified Code(s): E10.22 - Type 1 diabetes mellitus with diabetic chronic kidney disease; N18.4 - Chronic kidney disease, stage 4 (severe)
[2019-02-14] MEDS ORDERED: amLODIPine 5 MG TABLET PO SCH (09:00)
[2019-02-14] MEDS: Insulin LISPRO 300 UNITS/3 ML VIAL SQ SCH ×4 (09:59→19:45)
[2019-02-14] MEDS: Aspirin 81 MG TAB.CHEW PO SCH (09:59)
--- NOTE | 2019-02-14 10:16 | Nephrology Progress Note ---
Date of Encounter: 02/14/19 Time of Encounter: 07:50 - Assessment and Plan (1) ESRD (end stage renal disease) Current Visit: Yes Status: Acute He has a long-standing history of chronic kidney disease and has been in stage V over the last several months. During a recent admission he had adamantly refused starting dialysis. He returned yesterday critically ill with DKA and very elevated troponins, and he had agreed/consented to initiate HD. He will ne ed chronic dialysis going forward, so before he is discharged, I recommend a Permacath to be placed. SW consulted for dialysis chair time. He will need a second dialysis treatment today, which I reviewed his labs, vitals, med list, progress notes and imaging that required a high degree of E/M plus MDM to compose his dialysis orders. He may need a third dialysis tomorrow, but going forward to be every other day. Okay to proceed with a left heart catheterization, if cardiology recommends. His troponins were quite elevated. Meanwhile follow a renal protective strategy as able, plus avoidance of nephrotoxic agents, renal dosing of medications that are renally cleared, renal diet, plus strict I's and O's and daily weights. Secondary hyperparathyroidism: I recommend starting vitamin D to help suppress the PTH. I will continue to follow with you, and then tomorrow my colleague Dr. Ndiaye wi ll be instructor correspondence school. I will provide a thorough handoff. He remains complex and high risk. Updated the primary team. (2) Chronic kidney disease, stage V Current Visit: No Status: Chronic He will now be declared ESRD. (3) DKA (diabetic ketoacidoses) Current Visit: Yes Status: Acute Appreciate the primary team. DM med mgt as per primary. Should avoid metformin and SGLT2 inhibitors in pt's with a GFR of < 30. Qualifiers: Diabetes mellitus type: type 1 Diabetes mellitus complication detail: without coma Qualified Code(s): E10.10 - Type 1 diabetes mellitus with ketoacidosis without coma (4) Hyperkalemia Current Visit: Yes Status: Acute Improving with glycemic control and initiation of dialysis. His 2nd HD has been ordered for today. (5) Hyponatremia Current Visit: Yes Status: Acute Slowly trending better. Likely multifactorial and in part it was originally pseudohyponatremia from the severe DKA/hyperglycemia. 2nd HD ordered for today. (6) Anemia in CKD (chronic kidney disease) Current Visit: No Status: Chronic Goal hemoglobin is 10-11. I recommend initiating EPO since he will also be started on chronic dialysis. This is likely a multifactorial anemia. Qualifiers: Chronic kidney disease stage: stage 5, not on chronic dialysis Qualified Code(s): N18.5 - Chronic kidney disease, stage 5; D63.1 - Anemia in chronic kidney disease Subjective Principal diagnosis: Renal Failure, DKA, Electrolyte abnormalities Interval history: The patient was seen and examined in his 2A room, as he had transferred out of the ICU since yesterday. He affirmed still feeling fatigued, with a diminished appetite, but did not report chest pain, or cramping with the dialysis treatment from yesterday. He again affirmed that he's willing to continue undergoing HD. I spoke with the heating element winder earlier today. Objective - Vital Signs Vital signs: Vital Signs Temp Pulse Resp BP Pulse Ox 02/14/19 07:10 99.7 F H 105 16 168/95 94 02/14/19 03:37 99.3 F 114 17 135/59 90 02/13/19 23:45 98.7 F 104 17 134/70 94 02/13/19 19:02 97.7 F 100 16 160/82 98 02/13/19 16:45 97.3 F L 14 145/84 02/13/19 16:30 133/72 02/13/19 16:15 140/78 02/13/19 16:00 123/72 02/13/19 15:45 143/81 02/13/19 15:30 140/77 02/13/19 15:15 134/77 02/13/19 15:00 121/66 02/13/19 14:45 133/86 02/13/19 14:30 97.6 F 17 134/75 02/13/19 14:00 100 18 126/59 98 02/13/19 12:00 99 16 131/76 99 02/13/19 11:40 97.6 F 02/13/19 11:00 100 18 129/76 99 Intake and Output 02/13/19 02/14/19 02/14/19 23:59 07:59 15:59 Intake Total 1055.8 / 1055.8 Output Total 500 / 800 Balance -500 / 4271.8 1055.8 / 1055.8 Intake: IV Fluids 1055.8 / 1055.8 Dextrose 5% 1,000 ML @ 100 mls/ 900 / 900 hr IVC .Q10H PRN Rx#:[id number] Heparin 25,000 UNIT/250 ML D5W 155.8 / 155.8 25,000 unit In 250 ml @ 12 UNIT /KG/HR 8.219 mls/hr IVC .Q24H [facility] Rx#:[id number] Output: Urine 0 / 0 Total Dialysis (HD) Output 500 / 500 Other: Stool Size Large Moderate Stool Consistency loose soft Stool Characteristics Normal for Patient Stool Color Brown # Bowel Movements 1 # Bowel Movement Diapers 1 Weight 73 kg Blood Glucose* 93 237 Hemodialysis Net Fluid Removed 0 (mL) - General Appearance Exam: General appearance: appears started age, thin, fatigue, frail EENT: ATNC, PERRL, mucous membranes dry Neck: no JVD, supple Respiratory: clear Cardiology: loud PRICILLA, no edema, regular rate, regular rhythm, normal S1, normal S2 - Dialysis Access Right sided IJ temporary HD catheter with Tegaderm well adhered and C/DI. Gastrointestinal: normoactive bowel sounds, no tenderness, no guarding Integumentary: warm and dry Neurologic: no focal deficit, no asterixis, disoriented Musculoskeletal: no deformities, no erythema, no cyanosis, no clubbing Psychiatric: depressed, cooperative - Lab 02/14/19 04:05 02/14/19 04:05 Most recent lab results 02/14/19 04:05 Calcium 8.3 L Phosphorus 3.3 Consult Discharge Plan - Plan Referrals: NONE,PCP [Primary Care Provider] -
[2019-02-14] MEDS: *HR* Heparin 5,000 UNIT/ML VIAL IVP PRN (11:53)
--- NOTE | 2019-02-14 11:58 | Gastroenterology Consult Note ---
<Justen White - Last Filed: 02/14/19 11:51> Date of Encounter: 02/14/19 Time of Encounter: 11:51 - Assessment and plan (1) Anemia Current Visit: Yes Status: Acute Assessment and plan: Patient presenting with anemia of 7.8. His baseline appears to be around 8-9. He states that he has never had a colonoscopy. Patient has an elevated troponin and cardiology would like to do a LHC so we will work up anemia with an endoscopy planned for today. Qualifiers: Qualified Code(s): D64.9 - Anemia, unspecified; D63.1 - Anemia in chronic kidney disease; Z99.2 - Dependence on renal dialysis - Time Spent With Patient Total time spent is greater than 50% in coordination of care (as documented) at patient's floor/unit and/or counseling patient: GI History of Present Illness - Data of Consult Requesting Physician: Kobi Medina MD - Consult Narrative Reason for consult: Anemia History of present illness: Mr. Ruiz is a 73 year old male consulted to GI for anemia of 7.8. He has a history of1 p.m. on home insulin, CAD, HTN, hyperlipidemia, ESRD. Admitted to hospital on 02/12/19 for DKA, an STEMI, ESRD. At ED she was found to have a troponin greater than 73. On 02/11/19 was recently discharged for hypoglycemia and an STEMI placed on medical management. Cardiology is is planning to do a LHC, however they would like his anemia worked up prior to the procedure. Endoscopy is planned for this afternoon with Dr. Willoughby. Per patient he has been feeling unwell for the past few months. He states that his appetite has decreased however he does not note any weight loss. Denies any changes in bowel movements including bloody stool, constipation, diarrhea. He denies abdominal pain. He has never had a colonoscopy. Patient also denies family history of cancer. Nonsmoker and does not drink alcohol. History significant for T1 DM, CAD, CK D stage IV, NSTEMI. Past Med Surg Social Fam HX - Past Medical History Medical history: diabetes, GERD, hyperlipidemia, hypertension, myocardial infarction, renal disease Additional medical history: diabetic foot ulcers, osteomyelitis, vitiligo, nephrolithasis, neuropathy, ed, Psychiatric history: depression - Past Surgical History Surgical History: appendectomy, orthopedic, other, other Additional surgical history: foot surgeries, hip fracture repair - Social History Smoking Status: Never smoker Smokeless Tobacco Status: No Alcohol use: none Drug use: none - Family History Mother Living Status: Hx Family Cardiac Disorders: No Hx Family Respiratory Disorders: Yes (TB) Hx Family Cancer: No Hx Family GI Disorders: No Hx Family Endocrine Disorder: No Hx Family Neuromuscular Disorders: No Hx Family Neurologic Disorders: No Hx Family HEENT Disorders: No Hx Family Autoimmune Disorders: No Father Living Status: Hx Family Cardiac Disorders: Yes Hx Family Respiratory Disorders: Yes Hx Family Cancer: No Hx Family GI Disorders: No Hx Family Endocrine Disorder: No Hx Family Neuromuscular Disorders: Yes Hx Family Neurologic Disorders: No Hx Family HEENT Disorders: No Hx Family Autoimmune Disorders: No - Gastrointestinal Gastrointestinal: Absent: abdominal pain, bloating, change in bowel habits, coffee ground emesis, constipation, diarrhea, hematemesis, hematochezia, melena, vomiting - Constitutional Constitutional: anorexia, fatigue, no weight loss - Cardiovascular Cardiovascular ROS: Absent: chest pain - Respiratory Respiratory IM: Absent: cough, dyspnea - Genitourinary Genitourinary: Absent: change in color, Urinary frequency - Neurological ROS Neurological GI: Absent: confusion - Constitutional Vitals: Temp Pulse Resp BP Pulse Ox 99.4 F 96 18 156/72 93 02/14/19 11:39 02/14/19 11:39 02/14/19 11:39 02/14/19 11:39 02/14/19 11:39 General appearance: Present: A&O X 3, no acute distress, thin, answers questions appropriately - Head Head exam: Present: atraumatic, normal inspection - Eye Eye exam: Present: EOMI, normal appearance - Respiratory Respiratory exam: Present: CTAB - Cardiovascular Cardiovascular exam: Present: RRR, +S1, +S2 - GI/Abdominal GI/Abdominal exam: Present: normal bowel sounds, soft. Absent: distended, firm, guarding, hernia, hepatomegaly, pulsatile mass, rebound, rigid, tenderness, no peritoneal signs - Expanded GI/Abdominal Exam GI/Abdominal exam expanded: Absent: ascites, tenderness at McBurney's Point - Extremities Exam Extremities exam: Present: normal inspection - Neurological Exam Neurological exam: Present: alert, oriented X3 - Psychiatric Psychiatric exam: Present: normal affect Results - Labs CBC & Chem 7: 02/14/19 04:05 02/14/19 04:05 Labs: Last Result 02/14/19 02/14/19 04:05 04:05 Calcium 8.3 L Vitamin B12 747 Folate 9.2 Entire Visit 02/14/19 02/14/19 04:05 04:05 Hgb 7.8 L Hct 22.6 L Folate 9.2 - ABG ABG results: PT/INR, D-dimer PT 10.9 Seconds (9.4-12.1) 02/13/19 03:24 - Impressions Impressions Guidance Ultrasound 02/13/19 00:00 IMPRESSION: Ultrasound-guided temporary HD catheter placement. No immediate complications. A postprocedure radiograph confirms appropriate position in the SVC. The catheter is ready for use. D/ / Stu Shirley MD / Stu Shirley MD Interpreting Provider: Stu Shirley MD Insertion Non-Tunneled Catheter 02/13/19 00:00 IMPRESSION: Ultrasound-guided temporary HD catheter placement. No immediate complications. A postprocedure radiograph confirms appropriate position in the SVC. The catheter is ready for use. D/ / Stu Shirley MD / Stu Shirley MD Interpreting Provider: Stu Shirley MD Retroperitoneum Ultrasound 02/13/19 19:30 IMPRESSION: Overall increased echogenicity of the renal parenchyma, nonspecific finding suggesting medical renal disease. No hydronephrosis. D/ / Waleska Peterson Cha, MD / Waleska Peterson Cha, MD Interpreting Provider: Waleska Peterson Cha, MD Consult Discharge Plan - Plan Referrals: NONE,PCP [Primary Care Provider] - <Jarvis Willoughby - Last Filed: 02/18/19 05:12> Date of Encounter: 02/14/19 - Time Spent With Patient Total time spent is greater than 50% in coordination of care (as documented) at patient's floor/unit and/or counseling patient: GI History of Present Illness - Data of Consult Requesting Physician: Kobi Medina MD - Consult Narrative History of present illness: Mr. Ruiz is a 73 year old male - Constitutional Vitals: Temp Pulse Resp BP Pulse Ox 98.4 F 81 16 151/77 92 02/18/19 03:50 02/18/19 03:50 02/18/19 03:50 02/18/19 03:50 02/18/19 03:50 Results - Labs CBC & Chem 7: 02/18/19 03:30 02/18/19 03:30 Labs: Last Result 02/18/19 03:30 Calcium 8.2 L Entire Visit 02/18/19 03:30 Hgb 8.4 L Hct 25.0 L - ABG ABG results: PT/INR, D-dimer PT 10.9 Seconds (9.4-12.1) 02/13/19 03:24 - Attending Attestation I have personally performed a face to face evaluation on this patient. I have reviewed and agree with the care plan. History and Exam by me shows: patient admitted with acute HI has multiple comorbidites including ESRD on hemodialysis. Patient needs to be anticoagulated once he has a C and we are asked to evaluate his anemia. Plan EGD and colonoscopy. We have discussed the procedures and signed an informed consent
[2019-02-14] MEDS ORDERED: *HR* Propofol 200 MG/20 ML VIAL IVP ONE (13:11)
[2019-02-14] MEDS ORDERED: Lidocaine -MPF 2% 2 ML VIAL ONE (13:12)
--- NOTE | 2019-02-14 13:52 | Event Note ---
Date of Encounter: 02/14/19 Time of Encounter: 13:30 - Cardiology Event Note Multiple attempts to see patient, has been out of room for testing. TTE reviewed, EF 60% with mild segmental LV systolic dysfunction. Will continue to monitor and follow. Plan for [facility] when able. Nephrology, GI following. EGD today.
[2019-02-14] MEDS ORDERED: *HR* Heparin 10,000 UNIT/10 ML VIAL IV PRN (14:25)
[2019-02-14] MEDS ORDERED: SODIUM CHLORIDE/NAHCO3/KCL/PEG 4,000 ML SOLN.RECON PO ONE (17:00)
[2019-02-14] MEDS: Mirtazapine 15 MG TABLET PO SCH (19:44)
[2019-02-15] MEDS: *HR* Heparin 5,000 UNIT/ML VIAL IVP PRN ×2 (01:13→16:19)
[2019-02-15] MEDS: *HR* Dextrose 50 % in Water (Syg) 50 ML SYRINGE IVP PRN ×3 (04:42→05:30)
[2019-02-15 05:17] LABS: Basophils % 0.2 %; Eosinophils % 0.2 %; Hematocrit 23.5 % (37.5-50.1); Immature Granulocytes % 0.5 % (0-4); Lymphocytes % 17.7 %; Mean Corpuscular Hemoglobin 32.7 pg (28.0-33.3); Mean Corpuscular Volume 95.9 fL (83.0-100.0); Mean Platelet Volume 10.4 fL (9.4-12.4); Monocytes # 1.3 K/mcL (0.0-1.3); Monocytes % 11.2 %; Neutrophils # 7.9 K/mcL (1.6-8.9); Platelet Count 251 K/mcL (140-400); Red Blood Count 2.45 M/mcL (4.19-5.50); Red Cell Distribution Width 13.2 % (11.5-14.5); Segmented Neutrophils % 70.2 %; White Blood Count 11.2 K/mcL (4.3-11.1)
[2019-02-15 05:34] LABS: Calcium 8.4 mg/dL (8.6-10.3); Potassium 3.2 mEq/L (3.5-5.1)
[2019-02-15] MEDS ORDERED: Insulin LISPRO 300 UNITS/3 ML VIAL SQ SCH (06:00)
[2019-02-15] MEDS ORDERED: Propofol 500 MG/50 ML INFUS..BTL ONE (07:02)
[2019-02-15] MEDS ORDERED: Potassium Chloride 40 MEQ, Lidocaine 1% 2 ML in D5% in Water 500 ML IVPB ONE (07:18)
[2019-02-15] MEDS: Insulin LISPRO 300 UNITS/3 ML VIAL SQ SCH ×4 (07:59→22:48)
[2019-02-15] MEDS: Heparin 25,000 UNIT/250 ML D5W 25,000 UNIT/250 ML IV.SOLN IVC SCH (08:00)
--- NOTE | 2019-02-15 09:36 | Internal Med Progress Note ---
<Kobi Medina - Last Filed: 02/15/19 14:25> Hospitalist Progress Note - Encounter Date of Encounter: 02/15/19 - Exam Vitals: Temp Pulse Resp BP Pulse Ox 99.7 F H 95 16 160/72 96 02/15/19 12:07 02/15/19 12:07 02/15/19 12:07 02/15/19 12:07 02/15/19 12:07 - Assessment and Plan (1) Type 1 diabetes mellitus with diabetic chronic kidney disease Current Visit: No Status: Chronic (2) Anemia in CKD (chronic kidney disease) Current Visit: No Status: Chronic (3) DVT prophylaxis Current Visit: No Status: Acute (4) Failure to thrive Current Visit: No Status: Acute (5) NSTEMI (non-ST elevated myocardial infarction) Current Visit: Yes Status: Acute (6) Hyperkalemia Current Visit: Yes Status: Resolved (7) DKA (diabetic ketoacidoses) Current Visit: Yes Status: Acute (8) Vitiligo Current Visit: No Status: Chronic (9) ESRD (end stage renal disease) Current Visit: Yes Status: Acute (10) Hyponatremia Current Visit: Yes Status: Acute (11) High anion gap metabolic acidosis Current Visit: Yes Status: Resolved (12) Leukocytosis Current Visit: Yes Status: Acute - Time Spent with Patient Total time spent is greater than 50% in coordination of care (as documented) at patient's floor/unit and/or counseling patient: Internal Medicine: Result - Labs CBC & Chem 7: 02/15/19 04:20 02/15/19 04:20 Labs: Short CBC 02/15/19 Range/Units 04:20 WBC 11.2 H (4.3-11.1) K/mcL Hgb 8.0 L (12.9-16.9) g/dL Hct 23.5 L (37.5-50.1) % Plt Count 251 (140-400) K/mcL Neutrophils # 7.9 (1.6-8.9) K/mcL BMP 02/15/19 04:20 Sodium 138 Potassium 3.2 L Chloride 101 Carbon Dioxide 29 BUN 27 H Creatinine 2.13 H Glucose 22 L* Calcium 8.4 L - ABG Interpretation ABG results: PT/INR, D-dimer PT 10.9 Seconds (9.4-12.1) 02/13/19 03:24 Consult Discharge Plan - Plan Referrals: NONE,PCP [Primary Care Provider] - - Attending Attestation I examined this patient and my medical decision-making was reviewed with the Resident Physician. I agree with the documented findings, disposition and treatment plan as described except to the extent set forth below. Glucose low today required basal insulin to be held. No complaints. Colonoscopy had poor prep so is going to be redone tomorrow. [facility] when able, currently renal function is better. <Nicki Fierro - Last Filed: 02/15/19 17:01> Hospitalist Progress Note - Encounter Date of Encounter: 02/15/19 Time of Encounter: 09:33 - Subjective Interval History: Patient seen and examined resting comfortably at bedside this morning. He r eports no acute distress. He had just eaten breakfast and come back from his EGD this morning. Overnight, patient was reported to have glucose = 27. Patient was given dextrose and glucose was rechecked and noted to be 114. Glucose was again rechecked an hour later and noted to be 38. Dextrose was given and on recheck glucose was 215. At time of BMP this morning, and 22. We will discontinue long-acting Levemir at this time. We will continue to manage blood sugars with sliding scale. Patient otherwise does not recollect his hypoglycemic episodes. He denies any headaches, chest pain, palpitations, shortness of breath, abdominal pain. No acute complaints at this time. EGD was done this morning. However colonoscopy was unable to be done due to suboptimal preparation. - Exam Vitals: Temp Pulse Resp BP Pulse Ox 99.2 F 96 18 134/84 93 02/15/19 07:46 02/15/19 08:38 02/15/19 08:38 02/15/19 08:38 02/15/19 08:38 Exam: GEN: Pleasant appearing 73-year-old male resting comfortably at bedside. Vitals stable. No acute distress. AAOx3 HEENT: Atraumatic, Normocephalic, PERRLA, EOMI NECK: Supple, no lymphadenopathy, no JVD CARDIAC: RRR, s1 and s2 present, no murmurs, rubs, gallops PULM: CTAB, not in respiratory distress, no wheezes, rales, crackles, rhonchi ABD: Soft, non-tender, non-distended, no guarding or rebound tenderness. Bowel sounds present EXT: No peripheral edema. No calf tenderness, cyanosis, clubbing NEURO: CN 2-12 grossly intact. No focal neurologic deficits. Follows commands PSYCH: Appropriate mood and affect - Assessment and Plan (1) DKA (diabetic ketoacidoses) Current Visit: Yes Status: Acute Assessment and Plan: This is a 73-year-old male with past medical history significant for type 1 diabetes mellitus on home insulin, coronary artery disease, hypertension, hyperlipidemia, end-stage renal disease who initially presented from group home facility with diabetic ketoacidosis. Patient had been recently admitted and discharged due to hypoglycemia and NSTEMI on 02/11/19. Left heart cath on previous admission had been postponed due to poor renal function. - On admission: Anion gap = 18, glucose = 449, beta hydroxybutyric acid greater than 2.00, K = 6.2, lactic acid = 4.2; VBG = 7. - CXR = unremarkable - UA = negative - Blood cultures remain negative to date - Patient found to be significantly hypoglycemic this morning. Responded to dextrose. We will hold long-acting basal insulin and only give low-dose sliding scale. PLAN: - Continue with low-dose insulin sliding scale - Continue Accu-Cheks before meals and at bedtime - Continue to monitor electrolytes - Begin diabetic diet when patient starts diet - Given ESRD, we will avoid metformin and SGL to inhibitors on discharge (given patient's GFR less than 30) - Hold basal insulin coverage (2) ESRD (end stage renal disease) Current Visit: Yes Status: Acute Assessment and Plan: Patient has end-stage renal disease CKD stage V. - Previous online banking specialist was Dr. Card - Patient does report that he does still make urine - BUN/Cr = 27/2.13 - Patient had previously refused hemodialysis, but after returning critically ill with DKA yesterday, he agreed to initiate dialysis. - Temporary hemodialysis catheter placed (02/13/19) PLAN: - Nephrology is following. We appreciate the recommendations. - They do note that patient will need chronic dialysis moving forward - Avoid nephrotoxic agents and renally dose medications - Continue to monitor I's and O's - Daily weights - Pt will need renal diet when starts eating - Plan to hold Plavix for the next 5 days so that patient can receive permacath by interventional radiology (3) Anemia in CKD (chronic kidney disease) Current Visit: No Status: Chronic Assessment and Plan: Patient likely has anemia of chronic disease, but anemia is likely multifactorial - His baseline hemoglobin seems to be in the 8-10 range - Hb = 7.8 at lowest - Patient has normal MCV; folate and B12 also within normal limits - Patient denied any blood in stool. No signs of any active bleeding - Hemoglobin today = 8.0 - EGD (02/15/19): Left antral grade a reflux esophagitis. Gastritis. Normal am laurence, first portion of duodenum and second portion of duodenum. - Colonoscopy (02/15/19): Exam was suboptimal due to patient preparation. Plan for repeat colonoscopy tomorrow PLAN: - Gastroenterology on board. Recommendations appreciated - Follow up iron studies - Per nephrology, goal hemoglobin = 10-11 - Continue EPO subcutaneous 3 times weekly per nephrology - Plan for repeat colonoscopy tomorrow due to suboptimal bowel preparation (4) NSTEMI (non-ST elevated myocardial infarction) Current Visit: Yes Status: Acute Assessment and Plan: Patient presented with an NSTEMI in the setting of DKA - Initial troponins on admission = 73 which trended down to 42 - At previous admission, patient was noted to have NSTEMI; however left heart catheter was not completed due to poor renal function - EKG: Showed normal sinus rhythm without acute ST changes. No changes from previous admission - Most recent echocardiogram (02/13/19): LVEF = 60%, normal left ventricular size, wall thickness, function; mild segmental left ventricular systolic dysfunction which was not described on previous report on 02/07/19 PLAN: - Cardiology is following. Appreciate recommendations. Plan for left heart ca th at some point during this admission. We plan to hold Plavix for the next 5 days so that patient may get permacath. Cardiology would like to be reconsulted after the procedure has been done. They will do a left heart catheter at that time. - Continue on telemetry. Continue to monitor for chest pain - Aggressively treat risk factor modifications - Continue with aspirin, amlodipine, atorvastatin, metoprolol; hold Plavix for the next 5 days for eventual permacath placement - Continue with heparin drip (5) Type 1 diabetes mellitus with diabetic chronic kidney disease Current Visit: No Status: Chronic Assessment and Plan: - See plan as above in diabetic ketoacidosis (6) Secondary hyperparathyroidism Current Visit: Yes Status: Acute Assessment and Plan: Calcium = 8.3 - Phosphorus = 3.3 - Vitamin D = 17 - PTH = 230 PLAN: - Given elevated PTH, low calcium, normal phosphate, patient likely has secondary hyperparathyroidism. May be secondary to underlying renal disease. We will treat vitamin D deficiency - We will treat with ergocalciferol 50,000 units once weekly (7) DVT prophylaxis Current Visit: No Status: Acute Assessment and Plan: PLAN: - Currently on heparin drip DVT Prophylaxis: Heparin drip - Time Spent with Patient Total time spent is greater than 50% in coordination of care (as documented) at patient's floor/unit and/or counseling patient: less than 15 minutes Plan of Care Discussed with: patient Internal Medicine: Result - Labs CBC & Chem 7: 02/15/19 04:20 02/15/19 04:20 Labs: Short CBC 02/15/19 Range/Units 04:20 WBC 11.2 H (4.3-11.1) K/mcL Hgb 8.0 L (12.9-16.9) g/dL Hct 23.5 L (37.5-50.1) % Plt Count 251 (140-400) K/mcL Neutrophils # 7.9 (1.6-8.9) K/mcL BMP 02/15/19 04:20 Sodium 138 Potassium 3.2 L Chloride 101 Carbon Dioxide 29 BUN 27 H Creatinine 2.13 H Glucose 22 L* Calcium 8.4 L - ABG Interpretation ABG results: PT/INR, D-dimer PT 10.9 Seconds (9.4-12.1) 02/13/19 03:24 - Impressions Impressions Echocardiogram Limited Views 02/13/19 13:29 Impressions: LVEF 60%. Normal LV chamber size, wall thickness and overall function. Mild segmental left ventricular systolic dysfunction, not described on previous report from 02/07/2019. Left Ventricular Wall Motion: Rest Echo Findings The apical septal and mid anterior septal to were hypokinetic. All other wall segments showed normal motion. Findings: Study Quality * Technically adequate exam. ECG Findings * Normal sinus rhythm. Left Ventricle * LVEF 60%. * Normal LV chamber size, wall thickness and overall function. * Mild segmental left ventricular systolic dysfunction, not described on previous report from 02/07/2019. Right Ventricle * Normal right ventricular structure and function. <Kobi Medina - Last Filed: 02/15/19 14:25> (1) Type 1 diabetes mellitus with diabetic chronic kidney disease Qualifiers: Chronic kidney disease stage: stage 4 (severe) Qualified Code(s): E10.22 - Type 1 diabetes mellitus with diabetic chronic kidney disease; N18.4 - Chronic kidney disease, stage 4 (severe) (2) Anemia in CKD (chronic kidney disease) Qualifiers: Chronic kidney disease stage: stage 5, not on chronic dialysis Qualified Code(s): N18.5 - Chronic kidney disease, stage 5; D63.1 - Anemia in chronic kidney disease (4) Failure to thrive Qualifiers: Failure to thrive age range: in adult Qualified Code(s): R62.7 - Adult failure to thrive (7) DKA (diabetic ketoacidoses) Qualifiers: Diabetes mellitus type: type 1 Diabetes mellitus complication detail: without coma Qualified Code(s): E10.10 - Type 1 diabetes mellitus with ketoacidosis without coma <Nicki Fierro - Last Filed: 02/15/19 17:01> (1) DKA (diabetic ketoacidoses) Qualifiers: Diabetes mellitus type: type 1 Diabetes mellitus complication detail: without coma Qualified Code(s): E10.10 - Type 1 diabetes mellitus with ketoacidosis without coma (3) Anemia in CKD (chronic kidney disease) Qualifiers: Chronic kidney disease stage: stage 5, not on chronic dialysis Qualified Code(s): N18.5 - Chronic kidney disease, stage 5; D63.1 - Anemia in chronic kidney disease (5) Type 1 diabetes mellitus with diabetic chronic kidney disease Qualifiers: Chronic kidney disease stage: stage 4 (severe) Qualified Code(s): E10.22 - Type 1 diabetes mellitus with diabetic chronic kidney disease; N18.4 - Chronic kidney disease, stage 4 (severe)
--- NOTE | 2019-02-15 10:02 | Anesthesia Evaluation Post Op ---
Date of Encounter: 02/15/19 Time of Encounter: 10:01 - Vital Signs Vital Signs: Vital Signs/O2 Sat/Glucose, Most Recent Temp Pulse Resp BP Pulse Ox 99.2 F 96 18 134/84 93 02/15/19 07:46 02/15/19 08:38 02/15/19 08:38 02/15/19 08:38 02/15/19 08:38 Blood Glucose* 63 - Lungs Lungs: Clear Ascult./Percussion - Airway Airway: Non-obstructed - Cardiovascular Baseline Rhythm - Mental Status Mental Status: Alert & Oriented, Answers Appropriately - Pain Pain Scale: 0 - Nausea Vomiting Nausea Vomiting: Not Present - Hydration Hydration: NPO - Discharge PostOp Status: Transfer Patient to floor
--- NOTE | 2019-02-15 10:55 | Event Note ---
Date of Encounter: 02/15/19 Time of Encounter: 10:54 Patient with solid stool in rectosigmoid colon. Plan to repeat colonoscopy tomorrow (Monday), due to poor prep. Clear liquid diet today, no red or purple. NPO at midnight. If unable tolerate NuLytely please use MiraLAX prep. If not clear by 6 AM, give 2 tap water enemas.
[2019-02-15] MEDS: amLODIPine 5 MG TABLET PO SCH (11:54)
[2019-02-15] MEDS: Aspirin 81 MG TAB.CHEW PO SCH (11:54)
[2019-02-15] MEDS: 0.9 % Sodium Chloride 500 ML IVC SCH (13:10)
--- NOTE | 2019-02-15 13:18 | Cardiology Progress Note ---
Date of Encounter: 02/15/19 Time of Encounter: 13:00 Assessment and Plan (1) NSTEMI (non-ST elevated myocardial infarction) Current Visit: Yes Status: Acute Troponin >73, then 42.47. In setting of DKA and CKD. Recently hospitalized with NSTEMI, declined LHC d/t risk of NEHA. Peak troponin at that time was 14.46 Creatinine 5.04 on admission. Nephrology consulted and pt is now s/p HD. TTE 02/07/19: LVEF 65-70%. Mild cLVH. Mild LVDD. Normal RV structure and function. Mild-moderate TR. TTE 02/14/19: LVEF 60%, mild LV segmental wall motion abnormality. Pt is on heparin gtt. Continue ASA, Statin, low dose BB HgB remains stable; suspect anemia of chronic disease with his CKD. No recent GI evaluation. Recommend GI consult and evaluation prior to LHC. Plan for permacath placement, plavix will need to be held x5 days prior. Plan for LHC after permacath placement due to high suspicion of PCI. Cardiology will continue to follow peripherally. Please call with patient is able to proceed with LHC. (2) Anemia Current Visit: Yes Status: Acute H/H stable. No active bleeding reported. s/p Upper GI today--no active bleeding. Will repeat colonoscopy in the next few days d/t poor bowel prep. Qualifiers: Anemia type: due to chronic kidney disease Chronic kidney disease stage: on chronic dialysis Qualified Code(s): N18.6 - End stage renal disease; D63.1 - Anemia in chronic kidney disease; Z99.2 - Dependence on renal dialysis (3) ESRD (end stage renal disease) Current Visit: Yes Status: Acute Reviewed Nephrology note, appreciate recommendations. s/p x3 HD sessions. Discussed with Dr. Hernandez,would recommend implantation of permacath prior to undergoing LHC due to high suspicion of PCI. Okay to hold plavix if needed. (IR recommends holding x5 days prior to permacath). Continue asa. (4) Sinus pause Current Visit: Yes Status: Acute Reported 15 second pause in ED. In the setting of hyperkalemia, 6.2 and worsening renal failure--now on HD. No recurrence since admission. Continue low dose betablocker--monitor telemetry closely. Discussion w patient/family: The assessment and plan as outlined above was discussed with the patient and/or family members who expressed understanding and agreement. All questions were answered. Thank you for involving us in the care of your patient. Please call with any questions. The patient will be discussed and reviewed with Dr. Hernandez, changes to be made accordingly. Subjective Principal diagnosis: Renal Failure, DKA, Electrolyte abnormalities Interval history: Seen and examined. Appears withdrawn, drowsy. No complaints upon exam. Reports "feels a little better" after HD. Objective Vital Signs, Last 4 Hours Temp Pulse Resp BP Pulse Ox 02/15/19 12:07 99.7 F H 95 16 160/72 96 02/15/19 10:30 96 18 151/70 95 02/15/19 10:13 98.7 F 87 18 175/74 95 General: Conversant, Other (thin, frail) HEENT: Atraumatic, Normocephaly Cardiac: Reg Rate and Rhythm, Normal S1 and S2 Lungs: Normal Breath Sounds Neuro: Alert and responsive Abdomen: Soft Skin: No rashes noted on visualized skin Musculoskeletal: No Chest Wall Tenderness Extremities: No Edema, Normal Pulses Results 02/15/19 04:20 02/15/19 04:20 Lab Results 02/15/19 02/15/19 04:20 04:20 WBC 11.2 H Hgb 8.0 L Hct 23.5 L Plt Count 251 Sodium 138 Potassium 3.2 L Chloride 101 Carbon Dioxide 29 BUN 27 H Creatinine 2.13 H Glucose 22 L* Calcium 8.4 L Active Medications Acetaminophen (Tylenol) 650 mg PO Q6HR PRN PRN Reason: Pain Stop: 08/15/19 15:48 Last Admin: 02/13/19 16:25 Dose: 650 mg Documented by: Amlodipine Besylate (Norvasc) 10 mg PO DAILY [facility]; Protocol Stop: 08/17/19 09:01 Last Admin: 02/15/19 11:54 Dose: 10 mg Documented by: Aspirin (Aspirin) 81 mg PO DAILY [facility] Stop: 08/16/19 09:01 Last Admin: 02/15/19 11:54 Dose: 81 mg Documented by: Atorvastatin Calcium (Lipitor) 40 mg PO HS [facility] Stop: 08/15/19 21:01 Last Admin: 02/14/19 19:44 Dose: 40 mg Documented by: Bisacodyl (Dulcolax) 20 mg PO ONCE ONE Stop: 02/15/19 15:01 Clopidogrel Bisulfate (Plavix) 75 mg PO DAILY [facility] Stop: 08/18/19 09:01 Dextrose/Water (Dextrose 50% (Syg)) 25 ml IVP AD PRN PRN Reason: Hypoglycemia Stop: 08/15/19 11:12 Last Admin: 02/15/19 05:30 Dose: 25 ml Documented by: Epoetin Alfredo (Procrit) 3,500 unit SQ 3XW [facility] Stop: 08/17/19 09:01 Ergocalciferol (Drisdol (50,000 Unit)) 50,000 unit PO Th [facility] Stop: 08/16/19 10:31 Last Admin: 02/14/19 11:49 Dose: 50,000 unit Documented by: Escitalopram Oxalate (Lexapro) 10 mg PO DAILY [facility] Stop: 08/16/19 09:01 Last Admin: 02/15/19 11:54 Dose: 10 mg Documented by: Ferrous Sulfate (Ferrous Sulfate) 325 mg PO BIDWM [facility] Stop: 08/16/19 17:01 Last Admin: 02/15/19 11:54 Dose: 325 mg Documented by: Glucagon (Glucagen) 1 mg IM ONCE PRN PRN Reason: Hypoglycemia Stop: 08/15/19 11:12 Glucose (Gluctose) 15 gm PO ONCE PRN PRN Reason: Hypoglycemia Stop: 08/15/19 11:12 Last Admin: 02/13/19 16:26 Dose: 15 gm Documented by: Glucose (Gluctose) 30 gm PO ONCE PRN PRN Reason: Hypoglycemia Stop: 08/15/19 11:12 Heparin Sodium (Porcine) (Heparin) 2,000 unit IVP Q6H PRN PRN Reason: SEE COMMENTS Stop: 08/14/19 21:30 Last Admin: 02/15/19 01:13 Dose: 2,000 unit Documented by: Heparin Sodium (Porcine) (Heparin) 4,000 unit IVP Q6HR PRN PRN Reason: SEE COMMENTS Stop: 08/16/19 07:29 Heparin Sodium/Dextrose (Heparin 25,000 Unit/250 Ml D5w) 25,000 unit in 250 mls @ 8.219 mls/hr IVC .Q24H [facility]; Protocol Stop: 08/14/19 21:31 Last Titration: 02/15/19 08:17 Dose: 16.02 unit/kg/hr, 11 mls/hr Documented by: Sodium Chloride (0.9 % Sodium Chloride) 1,000 mls @ 0 mls/hr PRIME .Q0M [facility] Stop: 08/15/19 08:46 Dextrose (Dextrose 5%) 1,000 mls @ 100 mls/hr IVC .Q10H PRN PRN Reason: HYPOGLYCEMIA Stop: 08/15/19 11:12 Last Infusion: 02/14/19 05:00 Dose: 0 mls/hr Documented by: Sodium Chloride (0.9 % Sodium Chloride) 250 mls @ 937.5 mls/hr IVC .Q16M PRN PRN Reason: Hypotension Stop: 08/16/19 06:55 Sodium Chloride (0.9 % Sodium Chloride) 500 mls @ 50 mls/hr IVC .Q10H [facility] Stop: 02/16/19 08:46 Last Admin: 02/15/19 13:10 Dose: Not Given Documented by: Insulin Detemir (Levemir) 10 unit SQ [facility] Stop: 08/15/19 11:13 Last Admin: 02/14/19 19:44 Dose: 10 unit Documented by: Insulin Human Lis[facility] (Humalog) [facility]; Protocol Stop: 08/15/19 16:31 Last Admin: 02/15/19 07:59 Dose: Not Given Documented by: Insulin Human Lispro (Humalog) 0 units SQ [facility]; Protocol Stop: 08/15/19 21:01 Last Admin: 02/14/19 19:45 Dose: 2 unit Documented by: Metoprolol Tartrate (Lopressor) 12.5 mg PO BID [facility] Stop: 08/16/19 09:01 Last Admin: 02/15/19 08:00 Dose: 12.5 mg Documented by: Mirtazapine (Remeron) 7.5 mg PO HS [facility] Stop: 08/16/19 21:01 Last Admin: 02/14/19 19:44 Dose: 7.5 mg Documented by: Naloxone HCl (Narcan) 0.4 mg IVP Q2MPRN PRN PRN Reason: SEE COMMENTS Stop: 08/14/19 23:00 Sodium Cl/Sod Bicarb/Potass Cl/PEG (Nulytely) 4,000 ml PO ONCE ONE; Protocol Stop: 02/15/19 17:01 - Imaging and Cardiology Echo: report reviewed Other Results: 12 hour tele: avg HR=99 SR. No pause. - EKG Interpretation EKG results cardiology: personally reviewed Consult Discharge Plan - Plan Referrals: NONE,PCP [Primary Care Provider] -
--- NOTE | 2019-02-15 15:12 | Nephrology Progress Note ---
Date of Encounter: 02/15/19 Time of Encounter: 12:00 - Assessment and Plan (1) ESRD (end stage renal disease) Current Visit: Yes Status: Acute s/p 2 consecutive HD sessions. None planned today but will reassess need tomorrow Will plan for permcath next week. Will need to discuss with cardio whether safe to hold plavix as IR typically requires in this patient (2) Anemia in CKD (chronic kidney disease) Current Visit: No Status: Chronic Goal hemoglobin is 10-11.Currently stable at 8.0. EPO as needed Qualifiers: Chronic kidney disease stage: stage 5, not on chronic dialysis Qualified Code(s): N18.5 - Chronic kidney disease, stage 5; D63.1 - Anemia in chronic kidney disease (3) Hyperkalemia Current Visit: Yes Status: Chronic Resolved and actually low today at 3.2. Agree with repletion (4) Hyponatremia Current Visit: Yes Status: Acute Resolved at 138 today Subjective Principal diagnosis: Renal Failure, DKA, Electrolyte abnormalities Interval history: Interim noted, pt seen and examined with daughter at bedside. Unable to have colonoscopy today due to poor prep. s/p HD 2 consecutive days with no complications. Objective - Vital Signs Vital signs: Vital Signs Temp Pulse Resp BP Pulse Ox 02/15/19 12:07 99.7 F H 95 16 160/72 96 02/15/19 10:30 96 18 151/70 95 02/15/19 10:13 98.7 F 87 18 175/74 95 02/15/19 08:38 96 18 134/84 93 02/15/19 07:46 99.2 F 97 16 176/80 96 02/15/19 04:33 99.1 F 100 17 166/64 89 02/14/19 23:43 99.8 F H 102 16 155/81 90 02/14/19 18:58 99 F 96 16 185/96 92 02/14/19 16:05 98.7 F 93 16 153/84 92 02/14/19 15:43 98.1 F 16 144/77 02/14/19 15:25 127/67 Intake and Output 02/14/19 02/15/19 02/15/19 23:59 07:59 15:59 Intake Total 125 / 1685.8 120.0 / 125.0 5 / 125.0 Output Total 950 / 2900 Balance -825 / -1214.2 120.0 / 125.0 5 / 125.0 Intake: IV Fluids 125 / 1185.8 120.0 / 125.0 5 / 125.0 Heparin 25,000 UNIT/250 ML D5W 125 / 285.8 120.0 / 125.0 5 / 125.0 25,000 unit In 250 ml @ 12 UNIT /KG/HR 8.219 mls/hr IVC .Q24H [facility] Rx#:[id number] Output: Catheter 950 / 950 Other: Stool Size Large Stool Consistency liquid Stool Color Brown # Bowel Movement Diapers 4 Weight 72.5 kg Blood Glucose* 142 63 213 - General Appearance General appearance: Present: chronically ill, frail EENT: Present: ATNC, mucous membranes dry Neck: Present: no JVD, supple Respiratory: Present: clear (ant bilat) Cardiology: Present: no edema, normal S1, normal S2 Dialysis Vascular Access: Venous Catheter (temp line, IJ) Gastrointestinal: Present: no tenderness, no guarding Integumentary: Present: warm and dry Neurologic: Present: no focal deficit Musculoskeletal: Present: no deformities Psychiatric: Present: mood/affect appropriate, cooperative - Lab 02/15/19 04:20 02/15/19 04:20 Most recent lab results 02/15/19 04:20 Calcium 8.4 L Consult Discharge Plan - Plan Referrals: NONE,PCP [Primary Care Provider] -
[2019-02-15] MEDS ORDERED: SODIUM CHLORIDE/NAHCO3/KCL/PEG 4,000 ML SOLN.RECON PO ONE ×2 (17:00)
[2019-02-15] MEDS: Mirtazapine 15 MG TABLET PO SCH (22:48)
[2019-02-16 04:40] LABS: Hematocrit 23.5 % (37.5-50.1); Hemoglobin 7.7 g/dL (12.9-16.9); Mean Corpuscular HGB Conc 32.8 g/dL (31.6-35.5); Mean Corpuscular Hemoglobin 32.2 pg (28.0-33.3); Mean Corpuscular Volume 98.3 fL (83.0-100.0); Mean Platelet Volume 10.6 fL (9.4-12.4); Platelet Count 219 K/mcL (140-400); Red Blood Count 2.39 M/mcL (4.19-5.50); Red Cell Distribution Width 13.2 % (11.5-14.5); White Blood Count 9.7 K/mcL (4.3-11.1)
[2019-02-16 05:00] LABS: Calcium 8.2 mg/dL (8.6-10.3); Potassium 3.9 mEq/L (3.5-5.1)
[2019-02-16] MEDS: *HR* Heparin 5,000 UNIT/ML VIAL IVP PRN (05:01)
[2019-02-16] MEDS: Heparin 25,000 UNIT/250 ML D5W 25,000 UNIT/250 ML IV.SOLN IVC SCH (07:10)
--- NOTE | 2019-02-16 08:44 | Internal Med Progress Note ---
<Nicki Fierro - Last Filed: 02/16/19 16:24> Hospitalist Progress Note - Encounter Date of Encounter: 02/16/19 Time of Encounter: 08:44 - Subjective Interval History: Patient was seen and examined at bedside this morning. Vitals are hemodynamically stable. His blood pressure was elevated this morning. We increased his dose of metoprolol. Patient was planned to have colonoscopy today. However he was unable to finish his bowel prep overnight. Dr. Willoughby from GI saw patient and instead opted to perform colonoscopy at some point next week. Patient is otherwise doing fine without any complaints at this time. He denies any headache, chest pain, palpitations, difficulty breathing, wheezing, abdominal pain. - Exam Vitals: Temp Pulse Resp BP Pulse Ox 98.4 F 99 17 166/84 90 02/16/19 07:17 02/16/19 07:17 02/16/19 07:17 02/16/19 07:17 02/16/19 07:17 Exam: GEN: Is a 73-year-old male who is resting comfortably in bed. Vitals stable. No acute distress. AAOx3 HEENT: Atraumatic, Normocephalic, PERRLA, EOMI. vitiligo present NECK: Supple, no lymphadenopathy, no JVD CARDIAC: RRR, s1 and s2 present, no murmurs, rubs, gallops PULM: CTAB, not in respiratory distress, no wheezes, rales, crackles, rhonchi ABD: Soft, non-tender, non-distended, no guarding or rebound tenderness. Bowel sounds present EXT: No peripheral edema. No calf tenderness, cyanosis, clubbing NEURO: CN 2-12 grossly intact. No focal neurologic deficits. Follows commands PSYCH: Appropriate mood and affect - Assessment and Plan (1) Type 1 diabetes mellitus with diabetic chronic kidney disease Current Visit: Yes Status: Acute Assessment and Plan: This is a 73-year-old male with past medical history significant for type 1 diabetes mellitus on home insulin, coronary artery disease, hypertension, hyperlipidemia, end-stage renal disease who initially presented from senior care facility with diabetic ketoacidosis. Patient had been recently admitted and discharged due to hypoglycemia and NSTEMI on 02/11/19. Left heart cath on previous admission had been postponed due to poor renal function. - On admission: Anion gap = 18, glucose = 449, beta hydroxybutyric acid greater than 2.00, K = 6.2, lactic acid = 4.2; VBG = 7./ - CXR = unremarkable - UA = negative - Blood cultures remain negative to date PLAN: - Continue with low-dose insulin sliding scale - We will restart 5U Levemir in the morning and at bedtime for further coverage given elevated glucose this morning. - Continue Accu-Cheks before meals and at bedtime - Continue to monitor electrolytes - Begin diabetic diet when patient starts diet - Given ESRD, we will avoid metformin and SGL to inhibitors on discharge (given patient's GFR less than 30) - Hold basal insulin coverage (2) ESRD (end stage renal disease) Current Visit: Yes Status: Acute Assessment and Plan: Patient has end-stage renal disease CKD stage V. - Previous machine featheredger and reducer was Dr. Card - Patient does report that he does still make urine - BUN/Cr = 27/2.13 - Patient had previously refused hemodialysis, but after returning critically ill with DKA yesterday, he agreed to initiate dialysis. - Temporary hemodialysis catheter placed (02/13/19) PLAN: - Nephrology is following. We appreciate the recommendations. - They do note that patient will need chronic dialysis moving forward - Avoid nephrotoxic agents and renally dose medications - Continue to monitor I's and O's - Daily weights - Pt will need renal diet when starts eating - Plan to hold Plavix for the next 5 days so that patient can receive permacath by interventional radiology (Currently day #2) - Per nephrology, will likely hold off on further dialysis until the beginning of next week (3) Anemia in CKD (chronic kidney disease) Current Visit: No Status: Chronic Assessment and Plan: Patient likely has anemia of chronic disease, but anemia is likely multifactorial - His baseline hemoglobin seems to be in the 8-10 range - Hb = 7.8 at lowest - Patient has normal MCV; folate and B12 also within normal limits - Patient denied any blood in stool. No signs of any active bleeding - Hemoglobin today = 8.0 - EGD (02/15/19): Left antral grade a reflux esophagitis. Gastritis. Normal ampulla, first portion of duodenum and second portion of duodenum. - Colonoscopy (02/15/19): Exam was suboptimal due to patient preparation. Plan for repeat colonoscopy tomorrow PLAN: - Gastroenterology on board. Recommendations appreciated - Follow up iron studies - Per nephrology, goal hemoglobin = 10-11 - Continue EPO subcutaneous 3 times weekly per nephrology - Plan for repeat colonoscopy next week due to suboptimal bowel preparation (4) NSTEMI (non-ST elevated myocardial infarction) Current Visit: Yes Status: Acute Assessment and Plan: Patient presented with an NSTEMI in the setting of DKA - Initial troponins on admission = 73 which trended down to 42 - At previous admission, patient was noted to have NSTEMI; however left heart catheter was not completed due to poor renal function - EKG: Showed normal sinus rhythm without acute ST changes. No changes from previous admission - Most recent echocardiogram (02/13/19): LVEF = 60%, normal left ventricular size, wall thickness, function; mild segmental left ventricular systolic dysfunction which was not described on previous report on 02/07/19 PLAN: - Cardiology is following. Appreciate recommendations. Plan for left heart cath at some point during this admission. We plan to hold Plavix for the next 5 days so that patient may get permacath. Cardiology would like to be reconsulted after the procedure has been done. They will do a left heart catheter at that time. - Continue on telemetry. Continue to monitor for chest pain - Aggressively treat risk factor modifications - Continue with aspirin, amlodipine, atorvastatin, metoprolol; hold Plavix for the next 5 days for eventual permacath placement (currently day number 2) - Continue with heparin drip (5) Secondary hyperparathyroidism Current Visit: Yes Status: Acute Assessment and Plan: Calcium = 8.3 - Phosphorus = 3.3 - Vitamin D = 17 - PTH = 230 PLAN: - Given elevated PTH, low calcium, normal phosphate, patient likely has secondary hyperparathyroidism. May be secondary to underlying renal disease. We will treat vitamin D deficiency - We will treat with ergocalciferol 50,000 units once weekly (6) DVT prophylaxis Current Visit: No Status: Acute Assessment and Plan: PLAN: - Currently on heparin drip DVT Prophylaxis: Heparin drip - Time Spent with Patient Total time spent is greater than 50% in coordination of care (as documented) at patient's floor/unit and/or counseling patient: less than 15 minutes Plan of Care Discussed with: patient Internal Medicine: Result - Labs CBC & Chem 7: 02/16/19 04:20 02/16/19 04:20 Labs: Short CBC 02/16/19 Range/Units 04:20 WBC 9.7 (4.3-11.1) K/mcL Hgb 7.7 L (12.9-16.9) g/dL Hct 23.5 L (37.5-50.1) % Plt Count 219 (140-400) K/mcL BMP 02/16/19 04:20 Sodium 134 L Potassium 3.9 Chloride 98 Carbon Dioxide 25 BUN 34 H Creatinine 2.79 H Glucose 344 H Calcium 8.2 L - ABG Interpretation ABG results: PT/INR, D-dimer PT 10.9 Seconds (9.4-12.1) 02/13/19 03:24 Consult Discharge Plan - Plan Referrals: NONE,PCP [Primary Care Provider] - <Kobi Medina - Last Filed: 02/16/19 17:53> Hospitalist Progress Note - Encounter Date of Encounter: 02/16/19 - Exam Vitals: Temp Pulse Resp BP Pulse Ox 99.2 F 91 18 134/77 95 02/16/19 16:51 02/16/19 16:51 02/16/19 16:51 02/16/19 16:51 02/16/19 16:51 - Assessment and Plan (1) Type 1 diabetes mellitus with diabetic chronic kidney disease Current Visit: Yes Status: Acute (2) Anemia in CKD (chronic kidney disease) Current Visit: No Status: Chronic (3) DVT prophylaxis Current Visit: No Status: Acute (4) Failure to thrive Current Visit: No Status: Acute (5) NSTEMI (non-ST elevated myocardial infarction) Current Visit: Yes Status: Acute (6) Hyperkalemia Current Visit: Yes Status: Resolved (7) DKA (diabetic ketoacidoses) Current Visit: Yes Status: Acute (8) Vitiligo Current Visit: No Status: Chronic (9) ESRD (end stage renal disease) Current Visit: Yes Status: Acute (10) Hyponatremia Current Visit: Yes Status: Acute (11) High anion gap metabolic acidosis Current Visit: Yes Status: Resolved (12) Leukocytosis Current Visit: Yes Status: Acute - Time Spent with Patient Total time spent is greater than 50% in coordination of care (as documented) at patient's floor/unit and/or counseling patient: Internal Medicine: Result - Labs CBC & Chem 7: 02/16/19 04:20 02/16/19 04:20 Labs: Short CBC 02/16/19 Range/Units 04:20 WBC 9.7 (4.3-11.1) K/mcL Hgb 7.7 L (12.9-16.9) g/dL Hct 23.5 L (37.5-50.1) % Plt Count 219 (140-400) K/mcL BMP 02/16/19 04:20 Sodium 134 L Potassium 3.9 Chloride 98 Carbon Dioxide 25 BUN 34 H Creatinine 2.79 H Glucose 344 H Calcium 8.2 L - ABG Interpretation ABG results: PT/INR, D-dimer PT 10.9 Seconds (9.4-12.1) 02/13/19 03:24 - Attending Attestation I examined this patient and my medical decision-making was reviewed with the Resident Physician. I agree with the documented findings, disposition and treatment plan as described except to the extent set forth below. <Nicki Fierro - Last Filed: 02/16/19 16:24> (1) Type 1 diabetes mellitus with diabetic chronic kidney disease Qualifiers: Chronic kidney disease stage: stage 4 (severe) Qualified Code(s): E10.22 - Type 1 diabetes mellitus with diabetic chronic kidney disease; N18.4 - Chronic kidney disease, stage 4 (severe) (3) Anemia in CKD (chronic kidney disease) Qualifiers: Chronic kidney disease stage: stage 5, not on chronic dialysis Qualified Code(s): N18.5 - Chronic kidney disease, stage 5; D63.1 - Anemia in chronic kidney disease <Kobi Medina - Last Filed: 02/16/19 17:53> (1) Type 1 diabetes mellitus with diabetic chronic kidney disease Qualifiers: Chronic kidney disease stage: stage 4 (severe) Qualified Code(s): E10.22 - Type 1 diabetes mellitus with diabetic chronic kidney disease; N18.4 - Chronic kidney disease, stage 4 (severe) (2) Anemia in CKD (chronic kidney disease) Qualifiers: Chronic kidney disease stage: stage 5, not on chronic dialysis Qualified Code(s): N18.5 - Chronic kidney disease, stage 5; D63.1 - Anemia in chronic kidney disease (4) Failure to thrive Qualifiers: Failure to thrive age range: in adult Qualified Code(s): R62.7 - Adult failure to thrive (7) DKA (diabetic ketoacidoses) Qualifiers: Diabetes mellitus type: type 1 Diabetes mellitus complication detail: without coma Qualified Code(s): E10.10 - Type 1 diabetes mellitus with ketoacidosis without coma
[2019-02-16] MEDS: 0.9 % Sodium Chloride 500 ML IVC SCH (09:07)
[2019-02-16] MEDS: Insulin LISPRO 300 UNITS/3 ML VIAL SQ SCH ×4 (09:08→21:26)
[2019-02-16] MEDS: amLODIPine 5 MG TABLET PO SCH (09:13)
[2019-02-16] MEDS: Aspirin 81 MG TAB.CHEW PO SCH (09:14)
--- NOTE | 2019-02-16 09:34 | Gastroenterology Progress Note ---
Date of Encounter: 02/16/19 Time of Encounter: 09:30 - Time Spent With Patient Total time spent is greater than 50% in coordination of care (as documented) at patient's floor/unit and/or counseling patient: - Subjective Interval history: Patient resting relatively comfortably at the time of my visit but, tells me he feels fatigued and tired . No chest pain or shortness of breath at rest. Patient unable to drink all the preperation. He had a lot of formed stool which almost completely occluded the rectosigmoid lumen. We were unable to complete colonoscopy yesterday. Unfortunately he drank only half of his preperation yesterday and hence his bowel movements were still with stool. Given his very recent HI dont want to push this any further at this time and will change to a pureed diet and plan a clean out on Monday after rest and colonoscopy on Monday. No evidence for bleeding. On Heparin drip. Hemoglobin 7.7 gm% - Constitutional Vitals: Temp Pulse Resp BP Pulse Ox 98.4 F 99 17 166/84 90 02/16/19 07:17 02/16/19 07:17 02/16/19 07:17 02/16/19 07:17 02/16/19 07:17 General appearance: Present: A&O X 3, no acute distress, thin, answers questions appropriately - GI/Abdominal GI/Abdominal exam: Present: normal bowel sounds, soft, no peritoneal signs Results - Labs CBC & Chem 7: 02/16/19 04:20 02/16/19 04:20 Labs: Last Result 02/16/19 04:20 Calcium 8.2 L Entire Visit 02/16/19 04:20 Hgb 7.7 L Hct 23.5 L - ABG ABG results: PT/INR, D-dimer PT 10.9 Seconds (9.4-12.1) 02/13/19 03:24 Consult Discharge Plan - Plan Referrals: NONE,PCP [Primary Care Provider] -
--- NOTE | 2019-02-16 13:27 | Nephrology Progress Note ---
Date of Encounter: 02/16/19 Time of Encounter: 13:30 - Assessment and Plan (1) ESRD (end stage renal disease) Current Visit: Yes Status: Acute s/p 2 consecutive HD sessions mon and . SCr at 2.79, GFR 22, will hold off HD till next week, likely monday Will plan for permcath next week likely monday as well. Plavix held per IR requirements. LHC to be done after permcath insertion Will also need outpatient HD placement (2) Anemia in CKD (chronic kidney disease) Current Visit: No Status: Chronic Goal hemoglobin is 10-11.Currently stable at 7.7. EPO as needed Continue iron supplements GI workup next week Qualifiers: Chronic kidney disease stage: stage 5, not on chronic dialysis Qualified Code(s): N18.5 - Chronic kidney disease, stage 5; D63.1 - Anemia in chronic kidney disease (3) Hyperkalemia Current Visit: Yes Status: Resolved Resolved and normalized at 3.9 after repletion yesterday, will monitor (4) Hyponatremia Current Visit: Yes Status: Acute Fairly stable at 134, will monitor Subjective Principal diagnosis: Renal Failure, DKA, Electrolyte abnormalities Interval history: Pt seen and examined with no new complaints. Colonoscopy moved out to next week since unable to adequate prep Objective - Vital Signs Vital signs: Vital Signs Temp Pulse Resp BP Pulse Ox 02/16/19 11:17 98.2 F 87 16 152/81 95 02/16/19 07:17 98.4 F 99 17 166/84 90 02/16/19 04:10 99.4 F 91 16 187/84 92 02/15/19 23:36 99.5 F 93 16 165/77 94 02/15/19 19:27 98.6 F 96 16 161/79 96 02/15/19 16:31 99.1 F 94 16 170/73 92 Intake and Output 02/15/19 02/16/19 02/16/19 23:59 07:59 15:59 Intake Total 188.7 / 313.7 56.3 / 296.3 240 / 296.3 Output Total 450 / 450 800 / 800 Balance -261.3 / -136.3 -743.7 / -503.7 240 / -503.7 Intake: IV Fluids 188.7 / 313.7 56.3 / 56.3 Heparin 25,000 UNIT/250 ML D5W 188.7 / 313.7 56.3 / 56.3 25,000 unit In 250 ml @ 12 UNIT /KG/HR 8.219 mls/hr IVC .Q24H [facility] Rx#:[id number] Oral 240 / 240 Output: Catheter 450 / 450 800 / 800 Other: Meal Breakfast Percent of Meal Consumed 90% Stool Size Copious Small Stool Consistency liquid liquid Stool Color Brown # Bowel Movements 1 # Bowel Movement Diapers 2 Weight 72.6 kg Blood Glucose* 320 153 551 - General Appearance General appearance: Present: chronically ill, frail EENT: Present: ATNC, mucous membranes moist Neck: Present: no JVD, supple Respiratory: Present: clear Cardiology: Present: no edema, normal S1, normal S2 Dialysis Vascular Access: Venous Catheter (temp line) Gastrointestinal: Present: no tenderness, no guarding Integumentary: Present: warm and dry Neurologic: Present: no focal deficit Musculoskeletal: Present: no deformities Psychiatric: Present: mood/affect appropriate - Lab 02/17/19 05:00 02/17/19 05:00 Most recent lab results 02/16/19 04:20 Calcium 8.2 L Consult Discharge Plan - Plan Referrals: NONE,PCP [Primary Care Provider] -
[2019-02-16] MEDS: 0.9 % Sodium Chloride w KCl 20 MEQ/1,000 ML MLS IVC SCH (19:38)
[2019-02-16] MEDS: Mirtazapine 15 MG TABLET PO SCH (21:25)
[2019-02-16] MEDS: Insulin DETEMIR 100 UNIT/ML X5UNITS SQ SCH (21:26)
[2019-02-16] MEDS ORDERED: Insulin DETEMIR 100 UNIT/ML X5UNITS SQ ONE (23:38)
[2019-02-17] MEDS: Heparin 25,000 UNIT/250 ML D5W 25,000 UNIT/250 ML IV.SOLN IVC SCH (03:16)
[2019-02-17 05:23] LABS: Hemoglobin 7.7 g/dL (12.9-16.9); Mean Corpuscular HGB Conc 33.5 g/dL (31.6-35.5); Mean Corpuscular Hemoglobin 32.1 pg (28.0-33.3); Mean Corpuscular Volume 95.8 fL (83.0-100.0); Mean Platelet Volume 10.4 fL (9.4-12.4); Platelet Count 266 K/mcL (140-400); Red Cell Distribution Width 12.9 % (11.5-14.5); White Blood Count 10.9 K/mcL (4.3-11.1)
[2019-02-17 06:21] LABS: Calcium 8.3 mg/dL (8.6-10.3); Potassium 3.4 mEq/L (3.5-5.1)
--- NOTE | 2019-02-17 07:59 | Internal Med Progress Note ---
<Nicki Fierro - Last Filed: 02/17/19 15:17> Hospitalist Progress Note - Encounter Date of Encounter: 02/17/19 Time of Encounter: 07:59 - Subjective Interval History: Patient was seen and examined at bedside this morning. Vitals remained stable. Blood pressure slightly elevated. Otherwise, urine looked clear this morning. We will continue with heparin drip for now. We will continue holding Plavix for possible permacath procedure by IR tomorrow. Following that, we will likely have colonoscopy by GI later this week, and possibly left heart catheterization by cardiology after that. Patient denies any headaches, blurry vision, chest pain, palpitations, difficulty breathing, wheezing, abdominal pain, nausea, vomiting. He does note lack of appetite. Otherwise no complaints. Urine is clear, yellow. No evidence of hematuria after holding heparin drip for 2 hours yesterday evening. - Exam Vitals: Temp Pulse Resp BP Pulse Ox 98.0 F 80 16 159/75 95 02/17/19 07:44 02/17/19 07:44 02/17/19 07:44 02/17/19 07:44 02/17/19 07:44 Exam: GEN: Jluis is 73-year-old man resting comfortably in bed. Accompanied by at bedside. Vitals stable. No acute distress. AAOx3 HEENT: Atraumatic, Normocephalic, PERRLA, EOMI. vitiligo evident on face NECK: Supple, no lymphadenopathy, no JVD. Central venous catheter evident on right side of neck. CARDIAC: RRR, s1 and s2 present, no murmurs, rubs, gallops PULM: CTAB, not in respiratory distress, no wheezes, rales, crackles, rhonchi ABD: Soft, non-tender, non-distended, no guarding or rebound tenderness. Bowel sounds present EXT: No peripheral edema. No calf tenderness, cyanosis, clubbing NEURO: CN 2-12 grossly intact. No focal neurologic deficits. Follows commands PSYCH: Appropriate mood and affect - Assessment and Plan (1) Type 1 diabetes mellitus with diabetic chronic kidney disease Current Visit: Yes Status: Acute Assessment and Plan: This is a 73-year-old male with past medical history significant for type 1 diabetes mellitus on home insulin, coronary artery disease, hypertension, hyperlipidemia, end-stage renal disease who initially presented from [facility] facility with diabetic ketoacidosis. Patient had been recently admitted and discharged due to hypoglycemia and NSTEMI on 02/11/19. Left heart cath on previous admission had been postponed due to poor renal function. - On admission: Anion gap = 18, glucose = 449, beta hydroxybutyric acid greater than 2.00, K = 6.2, lactic acid = 4.2; VBG = 7.18//12 - CXR = unremarkable - UA = negative - Blood cultures remain negative to date - Blood sugars today = 227 PLAN: - Continue with low-dose insulin sliding scale - We will restart 5U Levemir in the morning and 5U at bedtime for further coverage given elevated glucose this morning. - Continue Accu-Cheks before meals and at bedtime - Continue to monitor electrolytes - Begin diabetic diet when patient starts diet - Given ESRD, we will avoid metformin and SGL to inhibitors on discharge (given patient's GFR less than 30) (2) ESRD (end stage renal disease) Current Visit: Yes Status: Acute Assessment and Plan: Patient has end-stage renal disease CKD stage V. - Previous pig caster was Dr. Card - Patient does report that he does still make urine - Patient had previously refused hemodialysis, but after returning critically ill with DKA yesterday, he agreed to initiate dialysis. - Temporary hemodialysis catheter placed (02/13/19) - BUN/Cr = 42/3.37 PLAN: - Nephrology is following. We appreciate the recommendations. - They do note that patient will need chronic dialysis moving forward - Avoid nephrotoxic agents and renally dose medications - Continue to monitor I's and O's - Daily weights - Pt will need renal diet when starts eating - Plan to hold Plavix for the next 5 days so that patient can receive permacath by interventional radiology (Currently day #3) - Per nephrology, will likely hold off on further dialysis until the beginning of next week - Patient will need outpatient hemodialysis placement at time of discharge (3) Anemia in CKD (chronic kidney disease) Current Visit: No Status: Chronic Assessment and Plan: Patient likely has anemia of chronic disease, but anemia is likely multifactorial - His baseline hemoglobin seems to be in the 8-10 range - Hb = 7.8 at lowest - Patient has normal MCV; folate and B12 also within normal limits - Patient denied any blood in stool. No signs of any active bleeding - Hemoglobin today = 8.0 - EGD (02/15/19): Left antral grade a reflux esophagitis. Gastritis. Normal ampulla, first portion of duodenum and second portion of duodenum. - Colonoscopy (02/15/19): Exam was suboptimal due to patient preparation. Plan for repeat colonoscopy tomorrow PLAN: - Gastroenterology on board. Recommendations appreciated - Follow up iron studies - Per nephrology, goal hemoglobin = 10-11 - Continue EPO subcutaneous 3 times weekly per nephrology - Continue iron supplementation - Plan for repeat colonoscopy next week due to suboptimal bowel preparation (4) NSTEMI (non-ST elevated myocardial infarction) Current Visit: Yes Status: Acute Assessment and Plan: Patient presented with an NSTEMI in the setting of DKA - Initial troponins on admission = 73 which trended down to 42 - At previous admission, patient was noted to have NSTEMI; however left heart catheter was not completed due to poor renal function - EKG: Showed normal sinus rhythm without acute ST changes. No changes from previous admission - Most recent echocardiogram (02/13/19): LVEF = 60%, normal left ventricular size, wall thickness, function; mild segmental left ventricular systolic dysfunction which was not described on previous report on 02/07/19 PLAN: - Cardiology is following. Appreciate recommendations. Plan for left heart cath at some point during this admission. We plan to hold Plavix for the next 5 days so that patient may get permacath. Cardiology would like to be reconsulted after the procedure has been done. They will do a left heart catheter at that time. - Continue on telemetry. Continue to monitor for chest pain - Aggressively treat risk factor modifications - Continue with aspirin, amlodipine, atorvastatin, metoprolol; hold Plavix for the next 5 days for eventual permacath placement (currently day number 3) - Continue with heparin drip (5) Secondary hyperparathyroidism Current Visit: Yes Status: Acute Assessment and Plan: Calcium = 8.3 - Phosphorus = 3.3 - Vitamin D = 17 - PTH = 230 PLAN: - Given elevated PTH, low calcium, normal phosphate, patient likely has secondary hyperparathyroidism. May be secondary to underlying renal disease. We will treat vitamin D deficiency - We will treat with ergocalciferol 50,000 units once weekly (6) DVT prophylaxis Current Visit: No Status: Acute Assessment and Plan: PLAN: - Currently on heparin drip DVT Prophylaxis: Heparin drip - Time Spent with Patient Total time spent is greater than 50% in coordination of care (as documented) at patient's floor/unit and/or counseling patient: less than 15 minutes Plan of Care Discussed with: patient Internal Medicine: Result - Labs CBC & Chem 7: 02/17/19 05:00 02/17/19 05:00 Labs: Short CBC 02/17/19 Range/Units 05:00 WBC 10.9 (4.3-11.1) K/mcL Hgb 7.7 L (12.9-16.9) g/dL Hct 23.0 L (37.5-50.1) % Plt Count 266 (140-400) K/mcL BMP 02/17/19 05:00 Sodium 133 L Potassium 3.4 L Chloride 100 Carbon Dioxide 27 BUN 42 H Creatinine 3.37 H Glucose 227 H Calcium 8.3 L - ABG Interpretation ABG results: PT/INR, D-dimer PT 10.9 Seconds (9.4-12.1) 02/13/19 03:24 Consult Discharge Plan - Plan Referrals: NONE,PCP [Primary Care Provider] - <Kobi Medina - Last Filed: 02/17/19 16:17> Hospitalist Progress Note - Encounter Date of Encounter: 02/17/19 - Exam Vitals: Temp Pulse Resp BP Pulse Ox 98.4 F 85 20 136/76 94 02/17/19 15:23 02/17/19 15:23 02/17/19 15:23 02/17/19 15:23 02/17/19 15:23 - Assessment and Plan (1) Type 1 diabetes mellitus with diabetic chronic kidney disease Current Visit: Yes Status: Acute (2) Anemia in CKD (chronic kidney disease) Current Visit: No Status: Chronic (3) DVT prophylaxis Current Visit: No Status: Acute (4) Failure to thrive Current Visit: No Status: Acute (5) NSTEMI (non-ST elevated myocardial infarction) Current Visit: Yes Status: Acute (6) Hyperkalemia Current Visit: Yes Status: Resolved (7) DKA (diabetic ketoacidoses) Current Visit: Yes Status: Acute (8) Vitiligo Current Visit: No Status: Chronic (9) ESRD (end stage renal disease) Current Visit: Yes Status: Acute (10) Hyponatremia Current Visit: Yes Status: Acute (11) High anion gap metabolic acidosis Current Visit: Yes Status: Resolved (12) Leukocytosis Current Visit: Yes Status: Acute - Time Spent with Patient Total time spent is greater than 50% in coordination of care (as documented) at patient's floor/unit and/or counseling patient: Internal Medicine: Result - Labs CBC & Chem 7: 02/17/19 05:00 02/17/19 05:00 Labs: Short CBC 02/17/19 Range/Units 05:00 WBC 10.9 (4.3-11.1) K/mcL Hgb 7.7 L (12.9-16.9) g/dL Hct 23.0 L (37.5-50.1) % Plt Count 266 (140-400) K/mcL BMP 02/17/19 05:00 Sodium 133 L Potassium 3.4 L Chloride 100 Carbon Dioxide 27 BUN 42 H Creatinine 3.37 H Glucose 227 H Calcium 8.3 L - ABG Interpretation ABG results: PT/INR, D-dimer PT 10.9 Seconds (9.4-12.1) 02/13/19 03:24 - Attending Attestation She was admitted for further workup. She underwent a stress test that was negative for ischemia. Patient has atypical chest pain, likely musculoskelatal in nature. <Nicki Fierro - Last Filed: 02/17/19 15:17> (1) Type 1 diabetes mellitus with diabetic chronic kidney disease Qualifiers: Chronic kidney disease stage: stage 4 (severe) Qualified Code(s): E10.22 - Type 1 diabetes mellitus with diabetic chronic kidney disease; N18.4 - Chronic kidney disease, stage 4 (severe) (3) Anemia in CKD (chronic kidney disease) Qualifiers: Chronic kidney disease stage: stage 5, not on chronic dialysis Qualified Code(s): N18.5 - Chronic kidney disease, stage 5; D63.1 - Anemia in chronic kidney disease <Kobi Medina - Last Filed: 02/17/19 16:17> (1) Type 1 diabetes mellitus with diabetic chronic kidney disease Qualifiers: Chronic kidney disease stage: stage 4 (severe) Qualified Code(s): E10.22 - Type 1 diabetes mellitus with diabetic chronic kidney disease; N18.4 - Chronic kidney disease, stage 4 (severe) (2) Anemia in CKD (chronic kidney disease) Qualifiers: Chronic kidney disease stage: stage 5, not on chronic dialysis Qualified Code(s): N18.5 - Chronic kidney disease, stage 5; D63.1 - Anemia in chronic kidney disease (4) Failure to thrive Qualifiers: Failure to thrive age range: in adult Qualified Code(s): R62.7 - Adult failure to thrive (7) DKA (diabetic ketoacidoses) Qualifiers: Diabetes mellitus type: type 1 Diabetes mellitus complication detail: without coma Qualified Code(s): E10.10 - Type 1 diabetes mellitus with ketoacidosis without coma
[2019-02-17] MEDS: Insulin LISPRO 300 UNITS/3 ML VIAL SQ SCH ×4 (09:39→22:02)
[2019-02-17] MEDS: Aspirin 81 MG TAB.CHEW PO SCH (09:40)
[2019-02-17] MEDS: amLODIPine 5 MG TABLET PO SCH (09:40)
[2019-02-17] MEDS: Insulin DETEMIR 100 UNIT/ML X5UNITS SQ SCH ×2 (09:43→22:01)
--- NOTE | 2019-02-17 12:56 | Nephrology Progress Note ---
Date of Encounter: 02/17/19 Time of Encounter: 12:00 - Assessment and Plan (1) ESRD (end stage renal disease) Current Visit: Yes Status: Acute s/p 2 consecutive HD sessions mon and . SCr at 3.37, GFR 18, HD planned tomorrow Will plan for permcath for monday. Plavix held per IR requirements. LHC to be done after permcath insertion Will also need outpatient HD placement (2) Anemia in CKD (chronic kidney disease) Current Visit: No Status: Chronic Goal hemoglobin is 10-11.Currently stable at 7.7. EPO as needed Continue iron supplements GI workup next week Qualifiers: Chronic kidney disease stage: stage 5, not on chronic dialysis Qualified Code(s): N18.5 - Chronic kidney disease, stage 5; D63.1 - Anemia in chronic kidney disease (3) Hyperkalemia Current Visit: Yes Status: Resolved Resolved, currently at 3.4 (4) Hyponatremia Current Visit: Yes Status: Acute Fairly stable at 133, will monitor Subjective Principal diagnosis: Renal Failure, DKA, Electrolyte abnormalities Interval history: Pt seen and examined with no new complaints. Feels tired today otherwise no active issues Objective - Vital Signs Vital signs: Vital Signs Temp Pulse Resp BP Pulse Ox 02/17/19 11:37 98.9 F 73 16 165/62 91 02/17/19 07:44 98.0 F 80 16 159/75 95 02/17/19 04:19 97.8 F 87 17 157/51 94 02/16/19 23:26 98.3 F 84 17 163/66 96 02/16/19 19:00 98.3 F 92 17 151/64 96 02/16/19 16:51 99.2 F 91 18 134/77 95 Intake and Output 02/16/19 02/17/19 02/17/19 23:59 07:59 15:59 Intake Total 80 / 456.3 490.0 / 490.0 Output Total 2150 / 2950 725 / 1255 530 / 1255 Balance -2070 / -2493.7 -235.0 / -765.0 -530 / -765.0 Intake: IV Fluids 80 / 216.3 90.0 / 90.0 Heparin 25,000 UNIT/250 ML D5W 80 / 216.3 90.0 / 90.0 25,000 unit In 250 ml @ 12 UNIT /KG/HR 8.219 mls/hr IVC .Q24H [facility] Rx#:[id number] Oral 400 / 400 Output: Catheter 2150 / 2950 725 / 1255 530 / 1255 Urethral (Dominique) 1250 / 1250 725 / 725 Other: Weight 73 kg Blood Glucose* 408 270 142 - General Appearance General appearance: Present: chronically ill, frail EENT: Present: ATNC, mucous membranes moist Neck: Present: no JVD, supple Respiratory: Present: clear Cardiology: Present: no edema, normal S1, normal S2 Gastrointestinal: Present: no tenderness, no guarding Integumentary: Present: warm and dry Neurologic: Present: no focal deficit Musculoskeletal: Present: no deformities Psychiatric: Present: mood/affect appropriate - Lab 02/17/19 05:00 02/17/19 05:00 Most recent lab results 02/17/19 05:00 Calcium 8.3 L Consult Discharge Plan - Plan Referrals: NONE,PCP [Primary Care Provider] -
[2019-02-17] MEDS ORDERED: SODIUM CHLORIDE/NAHCO3/KCL/PEG 4,000 ML SOLN.RECON PO ONE (17:00)
[2019-02-17] MEDS: Mirtazapine 15 MG TABLET PO SCH (22:01)
[2019-02-18] MEDS: Heparin 25,000 UNIT/250 ML D5W 25,000 UNIT/250 ML IV.SOLN IVC SCH ×2 (00:58→21:10)
[2019-02-18 00:59] LABS: Heparin anti-factor XA UFH 0.5 IU/mL (0.30-0.70)
[2019-02-18 03:42] LABS: Hemoglobin 8.4 g/dL (12.9-16.9); Mean Corpuscular HGB Conc 33.6 g/dL (31.6-35.5); Mean Corpuscular Hemoglobin 32.1 pg (28.0-33.3); Mean Corpuscular Volume 95.4 fL (83.0-100.0); Mean Platelet Volume 10.1 fL (9.4-12.4); Platelet Count 285 K/mcL (140-400); Red Blood Count 2.62 M/mcL (4.19-5.50); Red Cell Distribution Width 13.1 % (11.5-14.5); White Blood Count 9.7 K/mcL (4.3-11.1)
[2019-02-18 04:01] LABS: Calcium 8.2 mg/dL (8.6-10.3); Potassium 3.6 mEq/L (3.5-5.1)
[2019-02-18] MEDS ORDERED: 0.9 % Sodium Chloride 250 ML IVC PRN (08:15)
[2019-02-18] MEDS ORDERED: *HR* Heparin 10,000 UNIT/10 ML VIAL IV PRN ×2 (08:15)
--- NOTE | 2019-02-18 08:23 | Internal Med Progress Note ---
<Nicki Fierro - Last Filed: 02/18/19 13:50> Hospitalist Progress Note - Encounter Date of Encounter: 02/18/19 Time of Encounter: 08:22 - Subjective Interval History: Patient was seen and examined at bedside this morning. He reports no acute complaints at this time. He does notes lack of appetite, but otherwise denies any headaches, chest pain, respiratory difficulties, abdominal pain, nausea, vomiting, diarrhea. Patient has been holding Plavix for the past 4 days. Plan for interventional radiology to place permacath either today or tomorrow. Otherwise patient is receiving dialysis with temporary hemodialysis catheter. Plan for colonoscopy per GI later this week, and left heart catheterization later this week by cardiology. There continues to be no evidence of hematuria. Patient remains on heparin drip. - Exam Vitals: Temp Pulse Resp BP Pulse Ox 98.7 F 85 16 163/71 97 02/18/19 07:27 02/18/19 07:27 02/18/19 07:27 02/18/19 07:27 02/18/19 07:27 Exam: GEN: This is a 73-year-old male who is resting comfortably at bedside. Vitals stable. No acute distress. AAOx3 HEENT: Atraumatic, Normocephalic, PERRLA, EOMI. vitiligo present NECK: Supple, no lymphadenopathy, no JVD CARDIAC: RRR, s1 and s2 present, no murmurs, rubs, gallops PULM: CTAB, not in respiratory distress, no wheezes, rales, crackles, rhonchi ABD: Soft, non-tender, non-distended, no guarding or rebound tenderness. Bowel sounds present EXT: No peripheral edema. No calf tenderness, cyanosis, clubbing NEURO: CN 2-12 grossly intact. No focal neurologic deficits. Follows commands PSYCH: Appropriate mood and affect - Assessment and Plan (1) Type 1 diabetes mellitus with diabetic chronic kidney disease Current Visit: Yes Status: Acute Assessment and Plan: This is a 73-year-old male with past medical history significant for type 1 diabetes mellitus on home insulin, coronary artery disease, hypertension, hyper lipidemia, end-stage renal disease who initially presented from assisted facility with diabetic ketoacidosis. Patient had been recently admitted and discharged due to hypoglycemia and NSTEMI on 02/11/19. Left heart cath on previous admission had been postponed due to poor renal function. - On admission: Anion gap = 18, glucose = 449, beta hydroxybutyric acid greater than 2.00, K = 6.2, lactic acid = 4.2; VBG = 7.18//68/12 - CXR = unremarkable - UA = negative - Blood cultures no growth - Blood sugars today = 101 PLAN: - Continue with low-dose insulin sliding scale - We will restart 5U Levemir in the morning and 5U at bedtime for further coverage given elevated glucose this morning. - Continue Accu-Cheks before meals and at bedtime - Continue to monitor electrolytes - Continue diabetic diet - Given ESRD, we will avoid metformin and SGL to inhibitors on discharge (given patient's GFR less than 30) (2) ESRD (end stage renal disease) Current Visit: Yes Status: Acute Assessment and Plan: Patient has end-stage renal disease CKD stage V. 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 - Temporary hemodialysis catheter placed (02/13/19) - BUN/Cr = 41/3.35 PLAN: - Nephrology is following. We appreciate the recommendations. - They do note that patient will need chronic dialysis moving forward - Avoid nephrotoxic agents and renally dose medications - Continue to monitor I's and O's - Daily weights - Pt will need renal diet when starts eating - Plan to hold Plavix for the next 5 days so that patient can receive permacath by interventional radiology (Currently day #4) - Plan for permacath placement tomorrow. Hold Heparin drip at midnight prior to procedure tomorrow. - Patient will need outpatient hemodialysis placement at time of discharge (3) Anemia in CKD (chronic kidney disease) Current Visit: No Status: Chronic Assessment and Plan: Patient likely has anemia of chronic disease, but anemia is likely multifactorial - His baseline hemoglobin seems to be in the 8-10 range - Hb = 7.8 at lowest - Patient has normal MCV; folate and B12 also within normal limits - Patient denied any blood in stool. No signs of any active bleeding - Hemoglobin today = 8.0 - EGD (02/15/19): Left antral grade a reflux esophagitis. Gastritis. Normal ampulla, first portion of duodenum and second portion of duodenum. - Colonoscopy (02/15/19): Exam was suboptimal due to patient preparation. Plan for repeat colonoscopy tomorrow PLAN: - Gastroenterology on board. Recommendations appreciated - Follow up iron studies - Per nephrology, goal hemoglobin = 10-11 - Continue EPO subcutaneous 3 times weekly per nephrology - Continue iron supplementation - Plan for repeat colonoscopy next week due to suboptimal bowel preparation (4) NSTEMI (non-ST elevated myocardial infarction) Current Visit: Yes Status: Acute Assessment and Plan: Patient presented with an NSTEMI in the setting of DKA - Initial troponins on admission = 73 which trended down to 42 - At previous admission, patient was noted to have NSTEMI; however left heart catheter was not completed due to poor renal function - EKG: Showed normal sinus rhythm without acute ST changes. No changes from previous admission - Most recent echocardiogram (02/13/19): LVEF = 60%, normal left ventricular size, wall thickness, function; mild segmental left ventricular systolic dysfunction which was not described on previous report on 02/07/19 PLAN: - Cardiology is following. Appreciate recommendations. Plan for left heart cath at some point during this admission. We plan to hold Plavix for the next 5 days so that patient may get permacath. Cardiology would like to be reconsulted after the procedure has been done. They will do a left heart catheter at that time. - Continue on telemetry. Continue to monitor for chest pain - Aggressively treat risk factor modifications - Continue with aspirin, amlodipine, atorvastatin, metoprolol; hold Plavix for the next 5 days for eventual permacath placement (currently day number 4); plan for permacath tomorrow - Continue with heparin drip; to be held at midnight for procedure tomorrow (5) Secondary hyperparathyroidism Current Visit: Yes Status: Acute Assessment and Plan: Calcium = 8.3 - Phosphorus = 3.3 - Vitamin D = 17 - PTH = 230 PLAN: - Given elevated PTH, low calcium, normal phosphate, patient likely has secondary hyperparathyroidism. May be secondary to underlying renal disease. We will treat vitamin D deficiency - We will treat with ergocalciferol 50,000 units once weekly (6) DVT prophylaxis Current Visit: No Status: Acute Assessment and Plan: PLAN: - Currently on heparin drip DVT Prophylaxis: Heparin Drip - Time Spent with Patient Total time spent is greater than 50% in coordination of care (as documented) at patient's floor/unit and/or counseling patient: less than 15 minutes Plan of Care Discussed with: patient Internal Medicine: Result - Labs CBC & Chem 7: 02/18/19 03:30 02/18/19 03:30 Labs: Short CBC 02/18/19 Range/Units 03:30 WBC 9.7 (4.3-11.1) K/mcL Hgb 8.4 L (12.9-16.9) g/dL Hct 25.0 L (37.5-50.1) % Plt Count 285 (140-400) K/mcL BMP 02/18/19 03:30 Sodium 134 L Potassium 3.6 Chloride 103 Carbon Dioxide 26 BUN 41 H Creatinine 3.35 H Glucose 101 Calcium 8.2 L - ABG Interpretation ABG results: PT/INR, D-dimer PT 10.9 Seconds (9.4-12.1) 02/13/19 03:24 Consult Discharge Plan - Plan Referrals: NONE,PCP [Primary Care Provider] - <Kobi Medina - Last Filed: 02/18/19 16:40> Hospitalist Progress Note - Encounter Date of Encounter: 02/18/19 - Exam Vitals: Temp Pulse Resp BP Pulse Ox 98.3 F 92 14 148/77 98 02/18/19 12:50 02/18/19 13:30 02/18/19 13:30 02/18/19 13:30 02/18/19 13:30 - Assessment and Plan (1) Type 1 diabetes mellitus with diabetic chronic kidney disease Current Visit: Yes Status: Acute (2) Anemia in CKD (chronic kidney disease) Current Visit: No Status: Chronic (3) DVT prophylaxis Current Visit: No Status: Acute (4) Failure to thrive Current Visit: No Status: Acute (5) NSTEMI (non-ST elevated myocardial infarction) Current Visit: Yes Status: Acute (6) Hyperkalemia Current Visit: Yes Status: Resolved (7) DKA (diabetic ketoacidoses) Current Visit: Yes Status: Acute (8) Vitiligo Current Visit: No Status: Chronic (9) ESRD (end stage renal disease) Current Visit: Yes Status: Acute (10) Hyponatremia Current Visit: Yes Status: Acute (11) High anion gap metabolic acidosis Current Visit: Yes Status: Resolved (12) Leukocytosis Current Visit: Yes Status: Acute - Time Spent with Patient Total time spent is greater than 50% in coordination of care (as documented) at patient's floor/unit and/or counseling patient: Internal Medicine: Result - Labs CBC & Chem 7: 02/18/19 03:30 02/18/19 03:30 Labs: Short CBC 02/18/19 Range/Units 03:30 WBC 9.7 (4.3-11.1) K/mcL Hgb 8.4 L (12.9-16.9) g/dL Hct 25.0 L (37.5-50.1) % Plt Count 285 (140-400) K/mcL BMP 02/18/19 03:30 Sodium 134 L Potassium 3.6 Chloride 103 Carbon Dioxide 26 BUN 41 H Creatinine 3.35 H Glucose 101 Calcium 8.2 L - ABG Interpretation ABG results: PT/INR, D-dimer PT 12.2 Seconds (9.4-12.1) H 02/18/19 00:35 - Attending Attestation I examined this patient and my medical decision-making was reviewed with the Resident Physician. I agree with the documented findings, disposition and treatment plan as described except to the extent set forth below. No acute events. VS: reviewed, patient in no acute distress, labs: reviewed. Plan for permacath placement today. LHC to be done some time after permacath placement. GI workup pending, likely repeat colonoscopy as he was unable to completely tolerate prep a few days ago. <Nicki Fierro - Last Filed: 02/18/19 13:50> (1) Type 1 diabetes mellitus with diabetic chronic kidney disease Qualifiers: Chronic kidney disease stage: stage 4 (severe) Qualified Code(s): E10.22 - Type 1 diabetes mellitus with diabetic chronic kidney disease; N18.4 - Chronic kidney disease, stage 4 (severe) (3) Anemia in CKD (chronic kidney disease) Qualifiers: Chronic kidney disease stage: stage 5, not on chronic dialysis Qualified Code(s): N18.5 - Chronic kidney disease, stage 5; D63.1 - Anemia in chronic kidney disease <Kobi Medina - Last Filed: 02/18/19 16:40> (1) Type 1 diabetes mellitus with diabetic chronic kidney disease Qualifiers: Chronic kidney disease stage: stage 4 (severe) Qualified Code(s): E10.22 - Type 1 diabetes mellitus with diabetic chronic kidney disease; N18.4 - Chronic kidney disease, stage 4 (severe) (2) Anemia in CKD (chronic kidney disease) Qualifiers: Chronic kidney disease stage: stage 5, not on chronic dialysis Qualified Code(s): N18.5 - Chronic kidney disease, stage 5; D63.1 - Anemia in chronic kidney disease (4) Failure to thrive Qualifiers: Failure to thrive age range: in adult Qualified Code(s): R62.7 - Adult failure to thrive (7) DKA (diabetic ketoacidoses) Qualifiers: Diabetes mellitus type: type 1 Diabetes mellitus complication detail: without coma Qualified Code(s): E10.10 - Type 1 diabetes mellitus with ketoacidosis without coma
[2019-02-18 12:28] LABS: INR 1.1; Prothrombin Time 12.2 Seconds (9.4-12.1)
[2019-02-18] MEDS: Insulin LISPRO 300 UNITS/3 ML VIAL SQ SCH ×4 (12:47→22:42)
[2019-02-18] MEDS: Insulin DETEMIR 100 UNIT/ML X5UNITS SQ SCH ×2 (12:47→22:42)
[2019-02-18] MEDS: amLODIPine 5 MG TABLET PO SCH (13:26)
[2019-02-18] MEDS: Aspirin 81 MG TAB.CHEW PO SCH (13:27)
[2019-02-18] MEDS: Mirtazapine 15 MG TABLET PO SCH (22:41)
--- NOTE | 2019-02-18 23:02 | Nephrology Progress Note ---
Date of Encounter: 02/18/19 Time of Encounter: 12:00 - Assessment and Plan (1) ESRD (end stage renal disease) Current Visit: Yes Status: Acute Continue HD with UF as tolerated Permcath placement by IR pending. Plavix held per IR requirements. LHC to be do ne after permcath insertion Will also need outpatient HD placement (2) Anemia in CKD (chronic kidney disease) Current Visit: No Status: Chronic Qualifiers: Chronic kidney disease stage: stage 5, not on chronic dialysis Qualified Code(s): N18.5 - Chronic kidney disease, stage 5; D63.1 - Anemia in chronic kidney disease (3) Hyperkalemia Current Visit: Yes Status: Resolved (4) Hyponatremia Current Visit: Yes Status: Acute Subjective Principal diagnosis: Renal Failure, DKA, Electrolyte abnormalities Interval history: Pt seen and examined on HD doing well. Permcath placement still pending today Objective - Vital Signs Vital signs: Vital Signs Temp Pulse Resp BP Pulse Ox 02/18/19 16:41 98.6 F 84 15 127/71 92 02/18/19 13:30 92 14 148/77 98 02/18/19 12:50 98.3 F 15 149/84 02/18/19 12:30 145/83 02/18/19 12:15 142/84 02/18/19 12:00 143/77 02/18/19 11:45 149/85 02/18/19 11:30 153/86 02/18/19 11:15 135/82 02/18/19 11:00 141/85 02/18/19 10:45 148/89 02/18/19 10:30 144/81 02/18/19 10:15 150/83 02/18/19 10:00 139/81 02/18/19 09:45 148/84 02/18/19 09:30 99.2 F 14 148/76 02/18/19 07:27 98.7 F 85 16 163/71 97 02/18/19 03:50 98.4 F 81 16 151/77 92 02/17/19 23:33 99.0 F 76 17 135/78 97 Intake and Output 02/18/19 02/18/19 02/18/19 07:59 15:59 23:59 Intake Total 3 / 750 500 / 750 247 / 750 Output Total 425 / 3725 2500 / 3725 800 / 3725 Balance -422 / -2975 -2000 / -2975 -553 / -2975 Intake: IV Fluids 3 / 250 247 / 250 Heparin 25,000 UNIT/250 ML D5W 3 / 250 247 / 250 25,000 unit In 250 ml @ 12 UNIT /KG/HR 8.219 mls/hr IVC .Q24H [facility] Rx#:[id number] Oral 0 / 0 Intake, Rinseback and Flushes 500 / 500 Output: Urine 0 / 0 Total Dialysis (HD) Output 2500 / 2500 Catheter 425 / 1225 800 / 1225 Urethral (Dominique) 425 / 425 Other: Blood Glucose* 85 496 Hemodialysis Net Fluid Removed 2000 (mL) - Lab 02/18/19 03:30 02/18/19 03:30 Consult Discharge Plan - Plan Referrals: NONE,PCP [Primary Care Provider] -
[2019-02-19 01:54] LABS: Basophils % 0.4 %; Eosinophils # 0.2 K/mcL (0.0-0.6); Eosinophils % 2.1 %; Hematocrit 25.8 % (37.5-50.1); Hemoglobin 8.4 g/dL (12.9-16.9); Immature Granulocytes % 0.9 % (0-4); Lymphocytes # 1.2 K/mcL (0.6-4.6); Lymphocytes % 11.3 %; Mean Corpuscular HGB Conc 32.6 g/dL (31.6-35.5); Mean Corpuscular Hemoglobin 31.3 pg (28.0-33.3); Mean Corpuscular Volume 96.3 fL (83.0-100.0); Mean Platelet Volume 10.6 fL (9.4-12.4); Neutrophils # 8.1 K/mcL (1.6-8.9); Platelet Count 262 K/mcL (140-400); Red Blood Count 2.68 M/mcL (4.19-5.50); Red Cell Distribution Width 13.2 % (11.5-14.5); Segmented Neutrophils % 76.3 %; White Blood Count 10.7 K/mcL (4.3-11.1)
[2019-02-19 02:01] LABS: Magnesium 1.8 mg/dL (1.6-2.6); Phosphorous 2.1 mg/dL (2.7-4.5)
[2019-02-19 02:03] LABS: Potassium 4.2 mEq/L (3.5-5.1); Prothrombin Time 11.8 Seconds (9.4-12.1)
[2019-02-19] MEDS ORDERED: Insulin Regular, Human 100 UNIT/ML SQ ONE ×2 (07:46→08:45)
--- NOTE | 2019-02-19 07:52 | Internal Med Progress Note ---
<Nicki Fierro - Last Filed: 02/19/19 18:29> Hospitalist Progress Note - Encounter Date of Encounter: 02/19/19 Time of Encounter: 07:51 - Subjective Interval History: Patient was seen and examined at bedside this morning. He is resting comfortably. Vitals are hemodynamically stable. Plan for permacath today. However glucose = 467 this morning. Patient was given 2 doses of regular insulin this morning. Otherwise, patient noted to have hematuria overnight. Heparin is currently being held. Patient is resting comfortably. We will follow up with cardiology later today for planned left heart catheterization. Additionally will follow-up with GI later today for possible colonoscopy. - Exam Vitals: Temp Pulse Resp BP Pulse Ox 98.3 F 82 17 154/68 94 02/19/19 07:35 02/19/19 07:35 02/19/19 07:35 02/19/19 07:35 02/19/19 07:35 Exam: GEN: Pleasant 73-year-old male resting comfortably bedside. Vitals stable. No acute distress. AAOx3 HEENT: Atraumatic, Normocephalic, PERRLA, EOMI NECK: Supple, no lymphadenopathy, no JVD CARDIAC: RRR, s1 and s2 present, no murmurs, rubs, gallops PULM: CTAB, not in respiratory distress, no wheezes, rales, crackles, rhonchi ABD: Soft, non-tender, non-distended, no guarding or rebound tenderness. Bowel sounds present. Hematuria noted in urine bag EXT: No peripheral edema. No calf tenderness, cyanosis, clubbing NEURO: CN 2-12 grossly intact. No focal neurologic deficits. Follows commands PSYCH: Appropriate mood and affect - Assessment and Plan (1) Type 1 diabetes mellitus with diabetic chronic kidney disease Current Visit: Yes Status: Acute Assessment and Plan: This is a 73-year-old male with past medical history significant for type 1 diabetes mellitus on home insulin, coronary artery disease, hypertension, hyperlipidemia, end-stage renal disease who initially presented from group home facility with diabetic ketoacidosis. Patient had been recently admitted and discharged due to hypoglycemia and NSTEMI on 02/11/19. Left heart cath on previous admission had been postponed due to poor renal function. - On admission: Anion gap = 18, glucose = 449, beta hydroxybutyric acid greater than 2.00, K = 6.2, lactic acid = 4.2; VBG = 7.18//12 - CXR = unremarkable - UA = negative - Blood cultures no growth - Blood sugars today = markedly elevated = 467. Patient was given 20 units of regular dose insulin. Insulin sliding scale also changed to medium dose sliding scale. We will increase basal insulin coverage to 7 units twice a day PLAN: - Continue with low-dose insulin sliding scale - We will restart 7U Levemir in the morning and 7U at bedtime for further coverage given elevated glucose this morning. - Continue Accu-Cheks before meals and at bedtime - Continue to monitor electrolytes - Continue diabetic diet - Given ESRD, we will avoid metformin and SGL to inhibitors on discharge (given patient's GFR less than 30) (2) ESRD (end stage renal disease) Current Visit: Yes Status: Acute Assessment and Plan: Patient has end-stage renal disease CKD stage V. 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 Card - Patient does report that he does still make urine - Patient had previously refused hemodialysis, but after returning critically ill with DKA yesterday, he agreed to initiate dialysis. - Temporary hemodialysis catheter placed (02/13/19) - BUN/Cr = 27/2.26 - Permacath placed today (02/19/19) PLAN: - Nephrology is following. We appreciate the recommendations. - They do note that patient will need chronic dialysis moving forward - Avoid nephrotoxic agents and renally dose medications - Continue to monitor I's and O's - Daily weights - Pt will need renal diet when starts eating - Patient will need outpatient hemodialysis placement at time of discharge (3) Anemia in CKD (chronic kidney disease) Current Visit: No Status: Chronic Assessment and Plan: Patient likely has anemia of chronic disease, but anemia is likely multifactorial - His baseline hemoglobin seems to be in the 8-10 range - Hb = 7.8 at lowest - Patient has normal MCV; folate and B12 also within normal limits - Patient denied any blood in stool. No signs of any active bleeding - Hemoglobin today = 8.0 - EGD (02/15/19): Left antral grade a reflux esophagitis. Gastritis. Normal ampulla, first portion of duodenum and second portion of duodenum. - Colonoscopy (02/15/19): Exam was suboptimal due to patient preparation. Plan f or repeat colonoscopy tomorrow - Plan for possible colonoscopy tomorrow. bowel prep tonight. Nothing by mouth at midnight. PLAN: - Gastroenterology on board. Recommendations appreciated - Follow up iron studies - Per nephrology, goal hemoglobin = 10-11 - Continue EPO subcutaneous 3 times weekly per nephrology - Continue iron supplementation - Plan for repeat colonoscopy tomorrow - NPO at midnight (4) NSTEMI (non-ST elevated myocardial infarction) Current Visit: Yes Status: Acute Assessment and Plan: Patient presented with an NSTEMI in the setting of DKA - Initial troponins on admission = 73 which trended down to 42 - At previous admission, patient was noted to have NSTEMI; however left heart catheter was not completed due to poor renal function - EKG: Showed normal sinus rhythm without acute ST changes. No changes from previous admission - Most recent echocardiogram (02/13/19): LVEF = 60%, normal left ventricular size, wall thickness, function; mild segmental left ventricular systolic dysfunction which was not described on previous report on 02/07/19 PLAN: - Cardiology is following. Appreciate recommendations. Plan for left heart cath at some point during this admission. Awaiting colonoscopy to rule out lower GI bleeding. Cardiology will then be reconsulted. Left heart catheterization planned afterwards. - Continue on telemetry. Continue to monitor for chest pain - Aggressively treat risk factor modifications - Continue with aspirin, amlodipine, atorvastatin, metoprolol - Continue with heparin drip (5) Secondary hyperparathyroidism Current Visit: Yes Status: Acute Assessment and Plan: Calcium = 8.3 - Phosphorus = 3.3 - Vitamin D = 17 - PTH = 230 PLAN: - Given elevated PTH, low calcium, normal phosphate, patient likely has secondary hyperparathyroidism. May be secondary to underlying renal disease. We will treat vitamin D deficiency - We will treat with ergocalciferol 50,000 units once weekly (6) DVT prophylaxis Current Visit: No Status: Acute Assessment and Plan: PLAN: - Currently on heparin drip DVT Prophylaxis: Heparin Drip - Time Spent with Patient Total time spent is greater than 50% in coordination of care (as documented) at patient's floor/unit and/or counseling patient: less than 15 minutes Plan of Care Discussed with: family Internal Medicine: Result - Labs CBC & Chem 7: 02/19/19 01:07 02/19/19 01:07 Labs: Short CBC 02/19/19 Range/Units 01:07 WBC 10.7 (4.3-11.1) K/mcL Hgb 8.4 L (12.9-16.9) g/dL Hct 25.8 L (37.5-50.1) % Plt Count 262 (140-400) K/mcL Neutrophils # 8.1 (1.6-8.9) K/mcL BMP 02/19/19 01:07 Sodium 131 L Potassium 4.2 Chloride 99 Carbon Dioxide 25 BUN 27 H Creatinine 2.26 H Glucose 467 H Calcium 8.0 L - ABG Interpretation ABG results: PT/INR, D-dimer PT 11.8 Seconds (9.4-12.1) 02/19/19 01:07 Consult Discharge Plan - Plan Referrals: NONE,PCP [Primary Care Provider] - <Kobi Medina - Last Filed: 02/19/19 22:21> Hospitalist Progress Note - Encounter Date of Encounter: 02/19/19 - Exam Vitals: Temp Pulse Resp BP Pulse Ox 97.9 F 79 16 146/71 96 02/19/19 19:20 02/19/19 19:20 02/19/19 19:20 02/19/19 19:20 02/19/19 19:20 - Assessment and Plan (1) Type 1 diabetes mellitus with diabetic chronic kidney disease Current Visit: Yes Status: Acute (2) Anemia in CKD (chronic kidney disease) Current Visit: No Status: Chronic (3) DVT prophylaxis Current Visit: No Status: Acute (4) Failure to thrive Current Visit: No Status: Acute (5) NSTEMI (non-ST elevated myocardial infarction) Current Visit: Yes Status: Acute (6) Hyperkalemia Current Visit: Yes Status: Resolved (7) DKA (diabetic ketoacidoses) Current Visit: Yes Status: Acute (8) Vitiligo Current Visit: No Status: Chronic (9) ESRD (end stage renal disease) Current Visit: Yes Status: Acute (10) Hyponatremia Current Visit: Yes Status: Acute (11) High anion gap metabolic acidosis Current Visit: Yes Status: Resolved (12) Leukocytosis Current Visit: Yes Status: Acute - Time Spent with Patient Total time spent is greater than 50% in coordination of care (as documented) at patient's floor/unit and/or counseling patient: Internal Medicine: Result - Labs CBC & Chem 7: 02/19/19 01:07 02/19/19 01:07 Labs: Short CBC 02/19/19 Range/Units 01:07 WBC 10.7 (4.3-11.1) K/mcL Hgb 8.4 L (12.9-16.9) g/dL Hct 25.8 L (37.5-50.1) % Plt Count 262 (140-400) K/mcL Neutrophils # 8.1 (1.6-8.9) K/mcL BMP 02/19/19 01:07 Sodium 131 L Potassium 4.2 Chloride 99 Carbon Dioxide 25 BUN 27 H Creatinine 2.26 H Glucose 467 H Calcium 8.0 L - ABG Interpretation ABG results: PT/INR, D-dimer PT 11.8 Seconds (9.4-12.1) 02/19/19 01:07 - Impressions Impressions Guidance Ultrasound 02/19/19 00:00 IMPRESSION: Successful ultrasound and fluoroscopy guided tunneled catheter placement . D/ / Mychal Chandler MD / Mychal Chandler MD Interpreting Provider: Mychal Chandler MD Insertion Tunneled Catheter 02/19/19 00:00 IMPRESSION: Successful ultrasound and fluoroscopy guided tunneled catheter placement . D/ / Mychal Chandler MD / Mychal Chandler MD Interpreting Provider: Mychal Chandler MD X-Ray 02/19/19 12:39 IMPRESSION: Nonobstructed bowel-gas pattern. No significant colonic stool burden. D/ / 02/19/2019 14:32:50 Dario Higgins MD / jam Interpreting Provider: Dario Higgins MD - Attending Attestation I examined this patient and my medical decision-making was reviewed with the Resident Physician. I agree with the documented findings, disposition and treatment plan as described except to the extent set forth below. <Nicki Fierro - Last Filed: 02/19/19 18:29> (1) Type 1 diabetes mellitus with diabetic chronic kidney disease Qualifiers: Chronic kidney disease stage: stage 4 (severe) Qualified Code(s): E10.22 - Type 1 diabetes mellitus with diabetic chronic kidney disease; N18.4 - Chronic kidney disease, stage 4 (severe) (3) Anemia in CKD (chronic kidney disease) Qualifiers: Chronic kidney disease stage: stage 5, not on chronic dialysis Qualified Code(s): N18.5 - Chronic kidney disease, stage 5; D63.1 - Anemia in chronic kidney disease <Kobi Medina - Last Filed: 02/19/19 22:21> (1) Type 1 diabetes mellitus with diabetic chronic kidney disease Qualifiers: Chronic kidney disease stage: stage 4 (severe) Qualified Code(s): E10.22 - Type 1 diabetes mellitus with diabetic chronic kidney disease; N18.4 - Chronic kidney disease, stage 4 (severe) (2) Anemia in CKD (chronic kidney disease) Qualifiers: Chronic kidney disease stage: stage 5, not on chronic dialysis Qualified Code(s): N18.5 - Chronic kidney disease, stage 5; D63.1 - Anemia in chronic kidney disease (4) Failure to thrive Qualifiers: Failure to thrive age range: in adult Qualified Code(s): R62.7 - Adult failure to thrive (7) DKA (diabetic ketoacidoses) Qualifiers: Diabetes mellitus type: type 1 Diabetes mellitus complication detail: without coma Qualified Code(s): E10.10 - Type 1 diabetes mellitus with ketoacidosis without coma
[2019-02-19] MEDS: Insulin LISPRO 300 UNITS/3 ML VIAL SQ SCH ×5 (09:34→21:23)
[2019-02-19] MEDS ORDERED: Heparin 1,000 UNITS/500 mL 500 ML ONE (10:05)
[2019-02-19] MEDS ORDERED: 0.9 % Sodium Chloride 500 ML ONE (10:12)
[2019-02-19] MEDS ORDERED: CeFAZolin Premix DUPLEX 2,000 MG/50 ML BAG IVPB ONE (10:31)
[2019-02-19] MEDS: Aspirin 81 MG TAB.CHEW PO SCH (12:35)
[2019-02-19] MEDS: amLODIPine 5 MG TABLET PO SCH (12:36)
[2019-02-19] MEDS: Insulin DETEMIR 100 UNIT/ML X5UNITS SQ SCH ×2 (12:38→21:23)
[2019-02-19] MEDS: Heparin 25,000 UNIT/250 ML D5W 25,000 UNIT/250 ML IV.SOLN IVC SCH (14:39)
[2019-02-19] MEDS: Mirtazapine 15 MG TABLET PO SCH (21:40)
--- NOTE | 2019-02-20 00:37 | Nephrology Progress Note ---
Date of Encounter: 02/19/19 Time of Encounter: 12:00 - Assessment and Plan (1) ESRD (end stage renal disease) Current Visit: Yes Status: Acute s/p HD with UF as tolerated yesterday, next HD planned tomorrow s/p Permcath placement by IR today, [facility] to be done after permcath insertion per cardio Outpatient HD placement arranged (2) Anemia in CKD (chronic kidney disease) Current Visit: No Status: Chronic Qualifiers: Chronic kidney disease stage: stage 5, not on chronic dialysis Qualified Code(s): N18.5 - Chronic kidney disease, stage 5; D63.1 - Anemia in chronic kidney disease (3) Hyperkalemia Current Visit: Yes Status: Resolved (4) Hyponatremia Current Visit: Yes Status: Acute Subjective Principal diagnosis: Renal Failure, DKA, Electrolyte abnormalities Interval history: Pt seen and examined s/p permcath, doing well with no new complaints Objective - Vital Signs Vital signs: Vital Signs Temp Pulse Resp BP Pulse Ox 02/20/19 00:13 98.6 F 76 16 143/63 96 02/19/19 19:20 97.9 F 79 16 146/71 96 02/19/19 15:54 98.8 F 83 17 124/72 96 02/19/19 11:41 98.0 F 93 17 120/59 95 02/19/19 10:22 101 21 121/60 100 02/19/19 07:35 98.3 F 82 17 154/68 94 02/19/19 03:48 99.3 F 79 17 142/66 94 Intake and Output 02/19/19 02/19/19 02/20/19 15:59 23:59 07:59 Intake Total 250 / 393 93 / 393 Output Total 600 / 1300 100 / 1300 Balance -350 / -907 -7 / -907 Intake: IV Fluids 200 / 343 93 / 343 Heparin 25,000 UNIT/250 ML D5W 200 / 343 93 / 343 25,000 unit In 250 ml @ 12 UNIT /KG/HR 8.219 mls/hr IVC .Q24H [facility] Rx#:[id number] Oral 50 / 50 Output: Catheter 600 / 1300 100 / 1300 Other: # Bowel Movement Diapers 1 Blood Glucose* 308 117 143 - Lab 02/19/19 01:07 02/19/19 01:07 Consult Discharge Plan - Plan Referrals: NONE,PCP [Primary Care Provider] -
[2019-02-20 04:34] LABS: Hematocrit 25.5 % (37.5-50.1); Hemoglobin 8.5 g/dL (12.9-16.9); Mean Corpuscular HGB Conc 33.3 g/dL (31.6-35.5); Mean Corpuscular Hemoglobin 32.8 pg (28.0-33.3); Mean Corpuscular Volume 98.5 fL (83.0-100.0); Mean Platelet Volume 10.5 fL (9.4-12.4); Platelet Count 282 K/mcL (140-400); Red Blood Count 2.59 M/mcL (4.19-5.50); White Blood Count 12.9 K/mcL (4.3-11.1)
[2019-02-20 04:46] LABS: Prothrombin Time 11.5 Seconds (9.4-12.1)
[2019-02-20 04:53] LABS: Calcium 8.3 mg/dL (8.6-10.3); Potassium 4.2 mEq/L (3.5-5.1)
[2019-02-20] MEDS ORDERED: 0.9 % Sodium Chloride 250 ML IVC PRN (07:40)
[2019-02-20] MEDS ORDERED: *HR* Heparin 10,000 UNIT/10 ML VIAL IV PRN (07:40)
[2019-02-20] MEDS ORDERED: 0.9 % Sodium Chloride 1,000 ML PRIME SCH (07:45)
[2019-02-20] MEDS: Insulin LISPRO 300 UNITS/3 ML VIAL SQ SCH ×4 (07:53→22:39)
[2019-02-20] MEDS: Insulin DETEMIR 100 UNIT/ML X5UNITS SQ SCH ×2 (08:00→22:39)
[2019-02-20] MEDS: Heparin 25,000 UNIT/250 ML D5W 25,000 UNIT/250 ML IV.SOLN IVC SCH (09:38)
--- NOTE | 2019-02-20 12:53 | Anesthesia Evaluation PreOp ---
Date of Encounter: 02/20/19 Time of Encounter: 13:00 - Past History Planned Operation: Colonoscopy Cardiac History: GA (NSTEMI upon admission 02/13/2019), HTN, Hyperlipidemia, Other (Anemia) Other Medical History: Renal (Acute on CKDz admitted on 02/13/2019 in DKA and need for HD [s/p HD PermaCath placement 02/19]), Diabetes Type II (admitted 02/13/2019 in DKA), Other (secondary Hyperparathyroidism. Vitiligo) Anesthesia History: Past Anesthesia Alcohol Use: none Drug use: none Medications and Allergies Metoprolol [Lopressor] 12.5 mg PO BID 07/05/15 [History] Glucagon,Human Recombinant [Glucagon Emergency Kit] 1 mg IM AD PRN 06/18/16 [History] Acetaminophen [Tylenol] 650 mg PO DAILY PRN 02/07/19 [History] Insulin ASPART [Novolog Flexpen] 0 units SQ TIDAC 02/07/19 [History] Insulin Glargine,Hum.rec.anlog [Basaglar Kwikpen U-100] 7 unit SQ HS 02/07/19 [History] Atorvastatin [Lipitor] 40 mg PO HS #30 tablet 02/10/19 [Rx] Clopidogrel [Plavix] 75 mg PO DAILY #30 tablet 02/10/19 [Rx] Ferrous Sulfate 325 mg PO BIDWM #60 tablet 02/10/19 [Rx] amLODIPine [Norvasc] 5 mg PO DAILY #30 tablet 02/10/19 [Rx] Aspirin 81 mg PO DAILY 02/12/19 [History] Escitalopram [Lexapro] 10 mg PO DAILY 02/12/19 [History] Mirtazapine 7.5 mg PO HS 02/12/19 [History] Allergy/AdvReac Type Severity Reaction Status Date / Time tamsulosin [From Flomax] Allergy HEADACHES Verified 02/07/19 13:31 Anesthesia Results - Labs 02/20/19 03:58 02/20/19 03:58 Impressions Echocardiogram Limited Views 02/13/19 13:29 Impressions: LVEF 60%. Normal LV chamber size, wall thickness and overall function. Mild segmental left ventricular systolic dysfunction, not described on previous report from 02/07/2019. Left Ventricular Wall Motion: Rest Echo Findings The apical septal and mid anterior septal to were hypokinetic. All other wall segments showed normal motion. Findings: Study Quality * Technically adequate exam. ECG Findings * Normal sinus rhythm. Left Ventricle * LVEF 60%. * Normal LV chamber size, wall thickness and overall function. * Mild segmental left ventricular systolic dysfunction, not described on previous report from 02/07/2019. Right Ventricle * Normal right ventricular structure and function. - Imaging EKG: report reviewed (107bpm - Sinus tachycardia Minimal ST depression, lateral leads Borderline ST elevation, anterior leads Electronically Signed On 02-13-2019 16:54:28 EDT by Robby Hernandez) Anesthesia Exam Vital Signs Temp Pulse Resp BP Pulse Ox 02/20/19 12:40 98.5 F 15 125/57 02/20/19 12:20 117/53 02/20/19 12:05 123/63 02/20/19 11:50 111/58 02/20/19 11:35 111/63 02/20/19 11:20 112/93 02/20/19 11:05 107/54 02/20/19 10:50 116/63 02/20/19 10:35 135/96 02/20/19 10:20 116/58 02/20/19 10:05 123/63 02/20/19 09:50 118/73 02/20/19 09:35 126/66 02/20/19 09:20 99.4 F 17 136/74 02/20/19 07:22 98.3 F 91 18 158/73 95 02/20/19 04:23 99 F 82 16 127/72 95 02/20/19 00:13 98.6 F 76 16 143/63 96 02/19/19 19:20 97.9 F 79 16 146/71 96 02/19/19 15:54 98.8 F 83 17 124/72 96 Intake and Output 02/19/19 02/20/19 02/20/19 23:59 07:59 15:59 Intake Total 93 / 393 102 / 660 558 / 660 Output Total 100 / 1300 700 / 5100 4400 / 5100 Balance -7 / -907 -598 / -4440 -3842 / -4440 Intake: IV Fluids 93 / 343 102 / 160 58 / 160 Heparin 25,000 UNIT/250 ML D5W 93 / 343 102 / 160 58 / 160 25,000 unit In 250 ml @ 12 UNIT /KG/HR 8.219 mls/hr IVC .Q24H [facility] Rx#:[id number] Oral 0 / 0 Intake, Rinseback and Flushes 500 / 500 Output: Urine 0 / 0 Total Dialysis (HD) Output 3500 / 3500 Catheter 100 / 1300 700 / 1600 900 / 1600 Urethral (Dominique) 700 / 700 Other: Stool Size Large Moderate Stool Consistency loose loose liquid liquid Stool Color Brown # Bowel Movement Diapers 2 1 Weight 75.1 kg Blood Glucose* 117 351 203 Hemodialysis Net Fluid Removed 3000 (mL) Patient Weight 02/20/19 23:59 Weight 75.1 kg Height: 6' Weight: 165# BMI = 22 NPO (# of Hours): MNoc Anesthesia Assess/Plan ASA Score: 4 (recent NSTEMI 02/13/2019 yet to have cardiac cath.) Level of consciousness: Cooperative, Oriented, Tranquil Monitoring Plan: Standard Monitors Recovery Plan: Other
--- NOTE | 2019-02-20 13:47 | Internal Med Progress Note ---
<Dorothy Morfin - Last Filed: 02/20/19 14:50> Hospitalist Progress Note - Encounter Date of Encounter: 02/20/19 - Exam Vitals: Temp Pulse Resp BP Pulse Ox 98.5 F 81 16 110/68 98 02/20/19 13:34 02/20/19 13:34 02/20/19 13:34 02/20/19 13:34 02/20/19 13:34 - Assessment and Plan (1) Type 1 diabetes mellitus with diabetic chronic kidney disease Current Visit: Yes Status: Acute (2) Anemia in CKD (chronic kidney disease) Current Visit: No Status: Chronic (3) DVT prophylaxis Current Visit: No Status: Acute (4) Failure to thrive Current Visit: No Status: Acute (5) NSTEMI (non-ST elevated myocardial infarction) Current Visit: Yes Status: Acute (6) Hyperkalemia Current Visit: Yes Status: Resolved (7) DKA (diabetic ketoacidoses) Current Visit: Yes Status: Acute (8) Vitiligo Current Visit: No Status: Chronic (9) ESRD (end stage renal disease) Current Visit: Yes Status: Acute (10) Hyponatremia Current Visit: Yes Status: Acute (11) High anion gap metabolic acidosis Current Visit: Yes Status: Resolved (12) Leukocytosis Current Visit: Yes Status: Acute - Time Spent with Patient Total time spent is greater than 50% in coordination of care (as documented) at patient's floor/unit and/or counseling patient: Internal Medicine: Result - Labs CBC & Chem 7: 02/20/19 03:58 02/20/19 03:58 Labs: Short CBC 02/20/19 Range/Units 03:58 WBC 12.9 H (4.3-11.1) K/mcL Hgb 8.5 L (12.9-16.9) g/dL Hct 25.5 L (37.5-50.1) % Plt Count 282 (140-400) K/mcL BMP 02/20/19 03:58 Sodium 129 L Potassium 4.2 Chloride 95 L Carbon Dioxide 25 BUN 36 H Creatinine 2.93 H Glucose 318 H Calcium 8.3 L - ABG Interpretation ABG results: PT/INR, D-dimer PT 11.5 Seconds (9.4-12.1) 02/20/19 03:58 - Impressions Impressions Retroperitoneum Ultrasound 02/13/19 19:30 IMPRESSION: Overall increased echogenicity of the renal parenchyma, nonspecific finding suggesting medical renal disease. No hydronephrosis. D/ / Waleska Peterson Cha, MD / Waleska Peterson Cha, MD Interpreting Provider: Waleska Peterson Cha, MD Consult Discharge Plan - Plan Referrals: NONE,PCP [Primary Care Provider] - - Attending Attestation I examined this patient and my medical decision-making was reviewed with the Resident Physician Dr Contreras. I agree with the documented findings, disposition and treatment plan as described except to the extent set forth below. Mr Ruiz is admitted with DKA and NSTEMI awake, no complaints today. denies cp, pressure, sob or palpitations. did not fully complete bowel prep as some still sitting at his bedside. he is noting clear yellow stool this morning. + mild abd pain, no n/v. awaiting cscope later today. gen- alert, awake,appears stated age eyes- pupils equal round , no conjunctival pallor cv- reg rate and rhythm, normal s1,s2, no le edema lungs- ctabl, no wheezing, rhonchi or crackles, normal resp effort on room air abd- soft, non tender, non distended, + bs neuro- AAOx3 DKA resolved DM with hyperglycemia -cont levemir and SSI, will adjsut tomorrow as then will have full day of current dose, prn hypoglycemics NSTEMI- appreciate cards recs, addressing anemia with scopes first then will do LHC, cont asa statin and BB, no acei due to CKD, cont hep gtt CKD Stage V - appreciate nephro recs, will need chronic HD moving forward Acute on Chronic anemia, possible GIB as cause- hgb stable on hep gtt currently, GI following, scopes later today, cont epo + iron further dx and plan as noted by resident <Judith Contreras - Last Filed: 02/20/19 22:09> Hospitalist Progress Note - Encounter Date of Encounter: 02/20/19 Time of Encounter: 13:46 - Subjective Interval History: Patient alert and awake. Endorses no complaints. Finishing bowel prep for anticipated colonoscopy later today. Denies chest pain/pressure, dyspnea, nausea/vomiting. Some abdominal pain and clear-yellow tinted stools since starting bowel prep. - Exam Vitals: Temp Pulse Resp BP Pulse Ox 98.5 F 81 16 110/68 98 02/20/19 13:34 02/20/19 13:34 02/20/19 13:34 02/20/19 13:34 02/20/19 13:34 Exam: GEN: Vitals stable. No acute distress. HEENT: Atraumatic, Normocephalic, EOMI NECK: Supple CARDIAC: RRR, + s1 and s2; no murmurs/gallops/rubs PULM: CTAB, no respiratory distress, no wheezes/rales/rhonchi ABD: Soft, non-tender, non-distended, no guarding. Bowel sounds present. EXT: No peripheral edema. No cyanosis, clubbing NEURO: CN II-XII grossly intact. No focal neurologic deficits. Follows commands, answers questions appropriately. Alert and oriented x 3 PSYCH: Appropriate mood and affect - Assessment and Plan (1) Type 1 diabetes mellitus Current Visit: Yes Status: Chronic Assessment and Plan: Initially presented in DKA, which has resolved. We will continue low-dose sliding scale insulin and decrease Levemir to 3 units as patient will be NPO after midnight for proposed LHC tomorrow. (2) NSTEMI (non-ST elevated myocardial infarction) Current Visit: Yes Status: Acute Assessment and Plan: NSTEMI on previous admission, however LHC not performed. EKG with NSR, no acute ST changes. Echo shows LVEF 60%, mild segmental LV systolic dysfunction not seen on 02/07 echo. Cardiology is following. Anticipating LHC at some point during this admission. Continue telemetry, heparin gtt, ASA, amlodipine, metoprolol, and atorvastatin. (3) ESRD (end stage renal disease) Current Visit: Yes Status: Acute Assessment and Plan: ESRD with Tues, Thurs, Sat schedule HD. Tolerating HD well. Permacath placed 02/19/19. Nephrology following. SW helping to set up outpatient dialysis chair time. Continue to monitor I's/O's and daily weights. Follow renal dosing and will avoid nephrotoxins when possible. (4) CAD (coronary artery disease) Current Visit: Yes Status: Chronic Assessment and Plan: As above. (5) Anemia Current Visit: Yes Status: Acute Assessment and Plan: Stable, Hgb around 8.5. Acute on chronic anemia with acute component possibly related to GI cause. GI following, planning for colonoscopy late this afternoon. No prbc transfusions given this admission. Goal Hgb should be > 8 given dx of NSTEMI, will continue to monitor and transfuse if needed. Continue epo and iron supplements. - Time Spent with Patient Total time spent is greater than 50% in coordination of care (as documented) at patient's floor/unit and/or counseling patient: Internal Medicine: Result - Labs CBC & Chem 7: 02/20/19 03:58 02/20/19 03:58 Labs: Short CBC 02/20/19 Range/Units 03:58 WBC 12.9 H (4.3-11.1) K/mcL Hgb 8.5 L (12.9-16.9) g/dL Hct 25.5 L (37.5-50.1) % Plt Count 282 (140-400) K/mcL BMP 02/20/19 03:58 Sodium 129 L Potassium 4.2 Chloride 95 L Carbon Dioxide 25 BUN 36 H Creatinine 2.93 H Glucose 318 H Calcium 8.3 L - ABG Interpretation ABG results: PT/INR, D-dimer PT 11.5 Seconds (9.4-12.1) 02/20/19 03:58 - Impressions Impressions Retroperitoneum Ultrasound 02/13/19 19:30 IMPRESSION: Overall increased echogenicity of the renal parenchyma, nonspecific finding suggesting medical renal disease. No hydronephrosis. D/ / Waleska Peterson Cha, MD / Waleska Peterson Cha, MD Interpreting Provider: Waleska Peterson Cha, MD X-Ray 02/19/19 12:39 IMPRESSION: Nonobstructed bowel-gas pattern. No significant colonic stool burden. D/ / 02/19/2019 14:32:50 Dario Higgins MD / [email or web address] Interpreting Provider: Dario Higgins MD _ <Dorothy Morfin - Last Filed: 02/20/19 14:50> (1) Type 1 diabetes mellitus with diabetic chronic kidney disease Qualifiers: Chronic kidney disease stage: stage 4 (severe) Qualified Code(s): E10.22 - Type 1 diabetes mellitus with diabetic chronic kidney disease; N18.4 - Chronic kidney disease, stage 4 (severe) (2) Anemia in CKD (chronic kidney disease) Qualifiers: Chronic kidney disease stage: stage 5, not on chronic dialysis Qualified Code(s): N18.5 - Chronic kidney disease, stage 5; D63.1 - Anemia in chronic kidney disease (4) Failure to thrive Qualifiers: Failure to thrive age range: in adult Qualified Code(s): R62.7 - Adult failure to thrive (7) DKA (diabetic ketoacidoses) Qualifiers: Diabetes mellitus type: type 1 Diabetes mellitus complication detail: without coma Qualified Code(s): E10.10 - Type 1 diabetes mellitus with ketoacidosis without coma <Judith Contreras - Last Filed: 02/20/19 22:09> (1) Type 1 diabetes mellitus Qualifiers: Diabetes mellitus complication status: with kidney complications Diabetes mellitus complication detail: with chronic kidney disease Chronic kidney disease stage: stage 4 (severe) Qualified Code(s): E10.22 - Type 1 diabetes m ellitus with diabetic chronic kidney disease; N18.4 - Chronic kidney disease, stage 4 (severe) (4) CAD (coronary artery disease) Qualifiers: Coronary Disease-Associated Artery/Lesion type: [place] artery [place] vs. transplanted heart: [place] heart Associated angina: without angina Qualified Code(s): I25.10 - Atherosclerotic heart disease of [place] coronary artery without angina pectoris (5) Anemia Qualifiers: Anemia type: due to chronic kidney disease Chronic kidney disease stage: on chronic dialysis Qualified Code(s): N18.6 - End stage renal disease; D63.1 - Anemia in chronic kidney disease; Z99.2 - Dependence on renal dialysis
[2019-02-20] MEDS: amLODIPine 5 MG TABLET PO SCH (14:20)
[2019-02-20] MEDS: Aspirin 81 MG TAB.CHEW PO SCH (14:27)
--- NOTE | 2019-02-20 16:45 | Cardiology Progress Note ---
Date of Encounter: 02/20/19 Time of Encounter: 16:40 Assessment and Plan (1) NSTEMI (non-ST elevated myocardial infarction) Current Visit: Yes Status: Acute Troponin peaked at 73. Noted to be in the setting of DKA and CKD patient denied chest pain. Patient initially declined LHC to avoid risk of NEHA on CKD. Pt now on HD. Permacath placed yesterday. There was also concern for anemia with no recent GI eval. Colonoscopy cancelled today and recommended to proceed with LHC. Hgb stable and increasing with patient being on heparin gtt. TTE 02/07/19: LVEF 65-70%. Mild cLVH. Mild LVDD. Normal RV structure and function. Mild-moderate TR. TTE 02/14/19: LVEF 60%, mild LV segmental wall motion abnormality. Pt is on heparin gtt. Continue ASA, Statin, low dose BB LHC R/B/A reviewed with patient and significant other. Plan for LHC tomorrow. NPO after midnight. (2) ESRD (end stage renal disease) Current Visit: Yes Status: Acute S/p permacath 02/19/19, On HD. Nephrology following. (3) Anemia Current Visit: Yes Status: Acute H/H stable. No active bleeding reported. Anemia of chronic disease suspected. EGD-no active bleeding. Patient is on heparin gtt and tolerating well. Qualifiers: Qualified Code(s): N18.6 - End stage renal disease; D63.1 - Anemia in chronic kidney disease; Z99.2 - Dependence on renal dialysis Discussion w patient/family: The assessment and plan as outlined above was discussed with the patient and/or family members who expressed understanding and agreement. All questions were answered. Thank you for involving us in the care of your patient. Please call with any questions. Subjective Principal diagnosis: Renal Failure, DKA, Electrolyte abnormalities Interval history: Mr. Ruiz is laying in bed. No complaints. Significant other at bedside. Colonoscopy cancelled today. Anesthesia discussed with Dr. Lance and feel LHC prior to colonoscopy would be ideal due to significantly high troponin and stable Hgb. Objective Vital Signs, Last 4 Hours Temp Pulse Resp BP Pulse Ox 02/20/19 15:37 98.4 F 83 18 128/57 97 02/20/19 13:34 98.5 F 81 16 110/68 98 General: Conversant, No Apparent Distress HEENT: Atraumatic, Normocephaly, Mucus Membranes Moist Neck: No JVD, Normal carotid pulses, Other (Right permacath in place ) Cardiac: Reg Rate and Rhythm, Normal S1 and S2, No Murmur Lungs: Normal Breath Sounds, No Wheeze, Rales, Rhonchi Neuro: Alert and responsive, No focal deficits noted Abdomen: Soft, Non-Tender Skin: No rashes noted on visualized skin Musculoskeletal: No Chest Wall Tenderness Extremities: No Clubbing, No Cyanosis, No Edema, Normal Pulses Results 02/20/19 03:58 02/20/19 03:58 Lab Results 02/20/19 02/20/19 02/20/19 03:58 03:58 03:58 WBC 12.9 H Hgb 8.5 L Hct 25.5 L Plt Count 282 INR 1.0 Sodium 129 L Potassium 4.2 Chloride 95 L Carbon Dioxide 25 BUN 36 H Creatinine 2.93 H Glucose 318 H Calcium 8.3 L - Imaging and Cardiology Echo: report reviewed - EKG Interpretation EKG results cardiology: personally reviewed Consult Discharge Plan - Plan Referrals: NONE,PCP [Primary Care Provider] -
--- NOTE | 2019-02-20 16:53 | Nephrology Progress Note ---
Date of Encounter: 02/20/19 Time of Encounter: 12:00 - Assessment and Plan (1) ESRD (end stage renal disease) Current Visit: Yes Status: Acute Continue HD with UF as tolerated s/p Permcath placement by IR yesterday, C to be done after permcath insertion per cardio Outpatient HD placement arranged (2) Anemia in CKD (chronic kidney disease) Current Visit: No Status: Chronic Qualifiers: Chronic kidney disease stage: stage 5, not on chronic dialysis Qualified Code(s): N18.5 - Chronic kidney disease, stage 5; D63.1 - Anemia in chronic kidney disease (3) Hyperkalemia Current Visit: Yes Status: Resolved (4) Hyponatremia Current Visit: Yes Status: Acute Subjective Principal diagnosis: Renal Failure, DKA, Electrolyte abnormalities Interval history: Pt seen and examined on HD, doing well with no new complaints but alittle fatigued Objective - Vital Signs Vital signs: Vital Signs Temp Pulse Resp BP Pulse Ox 02/20/19 15:37 98.4 F 83 18 128/57 97 02/20/19 13:34 98.5 F 81 16 110/68 98 02/20/19 12:40 98.5 F 15 125/57 02/20/19 12:20 117/53 02/20/19 12:05 123/63 02/20/19 11:50 111/58 02/20/19 11:35 111/63 02/20/19 11:20 112/93 02/20/19 11:05 107/54 02/20/19 10:50 116/63 02/20/19 10:35 135/96 02/20/19 10:20 116/58 02/20/19 10:05 123/63 02/20/19 09:50 118/73 02/20/19 09:35 126/66 02/20/19 09:20 99.4 F 17 136/74 02/20/19 07:22 98.3 F 91 18 158/73 95 02/20/19 04:23 99 F 82 16 127/72 95 02/20/19 00:13 98.6 F 76 16 143/63 96 02/19/19 19:20 97.9 F 79 16 146/71 96 Intake and Output 02/20/19 02/20/19 02/20/19 07:59 15:59 23:59 Intake Total 102 / 679.5 577.5 / 679.5 Output Total 700 / 5350 4650 / 5350 Balance -598 / -4670.5 -4072.5 / -4670.5 Intake: IV Fluids 102 / 179.5 77.5 / 179.5 Heparin 25,000 UNIT/250 ML D5W 102 / 179.5 77.5 / 179.5 25,000 unit In 250 ml @ 12 UNIT /KG/HR 8.219 mls/hr IVC .Q24H [facility] Rx#:[id number] Oral 0 / 0 Intake, Rinseback and Flushes 500 / 500 Output: Urine 0 / 0 Total Dialysis (HD) Output 3500 / 3500 Catheter 700 / 1850 1150 / 1850 Urethral (Dominique) 700 / 700 Other: Stool Size Large Moderate Stool Consistency loose loose liquid liquid Stool Color Brown # Bowel Movement Diapers 2 1 Weight 75.1 kg Blood Glucose* 351 203 Hemodialysis Net Fluid Removed 3000 (mL) Patient Weight 02/20/19 23:59 Weight 75.1 kg - Lab 02/20/19 03:58 02/20/19 03:58 Most recent lab results 02/20/19 03:58 Calcium 8.3 L Consult Discharge Plan - Plan Referrals: NONE,PCP [Primary Care Provider] -
[2019-02-20] MEDS: Mirtazapine 15 MG TABLET PO SCH (22:37)
[2019-02-21 07:21] LABS: Hematocrit 26.6 % (37.5-50.1); Hemoglobin 8.7 g/dL (12.9-16.9); Mean Corpuscular HGB Conc 32.7 g/dL (31.6-35.5); Mean Corpuscular Hemoglobin 31.8 pg (28.0-33.3); Mean Corpuscular Volume 97.1 fL (83.0-100.0); Mean Platelet Volume 9.9 fL (9.4-12.4); Platelet Count 295 K/mcL (140-400); Red Blood Count 2.74 M/mcL (4.19-5.50); Red Cell Distribution Width 13.5 % (11.5-14.5); White Blood Count 9.2 K/mcL (4.3-11.1)
[2019-02-21 07:35] LABS: Calcium 8.5 mg/dL (8.6-10.3); Potassium 3.8 mEq/L (3.5-5.1)
--- NOTE | 2019-02-21 07:59 | Internal Med Progress Note ---
<Dorothy Morfin - Last Filed: 02/21/19 14:02> Hospitalist Progress Note - Encounter Date of Encounter: 02/21/19 - Exam Vitals: Temp Pulse Resp BP Pulse Ox 98.3 F 72 16 142/75 97 02/21/19 07:18 02/21/19 13:51 02/21/19 13:51 02/21/19 13:51 02/21/19 13:51 - Assessment and Plan (1) Type 1 diabetes mellitus with diabetic chronic kidney disease Current Visit: Yes Status: Acute (2) Anemia in CKD (chronic kidney disease) Current Visit: Yes Status: Chronic (3) DVT prophylaxis Current Visit: No Status: Acute (4) Failure to thrive Current Visit: No Status: Acute (5) NSTEMI (non-ST elevated myocardial infarction) Current Visit: Yes Status: Acute (6) Hyperkalemia Current Visit: Yes Status: Resolved (7) DKA (diabetic ketoacidoses) Current Visit: Yes Status: Acute (8) Vitiligo Current Visit: No Status: Chronic (9) ESRD (end stage renal disease) Current Visit: Yes Status: Acute (10) Hyponatremia Current Visit: Yes Status: Acute (11) High anion gap metabolic acidosis Current Visit: Yes Status: Resolved (12) Leukocytosis Current Visit: Yes Status: Acute - Time Spent with Patient Total time spent is greater than 50% in coordination of care (as documented) at patient's floor/unit and/or counseling patient: Internal Medicine: Result - Labs CBC & Chem 7: 02/21/19 07:03 02/21/19 07:03 Labs: Short CBC 02/21/19 Range/Units 07:03 WBC 9.2 (4.3-11.1) K/mcL Hgb 8.7 L (12.9-16.9) g/dL Hct 26.6 L (37.5-50.1) % Plt Count 295 (140-400) K/mcL BMP 02/21/19 07:03 Sodium 135 L Potassium 3.8 Chloride 99 Carbon Dioxide 30 H BUN 20 Creatinine 2.34 H Glucose 228 H Calcium 8.5 L - ABG Interpretation ABG results: PT/INR, D-dimer PT 11.5 Seconds (9.4-12.1) 02/20/19 03:58 - Impressions Impressions KUB X-Ray 02/19/19 12:39 IMPRESSION: Nonobstructed bowel-gas pattern. No significant colonic stool burden. D/ / 02/19/2019 14:32:50 Dario Higgins MD / jam Interpreting Provider: Dario Higgins MD Consult Discharge Plan - Plan Referrals: NONE,PCP [Primary Care Provider] - - Attending Attestation I examined this patient and my medical decision-making was reviewed with the Resident Physician Dr Fierro. I agree with the documented findings, disposition and treatment plan as described except to the extent set forth below. Mr Ruiz is admitted with DKA and NSTEMI awake, no cp, no abd pain, denies sob. awaiting [facility] gen- alert, awake,appears stated age cv- reg rate and rhythm, normal s1,s2, no le edema lungs- ctabl, normal resp effort on room air abd- soft, non tender, non distended neuro- AAOx3 DKA resolved DM with hyperglycemia -cont levemir and SSI, will adjust based on plan for tomorrow (?gi scopes) NSTEMI- C today, cont med regimen, no acei due to CKD, cont hep gtt CKD Stage V -HD as outpt per nephro Acute on Chronic anemia, possible GIB as cause- hgb stable on hep gtt, scopes as per gi pending [facility] further dx and plan as noted by resident dispo will be outpt HD T <Nicki Fierro - Last Filed: 02/21/19 19:00> Hospitalist Progress Note - Encounter Date of Encounter: 02/21/19 Time of Encounter: 07:59 - Subjective Interval History: Patient was seen and examined at bedside this morning. He is resting comfortably. Currently in no acute distress. Plan for left heart catheter today. Patient did not receive colonoscopy yesterday. However after discussion between anesthesia and cardiology, decision was made to proceed with left heart catheter today. Patient's hemoglobin has been stable. We will follow up with nephrology regarding hemodialysis after procedure today. He denies any headache, chest pain, difficulty breathing, abdominal pain, nausea, vomiting. Vitals are hemodynamically stable. - Exam Vitals: Temp Pulse Resp BP Pulse Ox 98.3 F 78 20 153/54 96 02/21/19 07:18 02/21/19 07:18 02/21/19 07:18 02/21/19 07:18 02/21/19 07:18 Exam: GEN: This 73-year-old gentleman is resting comfortably in bed sleeping. Vitals stable. No acute distress. AAOx3 HEENT: Atraumatic, Normocephalic, PERRLA, EOMI NECK: Supple, no lymphadenopathy, no JVD CARDIAC: RRR, s1 and s2 present, no murmurs, rubs, gallops PULM: CTAB, not in respiratory distress, no wheezes, rales, crackles, rhonchi ABD: Soft, non-tender, non-distended, no guarding or rebound tenderness. Bowel sounds present. No hematuria noted and urine bag. EXT: No peripheral edema. No calf tenderness, cyanosis, clubbing NEURO: CN 2-12 grossly intact. No focal neurologic deficits. Follows commands PSYCH: Appropriate mood and affect - Assessment and Plan (1) Type 1 diabetes mellitus with diabetic chronic kidney disease Current Visit: Yes Status: Acute Assessment and Plan: This is a 73-year-old male with past medical history significant for type 1 diabetes mellitus on home insulin, coronary artery disease, hypertension, hyperlipidemia, end-stage renal disease who [facility] with diabetic ketoacidosis. Patient had been recently admitted and discharged due to hypoglycemia and NSTEMI on 02/11/19. Left heart cath on previous admission had been postponed due to poor renal function. - On admission: Anion gap = 18, glucose = 449, beta hydroxybutyric acid greater than 2.00, K = 6.2, lactic acid = 4.2; VBG = 7. - CXR = unremarkable - UA = negative - Blood cultures no growth - Blood sugars today = 228. We will plan to continue with 7 units Levemir twice a day. We will follow up on blood sugars tomorrow. PLAN: - Continue with low-dose insulin sliding scale - We will restart 7U Levemir in the morning and 7U at bedtime for further coverage given elevated glucose this morning. - Continue Accu-Cheks before meals and at bedtime - Continue to monitor electrolytes - Continue diabetic diet - Given ESRD, we will avoid metformin and SGL to inhibitors on discharge (given patient's GFR less than 30) (2) ESRD (end stage renal disease) Current Visit: Yes Status: Acute Assessment and Plan: Patient has end-stage renal disease CKD stage V. - Previous camera tuning engineer was Dr. Card - Patient does report that he does still make urine - Patient had previously refused hemodialysis, but after returning critically ill with DKA yesterday, he agreed to initiate dialysis. - Temporary hemodialysis catheter placed (02/13/19) - BUN/Cr = 20/2.34 - Permacath placed (02/19/19) PLAN: - Nephrology is following. We appreciate the recommendations. - They do note that patient will need chronic dialysis moving forward - Avoid nephrotoxic agents and renally dose medications - Continue to monitor I's and O's - Daily weights - Pt will need renal diet when starts eating - Patient will need outpatient hemodialysis placement at time of discharge (3) Anemia in CKD (chronic kidney disease) Current Visit: Yes Status: Chronic Assessment and Plan: Patient likely has anemia of chronic disease, but anemia is likely multifactorial - His baseline hemoglobin seems to be in the 8-10 range - Hb = 7.8 at lowest - Patient has normal MCV; folate and B12 also within normal limits - Patient denied any blood in stool. No signs of any active bleeding - Hemoglobin today = 8.0 - EGD (02/15/19): Left antral grade a reflux esophagitis. Gastritis. Normal ampulla, first portion of duodenum and second portion of duodenum. - Colonoscopy (02/15/19): Exam was suboptimal due to patient preparation. Plan for repeat colonoscopy tomorrow - Given that hemoglobin has remained stable = 8.7 today, plan to proceed with left heart catheterization today. We will follow up with GI regarding colonoscopy afterwards. PLAN: - Gastroenterology on board. Recommendations appreciated - Follow up iron studies - Per nephrology, goal hemoglobin = 10-11 - Continue EPO subcutaneous 3 times weekly per nephrology - Continue iron supplementation (4) NSTEMI (non-ST elevated myocardial infarction) Current Visit: Yes Status: Acute Assessment and Plan: Patient presented with an NSTEMI in the setting of DKA - Initial troponins on admission = 73 which trended down to 42 - At previous admission, patient was noted to have NSTEMI; however left heart catheter was not completed due to poor renal function - EKG: Showed normal sinus rhythm without acute ST changes. No changes from previous admission - Most recent echocardiogram (02/13/19): LVEF = 60%, normal left ventricular size, wall thickness, function; mild segmental left ventricular systolic dysfunction which was not described on previous report on 02/07/19 - Left heart catheterization done today (02/21/19). A revealed severe two- vessel coronary artery disease including severe left main disease. CT surgery was consulted and patient was deemed a poor candidate for CABG. Options were discussed with patient and , and patient opted to proceed with medical management rather than undergoing a high risk procedure. Plan to continue with aspirin, Plavix, statin, beta brian. PLAN: - Cardiology is following. Appreciate recommendations. - Continue on telemetry. Continue to monitor for chest pain - Aggressively treat risk factor modifications - Continue with aspirin, Plavix, amlodipine, atorvastatin, metoprolol (5) Secondary hyperparathyroidism Current Visit: Yes Status: Acute Assessment and Plan: Calcium = 8.3 - Phosphorus = 3.3 - Vitamin D = 17 - PTH = 230 PLAN: - Given elevated PTH, low calcium, normal phosphate, patient likely has secondary hyperparathyroidism. May be secondary to underlying renal disease. We will treat vitamin D deficiency - We will treat with ergocalciferol 50,000 units once weekly (6) DVT prophylaxis Current Visit: No Status: Acute Assessment and Plan: PLAN: - Currently on heparin subcutaneous twice a day DVT Prophylaxis: Heparin subcutaneous twice a day - Time Spent with Patient Total time spent is greater than 50% in coordination of care (as documented) at patient's floor/unit and/or counseling patient: less than 15 minutes Plan of Care Discussed with: patient Internal Medicine: Result - Labs CBC & Chem 7: 02/21/19 07:03 02/21/19 07:03 Labs: Short CBC 02/21/19 Range/Units 07:03 WBC 9.2 (4.3-11.1) K/mcL Hgb 8.7 L (12.9-16.9) g/dL Hct 26.6 L (37.5-50.1) % Plt Count 295 (140-400) K/mcL BMP 02/21/19 07:03 Sodium 135 L Potassium 3.8 Chloride 99 Carbon Dioxide 30 H BUN 20 Creatinine 2.34 H Glucose 228 H Calcium 8.5 L - ABG Interpretation ABG results: PT/INR, D-dimer PT 11.5 Seconds (9.4-12.1) 02/20/19 03:58 - Impressions Impressions Retroperitoneum Ultrasound 02/13/19 19:30 IMPRESSION: Overall increased echogenicity of the renal parenchyma, nonspecific finding suggesting medical renal disease. No hydronephrosis. D/ / Waleska Peterson Cha, MD / Waleska Peterson Cha, MD Interpreting Provider: Waleska Peterson Cha, MD <Dorothy Morfin - Last Filed: 02/21/19 14:02> (1) Type 1 diabetes mellitus with diabetic chronic kidney disease Qualifiers: Chronic kidney disease stage: stage 4 (severe) Qualified Code(s): E10.22 - Type 1 diabetes mellitus with diabetic chronic kidney disease; N18.4 - Chronic kidney disease, stage 4 (severe) (2) Anemia in CKD (chronic kidney disease) Qualifiers: Chronic kidney disease stage: stage 5, not on chronic dialysis Qualified Code(s): N18.5 - Chronic kidney disease, stage 5; D63.1 - Anemia in chronic kidney disease (4) Failure to thrive Qualifiers: Failure to thrive age range: in adult Qualified Code(s): R62.7 - Adult failure to thrive (7) DKA (diabetic ketoacidoses) Qualifiers: Diabetes mellitus type: type 1 Diabetes mellitus complication detail: without coma Qualified Code(s): E10.10 - Type 1 diabetes mellitus with ketoacidosis without coma <Nicki Fierro - Last Filed: 02/21/19 19:00> (1) Type 1 diabetes mellitus with diabetic chronic kidney disease Qualifiers: Chronic kidney disease stage: stage 4 (severe) Qualified Code(s): E10.22 - Type 1 diabetes mellitus with diabetic chronic kidney disease; N18.4 - Chronic kidney disease, stage 4 (severe) (3) Anemia in CKD (chronic kidney disease) Qualifiers: Chronic kidney disease stage: stage 5, not on chronic dialysis Qualified Code(s): N18.5 - Chronic kidney disease, stage 5; D63.1 - Anemia in chronic kidney disease
[2019-02-21] MEDS: Insulin LISPRO 300 UNITS/3 ML VIAL SQ SCH ×4 (08:48→20:49)
[2019-02-21] MEDS: Insulin DETEMIR 100 UNIT/ML X5UNITS SQ SCH ×2 (08:52→20:49)
[2019-02-21] MEDS: Aspirin 81 MG TAB.CHEW PO SCH (08:53)
[2019-02-21] MEDS: amLODIPine 5 MG TABLET PO SCH (08:53)
[2019-02-21] MEDS ORDERED: ISOVUE-370 200 ML INFUS..BTL ONE (10:24)
[2019-02-21] MEDS ORDERED: Nitroglycerin 1,000 MCG/10 ML VIAL IV ONE (10:24)
[2019-02-21] MEDS ORDERED: Heparin 1,000 UNITS/500 mL 500 ML ONE (10:24)
[2019-02-21] MEDS ORDERED: *HR* Heparin 10,000 UNIT/10 ML VIAL ONE (10:24)
[2019-02-21] MEDS ORDERED: 0.9 % Sodium Chloride 1,000 ML ONE ×2 (10:24→10:34)
--- NOTE | 2019-02-21 10:24 | Pre-Sedation Evaluation ---
Pre-sedation evaluation - Pre-sedation checklist Date of procedure: 02/21/19 Procedure: [facility] Recent Vitals: Last Vital Signs Temp 98.3 F 02/21/19 07:18 Pulse 78 02/21/19 07:18 Resp 20 02/21/19 07:18 BP 153/54 02/21/19 07:18 Pulse Ox 96 02/21/19 07:18 H&P (including ROS) documented in medical record: Yes Previous reaction to sedatives/anesthetics: Unknown Dietary Status: NPO after Midnight Airway Assessment: Patient can open mouth completely, TMJ function normal, Micrognathia (under-bite, receding chin) absent, Neck with adequate range of motion Dentition: dentures removed Possible difficult airway: No ASA Classification *see protocol: CLASS II-Mild systemic disease Plan of Care: Pt appropriate candidate for procedure/moderate/conscious sedation, Risks/benefits of procedure/sedation discussed w/ patient/family Cardiac Registry (Cardio Only) - Functional Capacity Functional Capacity: < 4 METS - Clincal Frailty Scale Clinical Frailty Scale: Vulnerable
[2019-02-21] MEDS ORDERED: *HR* Midazolam HCl 2 MG/2 ML VIAL ONE (10:37)
[2019-02-21] MEDS ORDERED: *HR* FentaNYL (PF) 100 MCG/2 ML VIAL ONE (10:38)
--- NOTE | 2019-02-21 11:41 | Invasive Diagnostic Lab Proc ---
Name: Nii Ruiz Date of Study: 02/21/2019 Date: 1945 Ht: 72.8in Medical Record#: [id number] Age: 73 Wt: 154.76lb Gender: Male BSA: 1.93 Order #: [id number] BMI: 20.53 Physicians Procedure Physician: Nakita Cerna MD, [facility] Referring MD: Referring MD: Staff Name Position Time In Dante Rodriguez RN Exercise Instructor 10:41 AM Nakita Yarbrough RT (R) Scrub 10:43 AM Eloise Wu RT (R) Monitor 10:44 AM Martin, Eloise RT (R) Scrub 10:47 AM Indications Indication Non-Stemi Procedures Performed Procedure L HRT ARTERY/VENTRICLE ANGIO Pre-Procedure Checklist Informed consent is complete signed and on chart. H&P is on chart. ID band is on and ID verified with patient. Patient NPO for procedure The procedure was described for the patient and questions were answered. Blood Pressure: 145/67 ECG is on chart. Rhythm: NSR Plan of Care Patient will tolerate the procedure without complications. Adequate level of comfort will be maintained. Hemodynamics will remain stable Patient will recover from procedure without complications. Respiratory function will be maintained. Cardiac rhythm will remain stable. Patient temperature will be maintained. Patient and/or family have verbalized understanding of the procedure. Patient Education Chief Complaint/Reason for Test: Cardiac Cath Developmental Category: Geriatric (65+ years) Developmentally Appropriate for Age: Yes Learning Barriers: None Education Needs: Procedure Education Method: Verbal Information Taught: Cardiac Cath Educational Evaluation: Able to repeat information Intravenous Access Time IV Size Location DC'd Fluid/Drip Rate Units RN 10:43 AM 20g 1 1/4" Patent On Arrival Lt Arm 0.9NaCl Allergies tamsulosin Vital Signs Time BP (mmHg) HR (bpm) O2 Sat. RR (bpm) LOC 10:41 AM / % 5 = Fully awake and oriented or at pre-proc level 10:41 AM / % 4 = Oriented but drowsy 10:41 AM 127 / 77 75 99 % 16 10:46 AM 104 / 63 70 100 % 9 10:51 AM 103 / 58 68 100 % 13 10:56 AM 103 / 58 67 100 % 17 11:01 AM 109 / 57 67 100 % 16 11:06 AM 112 / 62 68 100 % 16 11:11 AM 109 / 59 69 100 % 18 Procedural Medications Time Medication Dose Units Method Given By 10:41 AM Oxygen 2 L/min nasal cannula Dante Rodriguez RN 10:42 AM Versed 2 mg Intravenous Dante Rodriguez RN 10:42 AM Fentanyl 50 mcg Intravenous Dante Rodriguez RN 10:55 AM Lidocaine 2% 13 ml Subcutaneous Nakita Cerna MD, [facility] ASA Classification: CLASS II- Mild systemic disease (i.e. well-controlled diabetes, hypertension, asthma, cigarette smoking) Celio Score Preprocedure Postprocedure Activity 2- Moves 4 extremities sustained head lift Activity 2- Moves 4 extremities sustained head lift Circulation 2- SBP +/= 20 points of pre-anesthetic level Circulation 2- SBP +/= 20 points of pre-anesthetic level Consciousness 2- Awake and alert oriented x 3 Consciousness 2- Awake and alert oriented x 3 O2 Saturation 2- Able to maintain O2 satruation of 92% on room air O2 Saturation 2- Able to maintain O2 satruation of 92% on room air Respiratory 2- Able to deep breathe and cough well Respiratory 2- Able to deep breathe and cough well Total Score 10 Total Score 10 Contrast Agent: Isovue Diagnostic Contrast: 79 ml Total Contrast: 79 ml Fluoro Dose: 23 mGy Procedure Log Time Note Enter By 10:39 AM Pt arrived to laborer mine 2 at 10:38 tsites 10:39 AM CathStat 10:40 AM Physician arrived 10:40 tsites 10:40 AM Meet and greet completed tsites 10:40 AM Sign in performed according to hospital policy. Informed consent was obtained. tsites 10:40 AM Procedure start 10:40 tsites 10:41 AM Patient charges- Angio tray pack, Navilyst 3mm J, Pulse Oximetry and ACIST tubing and transducer tsites 10:41 AM Vitals capture started with the following parameters, Patient=Adult, Interval=5 min, Initial Vkwcdzew=571 mmHg, Deflation Rate=5 mmHg, Cuff placed on Left Arm 10:41 AM Time: 10:41 Oxygen on at 2 L/min per nasal cannula by Dante Rodriguez RN tsites 10:41 AM Time: 10:41 Patient comfortable and pain free: Yes tsites 10:41 AM Time: 10:41LOC: 5 = Fully awake and oriented or at pre-proc level tsites 10:41 AM Michael, Dante RN Position: Exercise Instructor Time in: 10: tsites 10:41 AM HR=75 bpm, CPKQ=366/77 mmhg, SpO2=99.0 %, Resp=16 B/min 10: AM Time: : Versed 2 mg Intravenous Given by Dante Rodriguez RN tsites 10: AM Time: 10: Fentanyl 50 mcg Intravenous Given by Dante Rodriguez RN tsites 10:42 AM Recorded ECG: HR=74 Condition=Condition 1 10:43 AM ASA Class CLASS II- Mild systemic disease (i.e. well-controlled diabetes, hypertension, asthma, cigarette smoking) tsites 10:43 AM Hair removed from procedure site in holding area using clippers. Bilateral groin prepped with Chloraprep by Nakita Yarbrough RT (R), then patient was draped. Skin intact. tsites 10:44 AM Nakita Yarbrough RT (R) Position: Scrub Time in: 10:43 tsites 10:44 AM Eloise Wu RT (R) Position: Monitor Time in: 10:44 tsites 10:46 AM HR=70 bpm, QVFQ=033/63 mmhg, WcA5=245.0 %, Resp=9 B/min 10:47 AM Eloise Salazar RT (R) Position: Scrub Time in: 10:47 tsites 10:51 AM HR=68 bpm, KJYL=314/58 mmhg, YmS9=230.0 %, Resp=13 B/min 10:54 AM Time out was performed according to hospital policy. Conscious sedation and anesthesia was achieved (see medication log with in this report above) tsites 10:55 AM Time: :55 13 ml Lidocaine 2% to right groin Subcutaneous Given by Nakita Cerna MD, [facility] tsites 10:56 AM Access obtained by percutaneous puncture. 5Fr 10cm Terumo Selby sheath placed in right Femoral artery. [id number] tsites 10:56 AM Time: : Patient comfortable and pain free: Yes tsites 10:56 AM Time: 10:41LOC: 4 = Oriented but drowsy tsites 10:56 AM HR=67 bpm, CYHF=917/58 mmhg, RqR7=918.0 %, Resp=17 B/min 10:57 AM 5Fr FL 4 catheter inserted over the wire [facility] tsites 10:57 AM Wire removed, intact. tsites 10:57 AM Recorded Pressure: Ao, HR=68, Condition=Condition 1 (Aorta) Ao 75/14/43 10:57 AM LCA angiography performed in multiple views. tsites 10:57 AM Recorded Pressure: Ao, HR=67, Condition=Condition 1 (Aorta) Ao 81/42/60 10:58 AM Recorded Pressure: Ao, HR=67, Condition=Condition 1 (Aorta) Ao 84/42/61 10:59 AM Wire reinserted. tsites 10:59 AM Catheter removed tsites 10:59 AM 5Fr FR 4 catheter inserted over the wire [facility] tsites 11:00 AM Wire removed, intact. tsites 11:01 AM HR=67 bpm, RVLT=382/57 mmhg, VvN8=661.0 %, Resp=16 B/min 11:02 AM Recorded Pressure: Ao, HR=65, Condition=Condition 1 (Aorta) Ao 81/45/61 11:02 AM RCA angiography performed in multiple views. tsites 11:02 AM Wire reinserted. tsites 11:02 AM Catheter removed tsites 11:03 AM Coronary Dominance: right tsites 11:03 AM Pressure channel 1 zero failed. 11:03 AM Pressure channel 1 zeroed. 11:03 AM 5Fr Pigtail catheter inserted over the wire [facility] tsites 11:03 AM Catheter crossed the aortic valve and was selectively placed in the left ventricle. Pressures recorded on pullback for left heart catheterization. tsites 11:03 AM Wire removed, intact. tsites 11:03 AM Pressure channel 1 zero failed. 11:03 AM Pressure channel 1 zeroed. 11:04 AM Recorded Pressure: LV, HR=68, Condition=Condition 1 (Left Ventricle) LV 94/-10/0 11:04 AM Recorded Pressure: LV, Ao, HR=68, Condition=Condition 1 (Left Ventricle) LV 79/5/9, (Aorta) Ao 77/40/58 11:04 AM Bolus angiogram of left Ventricle complete: 8 ml/sec for a total of 24 mls tsites 11:04 AM Wire reinserted. tsites 11:04 AM Catheter removed. tsites 11:05 AM Bolus angiogram of right Femoral complete: 2 ml/sec for a total of 4 mls tsites 11:06 AM Procedure completed at 11:06 02/21/2019 tsites 11:06 AM Did you address RICARDO flow and Dominance? YesCoronary Dominance: right tsites 11:06 AM Isovue 370 - 200ml,1 Bottle(s) used. tsites 11:06 AM HR=68 bpm, NCZM=862/62 mmhg, MeE0=257.0 %, Resp=16 B/min 11:08 AM Sign out completed: Radiation Dose , 22.6 Gy/cm2 Fluoro Time: 2.1 Isovue 370 - 200ml contrast 79 ml given by Nakita Cerna MD, [facility]. Complications: None. 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 Sedation minutes 30. Cardiac Rehab Consult needed:no. Confirmed administered medications: Yes tsites 11:09 AM Arterial sheath pulled, Mynx closure device used and was Successful S/N. tsites 11:09 AM Estimated Blood Loss: less than 20cc tsites 11:09 AM Post ECG NSR tsites 11:10 AM Post Blood Pressure 112/62 tsites 11:11 AM 11:10 Post Pulses Bilateral DP & PT 2+ tsites 11:11 AM 11:11 Post Pulses Rt Radial 2+ tsites 11:11 AM Information taught Cardiac Cath and Mynx tsites 11:11 AM Education needs Procedure, Plan of Care, and Responsibilities of Patient in Care tsites 11:11 AM Learning barriers :None tsites 11:11 AM HR=69 bpm, GCKL=796/59 mmhg, KcQ7=413.0 %, Resp=18 B/min 11:13 AM Education Methods Verbal tsites 11:13 AM Education evaluation Able to repeat information tsites 11:13 AM Site status No bleeding/hematoma - Rt Groin as reported by Sites, Eloise RT (R) at 11:13 tsites 11:13 AM Opsite applied tsites 11:13 AM Plavix, Effient or Brilinta given No tsites 11:13 AM Delay to floor No tsites 11:13 AM Lesion found in Proximal LAD. Pre Stenosis: 80 Pre RICARDO Flow: tsites 11:14 AM Lesion found in Mid LAD. Pre Stenosis: 99 Pre RICARDO Flow: tsites 11:14 AM Lesion found in Distal LAD. Pre Stenosis: 99 Pre RICARDO Flow: tsites 11:14 AM Lesion found in 2nd Diagonal. Pre Stenosis: 99 Pre RICARDO Flow: tsites 11:15 AM Proximal Left Anterior Descending Coronary Artery with 80% stenosis. If graft is supplying this territory, 0 % stenosis. tsites 11:15 AM Cardiothoracic surgeon consulted. tsites 11:17 AM Lesion found in Proximal RCA. Pre Stenosis: 50 Pre RICARDO Flow: tsites 11:19 AM Lesion found in Mid RCA. Pre Stenosis: 40 Pre RICARDO Flow: tsites 11:19 AM Lesion found in Distal LMCA. Pre Stenosis: 80 Pre RICARDO Flow: tsites 11:19 AM Left Main Coronary Artery with 80% stenosis tsites 11:19 AM Right Coronary, Right Posterior Descending Arteries with Right Posterolateral and Acute Marginal branches with 50 % stenosis. If graft is supplying this area, 0 % stenosis tsites 11:19 AM Mid/Distal Left Anterior Descending Coronary Artery and diagonal branches with 99% stenosis. If graft is supplying this area, 0 % stenosis tsites 11:20 AM Lesion found in Proximal Circumflex. Pre Stenosis: 99 Pre RICARDO Flow: tsites 11:20 AM Lesion found in Distal Circumflex. Pre Stenosis: 80 Pre RICARDO Flow: tsites 11:20 AM Lesion found in 1st Marginal. Pre Stenosis: 90 Pre RICARDO Flow: tsites 11:21 AM Circumflex, Obtuse Marginal, Left Posterior Descending, and Left Posterolateral Coronary Arteries with 99 % stenosis. If graft is supplying this area, 0 % stenosis tsites 11:21 AM Lesion found in Right PDA. Pre Stenosis: 30 Pre RICARDO Flow: tsites 11:22 AM Report given to Carole LOPEZ Pt taken to 2A Room #22. 11:22 tsites 11:23 AM Patient out of room: 11:22 tsites Complications Complication None Hemodynamics Pressures Site Systolic/A Wave Diastolic/V Wave Mean AO 75 14 43 AO 81 42 60 AO 84 42 61 AO 81 45 61 LV 94 -10 0 LV 79 5 9 AO 77 40 58 Post Procedure Information Blood Pressure: 112/62 mmHg Rhythm: NSR Post procedural instructions were given Surgery consult for CABG Closure Device Time Device Success/Fail 02/21/2019 11:09:00 AM MynxGrip Successful Site Checks Time Location Status Staff Sheath In? Note 11:13 AM Rt Groin No bleeding/hematoma Sites, Eloise RT (R) Pulses Time Site Pre-Procedure Post-Procedure Note 02/21/2019 10:43:00 AM Bilateral DP 2+ 02/21/2019 10:43:00 AM Bilateral radial 2+ 11:10:00 AM Bilateral DP & PT 2+ 11:11:00 AM Rt Radial 2+ Updated by Eloise Sites, RT (R) on 02/21/2019 11:32:56 AM Eloise Sites, RT electronically signed on 02/21/2019 11:33:37 AM with status of Final
--- NOTE | 2019-02-21 15:24 | Event Note ---
Date of Encounter: 02/21/19 Time of Encounter: 15:15 - Cardiology Event Note S/p LHC that revealed severe 2 vessel CAD including severe left main disease. CT surgery consulted. Patient deemed poor candidate for CABG. Transfer for high risk PCI verses medical management discussed in length with significant other and patient. Patient shaking head yes and no to clarify when significant other asks and speaks for him. Significant other states that medical management is preferred and patient would not want to undergo high risk procedure. She will discuss with son further. Patient continues to deny chest pain. Continue asa, plavix, statin, and bb. Okay to d/c heparin gtt at this point and start DVT prophylaxis. He is not a candidate for cardiac rehab. Out-pt f/u will be coordinated in 1-2 weeks.
--- NOTE | 2019-02-21 15:47 | Cardiothoracic Consult Note ---
Date of Encounter: 02/21/19 Time of Encounter: 15:44 Assessment and Plan (1) CAD (coronary artery disease) Current Visit: Yes Status: Chronic The assessment and plan as outlined above was discussed with the patient and/or family members who expressed understanding and agreement. All questions were answered. I discussed possible coronary artery bypass grafting with the patient and his significant other. He would be extremely high risk for any type of intervention. His right coronary artery is 50% blocked and would not need a graft. Unfortunately, his LAD and diagonal branch have diffuse distal disease in the distal third going out to the tip and do not appear to be bypassable. His circumflex coronary artery has 1 or 2 branches which could be bypassed. However, I think the risk outweighs the benefit and would not recommend surgery. The patient also is refusing surgery. He would be extremely high risk for any type of angioplasty or stent placement. His best option seems to be medical therapy. His prognosis is quite guarded. Qualifiers: Coronary Disease-Associated Artery/Lesion type: [place] artery [place] vs. transplanted heart: [place] heart Associated angina: without angina Qualified Code(s): I25.10 - Atherosclerotic heart disease of [place] coronary artery without angina pectoris - History of Present Illness History of present illness: Mr. Ruiz is a 73 year old male The patient is a 73-year-old gentleman with a history of chronic renal failure who was admitted in a coma. He did have a myocardial infarction with a troponin of greater than 73. He has been an insulin-dependent diabetic since age 13. Echocardiogram done in January revealed mild to moderate tricuspid regurgitation and mild pulmonary hypertension. Cardiac catheterization done today revealed a 50% right coronary artery lesion. An 80% left main lesion. He has a 99% LAD lesion. The distal third of the diagonal branch and LAD are small and diffusely diseased out to the tip and do not look bypassable. The circumflex coronary artery is 99% and does show a branch her to the could be bypassed. The patient has been on Plavix but this is been held. He also has a history of hyperlipidemia. Presently he is on dialysis for his kidney disease. Social history. The patient came [place]. He has been on disability for many years. Does not drink and does not smoke. Past Med Surg Social Fam HX - Past Medical History Medical history: diabetes, GERD, hyperlipidemia, hypertension, myocardial infarction, renal disease Additional medical history: diabetic foot ulcers, osteomyelitis, vitiligo, nep hrolithasis, neuropathy, ed, Psychiatric history: depression - Past Surgical History Surgical History: appendectomy, orthopedic, other, other Additional surgical history: foot surgeries, hip fracture repair - Social History Smoking Status: Never smoker Smokeless Tobacco Status: No Alcohol use: none Drug use: none - Family History Mother Living Status: Hx Family Cardiac Disorders: No Hx Family Respiratory Disorders: Yes (TB) Hx Family Cancer: No Hx Family GI Disorders: No Hx Family Endocrine Disorder: No Hx Family Neuromuscular Disorders: No Hx Family Neurologic Disorders: No Hx Family HEENT Disorders: No Hx Family Autoimmune Disorders: No Father Living Status: Hx Family Cardiac Disorders: Yes Hx Family Respiratory Disorders: Yes Hx Family Cancer: No Hx Family GI Disorders: No Hx Family Endocrine Disorder: No Hx Family Neuromuscular Disorders: Yes Hx Family Neurologic Disorders: No Hx Family HEENT Disorders: No Hx Family Autoimmune Disorders: No Medications and Allergies Metoprolol [Lopressor] 12.5 mg PO BID 07/05/15 [History] Glucagon,Human Recombinant [Glucagon Emergency Kit] 1 mg IM AD PRN 06/18/16 [History] Acetaminophen [Tylenol] 650 mg PO DAILY PRN 02/07/19 [History] Insulin ASPART [Novolog Flexpen] 0 units SQ TIDAC 02/07/19 [History] Insulin Glargine,Hum.rec.anlog [Basaglar Kwikpen U-100] 7 unit SQ HS 02/07/19 [History] Atorvastatin [Lipitor] 40 mg PO HS #30 tablet 02/10/19 [Rx] Clopidogrel [Plavix] 75 mg PO DAILY #30 tablet 02/10/19 [Rx] Ferrous Sulfate 325 mg PO BIDWM #60 tablet 02/10/19 [Rx] amLODIPine [Norvasc] 5 mg PO DAILY #30 tablet 02/10/19 [Rx] Aspirin 81 mg PO DAILY 02/12/19 [History] Escitalopram [Lexapro] 10 mg PO DAILY 02/12/19 [History] Mirtazapine 7.5 mg PO HS 02/12/19 [History] Allergy/AdvReac Type Severity Reaction Status Date / Time tamsulosin [From Flomax] Allergy HEADACHES Verified 02/07/19 13:31 All Systems Review: The remainder of the systems were reviewed and are negative Physical Examination Vital Signs, Last 4 Hours Pulse Resp BP Pulse Ox 02/21/19 13:51 72 16 142/75 97 02/21/19 12:55 71 16 114/58 98 02/21/19 12:07 67 18 131/57 94 02/21/19 11:51 66 16 124/68 97 Pupils are equal, round and reactive to light and accommodation. No oral lesions. He does have vitiligo over his face. Neck is supple. Trachea in the midline. No thyromegaly or carotid bruits. Lungs are clear to percussion and auscultation. Heart is in a regular rate and rhythm. Abdomen is benign. No tenderness, rebound or guarding. Extremities without edema. Cranial nerves, motor and sensory intact. Results 02/21/19 07:03 02/21/19 07:03 Lab Results, Last 24 hours 02/21/19 02/21/19 07:03 07:03 WBC 9.2 Hgb 8.7 L Hct 26.6 L Plt Count 295 Sodium 135 L Potassium 3.8 Chloride 99 Carbon Dioxide 30 H BUN 20 Creatinine 2.34 H Glucose 228 H Calcium 8.5 L Consult Discharge Plan - Plan Referrals: NONE,PCP [Primary Care Provider] -
[2019-02-21] MEDS ORDERED: *HR* Heparin 5,000 UNIT/ML VIAL ONE (15:58)
[2019-02-21] MEDS: *HR* Heparin 5,000 UNIT/ML VIAL SQ SCH (15:58)
[2019-02-21] MEDS: Mirtazapine 15 MG TABLET PO SCH (20:49)
--- NOTE | 2019-02-21 23:21 | Nephrology Progress Note ---
Date of Encounter: 02/21/19 Time of Encounter: 12:00 - Assessment and Plan (1) ESRD (end stage renal disease) Current Visit: Yes Status: Acute Last HD was monday but will wait till monday for next HD as will be TTS schedule outpatient s/p Permcath placement Outpatient HD placement arranged Lytes stable (2) Anemia in CKD (chronic kidney disease) Current Visit: Yes Status: Chronic Goal hemoglobin is 10-11.Currently stable at 8.7. EPO as needed Continue iron supplements GI workup this week Qualifiers: Chronic kidney disease stage: stage 5, not on chronic dialysis Qualified Code(s): N18.5 - Chronic kidney disease, stage 5; D63.1 - Anemia in chronic kidney disease (3) Acute non-ST segment elevation myocardial infarction Current Visit: Yes Status: Acute s/p LHC Recs per CT surgery and cardiology Subjective Principal diagnosis: Renal Failure, DKA, Electrolyte abnormalities Interval history: Pt seen and examined appears very fatigued. s/p LHC with 3 vessel CAD noted, CT surgery consulted Objective - Vital Signs Vital signs: Vital Signs Temp Pulse Resp BP Pulse Ox 02/21/19 19:58 97.9 F 80 17 127/68 94 02/21/19 15:49 98.2 F 81 16 125/70 96 02/21/19 13:51 72 16 142/75 97 02/21/19 12:55 71 16 114/58 98 02/21/19 12:07 67 18 131/57 94 02/21/19 11:51 66 16 124/68 97 02/21/19 07:18 98.3 F 78 20 153/54 96 02/21/19 03:36 99 F 80 16 145/67 95 02/21/19 00:29 98.8 F 78 16 144/76 96 Intake and Output 02/21/19 02/21/19 02/21/19 07:59 15:59 23:59 Intake Total 0 / 101 101 / 101 0 / 101 Output Total 300 / 900 600 / 900 Balance -300 / -799 -499 / -799 0 / -799 Intake: IV Fluids 0 / 101 101 / 101 0 / 101 Heparin 25,000 UNIT/250 ML D5W 0 / 101 101 / 101 0 / 101 25,000 unit In 250 ml @ 12 UNIT /KG/HR 8.219 mls/hr IVC .Q24H [facility] Rx#:[id number] Output: Catheter 300 / 900 600 / 900 Urethral (Dominique) 600 / 600 Other: Stool Size Large Stool Consistency loose soft # Bowel Movement Diapers 2 Weight 70.1 kg Blood Glucose* 220 189 178 Patient Weight 02/21/19 23:59 Weight 70.1 kg - General Appearance General appearance: Present: chronically ill, fatigue, frail EENT: Present: ATNC, mucous membranes moist Neck: Present: no JVD, supple Respiratory: Present: clear Cardiology: Present: no edema, normal S1, normal S2 Dialysis Vascular Access: Venous Catheter (permcath) Gastrointestinal: Present: no tenderness, no guarding Integumentary: Present: warm and dry Neurologic: Present: no focal deficit Musculoskeletal: Present: no deformities Psychiatric: Present: mood/affect appropriate - Lab 02/21/19 07:03 02/21/19 07:03 Consult Discharge Plan - Plan Referrals: NONE,PCP [Primary Care Provider] -
[2019-02-22] MEDS: *HR* Heparin 5,000 UNIT/ML VIAL SQ SCH ×2 (05:41→16:58)
[2019-02-22 06:42] LABS: Hematocrit 26.1 % (37.5-50.1); Hemoglobin 8.6 g/dL (12.9-16.9); Mean Corpuscular Hemoglobin 32.7 pg (28.0-33.3); Mean Corpuscular Volume 99.2 fL (83.0-100.0); Mean Platelet Volume 9.9 fL (9.4-12.4); Platelet Count 302 K/mcL (140-400); Red Blood Count 2.63 M/mcL (4.19-5.50); Red Cell Distribution Width 13.5 % (11.5-14.5); White Blood Count 8.8 K/mcL (4.3-11.1)
[2019-02-22 07:04] LABS: Calcium 8.5 mg/dL (8.6-10.3); Potassium 4.3 mEq/L (3.5-5.1)
[2019-02-22] MEDS: amLODIPine 5 MG TABLET PO SCH (08:00)
[2019-02-22] MEDS: Aspirin 81 MG TAB.CHEW PO SCH (08:00)
[2019-02-22] MEDS: Insulin LISPRO 300 UNITS/3 ML VIAL SQ SCH ×4 (08:01→20:25)
[2019-02-22] MEDS: Insulin DETEMIR 100 UNIT/ML X5UNITS SQ SCH ×2 (08:01→20:25)
--- NOTE | 2019-02-22 08:07 | Internal Med Progress Note ---
<Nicki Fierro - Last Filed: 02/22/19 13:46> Hospitalist Progress Note - Encounter Date of Encounter: 02/22/19 Time of Encounter: 08:07 - Subjective Interval History: Patient was seen and examined at bedside this morning. He is in no acute distress. Patient is status post left heart catheterization yesterday. No intervention was done due to severe two-vessel coronary artery disease including left main. CT surgery was consulted and no surgical option was pursued, instead opting for medical management. Patient is not complaining of anything at this time. He denies any headache, chest pain, palpitations, difficulty breathing, abdominal pain, nausea, vomiting, diarrhea. He is pending a hemodialysis session tomorrow. Outpatient hemodialysis has been arranged. - Exam Vitals: Temp Pulse Resp BP Pulse Ox 98.8 F 80 16 140/66 96 02/22/19 07:01 02/22/19 07:01 02/22/19 07:01 02/22/19 07:01 02/22/19 07:01 Exam: GEN: Pleasant 73-year-old male who is sitting comfortably sleeping in bed. Vitals stable. No acute distress. AAOx3 HEENT: Atraumatic, Normocephalic, PERRLA, EOMI NECK: Supple, no lymphadenopathy, no JVD CARDIAC: RRR, s1 and s2 present, no murmurs, rubs, gallops PULM: CTAB, not in respiratory distress, no wheezes, rales, crackles, rhonchi ABD: Soft, non-tender, non-distended, no guarding or rebound tenderness. Bowel sounds present EXT: No peripheral edema. No calf tenderness, cyanosis, clubbing NEURO: CN 2-12 grossly intact. No focal neurologic deficits. Follows commands PSYCH: Appropriate mood and affect - Assessment and Plan (1) Type 1 diabetes mellitus with diabetic chronic kidney disease Current Visit: Yes Status: Acute Assessment and Plan: This is a 73-year-old male with past medical history significant for type 1 diabetes mellitus on home insulin, coronary artery disease, hypertension, hyperlipidemia, end-stage renal disease who [facility] with diabetic ketoacidosis. Patient had been recently admitted and discharged due to hypoglycemia and NSTEMI on 02/11/19. Left heart cath on previous admission had been postponed due to poor renal function. - On admission: Anion gap = 18, glucose = 449, beta hydroxybutyric acid greater than 2.00, K = 6.2, lactic acid = 4.2; VBG = 7. - CXR = unremarkable - UA = negative - Blood cultures no growth - Blood sugars today = 236. We will plan to continue with 7 units Levemir twice a day. We will follow up on blood sugars tomorrow. PLAN: - Continue with low-dose insulin sliding scale - We will restart 7U Levemir in the morning and 7U at bedtime for further coverage given elevated glucose this morning. - Continue Accu-Cheks before meals and at bedtime - Continue to monitor electrolytes - Continue diabetic diet - Given ESRD, we will avoid metformin and SGL to inhibitors on discharge (given patient's GFR less than 30) - On discharge, patient will likely need 7 units Levemir twice a day, and sliding scale insulin - Follow up with primary care within 1 week of discharge (2) ESRD (end stage renal disease) Current Visit: Yes Status: Acute Assessment and Plan: Patient has end-stage renal disease CKD stage V. - Previous county sheriff was Dr. Card - Patient does report that he does still make urine - Patient had previously refused hemodialysis, but after returning critically ill with DKA yesterday, he agreed to initiate dialysis. - Temporary hemodialysis catheter placed (02/13/19) - Permacath placed (02/19/19) PLAN: - Nephrology is following. We appreciate the recommendations. - They do note that patient will need chronic dialysis moving forward - Avoid nephrotoxic agents and renally dose medications - Continue to monitor I's and O's - Daily weights - Pt will need renal diet when starts eating - Patient will need outpatient hemodialysis placement at time of discharge; patient will be on a Monday, , Monday hemodialysis schedule in the community setting. He will receive at least one more dialysis session on 02/23. Discharge planning after that depending social work, and [facility] facility acceptance (3) Anemia in CKD (chronic kidney disease) Current Visit: Yes Status: Chronic Assessment and Plan: Patient likely has anemia of chronic disease, but anemia is likely multifactorial - His baseline hemoglobin seems to be in the 8-10 range - Hb = 7.8 at lowest - Patient has normal MCV; folate and B12 also within normal limits - Patient denied any blood in stool. No signs of any active bleeding - Hemoglobin today = 8.0 - EGD (02/15/19): Left antral grade a reflux esophagitis. Gastritis. Normal ampulla, first portion of duodenum and second portion of duodenum. - Colonoscopy (02/15/19): Exam was suboptimal due to patient preparation. - Hemoglobin has remained stable = 8.6 today. No indication the patient is bleeding. PLAN: - Gastroenterology on board. Recommendations appreciated - Follow up iron studies - Per nephrology, goal hemoglobin = 10-11 - Continue EPO subcutaneous 3 times weekly per nephrology - Continue iron supplementation - Follow up outpatient gastroenterology for possible colonoscopy in the future (4) NSTEMI (non-ST elevated myocardial infarction) Current Visit: Yes Status: Acute Assessment and Plan: Patient presented with an NSTEMI in the setting of DKA - Initial troponins on admission = 73 which trended down to 42 - At previous admission, patient was noted to have NSTEMI; however left heart catheter was not completed due to poor renal function - EKG: Showed normal sinus rhythm without acute ST changes. No changes from previous admission - Most recent echocardiogram (02/13/19): LVEF = 60%, normal left ventricular size, wall thickness, function; mild segmental left ventricular systolic dysfunction which was not described on previous report on 02/07/19 - Left heart catheterization done (02/21/19). A revealed severe two-vessel coronary artery disease including severe left main disease. CT surgery was consulted and patient was deemed a poor candidate for CABG. Options were discussed with patient and , and patient opted to proceed with medical management rather than undergoing a high risk procedure. Plan to continue with aspirin, Plavix, statin, beta brian. PLAN: - Cardiology is following. Appreciate recommendations. - Continue on telemetry. Continue to monitor for chest pain - Aggressively treat risk factor modifications - Continue with aspirin, Plavix, amlodipine, atorvastatin, metoprolol - Follow up outpatient cardiology (5) Secondary hyperparathyroidism Current Visit: Yes Status: Acute Assessment and Plan: Calcium = 8.3 - Phosphorus = 3.3 - Vitamin D = 17 - PTH = 230 PLAN: - Given elevated PTH, low calcium, normal phosphate, patient likely has secondary hyperparathyroidism. May be secondary to underlying renal disease. We will treat vitamin D deficiency - We will treat with ergocalciferol 50,000 units once weekly (6) DVT prophylaxis Current Visit: No Status: Acute Assessment and Plan: PLAN: - Currently on heparin subcutaneous twice a day DVT Prophylaxis: Heparin subcutaneous twice a day - Time Spent with Patient Total time spent is greater than 50% in coordination of care (as documented) at patient's floor/unit and/or counseling patient: less than 15 minutes Plan of Care Discussed with: patient Internal Medicine: Result - Labs CBC & Chem 7: 02/22/19 06:12 02/22/19 06:12 Labs: Short CBC 02/22/19 Range/Units 06:12 WBC 8.8 (4.3-11.1) K/mcL Hgb 8.6 L (12.9-16.9) g/dL Hct 26.1 L (37.5-50.1) % Plt Count 302 (140-400) K/mcL BMP 02/22/19 06:12 Sodium 134 L Potassium 4.3 Chloride 100 Carbon Dioxide 29 BUN 27 H Creatinine 3.29 H Glucose 236 H Calcium 8.5 L - ABG Interpretation ABG results: PT/INR, D-dimer PT 11.5 Seconds (9.4-12.1) 02/20/19 03:58 - Impressions Impressions KUB X-Ray 02/19/19 12:39 IMPRESSION: Nonobstructed bowel-gas pattern. No significant colonic stool burden. D/ / 02/19/2019 14:32:50 Dario Higgins MD / [email or web address] Interpreting Provider: Dario Higgins MD Consult Discharge Plan - Plan Referrals: Jarvis Willoughby MD [Partnered Physician] - Constantino Fonseca CNP [Advanced Practice Nurse] - (Per cardiology note, outpatient f/u 1-2 weeks from discharge) Chayo Saravia MD [Partnered Physician] - NONE,PCP [Primary Care Provider] - <Dorothy Morfin - Last Filed: 02/22/19 14:03> Hospitalist Progress Note - Encounter Date of Encounter: 02/22/19 - Exam Vitals: Temp Pulse Resp BP Pulse Ox 98.2 F 74 16 148/67 97 06/14/19 11:39 02/22/19 11:39 02/22/19 11:39 02/22/19 11:39 02/22/19 11:39 - Assessment and Plan (1) Type 1 diabetes mellitus with diabetic chronic kidney disease Current Visit: Yes Status: Acute (2) Anemia in CKD (chronic kidney disease) Current Visit: Yes Status: Chronic (3) DVT prophylaxis Current Visit: No Status: Acute (4) Failure to thrive Current Visit: No Status: Acute (5) NSTEMI (non-ST elevated myocardial infarction) Current Visit: Yes Status: Acute (6) Hyperkalemia Current Visit: Yes Status: Resolved (7) DKA (diabetic ketoacidoses) Current Visit: Yes Status: Acute (8) Vitiligo Current Visit: No Status: Chronic (9) ESRD (end stage renal disease) Current Visit: Yes Status: Acute (10) Hyponatremia Current Visit: Yes Status: Acute (11) High anion gap metabolic acidosis Current Visit: Yes Status: Resolved (12) Leukocytosis Current Visit: Yes Status: Acute - Time Spent with Patient Total time spent is greater than 50% in coordination of care (as documented) at patient's floor/unit and/or counseling patient: Internal Medicine: Result - Labs CBC & Chem 7: 02/22/19 06:12 02/22/19 06:12 Labs: Short CBC 02/22/19 Range/Units 06:12 WBC 8.8 (4.3-11.1) K/mcL Hgb 8.6 L (12.9-16.9) g/dL Hct 26.1 L (37.5-50.1) % Plt Count 302 (140-400) K/mcL BMP 02/22/19 06:12 Sodium 134 L Potassium 4.3 Chloride 100 Carbon Dioxide 29 BUN 27 H Creatinine 3.29 H Glucose 236 H Calcium 8.5 L - ABG Interpretation ABG results: PT/INR, D-dimer PT 11.5 Seconds (9.4-12.1) 02/20/19 03:58 - Attending Attestation I examined this patient and my medical decision-making was reviewed with the Resident Physician Dr Fierro. I agree with the documented findings, disposition and treatment plan as described except to the extent set forth below. Mr Ruiz is admitted with DKA and NSTEMI awake, denies cp, pressure, sob. no abd pain, no bleeding gen- alert, awake,appears stated age cv- reg rate and rhythm, normal s1,s2 lungs- ctabl, normal resp effort on room air abd- soft, non tender, non distended neuro- AAOx3 DKA resolved DM with hyperglycemia -cont levemir and SSI, further insulin adjustment tomorrow pending SSI requirement today NSTEMI Severe Multi Vessel CAD -cont med management, refused CABG, not a PCI candidate CKD Stage V -HD as outpt per nephro , permacath in place, requires HD session here friday 02/23 then set to begin HD as outpt Acute on Chronic anemia, possible GIB as cause- hgb stable for days, given severity of CAD and stable Hgb will fu with GI outpt further dx and plan as noted by resident dispo will be to SNF when accepted <Nicki Fierro - Last Filed: 02/22/19 13:46> (1) Type 1 diabetes mellitus with diabetic chronic kidney disease Qualifiers: Chronic kidney disease stage: stage 4 (severe) Qualified Code(s): E10.22 - Ty pe 1 diabetes mellitus with diabetic chronic kidney disease; N18.4 - Chronic kidney disease, stage 4 (severe) (3) Anemia in CKD (chronic kidney disease) Qualifiers: Chronic kidney disease stage: stage 5, not on chronic dialysis Qualified Code(s): N18.5 - Chronic kidney disease, stage 5; D63.1 - Anemia in chronic kidney disease <Dorothy Morfin - Last Filed: 02/22/19 14:03> (1) Type 1 diabetes mellitus with diabetic chronic kidney disease Qualifiers: Chronic kidney disease stage: stage 4 (severe) Qualified Code(s): E10.22 - Type 1 diabetes mellitus with diabetic chronic kidney disease; N18.4 - Chronic kidney disease, stage 4 (severe) (2) Anemia in CKD (chronic kidney disease) Qualifiers: Chronic kidney disease stage: stage 5, not on chronic dialysis Qualified Code(s): N18.5 - Chronic kidney disease, stage 5; D63.1 - Anemia in chronic kidney disease (4) Failure to thrive Qualifiers: Failure to thrive age range: in adult Qualified Code(s): R62.7 - Adult failure to thrive (7) DKA (diabetic ketoacidoses) Qualifiers: Diabetes mellitus type: type 1 Diabetes mellitus complication detail: without coma Qualified Code(s): E10.10 - Type 1 diabetes mellitus with ketoacidosis without coma
--- NOTE | 2019-02-22 13:10 | Nephrology Progress Note ---
Date of Encounter: 02/22/19 Time of Encounter: 13:09 - Assessment and Plan (1) Anemia in CKD (chronic kidney disease) Current Visit: Yes Status: Chronic Goal hemoglobin is 10-11.Currently stable . EPO as needed Continue iron supplements GI workup this week Qualifiers: Chronic kidney disease stage: stage 5, not on chronic dialysis Qualified Code(s): N18.5 - Chronic kidney disease, stage 5; D63.1 - Anemia in chronic kidney disease (2) Acute non-ST segment elevation myocardial infarction Current Visit: Yes Status: Acute s/p LHC Recs per CT surgery and cardiology (3) ESRD (end stage renal disease) Current Visit: Yes Status: Acute Last HD was monday but will wait till monday for next HD as will be TTS schedule outpatient s/p Permcath placement Outpatient HD placement arranged Lytes stable Subjective Principal diagnosis: Renal Failure, DKA, Electrolyte abnormalities Interval history: Patient seen. He has no new complaints. Sleep. Objective - Vital Signs Vital signs: Vital Signs Temp Pulse Resp BP Pulse Ox 02/22/19 11:39 98.2 F 74 16 148/67 97 02/22/19 07:01 98.8 F 80 16 140/66 96 02/22/19 04:09 98.3 F 75 17 135/64 98 02/22/19 00:33 98.2 F 60 17 141/88 96 02/22/19 00:00 98.5 F 76 17 109/61 96 02/21/19 19:58 97.9 F 80 17 127/68 94 02/21/19 15:49 98.2 F 81 16 125/70 96 02/21/19 13:51 72 16 142/75 97 Intake and Output 02/21/19 02/22/19 02/22/19 23:59 07:59 15:59 Intake Total 0 / 101 Output Total 1000 / 1000 Balance 0 / -799 -1000 / -1000 Intake: IV Fluids 0 / 101 Heparin 25,000 UNIT/250 ML D5W 0 / 101 25,000 unit In 250 ml @ 12 UNIT /KG/HR 8.219 mls/hr IVC .Q24H [facility] Rx#:[id number] Output: Catheter 1000 / 1000 Other: Weight 73 kg Blood Glucose* 178 249 278 Patient Weight 02/22/19 23:59 Weight 73 kg - General Appearance General appearance: Present: well-developed, well-nourished EENT: Present: ATNC Cardiology: Present: regular rate - Lab 02/22/19 06:12 02/22/19 06:12 Most recent lab results 02/22/19 06:12 Calcium 8.5 L Consult Discharge Plan - Plan Referrals: Jarvis Willoughby MD [Partnered Physician] - Constantino Fonseca, SHAINA [Advanced Practice Nurse] - (Per cardiology note, outpatient f/u 1-2 weeks from discharge) Chayo Saravia MD [Partnered Physician] - NONE,PCP [Primary Care Provider] -
[2019-02-22] MEDS: Mirtazapine 15 MG TABLET PO SCH (20:25)
[2019-02-23] MEDS: *HR* Heparin 5,000 UNIT/ML VIAL SQ SCH ×2 (06:17→18:18)
[2019-02-23 06:30] LABS: Hematocrit 27.1 % (37.5-50.1); Hemoglobin 8.8 g/dL (12.9-16.9); Mean Corpuscular HGB Conc 32.5 g/dL (31.6-35.5); Mean Corpuscular Hemoglobin 32.1 pg (28.0-33.3); Mean Corpuscular Volume 98.9 fL (83.0-100.0); Mean Platelet Volume 10.2 fL (9.4-12.4); Platelet Count 349 K/mcL (140-400); Red Blood Count 2.74 M/mcL (4.19-5.50); Red Cell Distribution Width 13.7 % (11.5-14.5); White Blood Count 9.9 K/mcL (4.3-11.1)
[2019-02-23 06:31] LABS: Calcium 8.7 mg/dL (8.6-10.3); Potassium 4.3 mEq/L (3.5-5.1)
[2019-02-23] MEDS ORDERED: *HR* Heparin 10,000 UNIT/10 ML VIAL IV PRN (07:56)
[2019-02-23] MEDS ORDERED: 0.9 % Sodium Chloride 250 ML IVC PRN (07:56)
[2019-02-23] MEDS ORDERED: 0.9 % Sodium Chloride 1,000 ML PRIME SCH (08:00)
--- NOTE | 2019-02-23 08:09 | Internal Med Progress Note ---
<Dorothy Morfin - Last Filed: 02/23/19 14:18> Hospitalist Progress Note - Encounter Date of Encounter: 02/23/19 - Exam Vitals: Temp Pulse Resp BP Pulse Ox 97.6 F 85 17 117/66 96 02/23/19 13:47 02/23/19 07:37 02/23/19 13:47 02/23/19 13:47 02/23/19 07:37 - Assessment and Plan (1) Type 1 diabetes mellitus with diabetic chronic kidney disease Current Visit: Yes Status: Acute (2) Anemia in CKD (chronic kidney disease) Current Visit: Yes Status: Chronic (3) DVT prophylaxis Current Visit: No Status: Acute (4) Failure to thrive Current Visit: No Status: Acute (5) NSTEMI (non-ST elevated myocardial infarction) Current Visit: Yes Status: Acute (6) Hyperkalemia Current Visit: Yes Status: Resolved (7) DKA (diabetic ketoacidoses) Current Visit: Yes Status: Acute (8) Vitiligo Current Visit: No Status: Chronic (9) ESRD (end stage renal disease) Current Visit: Yes Status: Acute (10) Hyponatremia Current Visit: Yes Status: Acute (11) High anion gap metabolic acidosis Current Visit: Yes Status: Resolved (12) Leukocytosis Current Visit: Yes Status: Acute - Time Spent with Patient Total time spent is greater than 50% in coordination of care (as documented) at patient's floor/unit and/or counseling patient: Internal Medicine: Result - Labs CBC & Chem 7: 02/23/19 05:21 02/23/19 05:21 Labs: Short CBC 02/23/19 Range/Units 05:21 WBC 9.9 (4.3-11.1) K/mcL Hgb 8.8 L (12.9-16.9) g/dL Hct 27.1 L (37.5-50.1) % Plt Count 349 (140-400) K/mcL BMP 02/23/19 05:21 Sodium 135 L Potassium 4.3 Chloride 101 Carbon Dioxide 28 BUN 31 H Creatinine 3.64 H Glucose 163 H Calcium 8.7 - ABG Interpretation ABG results: PT/INR, D-dimer PT 11.5 Seconds (9.4-12.1) 02/20/19 03:58 Consult Discharge Plan - Plan Referrals: Jarvis Willoughby MD [Partnered Physician] - Constantino Fonseca CNP [Advanced Practice Nurse] - (Per cardiology note, outpatient f/u 1-2 weeks from discharge) Chayo Saravia MD [Partnered Physician] - NONE,PCP [Primary Care Provider] - - Attending Attestation I examined this patient and my medical decision-making was reviewed with the Resident Physician . I agree with the documented findings, disposition and treatment plan as described except to the extent set forth below. Mr Ruiz is admitted with DKA and NSTEMI awake, eating breakfast. feeling well. no lightheadedness, sob or chest pain, awaiting placement gen- alert, awake,appears stated age cv- reg rate and rhythm, normal s1,s2, no le edema lungs- ctabl, normal resp effort on room air abd- soft, non tender, non distended, + bs neuro- AAOx3 DKA resolved DM with hyperglycemia -increase levemir, cont SSI ,further insulin adjustment prn NSTEMI Severe Multi Vessel CAD -cont med management, refused CABG, not a PCI candidate CKD Stage V -HD as outpt per nephro , permacath in place, T HD as outpt Acute on Chronic anemia, possible GIB as cause- hgb stable for days, given severity of CAD and stable Hgb will fu with GI outpt as per d/w GI, will confirm with them 02/25 when they return, as he will still be here awaiting placement further dx and plan as noted by resident dispo will be to SNF when bed available <Rachel Wolf - Last Filed: 02/23/19 16:18> Hospitalist Progress Note - Encounter Date of Encounter: 02/23/19 Time of Encounter: 12:00 - Subjective Interval History: Mr. Ruiz is a 73 year old male with PMH of T1 diabetes, hyperlipidemia, hypertension, vitiligo, and renal disease. He is presenting from [facility] facility was admitted with DKA, NSTEMI, renal failure. Patient seen examined while he was undergoing dialysis. He is resting comfortably in bed. He denied fever, chills, shortness of breath, chest pain, melena. He had no complaints. - Exam Vitals: Temp Pulse Resp BP Pulse Ox 98.5 F 85 17 143/68 96 02/23/19 07:37 02/23/19 07:37 02/23/19 07:37 02/23/19 07:37 02/23/19 07:37 Exam: Gen.: Vitals noted. No acute distress. AAOx3 HEENT: oropharynx clear, Normocephalic, atraumatic neck: perma cath in place Cardiac: RRR, no murmur, +S1/S2 Pulmonary: CTA bilaterally, no wheezes, rales or rhonchi, equal chest expansion Abdomen: soft, nontender, Bowel sounds noted, no guarding MSK: no joint swelling noted Neuro: A&Ox3, moves all extremities, no focal deficits Psych: Appropriate mood and behavior - Assessment and Plan (1) ESRD (end stage renal disease) Current Visit: Yes Status: Acute Assessment and Plan: ESRD. He has had CKD-IV for a while now however is now agreeable to dialysis. 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 -Permacath placed (02/19/19) Plan -nephrology following a managing HD -once discharge patient to go to dialysis on Monday, , Monday that Sarina -Will avoid nephrotoxic agents and renal dose medications -will continue to monitor I&O (2) Type 1 diabetes mellitus with diabetic chronic kidney disease Current Visit: Yes Status: Acute Assessment and Plan: Patient is known history of type I diabetes on treatment was insulin. -Glucose elevated -increasing Levemir to 10 units b.i.d. -continue meeting dose sliding scale insulin -continue diabetic diet -tinny Accu check (3) Anemia in CKD (chronic kidney disease) Current Visit: Yes Status: Chronic Assessment and Plan: Anemia likely of chronic disease but may be multifactorial with iron deficiency. Baseline hemoglobin 8-9. -hemoglobin 8.8 stable -MVC normal -patient denies blood in stool. -No obvious active bleeding - EGD (02/15/19): Left antral grade a reflux esophagitis. Gastritis. Normal ampulla, first portion of duodenum and second portion of duodenum. - Colonoscopy (02/15/19): Exam was suboptimal due to patient preparation. Plan -gastroenterology consulted. Nephrology would like G.I. workup. Will discuss with G.I. on Monday their plans to complete anemia workup. -nephrology continuing epo -goal hemoglobin 10 to 11 -continue iron supplementation (4) Failure to thrive Current Visit: No Status: Acute Assessment and Plan: Nutrition consulted. Patient has a BMI of 21 (5) NSTEMI (non-ST elevated myocardial infarction) Current Visit: Yes Status: Acute Assessment and Plan: NSTEMI -this is in the setting of DKA. Patient reports being compliant with his medications. -troponin > 73, now 42 -during last admission patient had NSTEMI and refused LHC. -Risk factors diabetes, hypertension, hyperlipidemia, CKD -EKG showed NSR without acute ST changes or T wave inversions from previous admission -ECHO from 02/07/19: LVEF 65-70%. Mild concentric left ventricular hypertrophy. Mild left ventricular diastolic dysfunction. Normal right ventricular structure and function. Mild-moderate tricuspid regurgitation. Mild pulmonary hypertension. - Left heart catheterization done (02/21/19). A revealed severe two-vessel coronary artery disease including severe left main disease. plan -CT surgery was consulted and patient was deemed a poor candidate for CABG. O ptions were discussed with patient and , and patient opted to proceed with medical management rather than undergoing a high risk procedure. Plan to continue with aspirin, Plavix, statin, beta brian. Follow-up with cardiology outpatient in 1 to 2 weeks after discharge. -cardiology following and is planning for -continue cardiac telemetry -continue to monitor for chest pain (6) DKA (diabetic ketoacidoses) Current Visit: Yes Status: Acute Assessment and Plan: Resolved Diabetic ketoacidosis in the setting of NSTEMI. -Etiology may be NSTEMI as there is no obvious source of infection at this time. Patient a report that he recently improved from having a cough a couple days ago. -Anion gap at admission 18 -anion gap now 11 -chest x-ray unremarkable -urinalysis unremarkable -WBC 18.9 -lactic acid 4.2(3.9) -VBG: pH 7.2, CO2 37, HCO3 14 -beta hydroxybutyric acid > 2.0 -blood cultures negative to date -Resolved. Plan as above (7) Vitiligo Current Visit: No Status: Chronic Assessment and Plan: Chronic (8) Hyponatremia Current Visit: Yes Status: Acute Assessment and Plan: Hyponatremia that is suitable hyponatremia from hyperglycemia. Sodium at admission 126. Sodium now improved. Will continue to monitor. (9) Secondary hyperparathyroidism Current Visit: Yes Status: Acute Assessment and Plan: Secondary hyperparathyroidism likely due to renal disease. -PTH to 30 -Calcium 8.3 -phosphorus 3.3 -vitamin D 17 -continue to treat vitamin D deficiency with ergocalciferol 50,000 units once weekly (10) DVT prophylaxis Current Visit: No Status: Acute Assessment and Plan: Heparin SQ - Time Spent with Patient Total time spent is greater than 50% in coordination of care (as documented) at patient's floor/unit and/or counseling patient: Internal Medicine: Result - Labs CBC & Chem 7: 02/23/19 05:21 02/23/19 05:21 Labs: Short CBC 02/23/19 Range/Units 05:21 WBC 9.9 (4.3-11.1) K/mcL Hgb 8.8 L (12.9-16.9) g/dL Hct 27.1 L (37.5-50.1) % Plt Count 349 (140-400) K/mcL BMP 02/23/19 05:21 Sodium 135 L Potassium 4.3 Chloride 101 Carbon Dioxide 28 BUN 31 H Creatinine 3.64 H Glucose 163 H Calcium 8.7 - ABG Interpretation ABG results: PT/INR, D-dimer PT 11.5 Seconds (9.4-12.1) 02/20/19 03:58 <Dorothy Morfin - Last Filed: 02/23/19 14:18> (1) Type 1 diabetes mellitus with diabetic chronic kidney disease Qualifiers: Chronic kidney disease stage: stage 4 (severe) Qualified Code(s): E10.22 - Type 1 diabetes mellitus with diabetic chronic kidney disease; N18.4 - Chronic kidney disease, stage 4 (severe) (2) Anemia in CKD (chronic kidney disease) Qualifiers: Chronic kidney disease stage: stage 5, not on chronic dialysis Qualified Code(s): N18.5 - Chronic kidney disease, stage 5; D63.1 - Anemia in chronic kidney disease (4) Failure to thrive Qualifiers: Failure to thrive age range: in adult Qualified Code(s): R62.7 - Adult failure to thrive (7) DKA (diabetic ketoacidoses) Qualifiers: Diabetes mellitus type: type 1 Diabetes mellitus complication detail: without coma Qualified Code(s): E10.10 - Type 1 diabetes mellitus with ketoacidosis without coma <Rachel Wolf - Last Filed: 02/23/19 16:18> (2) Type 1 diabetes mellitus with diabetic chronic kidney disease Qualifiers: Chronic kidney disease stage: stage 4 (severe) Qualified Code(s): E10.22 - Type 1 diabetes mellitus with diabetic chronic kidney disease; N18.4 - Chronic kidney disease, stage 4 (severe) (3) Anemia in CKD (chronic kidney disease) Qualifiers: Chronic kidney disease stage: stage 5, not on chronic dialysis Qualified Code(s): N18.5 - Chronic kidney disease, stage 5; D63.1 - Anemia in chronic kidney disease (4) Failure to thrive Qualifiers: Failure to thrive age range: in adult Qualified Code(s): R62.7 - Adult failure to thrive (6) DKA (diabetic ketoacidoses) Qualifiers: Diabetes mellitus type: type 1 Diabetes mellitus complication detail: without coma Qualified Code(s): E10.10 - Type 1 diabetes mellitus with ketoacidosis without coma
[2019-02-23] MEDS: Aspirin 81 MG TAB.CHEW PO SCH (08:21)
[2019-02-23] MEDS: amLODIPine 5 MG TABLET PO SCH (08:21)
[2019-02-23] MEDS: Insulin DETEMIR 100 UNIT/ML X5UNITS SQ SCH ×2 (08:21→21:03)
[2019-02-23] MEDS: Insulin LISPRO 300 UNITS/3 ML VIAL SQ SCH ×4 (08:22→21:03)
[2019-02-23] MEDS ORDERED: 0.9 % Sodium Chloride 2,000 ML ONE (11:45)
--- NOTE | 2019-02-23 13:15 | Nephrology Progress Note ---
Date of Encounter: 02/23/19 Time of Encounter: 13:14 - Assessment and Plan (1) ESRD (end stage renal disease) Current Visit: Yes Status: Acute HD TRS Renal vitamins. Renal dose medications. Renal diet. Additional dialysis and ultrafiltration as needed. Patient was seen on dialysis. (2) Anemia in CKD (chronic kidney disease) Current Visit: Yes Status: Chronic Goal hemoglobin is 10-11.Currently stable . EPO as needed Continue iron supplements Qualifiers: Chronic kidney disease stage: stage 5, not on chronic dialysis Qualified Code(s): N18.5 - Chronic kidney disease, stage 5; D63.1 - Anemia in chronic kidney disease (3) Acute non-ST segment elevation myocardial infarction Current Visit: Yes Status: Acute s/p LHC Recs per CT surgery and cardiology Subjective Principal diagnosis: Renal Failure, DKA, Electrolyte abnormalities Interval history: Patient seen. He has no new complaints. He was seen on dialysis. Objective - Vital Signs Vital signs: Vital Signs Temp Pulse Resp BP Pulse Ox 02/23/19 10:35 107/55 02/23/19 10:20 128/70 02/23/19 10:05 130/69 02/23/19 09:50 98.6 F 20 147/70 02/23/19 07:37 98.5 F 85 17 143/68 96 02/23/19 04:11 98.5 F 77 12 116/58 95 02/22/19 23:34 98.4 F 75 14 149/61 96 02/22/19 19:53 99.1 F 82 16 139/58 97 02/22/19 16:35 98.8 F 78 18 146/70 95 Intake and Output 02/22/19 02/23/19 02/23/19 23:59 07:59 15:59 Intake Total 720 / 720 Output Total 500 / 700 200 / 700 Balance -500 / 20 520 / 20 Intake: Oral 120 / 120 Intake, Rinseback and Flushes 600 / 600 Output: Urine 500 / 700 200 / 700 Other: Weight 72.1 kg Blood Glucose* 287 236 263 Hemodialysis Net Fluid Removed 555 (mL) Patient Weight 02/23/19 23:59 Weight 72.1 kg - General Appearance General appearance: Present: well-developed, well-nourished EENT: Present: ATNC Neck: Present: supple Cardiology: Present: regular rate Neurologic: Present: alert and oriented x3 Musculoskeletal: Present: no cyanosis Psychiatric: Present: mood/affect appropriate - Lab 02/23/19 05:21 02/23/19 05:21 Most recent lab results 02/23/19 05:21 Calcium 8.7 Consult Discharge Plan - Plan Referrals: Jarvis Willoughby MD [Partnered Physician] - Constantino Fonseca, [employer] [Advanced Practice Nurse] - (Per cardiology note, outpatient f/u 1-2 weeks from discharge) Chayo Saravia MD [Partnered Physician] - NONE,PCP [Primary Care Provider] -
[2019-02-23] MEDS: Mirtazapine 15 MG TABLET PO SCH (21:03)
[2019-02-24 03:02] LABS: Hematocrit 25.3 % (37.5-50.1); Hemoglobin 8.2 g/dL (12.9-16.9); Mean Corpuscular HGB Conc 32.4 g/dL (31.6-35.5); Mean Corpuscular Hemoglobin 32.2 pg (28.0-33.3); Mean Corpuscular Volume 99.2 fL (83.0-100.0); Mean Platelet Volume 9.9 fL (9.4-12.4); Platelet Count 284 K/mcL (140-400); Red Blood Count 2.55 M/mcL (4.19-5.50); Red Cell Distribution Width 13.7 % (11.5-14.5); White Blood Count 10.1 K/mcL (4.3-11.1)
[2019-02-24 03:14] LABS: Calcium 8.1 mg/dL (8.6-10.3); Potassium 4.3 mEq/L (3.5-5.1)
[2019-02-24] MEDS: *HR* Heparin 5,000 UNIT/ML VIAL SQ SCH ×2 (05:51→16:58)
[2019-02-24] MEDS: amLODIPine 5 MG TABLET PO SCH (08:04)
[2019-02-24] MEDS: Aspirin 81 MG TAB.CHEW PO SCH (08:04)
[2019-02-24] MEDS: Insulin LISPRO 300 UNITS/3 ML VIAL SQ SCH ×4 (08:04→21:15)
[2019-02-24] MEDS: Insulin DETEMIR 100 UNIT/ML X5UNITS SQ SCH ×2 (08:04→21:14)
--- NOTE | 2019-02-24 09:03 | Internal Med Progress Note ---
<Dorothy Morfin - Last Filed: 02/24/19 10:31> Hospitalist Progress Note - Encounter Date of Encounter: 02/24/19 - Exam Vitals: Temp Pulse Resp BP Pulse Ox 98.4 F 76 18 137/64 98 02/24/19 07:04 02/24/19 07:04 02/24/19 07:04 02/24/19 07:04 02/24/19 07:04 - Assessment and Plan (1) Type 1 diabetes mellitus with diabetic chronic kidney disease Current Visit: Yes Status: Acute (2) Anemia in CKD (chronic kidney disease) Current Visit: Yes Status: Chronic (3) DVT prophylaxis Current Visit: No Status: Acute (4) Failure to thrive Current Visit: No Status: Acute (5) NSTEMI (non-ST elevated myocardial infarction) Current Visit: Yes Status: Acute (6) Hyperkalemia Current Visit: Yes Status: Resolved (7) DKA (diabetic ketoacidoses) Current Visit: Yes Status: Acute (8) Vitiligo Current Visit: No Status: Chronic (9) ESRD (end stage renal disease) Current Visit: Yes Status: Acute (10) Hyponatremia Current Visit: Yes Status: Acute (11) High anion gap metabolic acidosis Current Visit: Yes Status: Resolved (12) Leukocytosis Current Visit: Yes Status: Acute - Time Spent with Patient Total time spent is greater than 50% in coordination of care (as documented) at patient's floor/unit and/or counseling patient: Internal Medicine: Result - Labs CBC & Chem 7: 02/24/19 02:13 02/24/19 02:13 Labs: Short CBC 02/24/19 Range/Units 02:13 WBC 10.1 (4.3-11.1) K/mcL Hgb 8.2 L (12.9-16.9) g/dL Hct 25.3 L (37.5-50.1) % Plt Count 284 (140-400) K/mcL BMP 02/24/19 02:13 Sodium 135 L Potassium 4.3 Chloride 100 Carbon Dioxide 28 BUN 22 Creatinine 2.43 H Glucose 285 H Calcium 8.1 L - ABG Interpretation ABG results: PT/INR, D-dimer PT 11.5 Seconds (9.4-12.1) 02/20/19 03:58 Consult Discharge Plan - Plan Referrals: Jarvis Willoughby MD [Partnered Physician] - Constantino Fonseca CNP [Advanced Practice Nurse] - (Per cardiology note, outpatient f/u 1-2 weeks from discharge) Chayo Saravia MD [Partnered Physician] - NONE,PCP [Primary Care Provider] - - Attending Attestation I examined this patient and my medical decision-making was reviewed with the Resident Physician . I agree with the documented findings, disposition and treatment plan as described except to the extent set forth below. Mr Ruiz is admitted with DKA and NSTEMI awake, no complaints. no chest pain, sob or abd pain gen- alert, awake,appears stated age cv- reg rate and rhythm, normal s1,s2 lungs- ctabl, normal resp effort on room air abd- soft, non tender, non distended neuro- AAOx3 DKA resolved DM with hyperglycemia levemir + SSI ,further insulin adjustment prn NSTEMI Severe Multi Vessel CAD -cont med management, refused CABG, not a PCI candidate CKD Stage V -HD as outpt per nephro , permacath in place, T HD as outpt Acute on Chronic anemia, possible GIB as cause- hgb slight drop today, when GI returns tomorrow (monday) will d/w them plan for inpt vs outpt scopes further dx and plan as noted by resident dispo will be to SNF, will d/w GI tomorrow about inpt v outpt scope <Rachel Wolf - Last Filed: 02/24/19 12:48> Hospitalist Progress Note - Encounter Date of Encounter: 02/24/19 Time of Encounter: 10:50 - Subjective Interval History: Patient seen and examined at bedside. He has no complaints. He denied fever, chills, chest pain, shortness of breath. He is awaiting placement. - Exam Vitals: Temp Pulse Resp BP Pulse Ox 98.4 F 76 18 137/64 98 02/24/19 07:04 02/24/19 07:04 02/24/19 07:04 02/24/19 07:04 02/24/19 07:04 Exam: Gen.: Vitals noted. No acute distress. AAOx3 HEENT: oropharynx clear, Normocephalic, atraumatic neck: perma cath in place Cardiac: RRR, no murmur, +S1/S2 Pulmonary: CTA bilaterally, no wheezes, rales or rhonchi, equal chest expansion Abdomen: soft, nontender, Bowel sounds noted, no guarding MSK: no joint swelling noted Neuro: A&Ox3, moves all extremities, no focal deficits Psych: Appropriate mood and behavior - Assessment and Plan (1) ESRD (end stage renal disease) Current Visit: Yes Status: Acute Assessment and Plan: ESRD. He has had CKD-IV for a while now however is now agreeable to dialysis. 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 -Permacath placed (02/19/19) Plan -nephrology following a managing HD -once discharge patient to go to dialysis on Monday, , Monday that Sarina -Will avoid nephrotoxic agents and renal dose medications -will continue to monitor I&O (2) Type 1 diabetes mellitus with diabetic chronic kidney disease Current Visit: Yes Status: Acute Assessment and Plan: Patient is known history of type I diabetes on treatment was insulin. -Glucose elevated -increasing Levemir to 15 units b.i.d. -continue meeting dose sliding scale insulin -continue diabetic diet -tinny Accu check (3) Anemia in CKD (chronic kidney disease) Current Visit: Yes Status: Chronic Assessment and Plan: Anemia likely of chronic disease but may be multifactorial with iron deficiency. Baseline hemoglobin 8-9. -hemoglobin 8.2 stable -MVC normal -patient denies blood in stool. -No obvious active bleeding - EGD (02/15/19): Left antral grade a reflux esophagitis. Gastritis. Normal ampulla, first portion of duodenum and second portion of duodenum. - Colonoscopy (02/15/19): Exam was suboptimal due to patient preparation. Plan -gastroenterology consulted. Nephrology would like G.I. workup. Will discuss with G.I. on Monday their plans to complete anemia workup. -nephrology continuing epo -goal hemoglobin 10 to 11 -continue iron supplementation (4) NSTEMI (non-ST elevated myocardial infarction) Current Visit: Yes Status: Acute Assessment and Plan: NSTEMI -this is in the setting of DKA. Patient reports being compliant with his medications. -troponin > 73, now 42 -during last admission patient had NSTEMI and refused LHC. -Risk factors diabetes, hypertension, hyperlipidemia, CKD -EKG showed NSR without acute ST changes or T wave inversions from previous admission -ECHO from 02/07/19: LVEF 65-70%. Mild concentric left ventricular hypertrophy. Mild left ventricular diastolic dysfunction. Normal right ventricular structure and function. Mild-moderate tricuspid regurgitation. Mild pulmonary hypertension. - Left heart catheterization done (02/21/19). A revealed severe two-vessel coronary artery disease including severe left main disease. plan -CT surgery was consulted and patient was deemed a poor candidate for CABG. Options were discussed with patient and , and patient opted to proceed with medical management rather than undergoing a high risk procedure. Plan to continue with aspirin, Plavix, statin, beta brian. Follow-up with cardiology outpatient in 1 to 2 weeks after discharge. -cardiology following and is planning for -continue cardiac telemetry -continue to monitor for chest pain (5) DKA (diabetic ketoacidoses) Current Visit: Yes Status: Acute Assessment and Plan: Resolved Diabetic ketoacidosis in the setting of NSTEMI. -Etiology may be NSTEMI as there is no obvious source of infection at this time. Patient a report that he recently improved from having a cough a couple days ago. -Anion gap at admission 18 -anion gap now 11 -chest x-ray unremarkable -urinalysis unremarkable -WBC 18.9 -lactic acid 4.2(3.9) -VBG: pH 7.2, CO2 37, HCO3 14 -beta hydroxybutyric acid > 2.0 -blood cultures negative to date -Resolved. Plan as above (6) Failure to thrive Current Visit: No Status: Acute Assessment and Plan: Nutrition consulted. Patient has a BMI of 21 (7) Vitiligo Current Visit: No Status: Chronic Assessment and Plan: Chronic (8) Hyponatremia Current Visit: Yes Status: Acute Assessment and Plan: Hyponatremia that is suitable hyponatremia from hyperglycemia. Sodium at admission 126. Sodium now improved. Will continue to monitor. (9) DVT prophylaxis Current Visit: No Status: Acute Assessment and Plan: Heparin SQ - Time Spent with Patient Total time spent is greater than 50% in coordination of care (as documented) at patient's floor/unit and/or counseling patient: Internal Medicine: Result - Labs CBC & Chem 7: 02/24/19 02:13 02/24/19 02:13 Labs: Short CBC 02/24/19 Range/Units 02:13 WBC 10.1 (4.3-11.1) K/mcL Hgb 8.2 L (12.9-16.9) g/dL Hct 25.3 L (37.5-50.1) % Plt Count 284 (140-400) K/mcL BMP 02/24/19 02:13 Sodium 135 L Potassium 4.3 Chloride 100 Carbon Dioxide 28 BUN 22 Creatinine 2.43 H Glucose 285 H Calcium 8.1 L - ABG Interpretation ABG results: PT/INR, D-dimer PT 11.5 Seconds (9.4-12.1) 02/20/19 03:58 <Dorothy Morfin - Last Filed: 02/24/19 10:31> (1) Type 1 diabetes mellitus with diabetic chronic kidney disease Qualifiers: Chronic kidney disease stage: stage 4 (severe) Qualified Code(s): E10.22 - Type 1 diabetes mellitus with diabetic chronic kidney disease; N18.4 - Chronic kidney disease, stage 4 (severe) (2) Anemia in CKD (chronic kidney disease) Qualifiers: Chronic kidney disease stage: stage 5, not on chronic dialysis Qualified Code (s): N18.5 - Chronic kidney disease, stage 5; D63.1 - Anemia in chronic kidney disease (4) Failure to thrive Qualifiers: Failure to thrive age range: in adult Qualified Code(s): R62.7 - Adult failure to thrive (7) DKA (diabetic ketoacidoses) Qualifiers: Diabetes mellitus type: type 1 Diabetes mellitus complication detail: without coma Qualified Code(s): E10.10 - Type 1 diabetes mellitus with ketoacidosis without coma <Rachel Wolf - Last Filed: 02/24/19 12:48> (2) Type 1 diabetes mellitus with diabetic chronic kidney disease Qualifiers: Chronic kidney disease stage: stage 4 (severe) Qualified Code(s): E10.22 - Type 1 diabetes mellitus with diabetic chronic kidney disease; N18.4 - Chronic kidney disease, stage 4 (severe) (3) Anemia in CKD (chronic kidney disease) Qualifiers: Chronic kidney disease stage: stage 5, not on chronic dialysis Qualified Code(s): N18.5 - Chronic kidney disease, stage 5; D63.1 - Anemia in chronic kidney disease (5) DKA (diabetic ketoacidoses) Qualifiers: Diabetes mellitus type: type 1 Diabetes mellitus complication detail: without coma Qualified Code(s): E10.10 - Type 1 diabetes mellitus with ketoacidosis without coma (6) Failure to thrive Qualifiers: Failure to thrive age range: in adult Qualified Code(s): R62.7 - Adult failure to thrive
--- NOTE | 2019-02-24 13:00 | Nephrology Progress Note ---
Date of Encounter: 02/24/19 Time of Encounter: 13:00 - Assessment and Plan (1) ESRD (end stage renal disease) Current Visit: Yes Status: Acute HD TRS Renal vitamins. Renal dose medications. Renal diet. Additional dialysis and ultrafiltration as needed. (2) Anemia in CKD (chronic kidney disease) Current Visit: Yes Status: Chronic Goal hemoglobin is Currently stable . EPO as needed Continue iron supplements Qualifiers: Chronic kidney disease stage: stage 5, not on chronic dialysis Qualified Code(s): N18.5 - Chronic kidney disease, stage 5; D63.1 - Anemia in chronic kidney disease (3) Acute non-ST segment elevation myocardial infarction Current Visit: Yes Status: Acute Subjective Principal diagnosis: Renal Failure, DKA, Electrolyte abnormalities Interval history: Patient seen. He has no new complaints. He was asleep. Objective - Vital Signs Vital signs: Vital Signs Temp Pulse Resp BP Pulse Ox 02/24/19 07:04 98.4 F 76 18 137/64 98 02/24/19 04:08 98.2 F 78 16 146/74 97 02/23/19 23:31 98.1 F 78 16 123/66 97 02/23/19 19:51 98.3 F 87 16 152/49 96 02/23/19 16:14 98.3 F 84 18 127/68 98 02/23/19 13:47 97.6 F 17 117/66 02/23/19 13:20 107/56 02/23/19 13:05 94/59 Intake and Output 02/23/19 02/24/19 02/24/19 23:59 07:59 15:59 Output Total 200 / 200 Balance -200 / -200 Output: Urine 200 / 200 Other: Meal corn flakes 2% milk Stool Size Large Stool Consistency liquid Stool Color Brown Green # Bowel Movement Diapers 1 Weight 70.5 kg Blood Glucose* 259 155 178 - General Appearance General appearance: Present: well-developed, well-nourished EENT: Present: ATNC Neck: Present: supple Cardiology: Present: regular rate - Lab 02/24/19 02:13 02/24/19 02:13 Most recent lab results 02/24/19 02:13 Calcium 8.1 L Consult Discharge Plan - Plan Referrals: Jarvis Willoughby MD [Partnered Physician] - Constantino Fonseca CNP [Advanced Practice Nurse] - (Per cardiology note, outpatient f/u 1-2 weeks from discharge) Chayo Saravia MD [Partnered Physician] - NONE,PCP [Primary Care Provider] -
[2019-02-24] MEDS: Mirtazapine 15 MG TABLET PO SCH (21:16)
[2019-02-25 04:36] LABS: Hematocrit 24.8 % (37.5-50.1); Hemoglobin 8.1 g/dL (12.9-16.9); Mean Corpuscular HGB Conc 32.7 g/dL (31.6-35.5); Mean Corpuscular Hemoglobin 32.7 pg (28.0-33.3); Mean Platelet Volume 9.9 fL (9.4-12.4); Platelet Count 319 K/mcL (140-400); Red Blood Count 2.48 M/mcL (4.19-5.50); Red Cell Distribution Width 13.8 % (11.5-14.5); White Blood Count 10.6 K/mcL (4.3-11.1)
[2019-02-25 04:54] LABS: Calcium 8.3 mg/dL (8.6-10.3); Potassium 4.5 mEq/L (3.5-5.1)
[2019-02-25] MEDS: *HR* Heparin 5,000 UNIT/ML VIAL SQ SCH ×2 (05:28→17:28)
[2019-02-25] MEDS: Insulin LISPRO 300 UNITS/3 ML VIAL SQ SCH ×4 (08:06→20:57)
[2019-02-25] MEDS: amLODIPine 5 MG TABLET PO SCH (08:23)
[2019-02-25] MEDS: Aspirin 81 MG TAB.CHEW PO SCH (08:23)
[2019-02-25] MEDS: Insulin DETEMIR 100 UNIT/ML X5UNITS SQ SCH ×2 (08:24→21:13)
--- NOTE | 2019-02-25 09:38 | Internal Med Progress Note ---
Hospitalist Progress Note - Encounter Date of Encounter: 02/25/19 Time of Encounter: 09:38 - Exam Vitals: Temp Pulse Resp BP Pulse Ox 98.4 F 81 16 118/69 98 02/25/19 07:30 02/25/19 07:30 02/25/19 07:30 02/25/19 07:30 02/25/19 07:30 - Assessment and Plan (1) Type 1 diabetes mellitus with diabetic chronic kidney disease Current Visit: Yes Status: Acute (2) ESRD (end stage renal disease) Current Visit: Yes Status: Acute (3) Anemia in CKD (chronic kidney disease) Current Visit: Yes Status: Chronic (4) NSTEMI (non-ST elevated myocardial infarction) Current Visit: Yes Status: Acute (5) Secondary hyperparathyroidism Current Visit: Yes Status: Acute (6) DVT prophylaxis Current Visit: No Status: Acute - Time Spent with Patient Total time spent is greater than 50% in coordination of care (as documented) at patient's floor/unit and/or counseling patient: Internal Medicine: Result - Labs CBC & Chem 7: 02/25/19 04:12 02/25/19 04:12 Labs: Short CBC 02/25/19 Range/Units 04:12 WBC 10.6 (4.3-11.1) K/mcL Hgb 8.1 L (12.9-16.9) g/dL Hct 24.8 L (37.5-50.1) % Plt Count 319 (140-400) K/mcL BMP 02/25/19 04:12 Sodium 135 L Potassium 4.5 Chloride 100 Carbon Dioxide 27 BUN 33 H Creatinine 3.32 H Glucose 156 H Calcium 8.3 L - ABG Interpretation ABG results: PT/INR, D-dimer PT 11.5 Seconds (9.4-12.1) 02/20/19 03:58 Consult Discharge Plan - Plan Referrals: Jarvis Willoughby MD [Partnered Physician] - Constantino Fonseca CNP [Advanced Practice Nurse] - (Per cardiology note, outpatient f/u 1-2 weeks from discharge) Chayo Saraiva MD [Partnered Physician] - NONE,PCP [Primary Care Provider] - (1) Type 1 diabetes mellitus with diabetic chronic kidney disease Qualifiers: Chronic kidney disease stage: stage 4 (severe) Qualified Code(s): E10.22 - Type 1 diabetes mellitus with diabetic chronic kidney disease; N18.4 - Chronic kidney disease, stage 4 (severe) (3) Anemia in CKD (chronic kidney disease) Qualifiers: Chronic kidney disease stage: stage 5, not on chronic dialysis Qualified Code(s): N18.5 - Chronic kidney disease, stage 5; D63.1 - Anemia in chronic kidney disease
--- NOTE | 2019-02-25 11:52 | Nephrology Progress Note ---
Date of Encounter: 02/25/19 Time of Encounter: 11:51 - Assessment and Plan (1) ESRD (end stage renal disease) Current Visit: Yes Status: Chronic HD TRS Renal vitamins. Renal dose medications. Renal diet. Additional dialysis and ultrafiltration as needed. (2) Anemia in CKD (chronic kidney disease) Current Visit: Yes Status: Chronic Goal hemoglobin is Currently stable . EPO as needed Continue iron supplements Qualifiers: Chronic kidney disease stage: stage 5, not on chronic dialysis Qualified C ode(s): N18.5 - Chronic kidney disease, stage 5; D63.1 - Anemia in chronic kidney disease (3) Acute non-ST segment elevation myocardial infarction Current Visit: Yes Status: Acute Subjective Principal diagnosis: Renal Failure, DKA, Electrolyte abnormalities Interval history: Patient seen. He has no new complaints. He denies dyspnea. ROS is otherwise stable. Objective - Vital Signs Vital signs: Vital Signs Temp Pulse Resp BP Pulse Ox 02/25/19 07:30 98.4 F 81 16 118/69 98 02/25/19 03:30 99.1 F 81 16 103/50 98 02/24/19 23:10 98.6 F 85 16 136/65 98 02/24/19 18:52 100 F H 97 16 109/55 97 02/24/19 15:34 98.4 F 78 16 103/61 98 Intake and Output 02/24/19 02/25/19 02/25/19 23:59 07:59 15:59 Intake Total 240 / 240 120 / 120 Output Total 250 / 250 Balance 240 / 40 -130 / -130 Intake: Oral 240 / 240 120 / 120 Output: Urine 250 / 250 Other: Meal lg black coffee Weight 69.2 kg Blood Glucose* 260 85 - General Appearance General appearance: Present: well-developed, well-nourished EENT: Present: ATNC Cardiology: Present: regular rate Neurologic: Present: alert and oriented x3 Psychiatric: Present: mood/affect appropriate - Lab 02/25/19 04:12 02/25/19 04:12 Most recent lab results 02/25/19 04:12 Calcium 8.3 L Consult Discharge Plan - Plan Referrals: [facility] [Outside] (Please follow up with family medicine clinic within 1 week of discharge, unless patient has other primary care physician.) Jarvis Willoughby MD [Partnered Physician] - (Please follow up with gastroe nterology in 1 week) Constantino Fonseca, [employer] SALES REPRESENTATIVE [Advanced Practice Nurse] - (Per cardiology note, outpatient f/u 1-2 weeks from discharge) Chayo Saravia MD [Partnered Physician] - (Please continue a Monday, , Monday hemodialysis. Follow up with nephrology within 1 week) NONE,PCP [Primary Care Provider] - Prescriptions: Insulin DETEMIR [Levemir] 15 unit SQ QAM 30 Days mls Insulin DETEMIR [Levemir] 10 unit SQ HS 30 Days mls
--- NOTE | 2019-02-25 13:28 | Discharge Summary ---
<Nicki Fierro - Last Filed: 02/25/19 13:25> - NOTES TO OUTPATIENT PROVIDER Notes to Outpatient Provider: - Patient will be discharged with outpatient hemodialysis chair time in the community setting. He is on a Monday, , Monday schedule. Patient will need follow-up with nephrology within 1 week of discharge. - Patient was diagnosed with NSTEMI. Left heart catheterization did show severe two-vessel coronary artery disease including severe left main disease. CT surgery discussed case with patient and , and they opted for medical management as patient was poor candidate for CABG. Follow up with cardiology within 1-2 weeks from discharge. - Patient noted to have stable anemia. Gastroenterology was consulted to rule out GI bleed. EGD showed no acute bleed, but colonoscopy was never completed. Plan for follow-up with gastroenterology within 1 week of discharge. - Patient noted to have secondary hyperparathyroidism. Started with ergocalciferol 50,000 units once weekly. - Patient initially presented with DKA. He will be discharged on medium dose sliding scale. Refer to Hospital summary for sliding scale. Additionally will be discharged with long-acting Levemir 15 units every morning, and 10 units every night. Date of Encounter: 02/25/19 Time of Encounter: 13:25 - Discharge Diagnosis (1) Type 1 diabetes mellitus with diabetic chronic kidney disease Priority: Primary Status: Acute Qualifiers: Chronic kidney disease stage: stage 4 (severe) Qualified Code(s): E10.22 - Type 1 diabetes mellitus with diabetic chronic kidney disease; N18.4 - Chronic kidney disease, stage 4 (severe) (2) ESRD (end stage renal disease) Priority: Secondary Status: Acute (3) Anemia in CKD (chronic kidney disease) Priority: Secondary Status: Chronic Qualifiers: Chronic kidney disease stage: stage 5, not on chronic dialysis Qualified Code(s): N18.5 - Chronic kidney disease, stage 5; D63.1 - Anemia in chronic kidney disease (4) NSTEMI (non-ST elevated myocardial infarction) Priority: Secondary Status: Acute (5) Secondary hyperparathyroidism Priority: Secondary Status: Acute (6) DVT prophylaxis Priority: Secondary Status: Acute Hospital course: This is a 73-year-old male with past medical history significant for type 1 diabetes mellitus on home insulin, CAD, HTN, HLD, ESRD who initially presented from alf facility with diabetic ketoacidosis. Patient had been previously admitted and discharged due to hypoglycemia and NSTEMI on 02/11/19. Patient had deferred left heart catheterization on previous admission due to poor renal function. He then presented on 02/12/19 in diabetic ketoacidosis. Patient was treated, and DKA resolved, the patient was noted to have ESRD, and was still noted to have NSTEMI. On second admission, patient did agree to initiate hemodialysis. Temporary hemodialysis catheter was placed on 02/13/19, and permacath was placed on 02/19/19. Renal function did improve with hemodialysis. However, was determined the patient will need chronic dialysis moving forward. Patient was set with [facility] dialysis chair, and will have dialysis on Monday//Saturdays will be forward. Patient had additionally been noted to have anemia on presentation. Anemia = 7.8 at the lowest. It was determined the patient should have GI workup prior to any cardiology workup to rule out any acute GI bleed. Patient did have an EGD on 02/15/19 which showed no evidence of any bleeding ulcers. However, patient attempted to have multiple colonoscopies during his admission, and was unable to do so due to poor bowel prep. After numerous attempts, it was determined that given patients hemoglobin was remaining stable, he could proceed with left heart catheterization. Left heart catheterization was determined to be necessary because patient presented with NSTEMI in the setting of DKA. Initial troponins = 73. However EKG showed no acute ST changes. Left heart catheterization was finally done on 02/21/19, but showed severe 2 vessel coronary artery disease including severe left main disease. CT surgery was consulted and patient was determined to be a poor candidate for CABG. Decision was made to proceed with medical management rather than surgical high risk procedure. Of note, during patients admission, he had a few episodes of hematuria while he was on a heparin drip. Heparin was held for a few hours and hematuria resolved. Additionally patient was noted to have episodes of hypoglycemia including one episode with blood glucose = low 20s. Patient was given dextrose, and insulin regimens were adjusted. Patient will need close follow-up outpatient. At time of discharge, patient is hemodynamically stable, in no acute distress. He will need follow-up with primary care, cardiology, nephrology, and GI. Diabetes Management: Medium dose sliding scale: 270792 => 4 units 181-220 => 6 units 221-260 => 8 units 261-300 => 10 units 301-350 => 12 units 351-400 => 14 units Greater than 400 => 16 units Levemir Basal Insulin Coverage: 15 units every morning 10 units every evening at bedtime Discharge discussed with: patient - Time Spent with Patient Total time spent providing and/or coordinating discharge services: Time spent: Less than 30 minutes, D/C greater than 8 hours after Admission - Discharge Medications Prescriptions: New Ergocalciferol (VITAMIN D2) [Drisdol (50,000 Unit)] 50,000 unit PO Th 28 Days #0 capsule Insulin DETEMIR [Levemir] 15 unit SQ QAM 30 Days mls Insulin DETEMIR [Levemir] 10 unit SQ HS 30 Days mls Epoetin Alfredo [Procrit] 3,500 unit SQ 3XW vial amLODIPine [Norvasc] 10 mg PO DAILY tablet Metoprolol [Lopressor] 25 mg PO BID tablet Continued Glucagon,Human Recombinant [Glucagon Emergency Kit] 1 mg IM AD PRN PRN Reason: BLOOD GLUCOSE < 60 Acetaminophen [Tylenol] 650 mg PO DAILY PRN PRN Reason: Pain Clopidogrel [Plavix] 75 mg PO DAILY #30 tablet Ferrous Sulfate 325 mg PO BIDWM #60 tablet Atorvastatin [Lipitor] 40 mg PO HS #30 tablet Aspirin 81 mg PO DAILY Escitalopram [Lexapro] 10 mg PO DAILY Mirtazapine 7.5 mg PO HS Insulin ASPART [Novolog Flexpen] 0 units SQ TIDAC #0 Discontinued Metoprolol [Lopressor] 12.5 mg PO BID Insulin Glargine,Hum.rec.anlog [Basaglar Kwikpen U-100] 7 unit SQ HS amLODIPine [Norvasc] 5 mg PO DAILY #30 tablet Home Medications: Glucagon,Human Recombinant [Glucagon Emergency Kit] 1 mg IM AD PRN 06/18/16 [History] Acetaminophen [Tylenol] 650 mg PO DAILY PRN 02/07/19 [History] Atorvastatin [Lipitor] 40 mg PO HS #30 tablet 02/10/19 [Rx] Clopidogrel [Plavix] 75 mg PO DAILY #30 tablet 02/10/19 [Rx] Ferrous Sulfate 325 mg PO BIDWM #60 tablet 02/10/19 [Rx] Aspirin 81 mg PO DAILY 02/12/19 [History] Escitalopram [Lexapro] 10 mg PO DAILY 02/12/19 [History] Mirtazapine 7.5 mg PO HS 02/12/19 [History] Epoetin Alfredo [Procrit] 3,500 unit SQ 3XW vial 02/25/19 [Rx] Ergocalciferol (VITAMIN D2) [Drisdol (50,000 Unit)] 50,000 unit PO Th 28 Days #0 capsule 02/25/19 [Rx] Insulin ASPART [Novolog Flexpen] 0 units SQ TIDAC #0 02/25/19 [Rx] Insulin DETEMIR [Levemir] 10 unit SQ HS 30 Days mls 02/25/19 [Rx] Insulin DETEMIR [Levemir] 15 unit SQ QAM 30 Days mls 02/25/19 [Rx] Metoprolol [Lopressor] 25 mg PO BID tablet 02/25/19 [Rx] amLODIPine [Norvasc] 10 mg PO DAILY tablet 02/25/19 [Rx] Allergies/Adverse Reactions: Allergy/AdvReac Type Severity Reaction Status Date / Time tamsulosin [From Flomax] Allergy HEADACHES Verified 02/07/19 13:31 Date of admission: 02/12/19 23:02 Primary care physician: PCP NONE Consults: 02/12/19 23:00 Consult to Nephrology [CONS] Routine Consulting Provider: [facility]ney [place]/KING/RANDY/GAUDENCIO Reason for Consult: ARF Call Completed: No 02/12/19 23:01 Consult to Cardiology [CONS] Routine Comment: Consulting Provider: Cardiology [place] Reason for Consult: troponin>73, dropped QRS, dr Fragoso aware of pt Call Completed: Yes 02/12/19 23:46 Consult to Nutrition [CONS] Routine Comment: Consulting Provider: NUTRITION Reason for Dietary Consult: PO Supplementation 02/13/19 08:35 Consult to Interventional Radiology [CONS] Routine Consulting Provider: Radiology Interventional Cols Reason for Consult: Please eval for placement of a Permacath, but d/t his critical illness, elevated WBC and pending BCx, then please place a temporary HD catheter today for urgent initiation of HD. He will need a Permacath before discharge. Call Completed: Yes Consult to Waiter/Waitress Head [CONS] Routine Reason for SW Consult: Please arrange for an outpt HD chair time. 02/13/19 08:45 Consult to Dialysis [CONS] ONCE 02/13/19 13:33 Consult to Gastroenterology [CONS] Routine Consulting Provider: Gastroenterology [place] Reason for Consult: anemia workup for Hgb 7.8. Pt needs LHC. ESRD pt. Call Completed: Yes 02/14/19 07:00 Consult to Dialysis [CONS] ONCE 02/14/19 08:35 Consult to Cardiac Rehabilitation-Phase1 [CONS] Routine Comment: Reason for Consult: NSTEMI, plan for LHC once GI eval completed Call Completed: Yes 02/18/19 08:15 Consult to Dialysis [CONS] ONCE 02/19/19 08:15 Consult to Nurse Navigator [CONS] Routine Comment: hd 02/20/19 07:45 Consult to Dialysis [CONS] ONCE 02/21/19 11:31 Consult to Cardiothoracic Surgery [CONS] Routine Consulting Provider: Cardiothoracic Surgery [place] Reason for Consult: 3VCAD,eval for CABG Call Completed: Yes 02/23/19 08:00 Consult to Dialysis [CONS] ONCE Discharging clinician: Nicki Fierro Anticipated date of discharge: 02/25/19 - Constitutional Vitals: Temp Pulse Resp BP Pulse Ox 98.4 F 81 16 118/69 98 02/25/19 07:30 02/25/19 07:30 02/25/19 07:30 02/25/19 07:30 02/25/19 07:30 General appearance: Present: cooperative, A&O X 3, pleasant, no acute distress, answers questions appropriately Exam: This is a pleasant 73-year-old male who is resting comfortably at bedside at time of my exam. Patient is AO3, in no acute distress. - Head Head exam: Present: atraumatic, normal inspection, normocephalic - Eye Eye exam: Present: EOMI - ENT ENT exam: Present: mucous membranes moist - Neck Neck exam general surgery: Present: full ROM, supple, trachea midline - Respiratory Respiratory exam: Present: CTAB. Absent: respiratory distress, rhonchi, stridor, wheezes, tachypnea - Cardiovascular Cardiovascular exam: Present: RRR, +S1, +S2 - GI/Abdominal GI/Abdominal exam: Present: normal bowel sounds, soft, no peritoneal signs. Absent: distended, guarding, rebound, rigid - Extremities Exam Extremities exam: Present: full ROM, normal capillary refill, normal inspection, warm, radial pulses palpable and symmetrical - Neurological Exam Neurological exam: Present: alert, oriented X3, no focal deficits - Psychiatric Psychiatric exam: Present: normal affect, normal mood - Skin Skin exam: Present: normal color, warm. Absent: rash - Patient Status Disposition: Transfer SNF Condition: Fair Functional capacity at discharge: uses cane/walker Overall status at discharge: patient is progressing back to baseline - Discharge Instructions Follow Up With: Constantino Fonseca CNP [Advanced Practice Nurse] - (Per cardiology note, outpatient f/u 1-2 weeks from discharge) Jarvis Willoughby MD [Partnered Physician] - (Please follow up with gastroenterology in 1 week) Chayo Saravia MD [Partnered Physician] - (Please continue a Monday, , Monday hemodialysis. Follow up with nephrology within 1 week) NONE,PCP [Primary Care Provider] - [facility]Outside] (Please follow up with family medicine clinic within 1 week of discharge, unless patient has other primary care physician.) - Diet and Activity Activity: as per the cardiac rehab, as per physical therapy, increase activity as tolerated Diet: diabetic diet, low fat, low cholesterol, low salt diet <Dorothy Morfin - Last Filed: 02/25/19 15:09> Date of Encounter: 02/25/19 - Discharge Diagnosis (1) Type 1 diabetes mellitus with diabetic chronic kidney disease Status: Chronic Qualifiers: Chronic kidney disease stage: stage 4 (severe) Qualified Code(s): E10.22 - Type 1 diabetes mellitus with diabetic chronic kidney disease; N18.4 - Chronic kidney disease, stage 4 (severe) (2) Anemia in CKD (chronic kidney disease) Status: Chronic Qualifiers: Chronic kidney disease stage: stage 5, not on chronic dialysis Qualified Code(s): N18.5 - Chronic kidney disease, stage 5; D63.1 - Anemia in chronic kidney disease (3) DVT prophylaxis Status: Acute (4) Failure to thrive Status: Acute Qualifiers: Failure to thrive age range: in adult Qualified Code(s): R62.7 - Adult failure to thrive (5) NSTEMI (non-ST elevated myocardial infarction) Status: Acute (6) Hyperkalemia Status: Resolved (7) DKA (diabetic ketoacidoses) Status: Acute Qualifiers: Diabetes mellitus type: type 1 Diabetes mellitus complication detail: without coma Qualified Code(s): E10.10 - Type 1 diabetes mellitus with ketoacidosis without coma (8) Vitiligo Status: Chronic (9) ESRD (end stage renal disease) Status: Chronic (10) Hyponatremia Status: Acute (11) High anion gap metabolic acidosis Status: Resolved (12) Leukocytosis Status: Acute Hospital course: Mr. Ruiz is a 73 year old male - Time Spent with Patient Total time spent providing and/or coordinating discharge services: Time spent: Greater than 30 minutes (40 min) Date of admission: 02/12/19 23:02 Primary care physician: PCP NONE Consults: 02/12/19 23:00 Consult to Nephrology [CONS] Routine Consulting Provider: Kidney Vashti/KING/RANDY/GAUDENCIO Reason for Consult: ARF Call Completed: No 02/12/19 23:01 Consult to Cardiology [CONS] Routine Comment: Consulting Provider: Cardiology [place] Reason for Consult: troponin>73, dropped QRS, dr Fragoso aware of pt Call Completed: Yes 02/12/19 23:46 Consult to Nutrition [CONS] Routine Comment: Consulting Provider: NUTRITION Reason for Dietary Consult: PO Supplementation 02/13/19 08:35 Consult to Interventional Radiology [CONS] Routine Consulting Provider: Radiology Interventional Cols Reason for Consult: Please eval for placement of a Permacath, but d/t his critical illness, elevated WBC and pending BCx, then please place a temporary HD catheter today for urgent initiation of HD. He will need a Permacath before discharge. Call Completed: Yes Consult to Waiter/Waitress Head [CONS] Routine Reason for SW Consult: Please arrange for an outpt HD chair time. 02/13/19 08:45 Consult to Dialysis [CONS] ONCE 02/13/19 13:33 Consult to Gastroenterology [CONS] Routine Consulting Provider: Gastroenterology [place] Reason for Consult: anemia workup for Hgb 7.8. Pt needs LHC. ESRD pt. Call Completed: Yes 02/14/19 07:00 Consult to Dialysis [CONS] ONCE 02/14/19 08:35 Consult to Cardiac Rehabilitation-Phase1 [CONS] Routine Comment: Reason for Consult: NSTEMI, plan for LHC once GI eval completed Call Completed: Yes 02/18/19 08:15 Consult to Dialysis [CONS] ONCE 02/19/19 08:15 Consult to Nurse Navigator [CONS] Routine Comment: hd 02/20/19 07:45 Consult to Dialysis [CONS] ONCE 02/21/19 11:31 Consult to Cardiothoracic Surgery [CONS] Routine Consulting Provider: Cardiothoracic Surgery [place] Reason for Consult: 3VCAD,eval for CABG Call Completed: Yes 02/23/19 08:00 Consult to Dialysis [CONS] ONCE - Constitutional Vitals: Temp Pulse Resp BP Pulse Ox 99.3 F 75 17 147/85 95 02/25/19 12:00 02/25/19 12:00 02/25/19 12:00 02/25/19 12:00 02/25/19 12:00 - Attending Attestation I examined this patient and my medical decision-making was reviewed with the Resident Physician Dr Fierro. I agree with the documented findings, disposition and treatment plan as described except to the extent set forth below. Mr Ruiz is admitted with DKA and NSTEMI. He is medically stable for dc to snf with close outpt follow up. awake, eating breakfast. he continues to deny any chest pain, pressure or sob. no lightheadedness or dizziness. He is moving bowels with brown stool discussed dc plan in detail and answered all questions. gen- alert, awake,appears stated age eyes- no conjunctival pallor cv- reg rate and rhythm, normal s1,s2, no le edema, no jvd lungs- ctabl, normal resp effort on room air abd- soft, non tender, non distended, + bs neuro- AAOx3 DKA resolved DM with hyperglycemia levemir + SSI , pcp fu NSTEMI Severe Multi Vessel CAD -cont med management, refused CABG, not a PCI candidate , outpt cards follow up, cont meds as rx here CKD Stage V -HD as outpt per nephro , permacath in place, T HD as outpt, fu with nephro Acute on Chronic anemia, possible GIB as cause- hgb stable,a s d/w GI they will see him outpt to discuss if cscope will be necessary further dx and plan as noted by resident dispo will be to SNF time spent on dc 40 min
--- NOTE | 2019-02-25 14:08 | Physician Discharge Referral ---
<SriPericojac - Last Filed: 02/25/19 14:06> [facility] Referral Info Transfer To: [facility] Provider in Charge after Transfer: PCP Institutional Level of Care: Skilled - Diagnosis (1) Type 1 diabetes mellitus with diabetic chronic kidney disease Priority: Primary Status: Chronic (2) ESRD (end stage renal disease) Priority: Secondary Status: Chronic (3) Anemia in CKD (chronic kidney disease) Priority: Secondary Status: Chronic (4) NSTEMI (non-ST elevated myocardial infarction) Priority: Secondary Status: Acute (5) Secondary hyperparathyroidism Priority: Secondary Status: Acute (6) DVT prophylaxis Priority: Secondary Status: Resolved Prognosis: Fair Aware of Diagnosis: Patient, Family Aware of Prognosis: Patient, Family - Transfer Medications Prescriptions: Insulin DETEMIR [Levemir] 15 unit SQ QAM 30 Days mls Insulin DETEMIR [Levemir] 10 unit SQ HS 30 Days mls Home Medications: Glucagon,Human Recombinant [Glucagon Emergency Kit] 1 mg IM AD PRN 06/18/16 [History] Acetaminophen [Tylenol] 650 mg PO DAILY PRN 02/07/19 [History] Atorvastatin [Lipitor] 40 mg PO HS #30 tablet 02/10/19 [Rx] Clopidogrel [Plavix] 75 mg PO DAILY #30 tablet 02/10/19 [Rx] Ferrous Sulfate 325 mg PO BIDWM #60 tablet 02/10/19 [Rx] Aspirin 81 mg PO DAILY 02/12/19 [History] Escitalopram [Lexapro] 10 mg PO DAILY 02/12/19 [History] Mirtazapine 7.5 mg PO HS 02/12/19 [History] Epoetin Alfredo [Procrit] 3,500 unit SQ 3XW vial 02/25/19 [Rx] Ergocalciferol (VITAMIN D2) [Drisdol (50,000 Unit)] 50,000 unit PO Th 28 Days #0 capsule 02/25/19 [Rx] Insulin ASPART [Novolog Flexpen] 0 units SQ TIDAC #0 02/25/19 [Rx] Insulin DETEMIR [Levemir] 10 unit SQ HS 30 Days mls 02/25/19 [Rx] Insulin DETEMIR [Levemir] 15 unit SQ QAM 30 Days mls 02/25/19 [Rx] Metoprolol [Lopressor] 25 mg PO BID tablet 02/25/19 [Rx] amLODIPine [Norvasc] 10 mg PO DAILY tablet 02/25/19 [Rx] Allergies/Adverse Reactions: Allergy/AdvReac Type Severity Reaction Status Date / Time tamsulosin [From Flomax] Allergy HEADACHES Verified 02/07/19 13:31 - Respiratory Orders Smoking Cessation: Smoking cessation has been advised. For more information, call the [facility] Line at 9-729-LMMK-NOW. - Advance Directives Code Status: Full Code - Mobility Orders Ambulate (Ambulate as tolerated with assistance.) - Rehabiliation Orders Rehab Potential: Fair Rehab Orders: ROM Exercises, Evaluation for Physical Therapy, Evaluation for Occupational Therapy - Diet Orders No Added Salt (THERESA) (Cardiac, renal, diabetic diet), Renal, Cardiac CERTIFICATION: I certify that the transfer of the above named patient to an Extended Care Facility is necessary for the continuing treatment of the diagnosis listed. The above information is true and accurate reflection of patient's current condition. Confidential - Redisclosure prohibited without a patient's written consent. <Dorothy Morfin - Last Filed: 02/25/19 15:12> - Diagnosis (1) Type 1 diabetes mellitus with diabetic chronic kidney disease Priority: Secondary Status: Chronic (2) Anemia in CKD (chronic kidney disease) Priority: Secondary Status: Chronic (3) DVT prophylaxis Status: Acute (4) Failure to thrive Priority: Secondary Status: Chronic (5) NSTEMI (non-ST elevated myocardial infarction) Priority: Secondary Status: Acute (6) Hyperkalemia Priority: Secondary Status: Resolved (7) DKA (diabetic ketoacidoses) Priority: Primary Status: Resolved (8) Vitiligo Priority: Secondary Status: Chronic (9) ESRD (end stage renal disease) Priority: Secondary Status: Chronic (10) Hyponatremia Priority: Secondary Status: Acute (11) High anion gap metabolic acidosis Priority: Secondary Status: Resolved (12) Leukocytosis Priority: Secondary Status: Acute - Respiratory Orders None Smoking Cessation: Smoking cessation has been advised. For more information, call the [facility] Line at 1-040-GRSV-NOW. - Lab Orders Lab Orders: CBC (one week) - Ancillary Orders May use pressure relief devices daily prn - Treatments Skin tear care topically daily PRN per policy - Diet Orders House Supplement per Dietary: ensure enlive strawberry BID CERTIFICATION: I certify that the transfer of the above named patient to an Extended Care Facility is necessary for the continuing treatment of the diagnosis listed. The above information is true and accurate reflection of patient's current condition. Confidential - Redisclosure prohibited without a patient's written consent.
[2019-02-25] MEDS: Mirtazapine 15 MG TABLET PO SCH (21:12)
[2019-02-26] MEDS: *HR* Dextrose 50 % in Water (Syg) 50 ML SYRINGE IVP PRN (05:56)
[2019-02-26] MEDS: *HR* Heparin 5,000 UNIT/ML VIAL SQ SCH ×2 (05:58→17:35)
[2019-02-26 07:40] LABS: Hematocrit 32.6 % (37.5-50.1); Mean Corpuscular HGB Conc 31.6 g/dL (31.6-35.5); Mean Corpuscular Hemoglobin 32.2 pg (28.0-33.3); Mean Corpuscular Volume 101.9 fL (83.0-100.0); Mean Platelet Volume 10.2 fL (9.4-12.4); Platelet Count 269 K/mcL (140-400); Red Cell Distribution Width 14.4 % (11.5-14.5); White Blood Count 13.6 K/mcL (4.3-11.1)
[2019-02-26] MEDS: Insulin LISPRO 300 UNITS/3 ML VIAL SQ SCH ×4 (07:43→21:17)
--- NOTE | 2019-02-26 07:44 | Internal Med Progress Note ---
<Dorothy Morfin - Last Filed: 02/26/19 12:26> Hospitalist Progress Note - Encounter Date of Encounter: 02/26/19 - Exam Vitals: Temp Pulse Resp BP Pulse Ox 97.2 F L 82 16 93/48 99 02/26/19 09:00 02/26/19 07:20 02/26/19 09:00 02/26/19 11:15 02/26/19 07:20 - Assessment and Plan (1) Type 1 diabetes mellitus with diabetic chronic kidney disease Current Visit: Yes Status: Chronic (2) Anemia in CKD (chronic kidney disease) Current Visit: Yes Status: Chronic (3) DVT prophylaxis Current Visit: No Status: Acute (4) Failure to thrive Current Visit: No Status: Chronic (5) NSTEMI (non-ST elevated myocardial infarction) Current Visit: Yes Status: Acute (6) Hyperkalemia Current Visit: Yes Status: Resolved (7) DKA (diabetic ketoacidoses) Current Visit: Yes Status: Resolved (8) Vitiligo Current Visit: No Status: Chronic (9) ESRD (end stage renal disease) Current Visit: Yes Status: Chronic (10) Hyponatremia Current Visit: Yes Status: Acute (11) High anion gap metabolic acidosis Current Visit: Yes Status: Resolved (12) Leukocytosis Current Visit: Yes Status: Acute - Time Spent with Patient Total time spent is greater than 50% in coordination of care (as documented) at patient's floor/unit and/or counseling patient: Internal Medicine: Result - Labs CBC & Chem 7: 02/26/19 07:09 02/26/19 07:09 Labs: Short CBC 02/26/19 Range/Units 07:09 WBC 13.6 H (4.3-11.1) K/mcL Hgb 10.3 L D (12.9-16.9) g/dL Hct 32.6 L (37.5-50.1) % Plt Count 269 (140-400) K/mcL BMP 02/26/19 07:09 Sodium 138 Potassium 4.7 Chloride 101 Carbon Dioxide 28 BUN 43 H Creatinine 3.96 H Glucose 47 L Calcium 9.4 - ABG Interpretation ABG results: PT/INR, D-dimer PT 11.5 Seconds (9.4-12.1) 02/20/19 03:58 Consult Discharge Plan - Plan Referrals: [facility] [Outside] (Please follow up with family medicine clinic within 1 week of discharge, unless patient has other primary care physician.) Jarvis Willoughby MD [Partnered Physician] - (Please follow up with gastroenterology in 1 week) Constantino Fonseca CNP [Advanced Practice Nurse] - (Per cardiology note, outpatient f/u 1-2 weeks from discharge) Cahyo Saravia MD [Partnered Physician] - (Please continue a Monday, , Monday hemodialysis. Follow up with nephrology within 1 week) NONE,PCP [Primary Care Provider] - Prescriptions: Insulin DETEMIR [Levemir] 15 unit SQ QAM 30 Days mls Insulin DETEMIR [Levemir] 10 unit SQ HS 30 Days mls - Attending Attestation I examined this patient and my medical decision-making was reviewed with the Resident Physician Dr Fierro. I agree with the documented findings, disposition and treatment plan as described except to the extent set forth below. Mr Ruiz is admitted with DKA and NSTEMI. He is not being discharged today due to hypoglycemia with bs 30 this morning. awake, feeling well now. was aware bs was low. no confusion, n/v, somnolence currently. discussed plan to stop dc to [facility] when bed available later today to monitor bs and determine changes required to regimen. voiced good understanding and agreement gen- alert, awake,appears stated age cv- reg rate and rhythm, normal s1,s2, no le edema lungs- ctabl, normal resp effort on room air abd- soft, non tender, non distended, neuro- AAOx3, CN grossly intact DKA resolved DM with hyperglycemia New hypoglycemia with bs 30 this am -hold levmir today, cont ssi, prn hyppglycemics -of note bs at goal throughout day yesterday with 15 units levemir, will re address insulin needds in am and cont to monitor for hypoglycemia NSTEMI Severe Multi Vessel CAD -cont med management, refused CABG, not a PCI candidate , outpt cards follow up, cont meds as rx here CKD Stage V -HD as outpt per nephro , permacath in place, HD as outpt, fu with nephro Acute on Chronic anemia, possible GIB as cause- hgb stable,a s d/w GI they will see him outpt to discuss if cscope will be necessary further dx and plan as noted by resident dispo will be to SNF when bs stabilize <Nicki Fierro - Last Filed: 02/26/19 13:15> Hospitalist Progress Note - Encounter Date of Encounter: 02/26/19 Time of Encounter: 07:42 - Subjective Interval History: Patient was seen and examined at dialysis this morning. Overnight, patient was noted to have blood sugar = 30. Patient was given an amp of D50. Repeat blood sugar = 91. Patient currently in no acute distress. Vitals hemodynamically stable. Had planned to discharge patient to senior living facility yesterday. Patient is pending placement at this time. However given his hypoglycemia, we will postpone discharge, and further manage his blood sugars. We have discontinued any long-acting insulin for now. Patient is otherwise currently in no distress. He has no stated complaints at this time. He denies any headache, blurry vision, chest pain, palpitations, shortness of breath, abdominal pain, nausea, vomiting. No fevers were noted and patient is hemodynamically stable. - Exam Vitals: Temp Pulse Resp BP Pulse Ox 96.1 F L 82 16 145/73 99 02/26/19 07:20 02/26/19 07:20 02/26/19 07:20 02/26/19 07:20 02/26/19 07:20 Exam: GEN: 73-year-old male was seen while getting dialysis this morning. Vitals stable. No acute distress. AAOx3 HEENT: Atraumatic, Normocephalic, PERRLA, EOMI NECK: Supple, no lymphadenopathy, no JVD CARDIAC: RRR, s1 and s2 present, no murmurs, rubs, gallops PULM: CTAB, not in respiratory distress, no wheezes, rales, crackles, rhonchi ABD: Soft, non-tender, non-distended, no guarding or rebound tenderness. Bowel sounds present EXT: No peripheral edema. No calf tenderness, cyanosis, clubbing NEURO: CN 2-12 grossly intact. No focal neurologic deficits. Follows commands PSYCH: Appropriate mood and affect - Assessment and Plan (1) Type 1 diabetes mellitus with diabetic chronic kidney disease Current Visit: Yes Status: Chronic Assessment and Plan: This is a 73-year-old male with past medical history significant for type 1 diabetes mellitus on home insulin, coronary artery disease, hypertension, hyperlipidemia, end-stage renal disease who initially presented from senior living facility with diabetic ketoacidosis. Patient had been recently admitted and discharged due to hypoglycemia and NSTEMI on 02/11/19. Left heart cath on previous admission had been postponed due to poor renal function. - On admission: Anion gap = 18, glucose = 449, beta hydroxybutyric acid greater than 2.00, K = 6.2, lactic acid = 4.2; VBG = 7. - CXR = unremarkable - UA = negative - Blood cultures no growth - Blood sugars this a.m. = 30. Patient was given amp of D50. Repeat blood sugar = 91. As of this morning, we have held basal insulin. We will postpone discharge for now. Patient is pending placement at this time anyhow. PLAN: - Continue with medium dose sliding scale - Hold basal insulin coverage for now; will likely resume tomorrow - Continue Accu-Cheks before meals and at bedtime - Continue to monitor electrolytes - Continue diabetic diet - Given ESRD, we will avoid metformin and SGL to inhibitors on discharge (given patient's GFR less than 30) - Follow up with primary care within 1 week of discharge - Follow up with social work regarding discharge planning. (2) ESRD (end stage renal disease) Current Visit: Yes Status: Chronic Assessment and Plan: Patient has end-stage renal disease CKD stage V. 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 Card - Patient does report that he does still make urine - Patient had previously refused hemodialysis, but after returning critically ill with DKA yesterday, he agreed to initiate dialysis. - Temporary hemodialysis catheter placed (02/13/19) - Permacath placed (02/19/19) PLAN: - Nephrology is following. We appreciate the recommendations. - Patient will need chronic dialysis moving forward - Avoid nephrotoxic agents and renally dose medications - Continue to monitor I's and O's - Daily weights - Pt will need renal diet when starts eating - Patient will need outpatient hemodialysis placement at time of discharge; patient will be on a Monday, , Monday hemodialysis schedule in the community setting. Discharge planning depending social work, and senior living facility acceptance (3) Anemia in CKD (chronic kidney disease) Current Visit: Yes Status: Chronic Assessment and Plan: Patient likely has anemia of chronic disease, but anemia is likely multifactorial - His baseline hemoglobin seems to be in the 8-10 range - Hb = 7.8 at lowest - Patient has normal MCV; folate and B12 also within normal limits - Patient denied any blood in stool. No signs of any active bleeding - Hemoglobin today = 8.0 - EGD (02/15/19): Left antral grade a reflux esophagitis. Gastritis. Normal ampulla, first portion of duodenum and second portion of duodenum. - Colonoscopy (02/15/19): Exam was suboptimal due to patient preparation. - Hemoglobin continues to remain stable. Hb = 10.3 today. No indication patient is bleeding PLAN: - Gastroenterology on board. Recommendations appreciated - Per nephrology, goal hemoglobin = 10-11 - Continue EPO subcutaneous 3 times weekly per nephrology - Continue iron supplementation - Follow up outpatient gastroenterology for possible colonoscopy in the future (4) NSTEMI (non-ST elevated myocardial infarction) Current Visit: Yes Status: Acute Assessment and Plan: Patient presented with an NSTEMI in the setting of DKA - Initial troponins on admission = 73 which trended down to 42 - At previous admission, patient was noted to have NSTEMI; however left heart catheter was not completed due to poor renal function - EKG: Showed normal sinus rhythm without acute ST changes. No changes from previous admission - Most recent echocardiogram (02/13/19): LVEF = 60%, normal left ventricular size, wall thickness, function; mild segmental left ventricular systolic dysfunction which was not described on previous report on 02/07/19 - Left heart catheterization done (02/21/19). A revealed severe two-vessel coronary artery disease including severe left main disease. CT surgery was consulted and patient was deemed a poor candidate for CABG. Options were discussed with patient and , and patient opted to proceed with medical management rather than undergoing a high risk procedure. Plan to continue with aspirin, Plavix, statin, beta brian. PLAN: - Cardiology is following. Appreciate recommendations. - Continue on telemetry. Continue to monitor for chest pain - Aggressively treat risk factor modifications - Continue with aspirin, Plavix, amlodipine, atorvastatin, metoprolol - Follow up outpatient cardiology (5) Secondary hyperparathyroidism Current Visit: Yes Status: Acute Assessment and Plan: Calcium = 8.3 - Phosphorus = 3.3 - Vitamin D = 17 - PTH = 230 PLAN: - Given elevated PTH, low calcium, normal phosphate, patient likely has secondary hyperparathyroidism. May be secondary to underlying renal disease. We will treat vitamin D deficiency - We will treat with ergocalciferol 50,000 units once weekly (6) DVT prophylaxis Current Visit: No Status: Resolved Assessment and Plan: PLAN: - Currently on heparin subcutaneous twice a day DVT Prophylaxis: Heparin subcutaneous twice a day - Time Spent with Patient Total time spent is greater than 50% in coordination of care (as documented) at patient's floor/unit and/or counseling patient: less than 15 minutes Plan of Care Discussed with: patient Internal Medicine: Result - Labs CBC & Chem 7: 02/26/19 07:09 02/26/19 07:09 - ABG Interpretation ABG results: PT/INR, D-dimer PT 11.5 Seconds (9.4-12.1) 02/20/19 03:58 <Dorothy Morfin - Last Filed: 02/26/19 12:26> (1) Type 1 diabetes mellitus with diabetic chronic kidney disease Qualifiers: Chronic kidney disease stage: stage 4 (severe) Qualified Code(s): E10.22 - Type 1 diabetes mellitus with diabetic chronic kidney disease; N18.4 - Chronic kidney disease, stage 4 (severe) (2) Anemia in CKD (chronic kidney disease) Qualifiers: Chronic kidney disease stage: stage 5, not on chronic dialysis Qualified Code(s): N18.5 - Chronic kidney disease, stage 5; D63.1 - Anemia in chronic kidney disease (4) Failure to thrive Qualifiers: Failure to thrive age range: in adult Qualified Code(s): R62.7 - Adult failure to thrive (7) DKA (diabetic ketoacidoses) Qualifiers: Diabetes mellitus type: type 1 Diabetes mellitus complication detail: without coma Qualified Code(s): E10.10 - Type 1 diabetes mellitus with ketoacidosis without coma <Nicki Fierro - Last Filed: 02/26/19 13:15> (1) Type 1 diabetes mellitus with diabetic chronic kidney disease Qualifiers: Chronic kidney disease stage: stage 4 (severe) Qualified Code(s): E10.22 - Type 1 diabetes mellitus with diabetic chronic kidney disease; N18.4 - Chronic kidney disease, stage 4 (severe) (3) Anemia in CKD (chronic kidney disease) Qualifiers: Chronic kidney disease stage: stage 5, not on chronic dialysis Qualified Code(s): N18.5 - Chronic kidney disease, stage 5; D63.1 - Anemia in chronic kidney disease
[2019-02-26] MEDS ORDERED: *HR* Heparin 10,000 UNIT/10 ML VIAL IV PRN (07:50)
[2019-02-26] MEDS ORDERED: 0.9 % Sodium Chloride 250 ML IVC PRN (07:50)
[2019-02-26 07:52] LABS: Calcium 9.4 mg/dL (8.6-10.3); Potassium 4.7 mEq/L (3.5-5.1)
[2019-02-26 07:55] LABS: Hemoglobin 10.3 g/dL (12.9-16.9)
[2019-02-26] MEDS ORDERED: 0.9 % Sodium Chloride 1,000 ML PRIME SCH (08:00)
[2019-02-26] MEDS: amLODIPine 5 MG TABLET PO SCH (08:01)
[2019-02-26] MEDS: Aspirin 81 MG TAB.CHEW PO SCH (08:01)
[2019-02-26] MEDS ORDERED: 0.9 % Sodium Chloride 1,000 ML ONE (11:23)
--- NOTE | 2019-02-26 11:36 | Nephrology Progress Note ---
Date of Encounter: 02/26/19 Time of Encounter: 11:35 - Assessment and Plan (1) ESRD (end stage renal disease) Current Visit: Yes Status: Chronic HD TRS Renal vitamins. Renal dose medications. Renal diet. Additional dialysis and ultrafiltration as needed. Patient seen on dialysis. (2) Anemia in CKD (chronic kidney disease) Current Visit: Yes Status: Chronic Goal hemoglobin is Currently stable . EPO as needed Continue iron supplements Qualifiers: Chronic kidney disease stage: stage 5, not on chronic dialysis Qualified Code(s): N18.5 - Chronic kidney disease, stage 5; D63.1 - Anemia in chronic kidney disease (3) Acute non-ST segment elevation myocardial infarction Current Visit: Yes Status: Acute Subjective Principal diagnosis: Renal Failure, DKA, Electrolyte abnormalities Interval history: Patient seen. He has no new complaints. He denies dyspnea. ROS is otherwise stable. Objective - Vital Signs Vital signs: Vital Signs Temp Pulse Resp BP Pulse Ox 02/26/19 11:15 93/48 02/26/19 11:00 92/59 02/26/19 10:45 111/62 02/26/19 10:30 88/56 02/26/19 10:15 116/75 02/26/19 10:00 131/67 02/26/19 09:45 135/70 02/26/19 09:30 155/80 02/26/19 09:15 156/73 02/26/19 09:00 97.2 F L 16 172/78 02/26/19 07:20 96.1 F L 82 16 145/73 99 02/26/19 03:34 97.9 F 91 16 118/56 95 02/26/19 00:02 97.7 F 89 16 123/66 96 02/25/19 19:38 99.2 F 93 16 120/64 97 02/25/19 12:00 99.3 F 75 17 147/85 95 Intake and Output 02/25/19 02/26/19 02/26/19 23:59 07:59 15:59 Intake Total 600 / 600 Output Total 600 / 600 Balance -600 / 0 600 / 0 Intake: Intake, Rinseback and Flushes 600 / 600 Output: Urine 600 / 600 Other: Blood Glucose* 198 67 Hemodialysis Net Fluid Removed 1445 (mL) - General Appearance General appearance: Present: well-developed, well-nourished EENT: Present: ATNC Neck: Present: supple Cardiology: Present: regular rate Neurologic: Present: alert and oriented x3 Psychiatric: Present: mood/affect appropriate - Lab 02/26/19 07:09 02/26/19 07:09 Most recent lab results 02/26/19 07:09 Calcium 9.4 Consult Discharge Plan - Plan Referrals: [facility] [[facility]] (Please follow up with family medicine clinic within 1 week of discharge, unless patient has other primary care physician.) Jarvis Willoughby MD [Partnered Physician] - (Please follow up with gastroenterology in 1 week) Constantino Fonseca, SHAINA [Advanced Practice Nurse] - (Per cardiology note, outpatient f/u 1-2 weeks from discharge) Chayo Saravia MD [Partnered Physician] - (Please continue a Monday , , Monday hemodialysis. Follow up with nephrology within 1 week) NONE,PCP [Primary Care Provider] - Prescriptions: Insulin DETEMIR [Levemir] 15 unit SQ QAM 30 Days mls Insulin DETEMIR [Levemir] 10 unit SQ HS 30 Days mls
[2019-02-26] MEDS ORDERED: Insulin DETEMIR 100 UNIT/ML X5UNITS SQ ONE ×2 (17:00→23:04)
[2019-02-26] MEDS: Mirtazapine 15 MG TABLET PO SCH (21:16)
[2019-02-27] MEDS: *HR* Heparin 5,000 UNIT/ML VIAL SQ SCH ×2 (05:12→16:51)
[2019-02-27 05:22] LABS: Basophils # 0.1 K/mcL (0.0-0.2); Basophils % 0.6 %; Eosinophils # 0.2 K/mcL (0.0-0.6); Eosinophils % 1.8 %; Hematocrit 23.6 % (37.5-50.1); Hemoglobin 7.7 g/dL (12.9-16.9); Immature Granulocytes % 1.3 % (0-4); Lymphocytes # 1.8 K/mcL (0.6-4.6); Lymphocytes % 14.7 %; Mean Corpuscular HGB Conc 32.6 g/dL (31.6-35.5); Mean Corpuscular Hemoglobin 32.8 pg (28.0-33.3); Mean Corpuscular Volume 100.4 fL (83.0-100.0); Monocytes # 1.2 K/mcL (0.0-1.3); Monocytes % 9.7 %; Neutrophils # 8.6 K/mcL (1.6-8.9); Platelet Count 286 K/mcL (140-400); Red Blood Count 2.35 M/mcL (4.19-5.50); Red Cell Distribution Width 14.1 % (11.5-14.5); Segmented Neutrophils % 71.9 %; White Blood Count 11.9 K/mcL (4.3-11.1)
[2019-02-27 05:41] LABS: Magnesium 2.1 mg/dL (1.6-2.6); Potassium 4.7 mEq/L (3.5-5.1)
[2019-02-27] MEDS: Insulin LISPRO 300 UNITS/3 ML VIAL SQ SCH ×4 (08:14→20:51)
[2019-02-27] MEDS: amLODIPine 5 MG TABLET PO SCH (08:14)
[2019-02-27] MEDS: Aspirin 81 MG TAB.CHEW PO SCH (08:14)
--- NOTE | 2019-02-27 09:17 | Internal Med Progress Note ---
Hospitalist Progress Note - Encounter Date of Encounter: 02/27/19 Time of Encounter: 09:16 - Subjective Interval History: Patient seen examined by is resting comfortably in bed. He no complaints. He denied melena, hematechezia, hematuria, bleeding, shortness of breath, chest pain. Patient would have been discharged yesterday however he became hypoglyce carrol. Insulin regimen was decreased and has been acceptable levels today. It was noted that his hemoglobin had decreased so he will be typed in screen and transfused a unit of blood. The hand candy molder was formed and agreed. He is to be discharged once transfusion complete and will follow up with the gastroenterologists outpatient for colonoscopy. - Exam Vitals: Temp Pulse Resp BP Pulse Ox 98.9 F 83 16 120/49 98 02/27/19 07:44 02/27/19 07:44 02/27/19 07:44 02/27/19 07:44 02/27/19 07:44 Exam: Gen.: Vitals noted. No acute distress. AAOx3 HEENT: oropharynx clear, Normocephalic, atraumatic Cardiac: RRR, no murmur, +S1/S2 Pulmonary: CTA bilaterally, no wheezes, rales or rhonchi, equal chest expansion Abdomen: soft, nontender, Bowel sounds noted, no guarding MSK: no joint swelling noted Extremities: no BLE edema, nontender calf, no cyanosis or clubbing Neuro: A&Ox3, moves all extremities, no focal deficits Psych: Appropriate mood and behavior - Assessment and Plan (1) Type 1 diabetes mellitus with diabetic chronic kidney disease Current Visit: Yes Status: Chronic Assessment and Plan: Patient is known history of type I diabetes on treatment was insulin. -has been difficult to control with him becoming hypoglycemic -Glucose elevated -increasing Levemir to 15 units AM -continue meeting dose sliding scale insulin -continue diabetic diet -tinny Accu check (2) ESRD (end stage renal disease) Current Visit: Yes Status: Chronic Assessment and Plan: ESRD. He has had CKD-IV for a while now however is now agreeable to dialysis. [facility] Plan -nephrology following a managing HD -once discharge patient to go to dialysis on Monday, , Monday that Sarina -Will avoid nephrotoxic agents and renal dose medications -will continue to monitor I&O (3) Anemia in CKD (chronic kidney disease) Current Visit: Yes Status: Chronic Assessment and Plan: Anemia likely of chronic disease but may be multifactorial with iron deficiency. Baseline hemoglobin 8-9. -hemoglobin 7.7 stable -MVC normal -patient denies blood in stool. -No obvious active bleeding - EGD (02/15/19): Left antral grade a reflux esophagitis. Gastritis. Normal ampulla, first portion of duodenum and second portion of duodenum. - Colonoscopy (02/15/19): Exam was suboptimal due to patient preparation. -Patient denied melena, hematechezia, hematuria, active bleeding. Plan -decreased hemoglobin is likely due to his ESRD, cardiovascular dz. -will type and screen. We will transfused one unit PRBC -gastroenterology consulted and would like to perform outpatient colonoscopy. -nephrology continuing epo -goal hemoglobin 10 to 11 -continue iron supplementation (4) DVT prophylaxis Current Visit: No Status: Acute Assessment and Plan: SCD (5) Failure to thrive Current Visit: No Status: Chronic Assessment and Plan: Nutrition consulted. Patient has a BMI of 21 (6) NSTEMI (non-ST elevated myocardial infarction) Current Visit: Yes Status: Acute Assessment and Plan: NSTEMI -this is in the setting of DKA. Patient reports being compliant with his medications. -troponin > 73, now 42 -during last admission patient had NSTEMI and refused LHC. -Risk factors diabetes, hypertension, hyperlipidemia, CKD -EKG showed NSR without acute ST changes or T wave inversions from previous admission -ECHO from 02/07/19: LVEF 65-70%. Mild concentric left ventricular hypertrophy. Mild left ventricular diastolic dysfunction. Normal right ventricular structure and function. Mild-moderate tricuspid regurgitation. Mild pulmonary hypertension. - Left heart catheterization done (02/21/19). A revealed severe two-vessel coronary artery disease including severe left main disease. plan -CT surgery was consulted and patient was deemed a poor candidate for CABG. Options were discussed with patient and , and patient opted to proceed with medical management rather than undergoing a high risk procedure. Plan to continue with aspirin, Plavix, statin, beta brian. Follow-up with cardiology outpatient in 1 to 2 weeks after discharge. -cardiology following and is planning for -continue cardiac telemetry -continue to monitor for chest pain (7) DKA (diabetic ketoacidoses) Current Visit: Yes Status: Resolved Assessment and Plan: Resolved Diabetic ketoacidosis in the setting of NSTEMI. -Etiology may be NSTEMI as there is no obvious source of infection at this time. Patient a report that he recently improved from having a cough a couple days ago. -Anion gap at admission 18 -anion gap now 11 -chest x-ray unremarkable -urinalysis unremarkable -WBC 18.9 -lactic acid 4.2(3.9) -VBG: pH 7.2, CO2 37, HCO3 14 -beta hydroxybutyric acid > 2.0 -blood cultures negative to date -Resolved. Plan as above (8) Vitiligo Current Visit: No Status: Chronic Assessment and Plan: Chronic (9) Hyponatremia Current Visit: Yes Status: Acute Assessment and Plan: Hyponatremia that is suitable hyponatremia from hyperglycemia. Sodium at admission 126. Sodium now improved. Will continue to monitor. (10) Leukocytosis Current Visit: Yes Status: Acute - Time Spent with Patient Total time spent is greater than 50% in coordination of care (as documented) at patient's floor/unit and/or counseling patient: Internal Medicine: Result - Labs CBC & Chem 7: 02/27/19 04:22 02/27/19 04:22 Labs: Short CBC 02/27/19 Range/Units 04:22 WBC 11.9 H (4.3-11.1) K/mcL Hgb 7.7 L D (12.9-16.9) g/dL Hct 23.6 L (37.5-50.1) % Plt Count 286 (140-400) K/mcL Neutrophils # 8.6 (1.6-8.9) K/mcL BMP 02/27/19 04:22 Sodium 135 L Potassium 4.7 Chloride 99 Carbon Dioxide 29 BUN 34 H Creatinine 2.66 H Glucose 203 H Calcium 8.0 L - ABG Interpretation ABG results: PT/INR, D-dimer PT 11.5 Seconds (9.4-12.1) 02/20/19 03:58 Consult Discharge Plan - Plan Referrals: [facility]Outside] (Please follow up with family medicine clinic within 1 week of discharge, unless patient has other primary care physician.) Jarvis Willoughby MD [Partnered Physician] - (Please follow up with gastroenterology in 1 week) Constantino Fonseca CNP [Advanced Practice Nurse] - (Per cardiology note, outpatient f/u 1-2 weeks from discharge) Chayo Saravia MD [Partnered Physician] - (Please continue a Monday, , Monday hemodialysis. Follow up with nephrology within 1 we ek) NONE,PCP [Primary Care Provider] - Prescriptions: Insulin DETEMIR [Levemir] 15 unit SQ QAM 30 Days mls (1) Type 1 diabetes mellitus with diabetic chronic kidney disease Qualifiers: Chronic kidney disease stage: stage 4 (severe) Qualified Code(s): E10.22 - Type 1 diabetes mellitus with diabetic chronic kidney disease; N18.4 - Chronic kidney disease, stage 4 (severe) (3) Anemia in CKD (chronic kidney disease) Qualifiers: Chronic kidney disease stage: stage 5, not on chronic dialysis Qualified Code(s): N18.5 - Chronic kidney disease, stage 5; D63.1 - Anemia in chronic kidney disease (5) Failure to thrive Qualifiers: Failure to thrive age range: in adult Qualified Code(s): R62.7 - Adult failure to thrive (7) DKA (diabetic ketoacidoses) Qualifiers: Diabetes mellitus type: type 1 Diabetes mellitus complication detail: without coma Qualified Code(s): E10.10 - Type 1 diabetes mellitus with ketoacidosis without coma
[2019-02-27] MEDS ORDERED: 0.9 % Sodium Chloride 250 ML ONE (11:19)
--- NOTE | 2019-02-27 12:34 | Nephrology Progress Note ---
Date of Encounter: 02/27/19 Time of Encounter: 12:32 - Assessment and Plan (1) ESRD (end stage renal disease) Current Visit: Yes Status: Chronic HD TRS Renal vitamins. Renal dose medications. Renal diet. Additional dialysis and ultrafiltration as needed. No need for dialysis today. (2) Anemia in CKD (chronic kidney disease) Current Visit: Yes Status: Chronic Qualifiers: Chronic kidney disease stage: stage 5, not on chronic dialysis Qualified Code(s): N18.5 - Chronic kidney disease, stage 5; D63.1 - Anemia in chronic kidney disease (3) Acute non-ST segment elevation myocardial infarction Current Visit: Yes Status: Acute Subjective Principal diagnosis: Renal Failure, DKA, Electrolyte abnormalities Interval history: Patient seen. He has no new complaints. He is asleep. Objective - Vital Signs Vital signs: Vital Signs Temp Pulse Resp BP Pulse Ox 02/27/19 11:30 98.4 F 82 16 120/72 97 02/27/19 11:21 98.8 F 82 14 114/67 96 02/27/19 10:59 98.5 F 79 16 132/76 97 02/27/19 07:44 98.9 F 83 16 120/49 98 02/27/19 03:55 97.7 F 80 17 98/56 96 02/26/19 23:20 97.9 F 94 17 105/61 97 02/26/19 20:42 98.8 F 90 17 102/54 98 02/26/19 15:28 99.0 F 86 16 132/65 97 Intake and Output 02/26/19 02/27/19 02/27/19 23:59 07:59 15:59 Intake Total 580 / 580 Output Total 150 / 150 Balance 430 / 430 Intake: Oral 480 / 480 Blood Product 100 / 100 Rbcs Leuko Poor As-1 Unit 100 / 100 [id number] Output: Urine 150 / 150 Other: Meal Breakfast Percent of Meal Consumed 100% Stool Size Large Stool Consistency loose Stool Color Brown Black # Bowel Movement Diapers 1 Weight 70.2 kg Blood Glucose* 414 137 345 - General Appearance General appearance: Present: well-developed, well-nourished EENT: Present: ATNC Cardiology: Present: regular rate - Lab 02/27/19 04:22 02/27/19 04:22 Most recent lab results 02/27/19 04:22 Calcium 8.0 L Phosphorus 2.0 L Magnesium 2.1 Consult Discharge Plan - Plan Referrals: [facility] [Outside] (Please follow up with family medicine clinic within 1 week of discharge, unless patient has other primary care physician.) Jarvis Willoughby MD [Partnered Physician] - (Please follow up with gastroenterology in 1 week) Constantino Fonseca, PROGRAM SUPPORT SPECIALIST [Advanced Practice Nurse] - (Per cardiology note, outpatient f/u 1-2 weeks from discharge) Chayo Saravia MD [Partnered Physician] - (Please continue a Monday, , Monday hemodialysis. Follow up with nephrology within 1 week) NONE,PCP [Primary Care Provider] - Prescriptions: Insulin DETEMIR [Levemir] 15 unit SQ QAM 30 Days mls
[2019-02-27] MEDS: Insulin DETEMIR 100 UNIT/ML X5UNITS SQ SCH (16:50)
[2019-02-27] MEDS: Mirtazapine 15 MG TABLET PO SCH (20:49)
[2019-02-28] MEDS: *HR* Heparin 5,000 UNIT/ML VIAL SQ SCH (06:16)
[2019-02-28 07:09] LABS: Basophils # 0.1 K/mcL (0.0-0.2); Basophils % 0.6 %; Eosinophils # 0.3 K/mcL (0.0-0.6); Eosinophils % 2.6 %; Hematocrit 28.8 % (37.5-50.1); Immature Granulocytes % 1.1 % (0-4); Lymphocytes # 1.9 K/mcL (0.6-4.6); Lymphocytes % 18.7 %; Mean Corpuscular Hemoglobin 32.2 pg (28.0-33.3); Mean Corpuscular Volume 97.6 fL (83.0-100.0); Mean Platelet Volume 9.9 fL (9.4-12.4); Monocytes # 1.1 K/mcL (0.0-1.3); Monocytes % 10.3 %; Neutrophils # 6.8 K/mcL (1.6-8.9); Platelet Count 324 K/mcL (140-400); Red Blood Count 2.95 M/mcL (4.19-5.50); Red Cell Distribution Width 15.3 % (11.5-14.5); Segmented Neutrophils % 66.7 %; White Blood Count 10.2 K/mcL (4.3-11.1)
[2019-02-28 07:10] LABS: Hemoglobin 9.5 g/dL (12.9-16.9)
[2019-02-28] MEDS ORDERED: 0.9 % Sodium Chloride 1,000 ML ONE (07:15)
[2019-02-28 07:29] LABS: Calcium 8.7 mg/dL (8.6-10.3); Potassium 4.8 mEq/L (3.5-5.1)
[2019-02-28] MEDS ORDERED: *HR* Heparin 10,000 UNIT/10 ML VIAL IV PRN (07:32)
[2019-02-28] MEDS ORDERED: 0.9 % Sodium Chloride 250 ML IVC PRN (07:32)
[2019-02-28] MEDS ORDERED: Dextrose Gel 15 GM/37.5 ML TUBE PO ONE (08:02)
[2019-02-28] MEDS: Aspirin 81 MG TAB.CHEW PO SCH (08:05)
[2019-02-28] MEDS: Insulin LISPRO 300 UNITS/3 ML VIAL SQ SCH ×2 (08:05→12:56)
[2019-02-28] MEDS: amLODIPine 5 MG TABLET PO SCH (08:06)
[2019-02-28] MEDS: Dextrose Gel 15 GM/37.5 ML TUBE PO PRN (08:08)
--- NOTE | 2019-02-28 08:41 | Internal Med Progress Note ---
<Nicki Fierro - Last Filed: 02/28/19 12:56> Hospitalist Progress Note - Encounter Date of Encounter: 02/28/19 Time of Encounter: 08:36 - Subjective Interval History: Patient seen and examined at dialysis this morning. He is currently in no acute distress. Overnight, patient was noted to have low blood sugar = 41. Given D50 . Patient responded appropriately. He denies any headaches, blurry vision, confusion, chest pain, difficulty breathing, abdominal pain, nausea, vomiting. States that he has been eating his meals and tolerating them without difficulty. He is currently on medium dose insulin sliding scale and Levemir 15 units every morning. Otherwise no acute complaints. Patient is hemodynamically stable. Remains afebrile without leukocytosis. Hemoglobin stable this morning = 9.5. [facility]. Patient currently receiving dialysis. Probable discharge this afternoon. Will discharge with Levemir 12 units to be given every morning, and medium dose sliding scale. We will recommend p.m. snack to be given prior to bedtime. Will recommend overnight glucose check. Further insulin management by [facility]. - Exam Vitals: Temp Pulse Resp BP Pulse Ox 98.1 F 83 17 143/71 97 02/28/19 07:38 02/28/19 07:38 02/28/19 07:38 02/28/19 07:38 02/28/19 07:38 Exam: GEN: Pleasant 73-year-old male resting comfortably during hemodialysis. Vitals stable. No acute distress. AAOx3 HEENT: Atraumatic, Normocephalic, PERRLA, EOMI NECK: Supple, no lymphadenopathy, no JVD CARDIAC: RRR, s1 and s2 present, no murmurs, rubs, gallops PULM: CTAB, not in respiratory distress, no wheezes, rales, crackles, rhonchi ABD: Soft, non-tender, non-distended, no guarding or rebound tenderness. Bowel sounds present EXT: No peripheral edema. No calf tenderness, cyanosis, clubbing NEURO: CN 2-12 grossly intact. No focal neurologic deficits. Follows commands PSYCH: Appropriate mood and affect - Assessment and Plan (1) Type 1 diabetes mellitus with diabetic chronic kidney disease Current Visit: Yes Status: Chronic Assessment and Plan: This is a 73-year-old male with past medical history significant for type 1 diabetes mellitus on home insulin, coronary artery disease, hypertension, hyperlipidemia, end-stage renal disease who [facility] with diabetic ketoacidosis. Patient had been recently admitted and discharged due to hypoglycemia and NSTEMI on 02/11/19. Left heart cath on previous admission had been postponed due to poor renal function. - On admission: Anion gap = 18, glucose = 449, beta hydroxybutyric acid greater than 2.00, K = 6.2, lactic acid = 4.2; VBG = 7. - CXR = unremarkable - UA = negative - Blood cultures no growth - Blood sugars this a.m. = 41. Patient was given glucose gel. Blood sugars responded appropriately. Patient was fed and ate half of breakfast, and then was seen in hemodialysis. He was asymptomatic. PLAN: - Continue with medium dose sliding scale - We will give 12 units of Levemir long-acting insulin today. Plan to continue with 12 units every morning. Will encourage p.m. snack prior to bedtime. Also will encourage overnight glucose check. - Continue Accu-Cheks before meals and at bedtime - Continue to monitor electrolytes - Continue diabetic diet - Given ESRD, we will avoid metformin and SGL to inhibitors on discharge (given patient's GFR less than 30) - Follow up with primary care within 1 week of discharge - Follow up with social work regarding discharge planning. Patient is currently stable for discharge. - On discharge, patient will be discharged with 12 units Levemir every morning. Also will discharge with medium dose sliding scale. Will encourage p.m. snack prior to bedtime. Also will encourage overnight glucose check. Blood sugars will require close monitoring while at [facility]. (2) ESRD (end stage renal disease) Current Visit: Yes Status: Chronic Assessment and Plan: Patient has end-stage renal disease CKD stage V. - Previous ampoule inspector was Dr. Card - Patient does report that he does still make urine - Patient had previously refused hemodialysis, but after returning critically ill with DKA yesterday, he agreed to initiate dialysis. - Temporary hemodialysis catheter placed (02/13/19) - Permacath placed (02/19/19) PLAN: - Nephrology is following. We appreciate the recommendations. - Patient will need chronic dialysis moving forward - Avoid nephrotoxic agents and renally dose medications - Continue to monitor I's and O's - Daily weights - Continue renal diet - Patient will need outpatient hemodialysis placement at time of discharge; patient will be on a Monday, , Monday hemodialysis schedule in the [facility] setting. Discharge planning depending social work, and [facility] acceptance (3) Anemia in CKD (chronic kidney disease) Current Visit: Yes Status: Chronic Assessment and Plan: Patient likely has anemia of chronic disease, but anemia is likely multifactorial - His baseline hemoglobin seems to be in the 8-10 range - Patient has normal MCV; folate and B12 also within normal limits - Patient denied any blood in stool. No signs of any active bleeding - EGD (02/15/19): Left antral grade a reflux esophagitis. Gastritis. Normal ampulla, first portion of duodenum and second portion of duodenum. - Colonoscopy (02/15/19): Exam was suboptimal due to patient preparation. - Hemoglobin continues to remain stable. Hemoglobin = 9.5. Status post 1 unit of PRBCs yesterday. No signs of acute bleed. Vitals remain stable. Blood pressure stable. Patient is not tachycardic. PLAN: - Gastroenterology on board. Recommendations appreciated - Per nephrology, goal hemoglobin = 10-11 - Continue EPO subcutaneous 3 times weekly per nephrology - Continue iron supplementation - Follow up outpatient gastroenterology for possible colonoscopy in the future (4) NSTEMI (non-ST elevated myocardial infarction) Current Visit: Yes Status: Acute Assessment and Plan: Patient presented with an NSTEMI in the setting of DKA - Initial troponins on admission = 73 which trended down to 42 - At previous admission, patient was noted to have NSTEMI; however left heart catheter was not completed due to poor renal function - EKG: Showed normal sinus rhythm without acute ST changes. No changes from previous admission - Most recent echocardiogram (02/13/19): LVEF = 60%, normal left ventricular size, wall thickness, function; mild segmental left ventricular systolic dysfunction which was not described on previous report on 02/07/19 - Left heart catheterization done (02/21/19). A revealed severe two-vessel coronary artery disease including severe left main disease. CT surgery was cons ulted and patient was deemed a poor candidate for CABG. Options were discussed with patient and , and patient opted to proceed with medical management rather than undergoing a high risk procedure. Plan to continue with aspirin, Plavix, statin, beta brian. PLAN: - Continue on telemetry. Continue to monitor for chest pain - Aggressively treat risk factor modifications - Continue with aspirin, Plavix, amlodipine, atorvastatin, metoprolol - Follow up outpatient cardiology (5) Secondary hyperparathyroidism Current Visit: Yes Status: Acute Assessment and Plan: Calcium = 8.3 - Phosphorus = 3.3 - Vitamin D = 17 - PTH = 230 PLAN: - Given elevated PTH, low calcium, normal phosphate, patient likely has secondary hyperparathyroidism. May be secondary to underlying renal disease. We will treat vitamin D deficiency - We will treat with ergocalciferol 50,000 units once weekly (6) DVT prophylaxis Current Visit: No Status: Resolved Assessment and Plan: PLAN: - Currently on heparin subcutaneous twice a day DVT Prophylaxis: Heparin subcutaneous twice a day - Time Spent with Patient Total time spent is greater than 50% in coordination of care (as documented) at patient's floor/unit and/or counseling patient: less than 15 minutes Plan of Care Discussed with: patient Internal Medicine: Result - Labs CBC & Chem 7: 02/28/19 06:31 02/28/19 06:31 Labs: Short CBC 02/28/19 Range/Units 06:31 WBC 10.2 (4.3-11.1) K/mcL Hgb 9.5 L D (12.9-16.9) g/dL Hct 28.8 L (37.5-50.1) % Plt Count 324 (140-400) K/mcL Neutrophils # 6.8 (1.6-8.9) K/mcL BMP 02/28/19 06:31 Sodium 139 Potassium 4.8 Chloride 100 Carbon Dioxide 31 H BUN 45 H Creatinine 3.46 H Glucose 41 L Calcium 8.7 - ABG Interpretation ABG results: PT/INR, D-dimer PT 11.5 Seconds (9.4-12.1) 02/20/19 03:58 Consult Discharge Plan - Plan Referrals: [facility]] (Please follow up with family medicine clinic within 1 week of discharge, unless patient has other primary care physician.) Jarvis Willoughby MD [Partnered Physician] - (Please follow up with gastroenterology in 1 week) Constantino Fonseca, GUITAR MAKER HAND [Advanced Practice Nurse] - (Per cardiology note, outpatient f/u 1-2 weeks from discharge) Chayo Saravia MD [Partnered Physician] - (Please continue a Monday, , Monday hemodialysis. Follow up with nephrology within 1 week) NONE,PCP [Primary Care Provider] - Prescriptions: Insulin DETEMIR [Levemir] 15 unit SQ QAM 30 Days mls <Patrick Munroe Isadora - Last Filed: 02/28/19 13:40> Hospitalist Progress Note - Encounter Date of Encounter: 02/28/19 - Exam Vitals: Temp Pulse Resp BP Pulse Ox 97.7 F 83 15 140/67 97 02/28/19 12:05 02/28/19 07:38 02/28/19 12:05 02/28/19 12:05 02/28/19 07:38 - Assessment and Plan (1) Type 1 diabetes mellitus with diabetic chronic kidney disease Current Visit: Yes Status: Chronic (2) Anemia in CKD (chronic kidney disease) Current Visit: Yes Status: Chronic (3) DVT prophylaxis Current Visit: No Status: Acute (4) Failure to thrive Current Visit: No Status: Chronic (5) NSTEMI (non-ST elevated myocardial infarction) Current Visit: Yes Status: Acute (6) DKA (diabetic ketoacidoses) Current Visit: Yes Status: Resolved (7) Vitiligo Current Visit: No Status: Chronic (8) ESRD (end stage renal disease) Current Visit: Yes Status: Chronic (9) Hyponatremia Current Visit: Yes Status: Acute (10) Leukocytosis Current Visit: Yes Status: Acute - Time Spent with Patient Total time spent is greater than 50% in coordination of care (as documented) at patient's floor/unit and/or counseling patient: Internal Medicine: Result - Labs CBC & Chem 7: 02/28/19 06:31 02/28/19 06:31 Labs: Short CBC 02/28/19 Range/Units 06:31 WBC 10.2 (4.3-11.1) K/mcL Hgb 9.5 L D (12.9-16.9) g/dL Hct 28.8 L (37.5-50.1) % Plt Count 324 (140-400) K/mcL Neutrophils # 6.8 (1.6-8.9) K/mcL BMP 02/28/19 06:31 Sodium 139 Potassium 4.8 Chloride 100 Carbon Dioxide 31 H BUN 45 H Creatinine 3.46 H Glucose 41 L Calcium 8.7 - ABG Interpretation ABG results: PT/INR, D-dimer PT 11.5 Seconds (9.4-12.1) 02/20/19 03:58 - Attending Attestation I examined this patient and my medical decision-making was reviewed with the Resident Physician on 02/28/19. I agree with the documented findings, disposition and treatment plan as described except to the extent set forth below. Mr Ruiz has been admitted for NSTEMI and ESRD. He has had issues with DKA and fluctuating blood sugars. No fever or chills. Seen in dialysis today and he feels well. Exam as above. Plan D/C to SNF today. Levemir 12 units daily with SSI coverage. Needs to have hs snack daily and close monitoring of blood sugar. Follow up with cardiology and GI. Was explained to patient the need to eat consistently for blood sugars and insulin. <Nicki Fierro - Last Filed: 02/28/19 12:56> (1) Type 1 diabetes mellitus with diabetic chronic kidney disease Qualifiers: Chronic kidney disease stage: stage 4 (severe) Qualified Code(s): E10.22 - Type 1 diabetes mellitus with diabetic chronic kidney disease; N18.4 - Chronic kidney disease, stage 4 (severe) (3) Anemia in CKD (chronic kidney disease) Qualifiers: Chronic kidney disease stage: stage 5, not on chronic dialysis Qualified Code(s): N18.5 - Chronic kidney disease, stage 5; D63.1 - Anemia in chronic kidney disease <Patrick Munroe - Last Filed: 02/28/19 13:40> (1) Type 1 diabetes mellitus with diabetic chronic kidney disease Qualifiers: Chronic kidney disease stage: stage 4 (severe) Qualified Code(s): E10.22 - Type 1 diabetes mellitus with diabetic chronic kidney disease; N18.4 - Chronic kidney disease, stage 4 (severe) (2) Anemia in CKD (chronic kidney disease) Qualifiers: Chronic kidney disease stage: stage 5, not on chronic dialysis Qualified Code(s): N18.5 - Chronic kidney disease, stage 5; D63.1 - Anemia in chronic kidney disease (4) Failure to thrive Qualifiers: Failure to thrive age range: in adult Qualified Code(s): R62.7 - Adult failure to thrive (6) DKA (diabetic ketoacidoses) Qualifiers: Diabetes mellitus type: type 1 Diabetes mellitus complication detail: without coma Qualified Code(s): E10.10 - Type 1 diabetes mellitus with ketoacidosis without coma
[2019-02-28] MEDS: Insulin DETEMIR 100 UNIT/ML X5UNITS SQ SCH (10:25)
[2019-02-28] MEDS ORDERED: Insulin DETEMIR 100 UNIT/ML X5UNITS SQ SCH (10:30)
[2019-02-28 12:05] VITALS: BP 140/67
--- NOTE | 2019-02-28 14:20 | Physician Discharge Referral ---
ExtendedCare Referral Info Transfer To: Nursing Home Facility Provider in Charge after Transfer: PCP Institutional Level of Care: Skilled - Diagnosis (1) Type 1 diabetes mellitus with diabetic chronic kidney disease Priority: Primary Status: Chronic (2) ESRD (end stage renal disease) Priority: Secondary Status: Chronic (3) Anemia in CKD (chronic kidney disease) Priority: Secondary Status: Chronic (4) NSTEMI (non-ST elevated myocardial infarction) Priority: Secondary Status: Acute (5) Secondary hyperparathyroidism Priority: Secondary Status: Acute (6) DVT prophylaxis Priority: Secondary Status: Resolved Prognosis: Fair Aware of Diagnosis: Patient, Family Aware of Prognosis: Patient, Family - Transfer Medications Home Medications: Glucagon,Human Recombinant [Glucagon Emergency Kit] 1 mg IM AD PRN 06/18/16 [History] Acetaminophen [Tylenol] 650 mg PO DAILY PRN 02/07/19 [History] Atorvastatin [Lipitor] 40 mg PO HS #30 tablet 02/10/19 [Rx] Clopidogrel [Plavix] 75 mg PO DAILY #30 tablet 02/10/19 [Rx] Ferrous Sulfate 325 mg PO BIDWM #60 tablet 02/10/19 [Rx] Aspirin 81 mg PO DAILY 02/12/19 [History] Escitalopram [Lexapro] 10 mg PO DAILY 02/12/19 [History] Mirtazapine 7.5 mg PO HS 02/12/19 [History] Epoetin Alfredo [Procrit] 3,500 unit SQ 3XW vial 02/25/19 [Rx] Ergocalciferol (VITAMIN D2) [Drisdol (50,000 Unit)] 50,000 unit PO Th 28 Days #0 capsule 02/25/19 [Rx] Insulin ASPART [Novolog Flexpen] 0 units SQ TIDAC #0 02/25/19 [Rx] Metoprolol [Lopressor] 25 mg PO BID tablet 02/25/19 [Rx] amLODIPine [Norvasc] 10 mg PO DAILY tablet 02/25/19 [Rx] Insulin DETEMIR [Levemir] 12 unit SQ QAM [id number] 02/28/19 [Rx] Allergies/Adverse Reactions: Allergy/AdvReac Type Severity Reaction Status Date / Time tamsulosin [From Flomax] Allergy HEADACHES Verified 02/07/19 13:31 - Respiratory Orders Smoking Cessation: Smoking cessation has been advised. For more information, call the [place] Tobacco Quit Line at 2-954-DUOI-NOW. - Advance Directives Code Status: Full Code - Mobility Orders Ambulate, Other (Ambulate per physical therapy) - Rehabiliation Orders Rehab Potential: Fair Rehab Orders: Evaluation for Physical Therapy, Evaluation for Occupational Therapy - Diet Orders No Concentrated Sweets (Renal, cardiac, diabetic diet), Renal, Cardiac CERTIFICATION: I certify that the transfer of the above named patient to an Extended Care Facility is necessary for the continuing treatment of the diagnosis listed. The above information is true and accurate reflection of patient's current condition. Confidential - Redisclosure prohibited without a patient's written consent.
--- NOTE | 2019-02-28 21:23 | Nephrology Progress Note ---
Date of Encounter: 02/28/19 Time of Encounter: 10:05 - Assessment and Plan (1) ESRD (end stage renal disease) Status: Chronic HD TRS Renal vitamins. Renal dose medications. Renal diet. Additional dialysis and ultrafiltration as needed. Patient seen on dialysis today. (2) Anemia in CKD (chronic kidney disease) Status: Chronic (3) Acute non-ST segment elevation myocardial infarction Status: Acute Subjective Principal diagnosis: Renal Failure, DKA, Electrolyte abnormalities Interval history: Patient seen. He has no new complaints. Objective - Vital Signs Vital signs: Vital Signs Temp Pulse Resp BP Pulse Ox 02/28/19 12:05 97.7 F 15 140/67 02/28/19 11:55 126/58 02/28/19 11:40 124/66 02/28/19 11:25 94/55 02/28/19 11:10 117/64 02/28/19 10:55 119/60 02/28/19 10:40 118/58 02/28/19 10:25 108/62 02/28/19 10:10 114/59 02/28/19 09:55 117/51 02/28/19 09:40 111/55 02/28/19 09:25 113/60 02/28/19 09:10 121/62 02/28/19 08:55 126/60 02/28/19 08:40 134/53 02/28/19 08:25 97.8 F 18 140/65 02/28/19 07:38 98.1 F 83 17 143/71 97 02/28/19 03:55 98.5 F 80 17 138/68 98 02/28/19 00:11 98.2 F 78 17 118/68 96 Intake and Output 02/28/19 02/28/19 02/28/19 07:59 15:59 23:59 Intake Total 500 / 500 Output Total 2500 / 2500 Balance -1999 / -1999 Intake: Oral 0 / 0 Intake, Rinseback and Flushes 500 / 500 Output: Urine 0 / 0 Total Dialysis (HD) Output 2500 / 2500 Other: Meal Lunch Percent of Meal Consumed 50% # Urine Diapers 1 Blood Glucose* 50 189 Hemodialysis Net Fluid Removed 2000 (mL) - General Appearance General appearance: Present: well-developed, well-nourished EENT: Present: ATNC Cardiology: Present: regular rate - Lab 02/28/19 06:31 02/28/19 06:31 Consult Discharge Plan - Plan Referrals: [facility] [Outside] (Please follow up with family medicine clinic within 1 week of discharge, unless patient has other primary care physician.) Jarvis Willoughby MD [Partnered Physician] - (Please follow up with gastroenterology in 1 week Web Requested 02/28/2019) Constantino Fonseca, SHAINA [Advanced Practice Nurse] - (Per cardiology note, outpatient f/u 1-2 weeks from discharge transit department clerk office will call patient for an appt.) Chayo Saravia MD [Partnered Physician] - (Please continue a Monday, , Monday hemodialysis. Follow up with nephrology within 1 week) NONE,PCP [Primary Care Provider] -
== END 2019-02-28 16:21 | DRG 637 ==
LOC: EMEROOARM 19:29 → SUATTDRO 23:02 → ICNU 23:02 → 2ANU 02-13 17:27
PROVIDERS: ADMIT Internal Medicine; ATTEND Internal Medicine
PROC: IRPERMA (2019-02-19 12:00)

== ENCOUNTER 2021-04-04 21:58 | Inpatient (IN) ==
[2021-04-04] MEDS ORDERED: 0.9 % Sodium Chloride 1,000 ML IVC ONE ×3 (22:16→23:18)
[2021-04-04 22:36] LABS: ABG Base Excess -25 mEq/L (-2 to 3); ABG HCO3 5 mEq/L (21-27); ABG Oxygen Saturation 63 % (95-98); ABG PCO2 24 mmHg (35-45); ABG PH 6.97 pH Units (7.32-7.45); ABG PO2 50 mmHg (85-104); ABG TCO2 6 mEq/L (20-26)
[2021-04-04 22:39] LABS: Hematocrit 28.2 % (37.5-50.1); Hemoglobin 7.8 g/dL (12.9-16.9); Mean Corpuscular HGB Conc 27.7 g/dL (31.6-35.5); Mean Corpuscular Hemoglobin 31.7 pg (28.0-33.3); Mean Corpuscular Volume 114.6 fL (83.0-100.0); Mean Platelet Volume 10.2 fL (9.4-12.4); Platelet Count 398 K/mcL (140-400); Red Blood Count 2.46 M/mcL (4.19-5.50); Red Cell Distribution Width 15.8 % (11.5-14.5); White Blood Count 29.2 K/mcL (4.3-11.1)
[2021-04-04 22:45] LABS: INR 1.1; Prothrombin Time 12.2 Seconds (9.4-12.1)
[2021-04-04 22:47] LABS: Activated Partial Thrombo Time 25.2 Seconds (26.0-36.0)
[2021-04-04 22:54] LABS: Lymphocytes # 2.9 K/mcL (0.6-4.6); Neutrophils # 25.1 K/mcL (1.6-8.9)
[2021-04-04 22:55] LABS: Hypochromasia Present (Not Present); Macrocytosis Present (Not Present); Platelet Estimate Normal (Normal)
[2021-04-04 23:15] LABS: Alanine Aminotransferase 27 Units/L (7-52); Albumin/Globulin Ratio 1.3 (1.1-2.2); Alkaline Phosphatase 279 Units/L (34-104); Aspartate Amino Transferase 52 Units/L (13-39); BUN/Creatinine Ratio 15 (6-26); Bilirubin,Direct 0.2 mg/dL (0.0-0.2); Bilirubin,Indirect 0.2 mg/dL (0.0-1.0); Bilirubin,Total 0.4 mg/dL (0.3-1.0); Blood Urea Nitrogen 87 mg/dL (8-23); Calcium 8.4 mg/dL (8.6-10.3); Carbon Dioxide 5 mEq/L (23-29); Chloride 86 mEq/L (98-107); Ethanol < 10 mg/dL (Less than 10); Globulin 2.4 g/dL (2.4-3.5); Glucose 961 mg/dL (70-105); Osmolality,Calculated 338 (280-300); Potassium 7.2 mEq/L (3.5-5.1); Sodium 127 mEq/L (136-145); Thyroid Stimulating Hormone 8.609 mcIU/mL (0.340-5.600); Total Protein 5.4 g/dL (6.4-8.9); Troponin I 0.52 ng/mL (< 0.04); eGFR For African Americans 12 (> 60); eGFR For Non-African Americans 10 (> 60)
[2021-04-04] MEDS ORDERED: Calcium Gluconate 1,000 MG/10 ML VIAL IVP STA (23:15)
[2021-04-04] MEDS ORDERED: CALCIUM GLUCONATE IVPB ONE (23:30)
[2021-04-04] MEDS ORDERED: SODIUM CHLORIDE 0.9% IVPB ONE (23:30)
[2021-04-05 01:29] LABS: Amphetamine Screen,Urine Negative ng/mL (Cutoff=1000); Barbiturate Screen,Urine Negative ng/mL (Cutoff=200); Benzodiazepines Screen,Urine Negative ng/mL (Cutoff=200); Cannabinoid Screen,Urine Negative ng/mL (Cutoff = 50); Cocaine Screen,Urine Negative ng/mL (Cutoff= 300); Opiate Screen,Urine Negative ng/mL (Cutoff=300); Phencyclidine Screen,Urine Negative ng/mL (Cutoff=25)
[2021-04-05] MEDS ORDERED: Piperacillin/Tazobactam 3.375 GM in 0.9 % Sodium Chloride Mini Bag 100 ML IVPB ONE (01:30)
[2021-04-05 01:52] LABS: Bacteria,Urine Few per hpf (None-Few); Bilirubin,Urine Negative (Negative); Blood,Urine Moderate (Negative); Clarity,Urine Ex.Turbid (Clear); Color,Urine Yellow (Yellow); Glucose,Urine (UA) 100 mg/dL (Normal); Ketones,Urine 20 mg/dL (Negative); Leukocyte Esterase,Urine Large (Negative); Mucus,Urine Few per lpf (None-Few); Nitrite,Urine Negative (Negative); PH,Urine 6.5 pH Units (5.0-8.0); Protein,Urine 200 mg/dL (Neg-Trace); Specific Gravity,Urine 1.014 (1.010-1.025); Urobilinogen,Urine Normal (Normal); WBC,Urine TNTC per hpf (0-3)
[2021-04-05] MEDS ORDERED: Vancomycin 1,250 MG/262.5 ML IV.SOLN IVPB ONE (02:00)
[2021-04-05] MEDS ORDERED: Insulin Regular, Human 100 UNIT/ML IV PRN ×2 (03:19)
[2021-04-05] MEDS ORDERED: D5% in 0.45% NACL 1,000 ML IVC PRN (03:19)
[2021-04-05] MEDS ORDERED: 0.45 % Sodium Chloride w/KCl 20 MEQ/1,000 ML MLS IVC PRN (03:30)
[2021-04-05] MEDS ORDERED: Ondansetron 4 MG/2 ML VIAL IVP PRN (03:30)
[2021-04-05] MEDS ORDERED: Naloxone 0.4 MG/ML INJ IVP PRN (03:30)
[2021-04-05 04:05] LABS: ABG Base Excess -12 mEq/L (-2 to 3); ABG HCO3 13 mEq/L (21-27); ABG Oxygen Saturation 97 % (95-98); ABG PCO2 25 mmHg (35-45); ABG PH 7.33 pH Units (7.32-7.45); ABG PO2 96 mmHg (85-104); ABG TCO2 14 mEq/L (20-26)
[2021-04-05 04:53] LABS: VBG HCO3 12 mEq/L (21-27); VBG PCO2 18 mmHg (41-51); VBG PH 7.41 pH Units (7.32-7.42); VBG PO2 102 mmHg (25-50)
[2021-04-05 04:58] LABS: Mean Platelet Volume 10.1 fL (9.4-12.4)
[2021-04-05 04:59] LABS: Hematocrit 26.1 % (37.5-50.1); Mean Corpuscular HGB Conc 30.7 g/dL (31.6-35.5); Mean Corpuscular Hemoglobin 32.5 pg (28.0-33.3); Mean Corpuscular Volume 106.1 fL (83.0-100.0); Platelet Count 354 K/mcL (140-400); Red Blood Count 2.46 M/mcL (4.19-5.50); Red Cell Distribution Width 15.4 % (11.5-14.5)
[2021-04-05 05:09] LABS: White Blood Count 32.5 K/mcL (4.3-11.1)
[2021-04-05 05:17] LABS: Calcium 8.2 mg/dL (8.6-10.3); Potassium 5.3 mEq/L (3.5-5.1)
[2021-04-05] MEDS: 0.9 % Sodium Chloride 1,000 ML IVC SCH ×10 (05:41→23:25)
[2021-04-05 07:42] LABS: Estimated Average Glucose 160 mg/dl; Hemoglobin A1C 7.2 %
[2021-04-05 08:46] LABS: VBG HCO3 21 mEq/L (21-27); VBG PCO2 36 mmHg (41-51); VBG PH 7.37 pH Units (7.32-7.42); VBG PO2 99 mmHg (25-50)
[2021-04-05 09:10] LABS: Calcium 8.1 mg/dL (8.6-10.3); Potassium 4.9 mEq/L (3.5-5.1)
[2021-04-05 10:10] LABS: VBG HCO3 5 mEq/L (21-27); VBG PCO2 25 mmHg (41-51); VBG PH 6.92 pH Units (7.32-7.42); VBG PO2 151 mmHg (25-50)
[2021-04-05] MEDS: D5% in 0.45% NACL w KCl 20 MEQ/1,000 ML MLS IVC PRN ×3 (12:33→21:04)
[2021-04-05 13:08] LABS: VBG HCO3 24 mEq/L (21-27); VBG PCO2 51 mmHg (41-51); VBG PH 7.28 pH Units (7.32-7.42); VBG PO2 50 mmHg (25-50)
[2021-04-05] MEDS ORDERED: Norepinephrine 4 MG/254 ML IV.SOLN IVC SCH (15:30)
[2021-04-05] MEDS ORDERED: Vancomycin 1 EACH in 0.9 % Sodium Chloride 250 ML IVPB PRN (16:00)
[2021-04-05] MEDS: Piperacillin/Tazobactam 3.375 GM in 0.9 % Sodium Chloride Mini Bag 100 ML IVPB SCH (16:31)
[2021-04-05 17:32] LABS: Calcium 7.7 mg/dL (8.6-10.3); Potassium 4.2 mEq/L (3.5-5.1)
[2021-04-05 18:20] LABS: VBG HCO3 23 mEq/L (21-27); VBG PCO2 48 mmHg (41-51); VBG PH 7.28 pH Units (7.32-7.42); VBG PO2 33 mmHg (25-50)
[2021-04-05] MEDS ORDERED: *HR* Dextrose 50 % in Water (Vial) 50 ML VIAL IVP PRN (18:28)
[2021-04-05 18:37] LABS: Calcium 7.9 mg/dL (8.6-10.3); Potassium 4.1 mEq/L (3.5-5.1)
[2021-04-05] MEDS ORDERED: Insulin Human Regular 250 UNIT in 0.9 % Sodium Chloride 250 ML IVC SCH (20:45)
[2021-04-05] MEDS: *HR* Heparin 5,000 UNIT/ML VIAL SQ SCH (21:06)
[2021-04-05] MEDS: Phenylephrine 10 MG in 0.9 % Sodium Chloride 250 ML IVC SCH (21:36)
[2021-04-05] MEDS ORDERED: Vancomycin 250 MG in 0.9 % Sodium Chloride Mini Bag 100 ML IVPB ONE (22:00)
[2021-04-05] MEDS: *HR* Dextrose 50 % in Water (Vial) 50 ML VIAL IVP PRN (22:39)
[2021-04-06] MEDS: *HR* Dextrose 50 % in Water (Vial) 50 ML VIAL IVP PRN ×12 (00:11→15:30)
[2021-04-06] MEDS: Piperacillin/Tazobactam 3.375 GM in 0.9 % Sodium Chloride Mini Bag 100 ML IVPB SCH ×4 (00:19→22:04)
[2021-04-06 00:21] LABS: VBG HCO3 21 mEq/L (21-27); VBG PCO2 45 mmHg (41-51); VBG PH 7.27 pH Units (7.32-7.42); VBG PO2 40 mmHg (25-50)
[2021-04-06] MEDS ORDERED: *HR* Metoprolol 5 MG/5 ML VIAL IVP ONE (00:39)
[2021-04-06 00:44] LABS: Calcium 7.6 mg/dL (8.6-10.3); Potassium 4.5 mEq/L (3.5-5.1)
[2021-04-06] MEDS: Phenylephrine 10 MG in 0.9 % Sodium Chloride 250 ML IVC SCH ×3 (01:14→12:00)
[2021-04-06] MEDS: 0.9 % Sodium Chloride 1,000 ML IVC SCH ×5 (01:25→10:08)
[2021-04-06] MEDS: D5% in 0.45% NACL w KCl 20 MEQ/1,000 ML MLS IVC PRN ×2 (01:28→05:28)
[2021-04-06 05:14] LABS: Hematocrit 28.8 % (37.5-50.1); Hemoglobin 9.5 g/dL (12.9-16.9); Mean Corpuscular Hemoglobin 31.5 pg (28.0-33.3); Mean Platelet Volume 9.7 fL (9.4-12.4); Platelet Count 312 K/mcL (140-400); Red Blood Count 3.02 M/mcL (4.19-5.50); Red Cell Distribution Width 15.5 % (11.5-14.5); White Blood Count 20.3 K/mcL (4.3-11.1)
[2021-04-06 05:15] LABS: Mean Corpuscular Volume 95.4 fL (83.0-100.0)
[2021-04-06 05:34] LABS: Calcium 7.8 mg/dL (8.6-10.3); Potassium 5.1 mEq/L (3.5-5.1)
[2021-04-06] MEDS: *HR* Heparin 5,000 UNIT/ML VIAL SQ SCH ×3 (05:44→22:07)
[2021-04-06] MEDS ORDERED: 0.9 % Sodium Chloride 250 ML IVC PRN (07:03)
[2021-04-06] MEDS ORDERED: 0.9 % Sodium Chloride 1,000 ML PRIME SCH (07:15)
[2021-04-06] MEDS: Pantoprazole 40 MG VIAL IVP SCH (08:10)
[2021-04-06 09:04] LABS: Hepatitis B Surface Antibody < 3.10 mIU/mL
[2021-04-06 09:15] LABS: Hepatitis B Surface Antigen Nonreactive (Nonreactive)
[2021-04-06 09:53] LABS: VBG HCO3 23 mEq/L (21-27); VBG PCO2 42 mmHg (41-51); VBG PH 7.34 pH Units (7.32-7.42); VBG PO2 186 mmHg (25-50)
[2021-04-06 11:16] LABS: Calcium 7.7 mg/dL (8.6-10.3); Potassium 3.8 mEq/L (3.5-5.1)
[2021-04-06] MEDS ORDERED: *HR* OxyCODONE Immed Rel 5 MG TABLET PO PRN (11:38)
[2021-04-06] MEDS ORDERED: Vancomycin 500 MG in 0.9 % Sodium Chloride Mini Bag 100 ML IVPB ONE (15:00)
[2021-04-06] MEDS: Insulin LISPRO 300 UNITS/3 ML VIAL SUBQ SCH ×2 (15:27→22:18)
[2021-04-06] MEDS ORDERED: Insulin DETEMIR 100 UNIT/ML X5UNITS SUBQ SCH (21:00)
[2021-04-06] MEDS ORDERED: Melatonin 3 MG TABLET PO SCH (21:00)
[2021-04-07 05:01] LABS: Calcium 8.3 mg/dL (8.6-10.3); Potassium 5.1 mEq/L (3.5-5.1)
[2021-04-07] MEDS: *HR* Heparin 5,000 UNIT/ML VIAL SQ SCH ×3 (06:33→19:49)
[2021-04-07] MEDS: Insulin LISPRO 300 UNITS/3 ML VIAL SUBQ SCH ×4 (08:00→19:49)
[2021-04-07] MEDS: Pantoprazole 40 MG VIAL IVP SCH (08:53)
[2021-04-07] MEDS: Piperacillin/Tazobactam 3.375 GM in 0.9 % Sodium Chloride Mini Bag 100 ML IVPB SCH (08:53)
[2021-04-07] MEDS ORDERED: lisinopriL 10 MG TABLET PO SCH (09:00)
[2021-04-07 09:33] LABS: Lymphocytes # 0.8 K/mcL (0.6-4.6); Mean Corpuscular HGB Conc 32.9 g/dL (31.6-35.5); Mean Corpuscular Hemoglobin 31.2 pg (28.0-33.3); Mean Corpuscular Volume 94.9 fL (83.0-100.0); Mean Platelet Volume 10.5 fL (9.4-12.4); Platelet Count 207 K/mcL (140-400); Red Blood Count 2.53 M/mcL (4.19-5.50); Red Cell Distribution Width 15.9 % (11.5-14.5)
[2021-04-07 10:31] LABS: Hemoglobin 7.9 g/dL (12.9-16.9)
[2021-04-07 11:36] LABS: Platelet Estimate Normal (Normal)
[2021-04-07] MEDS: *HR* Dextrose 50 % in Water (Vial) 50 ML VIAL IVP PRN (11:48)
[2021-04-07] MEDS ORDERED: Megestrol Acetate 400 MG/10 ML UDC PO SCH (12:30)
[2021-04-07] MEDS ORDERED: cefTRIAXone 1,000 MG in Water for inj. (sterile) 10 ML IVP SCH ×2 (13:00→18:00)
[2021-04-07] MEDS ORDERED: Ondansetron 4 MG/2 ML VIAL IVP PRN (13:08)
[2021-04-07] MEDS ORDERED: Naloxone 0.4 MG/ML INJ IVP PRN (13:08)
[2021-04-07] MEDS ORDERED: *HR* Dextrose 50 % in Water (Vial) 50 ML VIAL IVP PRN (13:08)
[2021-04-07] MEDS ORDERED: Piperacillin/Tazobactam 3.375 GM in 0.9 % Sodium Chloride Mini Bag 100 ML IVPB SCH (18:00)
[2021-04-07] MEDS: Melatonin 3 MG TABLET PO SCH (19:49)
[2021-04-07] MEDS ORDERED: Insulin DETEMIR 100 UNIT/ML X5UNITS SUBQ SCH (21:00)
[2021-04-08 02:46] LABS: Basophils % 0.1 %; Eosinophils % 0.1 %; Hematocrit 24.8 % (37.5-50.1); Hemoglobin 7.8 g/dL (12.9-16.9); Immature Granulocytes % 0.8 % (0-4); Lymphocytes # 1.2 K/mcL (0.6-4.6); Lymphocytes % 5.5 %; Mean Corpuscular HGB Conc 31.5 g/dL (31.6-35.5); Mean Corpuscular Hemoglobin 30.6 pg (28.0-33.3); Mean Corpuscular Volume 97.3 fL (83.0-100.0); Mean Platelet Volume 10.5 fL (9.4-12.4); Monocytes # 0.6 K/mcL (0.0-1.3); Monocytes % 2.7 %; Platelet Count 175 K/mcL (140-400); Red Blood Count 2.55 M/mcL (4.19-5.50); Red Cell Distribution Width 16.6 % (11.5-14.5); Segmented Neutrophils % 90.8 %; White Blood Count 22.3 K/mcL (4.3-11.1)
[2021-04-08 02:47] LABS: Neutrophils # 20.3 K/mcL (1.6-8.9)
[2021-04-08 03:03] LABS: Calcium 8.1 mg/dL (8.6-10.3); Potassium 5.1 mEq/L (3.5-5.1)
[2021-04-08 04:17] LABS: Platelet Estimate Normal (Normal)
[2021-04-08 04:18] LABS: Hypochromasia Present (Not Present)
[2021-04-08] MEDS: *HR* Heparin 5,000 UNIT/ML VIAL SQ SCH ×3 (05:34→20:50)
[2021-04-08] MEDS ORDERED: 0.9 % Sodium Chloride 250 ML IVC PRN (07:19)
[2021-04-08] MEDS: Insulin LISPRO 300 UNITS/3 ML VIAL SUBQ SCH ×4 (07:57→20:58)
[2021-04-08] MEDS ORDERED: Dextrose Gel 15 GM/37.5 ML TUBE PO PRN ×2 (09:01)
[2021-04-08] MEDS ORDERED: D5% in Water 1,000 ML IVC PRN (09:01)
[2021-04-08] MEDS: amLODIPine 5 MG TABLET PO SCH (13:48)
[2021-04-08] MEDS: lisinopriL 10 MG TABLET PO SCH (13:48)
[2021-04-08] MEDS: cefTRIAXone 1,000 MG in Water for inj. (sterile) 10 ML IVP SCH (17:29)
[2021-04-08] MEDS: Sennosides 8.6 MG TABLET PO SCH (20:49)
[2021-04-08] MEDS: Melatonin 3 MG TABLET PO SCH (20:50)
[2021-04-09] MEDS: *HR* Heparin 5,000 UNIT/ML VIAL SQ SCH ×3 (05:40→20:48)
[2021-04-09 06:22] LABS: Hematocrit 23.7 % (37.5-50.1); Hemoglobin 7.3 g/dL (12.9-16.9); Mean Corpuscular HGB Conc 30.8 g/dL (31.6-35.5); Mean Corpuscular Hemoglobin 30.8 pg (28.0-33.3); Mean Platelet Volume 11.1 fL (9.4-12.4); Platelet Count 157 K/mcL (140-400); Red Blood Count 2.37 M/mcL (4.19-5.50); Red Cell Distribution Width 16.8 % (11.5-14.5)
[2021-04-09 06:23] LABS: White Blood Count 9.4 K/mcL (4.3-11.1)
[2021-04-09 06:42] LABS: Calcium 7.5 mg/dL (8.6-10.3); Potassium 4.5 mEq/L (3.5-5.1)
[2021-04-09] MEDS ORDERED: 0.9 % Sodium Chloride 250 ML IVC PRN (07:24)
[2021-04-09] MEDS ORDERED: 0.9 % Sodium Chloride 1,000 ML PRIME SCH (07:30)
[2021-04-09] MEDS: Sennosides 8.6 MG TABLET PO SCH (08:56)
[2021-04-09] MEDS: Insulin LISPRO 300 UNITS/3 ML VIAL SUBQ SCH ×4 (08:59→20:02)
[2021-04-09] MEDS: amLODIPine 5 MG TABLET PO SCH ×2 (09:00→13:11)
[2021-04-09] MEDS: lisinopriL 10 MG TABLET PO SCH ×2 (09:05→13:11)
[2021-04-09] MEDS ORDERED: *HR* Heparin 10,000 UNIT/10 ML VIAL ONE (09:55)
[2021-04-09] MEDS: cefTRIAXone 1,000 MG in Water for inj. (sterile) 10 ML IVP SCH (17:32)
[2021-04-09] MEDS: Melatonin 3 MG TABLET PO SCH (20:47)
[2021-04-10] MEDS: *HR* Heparin 5,000 UNIT/ML VIAL SQ SCH ×3 (05:58→20:43)
[2021-04-10 06:42] LABS: Hematocrit 22.5 % (37.5-50.1); Hemoglobin 7.4 g/dL (12.9-16.9); Mean Corpuscular HGB Conc 32.9 g/dL (31.6-35.5); Mean Corpuscular Hemoglobin 31.6 pg (28.0-33.3); Mean Corpuscular Volume 96.2 fL (83.0-100.0); Mean Platelet Volume 10.7 fL (9.4-12.4); Platelet Count 193 K/mcL (140-400); Red Blood Count 2.34 M/mcL (4.19-5.50); Red Cell Distribution Width 16.4 % (11.5-14.5); White Blood Count 9.9 K/mcL (4.3-11.1)
[2021-04-10 06:55] LABS: Calcium 7.3 mg/dL (8.6-10.3); Potassium 3.8 mEq/L (3.5-5.1)
[2021-04-10] MEDS: Insulin LISPRO 300 UNITS/3 ML VIAL SUBQ SCH ×4 (07:39→20:45)
[2021-04-10] MEDS: *HR* OxyCODONE Immed Rel 5 MG TABLET PO PRN ×2 (09:31→17:18)
[2021-04-10] MEDS: Sennosides 8.6 MG TABLET PO SCH (09:31)
[2021-04-10] MEDS: lisinopriL 10 MG TABLET PO SCH (09:32)
[2021-04-10] MEDS: amLODIPine 5 MG TABLET PO SCH (09:40)
[2021-04-10] MEDS: cefTRIAXone 1,000 MG in Water for inj. (sterile) 10 ML IVP SCH (17:20)
[2021-04-10] MEDS: Melatonin 3 MG TABLET PO SCH (20:42)
[2021-04-11 03:40] LABS: Hematocrit 22.7 % (37.5-50.1); Hemoglobin 7.3 g/dL (12.9-16.9); Mean Corpuscular HGB Conc 32.2 g/dL (31.6-35.5); Mean Corpuscular Hemoglobin 31.6 pg (28.0-33.3); Mean Corpuscular Volume 98.3 fL (83.0-100.0); Mean Platelet Volume 10.9 fL (9.4-12.4); Platelet Count 265 K/mcL (140-400); Red Blood Count 2.31 M/mcL (4.19-5.50); Red Cell Distribution Width 16.7 % (11.5-14.5)
[2021-04-11 04:09] LABS: White Blood Count 17.8 K/mcL (4.3-11.1)
[2021-04-11] MEDS: *HR* Heparin 5,000 UNIT/ML VIAL SQ SCH (04:48)
[2021-04-11 05:28] LABS: Calcium 7.1 mg/dL (8.6-10.3); Potassium 4.6 mEq/L (3.5-5.1)
[2021-04-11] MEDS: *HR* OxyCODONE Immed Rel 5 MG TABLET PO PRN ×2 (08:00→16:37)
[2021-04-11] MEDS: lisinopriL 10 MG TABLET PO SCH (08:02)
[2021-04-11] MEDS: amLODIPine 5 MG TABLET PO SCH (08:02)
[2021-04-11] MEDS: Insulin LISPRO 300 UNITS/3 ML VIAL SUBQ SCH ×4 (08:02→20:02)
[2021-04-11 08:04] LABS: Bacteria,Urine Few per hpf (None-Few); Bilirubin,Urine Negative (Negative); Blood,Urine Trace (Negative); Clarity,Urine Clear (Clear); Color,Urine Light-Yellow (Yellow); Glucose,Urine (UA) 200 mg/dL (Normal); Ketones,Urine 10 mg/dL (Negative); Leukocyte Esterase,Urine Negative (Negative); Mucus,Urine Few per lpf (None-Few); Nitrite,Urine Negative (Negative); Protein,Urine 70 mg/dL (Neg-Trace); RBC,Urine 0-3 per hpf (0-3); Specific Gravity,Urine 1.015 (1.010-1.025); Urobilinogen,Urine Normal (Normal); WBC,Urine 0-3 per hpf (0-3)
[2021-04-11] MEDS: Sennosides 8.6 MG TABLET PO SCH (09:35)
[2021-04-11 10:27] LABS: Hematocrit 22.4 % (37.5-50.1); Hemoglobin 6.8 g/dL (12.9-16.9); Mean Corpuscular HGB Conc 30.4 g/dL (31.6-35.5); Mean Corpuscular Hemoglobin 31.1 pg (28.0-33.3); Mean Corpuscular Volume 102.3 fL (83.0-100.0); Mean Platelet Volume 10.7 fL (9.4-12.4); Platelet Count 281 K/mcL (140-400); Red Blood Count 2.19 M/mcL (4.19-5.50); Red Cell Distribution Width 16.7 % (11.5-14.5); White Blood Count 18.9 K/mcL (4.3-11.1)
[2021-04-11 10:49] LABS: Lymphocytes # 1.7 K/mcL (0.6-4.6); Monocytes # 1.3 K/mcL (0.0-1.3); Neutrophils # 15.5 K/mcL (1.6-8.9)
[2021-04-11 10:50] LABS: Platelet Estimate Normal (Normal)
[2021-04-11] MEDS: Insulin DETEMIR 100 UNIT/ML X5UNITS SUBQ SCH (11:47)
[2021-04-11] MEDS ORDERED: 0.9 % Sodium Chloride 250 ML IVC SCH (12:45)
[2021-04-11 14:32] LABS: Hematocrit 21.4 % (37.5-50.1); Hemoglobin 6.6 g/dL (12.9-16.9)
[2021-04-11] MEDS: cefTRIAXone 1,000 MG in Water for inj. (sterile) 10 ML IVP SCH (16:38)
[2021-04-11] MEDS: Melatonin 3 MG TABLET PO SCH (19:53)
[2021-04-11 21:20] LABS: Hematocrit 24.1 % (37.5-50.1); Hemoglobin 7.7 g/dL (12.9-16.9)
[2021-04-12] MEDS: *HR* Dextrose 50 % in Water (Vial) 50 ML VIAL IVP PRN ×2 (00:27→00:50)
[2021-04-12 04:12] LABS: Basophils % 0.2 %; Eosinophils # 0.2 K/mcL (0.0-0.6); Eosinophils % 1.2 %; Hematocrit 24.4 % (37.5-50.1); Hemoglobin 8.3 g/dL (12.9-16.9); Lymphocytes # 1.8 K/mcL (0.6-4.6); Lymphocytes % 8.9 %; Mean Corpuscular Hemoglobin 31.4 pg (28.0-33.3); Mean Platelet Volume 9.7 fL (9.4-12.4); Monocytes # 1.8 K/mcL (0.0-1.3); Monocytes % 9.1 %; Neutrophils # 15.5 K/mcL (1.6-8.9); Platelet Count 300 K/mcL (140-400); Red Blood Count 2.64 M/mcL (4.19-5.50); Red Cell Distribution Width 18.1 % (11.5-14.5); Segmented Neutrophils % 77.6 %
[2021-04-12 04:16] LABS: Mean Corpuscular Volume 92.4 fL (83.0-100.0)
[2021-04-12 04:31] LABS: Albumin 1.9 g/dL (3.5-5.7); Anisocytosis 1+ (Not Present); Bilirubin,Total 0.3 mg/dL (0.3-1.0); Calcium 7.1 mg/dL (8.6-10.3); Globulin 1.9 g/dL (2.4-3.5); Platelet Estimate Normal (Normal); Potassium 3.8 mEq/L (3.5-5.1); Total Protein 3.8 g/dL (6.4-8.9)
[2021-04-12] MEDS ORDERED: 0.9 % Sodium Chloride 250 ML IVC PRN (07:42)
[2021-04-12] MEDS ORDERED: 0.9 % Sodium Chloride 1,000 ML PRIME SCH (07:45)
[2021-04-12] MEDS: Insulin LISPRO 300 UNITS/3 ML VIAL SUBQ SCH ×4 (08:29→21:37)
[2021-04-12] MEDS: amLODIPine 5 MG TABLET PO SCH (08:34)
[2021-04-12] MEDS: Insulin DETEMIR 100 UNIT/ML X5UNITS SUBQ SCH (08:34)
[2021-04-12] MEDS: *HR* OxyCODONE Immed Rel 5 MG TABLET PO PRN (08:34)
[2021-04-12] MEDS: lisinopriL 10 MG TABLET PO SCH (08:35)
[2021-04-12] MEDS: Sennosides 8.6 MG TABLET PO SCH (08:35)
[2021-04-12] MEDS: Piperacillin/Tazobactam 3.375 GM in 0.9 % Sodium Chloride Mini Bag 100 ML IVPB SCH (18:23)
[2021-04-12] MEDS: Melatonin 3 MG TABLET PO SCH (20:38)
[2021-04-13] MEDS: Piperacillin/Tazobactam 3.375 GM in 0.9 % Sodium Chloride Mini Bag 100 ML IVPB SCH ×2 (03:48→17:12)
[2021-04-13 07:48] LABS: Basophils # 0.1 K/mcL (0.0-0.2); Basophils % 0.3 %; Eosinophils # 0.1 K/mcL (0.0-0.6); Eosinophils % 0.6 %; Hematocrit 24.3 % (37.5-50.1); Hemoglobin 7.9 g/dL (12.9-16.9); Immature Granulocytes % 3.8 % (0-4); Lymphocytes # 1.5 K/mcL (0.6-4.6); Lymphocytes % 9.6 %; Mean Corpuscular HGB Conc 32.5 g/dL (31.6-35.5); Mean Corpuscular Hemoglobin 31.1 pg (28.0-33.3); Mean Corpuscular Volume 95.7 fL (83.0-100.0); Mean Platelet Volume 10.2 fL (9.4-12.4); Monocytes # 1.3 K/mcL (0.0-1.3); Monocytes % 8.3 %; Neutrophils # 12.2 K/mcL (1.6-8.9); Platelet Count 316 K/mcL (140-400); Red Blood Count 2.54 M/mcL (4.19-5.50); Red Cell Distribution Width 18.5 % (11.5-14.5); Segmented Neutrophils % 77.4 %; White Blood Count 15.7 K/mcL (4.3-11.1)
[2021-04-13 07:53] LABS: Albumin 1.8 g/dL (3.5-5.7); Albumin/Globulin Ratio 0.9 (1.1-2.2); Bilirubin,Total 0.3 mg/dL (0.3-1.0); Globulin 1.9 g/dL (2.4-3.5); Potassium 4.7 mEq/L (3.5-5.1); Total Protein 3.7 g/dL (6.4-8.9)
[2021-04-13] MEDS: amLODIPine 5 MG TABLET PO SCH (08:14)
[2021-04-13] MEDS: lisinopriL 10 MG TABLET PO SCH (08:14)
[2021-04-13] MEDS: Insulin DETEMIR 100 UNIT/ML X5UNITS SUBQ SCH (08:14)
[2021-04-13] MEDS: Insulin LISPRO 300 UNITS/3 ML VIAL SUBQ SCH ×4 (08:16→20:25)
[2021-04-13] MEDS: Sennosides 8.6 MG TABLET PO SCH (08:17)
[2021-04-13] MEDS: Melatonin 3 MG TABLET PO SCH (20:28)
[2021-04-14] MEDS: Piperacillin/Tazobactam 3.375 GM in 0.9 % Sodium Chloride Mini Bag 100 ML IVPB SCH (03:25)
[2021-04-14 04:03] LABS: Basophils % 0.2 %; Eosinophils # 0.2 K/mcL (0.0-0.6); Eosinophils % 1.1 %; Hematocrit 22.6 % (37.5-50.1); Hemoglobin 7.5 g/dL (12.9-16.9); Immature Granulocytes % 3.2 % (0-4); Lymphocytes # 1.4 K/mcL (0.6-4.6); Lymphocytes % 10.8 %; Mean Corpuscular HGB Conc 33.2 g/dL (31.6-35.5); Mean Corpuscular Hemoglobin 31.3 pg (28.0-33.3); Mean Corpuscular Volume 94.2 fL (83.0-100.0); Mean Platelet Volume 9.6 fL (9.4-12.4); Monocytes # 1.2 K/mcL (0.0-1.3); Monocytes % 9.3 %; Neutrophils # 9.9 K/mcL (1.6-8.9); Platelet Count 353 K/mcL (140-400); Red Cell Distribution Width 18.2 % (11.5-14.5); Segmented Neutrophils % 75.4 %; White Blood Count 13.2 K/mcL (4.3-11.1)
[2021-04-14 04:22] LABS: Albumin 1.8 g/dL (3.5-5.7); Albumin/Globulin Ratio 0.9 (1.1-2.2); Bilirubin,Total 0.3 mg/dL (0.3-1.0); Globulin 1.9 g/dL (2.4-3.5); Potassium 4.5 mEq/L (3.5-5.1); Total Protein 3.7 g/dL (6.4-8.9)
[2021-04-14] MEDS ORDERED: 0.9 % Sodium Chloride 250 ML IVC PRN (07:23)
[2021-04-14] MEDS ORDERED: 0.9 % Sodium Chloride 1,000 ML PRIME SCH (07:30)
[2021-04-14] MEDS: Insulin LISPRO 300 UNITS/3 ML VIAL SUBQ SCH ×2 (09:42→12:30)
[2021-04-14] MEDS: Insulin DETEMIR 100 UNIT/ML X5UNITS SUBQ SCH (09:42)
[2021-04-14] MEDS: lisinopriL 10 MG TABLET PO SCH (11:22)
[2021-04-14] MEDS: amLODIPine 5 MG TABLET PO SCH (11:22)
[2021-04-14] MEDS ORDERED: Lidocaine/EPI 1:100k 1% 50 ML VIAL ONE (13:18)
[2021-04-14] MEDS ORDERED: Heparin 1,000 UNITS/500 mL 500 ML ONE (13:18)
[2021-04-14] MEDS ORDERED: 0.9 % Sodium Chloride 500 ML ONE ×2 (13:19→13:26)
[2021-04-14] MEDS ORDERED: *HR* FentaNYL (PF) 100 MCG/2 ML VIAL IVP ONE ×2 (13:29→13:45)
[2021-04-14] MEDS ORDERED: *HR* Midazolam HCl 2 MG/2 ML VIAL IVP ONE (13:29)
[2021-04-14 13:44] LABS: Adenovirus F 40/41 PCR Not detected (Not detect); Astrovirus PCR Not detected (Not detect); C.difficile Toxin A/B Gene PCR Not detected (Not detect); Campylobacter by PCR Not detected (Not detect); Cryptosporidium by PCR Not detected (Not detect); Cyclospora cayetanensis PCR Not detected (Not detect); E. coli O157 by PCR Not detected (Not detect); Entamoeba histolytica PCR Not detected (Not detect); Enteroaggregative E.coli(EAEC) Not detected (Not detect); Enteropathogenic E.coli(EPEC) Not detected (Not detect); Enterotoxigenic E.coli (ETEC) Not detected (Not detect); Giardia lamblia PCR Not detected (Not detect); Norovirus GI/GII PCR Not detected (Not detect); Plesiomonas shigelloides PCR Not detected (Not detect); Rotavirus A PCR Not detected (Not detect); Salmonella PCR Not detected (Not detect); Sapovirus PCR Not detected (Not detect); Shig/EnteroinvasiveE coli EIEC Not detected (Not detect); Shigalike tox-prod E coli STEC Not detected (Not detect); Vibrio PCR Not detected (Not detect); Vibrio cholerae PCR Not detected (Not detect); Yersinia enterocolitica PCR Not detected (Not detect)
[2021-04-14 14:19] LABS: Basophils % 0.2 %; Eosinophils # 0.1 K/mcL (0.0-0.6); Eosinophils % 0.5 %; Hematocrit 24.8 % (37.5-50.1); Hemoglobin 7.9 g/dL (12.9-16.9); Immature Granulocytes % 3.8 % (0-4); Lymphocytes # 1.2 K/mcL (0.6-4.6); Lymphocytes % 7.3 %; Mean Corpuscular HGB Conc 31.9 g/dL (31.6-35.5); Mean Corpuscular Hemoglobin 30.3 pg (28.0-33.3); Mean Platelet Volume 9.3 fL (9.4-12.4); Monocytes # 1.2 K/mcL (0.0-1.3); Monocytes % 7.2 %; Neutrophils # 13.6 K/mcL (1.6-8.9); Platelet Count 292 K/mcL (140-400); Red Blood Count 2.61 M/mcL (4.19-5.50); Red Cell Distribution Width 18.1 % (11.5-14.5); White Blood Count 16.8 K/mcL (4.3-11.1)
[2021-04-14 15:53] VITALS: BP 107/67; PULSE 96; TEMP 98.4; O2SAT 93
[2021-04-14 18:15] LABS: Influenza A PCR Negative (Negative); Influenza B PCR Negative (Negative); Resp. Syncytial Virus PCR Negative (Negative)
[2021-04-14 18:18] LABS: SARS-CoV-2 by PCR (In House) Negative (Negative)
== END 2021-04-14 18:56 | disposition short-term general hospital (02) | DRG 871 ==
LOC: ICNU 21:58 → EMEROOARM 21:58 → ICNU 04-05 03:00 → SUATTDRO 04-05 04:04 → 2ANU 04-07 20:56
PROVIDERS: ADMIT Internal Medicine; ATTEND Internal Medicine

== ENCOUNTER 2021-06-30 14:13 | Inpatient (IN) ==
[2021-06-30] MEDS ORDERED: methylPREDNISolone 125 MG/2 ML VIAL IVP ONE (14:22)
[2021-06-30] MEDS ORDERED: Ipratropium/Albuterol Neb 3 ML IH ONE (14:22)
[2021-06-30 15:22] LABS: Basophils # 0.1 K/mcL (0.0-0.2); Basophils % 0.5 %; Eosinophils # 0.3 K/mcL (0.0-0.6); Eosinophils % 1.4 %; Hematocrit 29.1 % (37.5-50.1); Immature Granulocytes % 0.6 % (0-4); Lymphocytes # 1.7 K/mcL (0.6-4.6); Lymphocytes % 9.5 %; Mean Corpuscular HGB Conc 30.9 g/dL (31.6-35.5); Mean Corpuscular Hemoglobin 30.3 pg (28.0-33.3); Mean Platelet Volume 9.7 fL (9.4-12.4); Monocytes # 1.6 K/mcL (0.0-1.3); Neutrophils # 14.4 K/mcL (1.6-8.9); Platelet Count 531 K/mcL (140-400); Red Blood Count 2.97 M/mcL (4.19-5.50); Red Cell Distribution Width 15.6 % (11.5-14.5); White Blood Count 18.2 K/mcL (4.3-11.1)
[2021-06-30] MEDS ORDERED: 0.9 % Sodium Chloride 1,000 ML IVC ONE (15:30)
[2021-06-30] MEDS ORDERED: levoFLOXacin 500 MG TABLET PO ONE (15:30)
[2021-06-30] MEDS ORDERED: Isovue-370 500 ML BOTTLE IVP ONE (15:31)
[2021-06-30] MEDS ORDERED: Benzonatate 100 MG CAPSULE PO STA (15:37)
[2021-06-30 16:00] LABS: BUN/Creatinine Ratio 16 (6-26); Blood Urea Nitrogen 62 mg/dL (8-23); Calcium 8.9 mg/dL (8.6-10.3); Carbon Dioxide 23 mEq/L (23-29); Chloride 103 mEq/L (98-107); Glucose 220 mg/dL (70-105); Osmolality,Calculated 308 (280-300); Potassium 4.8 mEq/L (3.5-5.1); Sodium 137 mEq/L (136-145); Troponin I < 0.03 ng/mL (< 0.04); eGFR For African Americans 19 (> 60); eGFR For Non-African Americans 15 (> 60)
[2021-06-30 17:03] LABS: Adenovirus Not Detected (Not Detect); Bordetella Pertussis Not Detected (Not Detect); Chlamydophila pneumoniae Not Detected (Not Detect); Coronavirus 229E Not Detected (Not Detect); Coronavirus HKU1 Not Detected (Not Detect); Coronavirus NL63 Not Detected (Not Detect); Coronavirus OC43 Not Detected (Not Detect); Human Metapneumovirus Not Detected (Not Detect); Human Rhinovirus/Enterovirus Not Detected (Not Detect); Influenza A Subtype 2009 H1 Not Detected (Not Detect); Influenza B Not Detected (Not Detect); Mycoplasma pneumoniae Not Detected (Not Detect); Parainfluenza Virus 1 Not Detected (Not Detect); Parainfluenza Virus 2 Not Detected (Not Detect); Parainfluenza Virus 3 Not Detected (Not Detect); Parainfluenza Virus 4 Not Detected (Not Detect); Respiratory Syncytial Virus Not Detected (Not Detect); SARS-CoV-2 Not Detected (Not Detect)
[2021-06-30 17:15] LABS: VBG HCO3 20 mEq/L (21-27); VBG PCO2 39 mmHg (41-51); VBG PH 7.31 pH Units (7.32-7.42); VBG PO2 44 mmHg (25-50)
[2021-06-30] MEDS ORDERED: Tdap (Boostrix) Vaccine 0.5 ML SYRINGE IM ONE (18:40)
[2021-06-30] MEDS ORDERED: 0.9 % Sodium Chloride 500 ML IV ONE ×2 (18:40→19:51)
[2021-06-30 19:17] LABS: Bacteria,Urine Few per hpf (None-Few); Bilirubin,Urine Negative (Negative); Blood,Urine Negative (Negative); Clarity,Urine Clear (Clear); Color,Urine Light-Yellow (Yellow); Glucose,Urine (UA) 500 mg/dL (Normal); Ketones,Urine Negative (Negative); Leukocyte Esterase,Urine Small (Negative); Nitrite,Urine Negative (Negative); Protein,Urine 100 mg/dL (Neg-Trace); RBC,Urine 0-3 per hpf (0-3); Specific Gravity,Urine 1.016 (1.010-1.025); Squamous Epithelial Cell,Urine Few per hpf (None-Few); Urobilinogen,Urine Normal (Normal)
[2021-06-30] MEDS ORDERED: Naloxone 0.4 MG/ML INJ IVP PRN (20:37)
[2021-06-30] MEDS ORDERED: Ondansetron 4 MG/2 ML VIAL IVP PRN (20:37)
[2021-06-30] MEDS ORDERED: Dextrose Gel 15 GM/37.5 ML TUBE PO PRN ×2 (22:35)
[2021-06-30] MEDS ORDERED: D5% in Water 1,000 ML IVC PRN (22:35)
[2021-07-01] MEDS: Melatonin 3 MG TABLET PO PRN (00:58)
[2021-07-01] MEDS: traZODone 50 MG TABLET PO SCH ×2 (00:58→22:27)
[2021-07-01 01:03] LABS: Basophils % 0.1 %; Hematocrit 24.9 % (37.5-50.1); Hemoglobin 7.7 g/dL (12.9-16.9); Immature Granulocytes % 0.6 % (0-4); Lymphocytes # 0.7 K/mcL (0.6-4.6); Lymphocytes % 3.2 %; Mean Corpuscular HGB Conc 30.9 g/dL (31.6-35.5); Mean Corpuscular Hemoglobin 30.4 pg (28.0-33.3); Mean Corpuscular Volume 98.4 fL (83.0-100.0); Mean Platelet Volume 9.6 fL (9.4-12.4); Monocytes # 0.5 K/mcL (0.0-1.3); Monocytes % 2.2 %; Neutrophils # 21.3 K/mcL (1.6-8.9); Platelet Count 406 K/mcL (140-400); Red Blood Count 2.53 M/mcL (4.19-5.50); Red Cell Distribution Width 15.7 % (11.5-14.5); Segmented Neutrophils % 93.9 %; White Blood Count 22.7 K/mcL (4.3-11.1)
[2021-07-01 01:24] LABS: BUN/Creatinine Ratio 18 (6-26); Blood Urea Nitrogen 65 mg/dL (8-23); Carbon Dioxide 16 mEq/L (23-29); Chloride 105 mEq/L (98-107); Glucose 405 mg/dL (70-105); Magnesium 1.6 mg/dL (1.6-2.6); Osmolality,Calculated 312 (280-300); Phosphorous 5.4 mg/dL (2.7-4.5); Potassium 5.7 mEq/L (3.5-5.1); Sodium 133 mEq/L (136-145); eGFR For African Americans 20 (> 60); eGFR For Non-African Americans 17 (> 60)
[2021-07-01] MEDS ORDERED: Perflutren Lipid Microsphere 1.3 ML in 0.9 % Sodium Chloride 8.7 ML IVP PRN (01:49)
[2021-07-01] MEDS ORDERED: Insulin DETEMIR 100 UNIT/ML X5UNITS SUBQ SCH ×2 (02:00→09:00)
[2021-07-01 02:19] LABS: Lactate Dehydrogenase 207 Units/L (140-271); Total Protein 5.8 g/dL (6.4-8.9)
[2021-07-01] MEDS ORDERED: Insulin LISPRO 300 UNITS/3 ML VIAL SUBQ SCH ×4 (06:00→07:30)
[2021-07-01] MEDS ORDERED: Vancomycin 500 MG in 0.9 % Sodium Chloride Mini Bag 100 ML IVPB ONE (07:30)
[2021-07-01] MEDS ORDERED: 0.9 % Sodium Chloride 250 ML IVC PRN (08:18)
[2021-07-01] MEDS ORDERED: 0.9 % Sodium Chloride 1,000 ML PRIME SCH (08:30)
[2021-07-01] MEDS ORDERED: Cholecalciferol (D-3) 1,000 UNIT (25MCG) TABLET PO SCH (09:00)
[2021-07-01] MEDS: Piperacillin/Tazobactam 3.375 GM in 0.9 % Sodium Chloride Mini Bag 100 ML IVPB SCH ×2 (09:29→23:11)
[2021-07-01] MEDS: Insulin LISPRO 300 UNITS/3 ML VIAL SUBQ SCH ×4 (09:30→22:10)
[2021-07-01] MEDS: Cholecalciferol (D-3) 1,000 UNIT (25MCG) TABLET PO SCH (09:31)
[2021-07-01 10:15] LABS: INR 1.3
[2021-07-01 10:23] LABS: Hepatitis B Surface Antibody < 3.10 mIU/mL
[2021-07-01 10:34] LABS: Hepatitis B Surface Antigen Nonreactive (Nonreactive)
[2021-07-01 11:31] LABS: Adenovirus Not Detected (Not Detect); Bordetella Pertussis Not Detected (Not Detect); Chlamydophila pneumoniae Not Detected (Not Detect); Coronavirus 229E Not Detected (Not Detect); Coronavirus HKU1 Not Detected (Not Detect); Coronavirus NL63 Not Detected (Not Detect); Coronavirus OC43 Not Detected (Not Detect); Human Metapneumovirus Not Detected (Not Detect); Human Rhinovirus/Enterovirus Not Detected (Not Detect); Influenza A Subtype 2009 H1 Not Detected (Not Detect); Influenza B Not Detected (Not Detect); Mycoplasma pneumoniae Not Detected (Not Detect); Parainfluenza Virus 1 Not Detected (Not Detect); Parainfluenza Virus 2 Not Detected (Not Detect); Parainfluenza Virus 3 Not Detected (Not Detect); Parainfluenza Virus 4 Not Detected (Not Detect); Respiratory Syncytial Virus Not Detected (Not Detect); SARS-CoV-2 Not Detected (Not Detect)
[2021-07-01] MEDS: Calcium Acetate 667 MG CAPSULE PO SCH ×2 (14:39→16:55)
[2021-07-01 16:21] LABS: RBC,Pleural Fluid < 2000 RBC/mcL
[2021-07-01 16:35] LABS: Total Protein,Pleural Fluid 2.1 g/dL
[2021-07-01] MEDS: *HR* Dextrose 50 % in Water (Syg) 50 ML SYRINGE IVP PRN ×4 (16:53→21:37)
[2021-07-01 17:01] LABS: Appearance of Pleural Fl Clear (Clear)
[2021-07-01 19:13] LABS: Calcium 8.3 mg/dL (8.6-10.3); Potassium 4.4 mEq/L (3.5-5.1)
[2021-07-02] MEDS ORDERED: D10% in Water 500 ML ONE (00:19)
[2021-07-02] MEDS: *HR* Dextrose 50 % in Water (Syg) 50 ML SYRINGE IVP PRN ×2 (00:22→04:53)
[2021-07-02] MEDS: Insulin LISPRO 300 UNITS/3 ML VIAL SUBQ SCH ×5 (00:30→21:06)
[2021-07-02] MEDS: D10% in Water 500 ML IVC SCH ×3 (00:31→14:44)
[2021-07-02 07:07] LABS: Basophils # 0.1 K/mcL (0.0-0.2); Basophils % 0.3 %; Eosinophils % 0.2 %; Hematocrit 24.4 % (37.5-50.1); Hemoglobin 7.7 g/dL (12.9-16.9); Immature Granulocytes % 0.7 % (0-4); Lymphocytes # 1.4 K/mcL (0.6-4.6); Lymphocytes % 7.4 %; Mean Corpuscular HGB Conc 31.6 g/dL (31.6-35.5); Mean Corpuscular Hemoglobin 30.2 pg (28.0-33.3); Mean Corpuscular Volume 95.7 fL (83.0-100.0); Mean Platelet Volume 9.6 fL (9.4-12.4); Monocytes # 1.7 K/mcL (0.0-1.3); Monocytes % 8.9 %; Neutrophils # 15.5 K/mcL (1.6-8.9); Platelet Count 433 K/mcL (140-400); Red Blood Count 2.55 M/mcL (4.19-5.50); Red Cell Distribution Width 15.7 % (11.5-14.5); Segmented Neutrophils % 82.5 %; White Blood Count 18.8 K/mcL (4.3-11.1)
[2021-07-02] MEDS ORDERED: *HR* Dextrose 50 % in Water (Syg) 50 ML SYRINGE IVP ONE (07:16)
[2021-07-02] MEDS: Cholecalciferol (D-3) 1,000 UNIT (25MCG) TABLET PO SCH (07:29)
[2021-07-02] MEDS: Calcium Acetate 667 MG CAPSULE PO SCH ×3 (07:29→17:47)
[2021-07-02] MEDS ORDERED: 0.9 % Sodium Chloride 250 ML IVC PRN ×2 (08:31→08:41)
[2021-07-02 08:49] LABS: % Iron Saturation 27 % (20-55); Alanine Aminotransferase 11 Units/L (7-52); Albumin 2.6 g/dL (3.5-5.7); Albumin/Globulin Ratio 0.8 (1.1-2.2); Alkaline Phosphatase 96 Units/L (34-104); Aspartate Amino Transferase 15 Units/L (13-39); BUN/Creatinine Ratio 17 (6-26); Bilirubin,Indirect 0.4 mg/dL (0.0-1.0); Bilirubin,Total 0.4 mg/dL (0.3-1.0); Blood Urea Nitrogen 39 mg/dL (8-23); Calcium 8.4 mg/dL (8.6-10.3); Carbon Dioxide 28 mEq/L (23-29); Chloride 99 mEq/L (98-107); Globulin 3.4 g/dL (2.4-3.5); Glucose 62 mg/dL (70-105); Iron 47 mcg/dL (65-175); Magnesium 1.8 mg/dL (1.6-2.6); Osmolality,Calculated 287 (280-300); Phosphorous 4.4 mg/dL (2.7-4.5); Potassium 4.4 mEq/L (3.5-5.1); Sodium 135 mEq/L (136-145); Transferrin 125 mg/dL (203-362); eGFR For African Americans 34 (> 60); eGFR For Non-African Americans 28 (> 60)
[2021-07-02 09:07] LABS: Folate 8.2 ng/mL (3.0-16.0)
[2021-07-02 09:16] LABS: Ferritin > 1500 ng/mL (20-250)
[2021-07-02] MEDS ORDERED: Vancomycin 1,500 MG/265 ML IV.SOLN IVPB ONE ×2 (11:00→19:00)
[2021-07-02] MEDS: Piperacillin/Tazobactam 3.375 GM in 0.9 % Sodium Chloride Mini Bag 100 ML IVPB SCH ×3 (12:31→21:09)
[2021-07-02] MEDS: traZODone 50 MG TABLET PO SCH (21:09)
[2021-07-03] MEDS: Acetaminophen 325 MG TABLET PO PRN (01:35)
[2021-07-03] MEDS: Melatonin 3 MG TABLET PO PRN (01:35)
[2021-07-03 01:56] LABS: Basophils % 0.2 %; Eosinophils % 0.2 %; Hematocrit 22.3 % (37.5-50.1); Immature Granulocytes % 0.4 % (0-4); Lymphocytes # 1.1 K/mcL (0.6-4.6); Lymphocytes % 10.1 %; Mean Corpuscular HGB Conc 31.4 g/dL (31.6-35.5); Mean Corpuscular Hemoglobin 30.7 pg (28.0-33.3); Mean Corpuscular Volume 97.8 fL (83.0-100.0); Mean Platelet Volume 10.1 fL (9.4-12.4); Monocytes # 0.8 K/mcL (0.0-1.3); Monocytes % 7.9 %; Neutrophils # 8.7 K/mcL (1.6-8.9); Platelet Count 375 K/mcL (140-400); Red Blood Count 2.28 M/mcL (4.19-5.50); Red Cell Distribution Width 15.7 % (11.5-14.5); Segmented Neutrophils % 81.2 %; White Blood Count 10.6 K/mcL (4.3-11.1)
[2021-07-03 02:23] LABS: Calcium 7.6 mg/dL (8.6-10.3); Magnesium 1.7 mg/dL (1.6-2.6); Potassium 4.7 mEq/L (3.5-5.1)
[2021-07-03] MEDS ORDERED: Insulin DETEMIR 100 UNIT/ML X5UNITS SUBQ ONE (02:36)
[2021-07-03] MEDS ORDERED: Insulin LISPRO 300 UNITS/3 ML VIAL SUBQ ONE (03:50)
[2021-07-03] MEDS: Calcium Acetate 667 MG CAPSULE PO SCH ×3 (08:46→17:13)
[2021-07-03] MEDS: Cholecalciferol (D-3) 1,000 UNIT (25MCG) TABLET PO SCH (08:46)
[2021-07-03] MEDS: Insulin LISPRO 300 UNITS/3 ML VIAL SUBQ SCH ×4 (09:00→20:08)
[2021-07-03] MEDS: lisinopriL 10 MG TABLET PO SCH (09:06)
[2021-07-03] MEDS: Piperacillin/Tazobactam 3.375 GM in 0.9 % Sodium Chloride Mini Bag 100 ML IVPB SCH (12:00)
[2021-07-03 15:59] LABS: Estimated Average Glucose 171 mg/dl; Hemoglobin A1C 7.6 %
[2021-07-03] MEDS: traZODone 50 MG TABLET PO SCH (20:08)
[2021-07-03] MEDS ORDERED: *HR* Metoprolol 5 MG/5 ML VIAL IVP ONE (20:27)
[2021-07-03] MEDS ORDERED: Insulin DETEMIR 100 UNIT/ML X5UNITS SUBQ SCH (21:00)
[2021-07-03 23:27] LABS: Fluid Source for Triglycerides PLEURAL FLUID
[2021-07-04] MEDS: Piperacillin/Tazobactam 3.375 GM in 0.9 % Sodium Chloride Mini Bag 100 ML IVPB SCH ×3 (00:09→22:08)
[2021-07-04] MEDS: lisinopriL 10 MG TABLET PO SCH (10:53)
[2021-07-04] MEDS: Insulin LISPRO 300 UNITS/3 ML VIAL SUBQ SCH ×4 (10:53→19:53)
[2021-07-04] MEDS: Calcium Acetate 667 MG CAPSULE PO SCH ×3 (10:53→16:29)
[2021-07-04] MEDS: Cholecalciferol (D-3) 1,000 UNIT (25MCG) TABLET PO SCH (10:53)
[2021-07-04 10:56] LABS: Triglycerides,Body Fluid 15 mg/dL
[2021-07-04 13:17] LABS: Fluid Source for Cholesterol PLEURAL FLUID
[2021-07-04 13:50] LABS: Basophils # 0.1 K/mcL (0.0-0.2); Basophils % 0.6 %; Eosinophils # 0.1 K/mcL (0.0-0.6); Eosinophils % 1.5 %; Hematocrit 24.9 % (37.5-50.1); Hemoglobin 7.4 g/dL (12.9-16.9); Immature Granulocytes % 0.6 % (0-4); Lymphocytes # 1.2 K/mcL (0.6-4.6); Lymphocytes % 12.8 %; Mean Corpuscular HGB Conc 29.7 g/dL (31.6-35.5); Mean Corpuscular Hemoglobin 29.8 pg (28.0-33.3); Mean Corpuscular Volume 100.4 fL (83.0-100.0); Mean Platelet Volume 10.5 fL (9.4-12.4); Monocytes # 0.6 K/mcL (0.0-1.3); Neutrophils # 7.3 K/mcL (1.6-8.9); Platelet Count 349 K/mcL (140-400); Red Blood Count 2.48 M/mcL (4.19-5.50); Red Cell Distribution Width 15.5 % (11.5-14.5); Segmented Neutrophils % 78.5 %; White Blood Count 9.3 K/mcL (4.3-11.1)
[2021-07-04 14:10] LABS: Calcium 7.7 mg/dL (8.6-10.3); Potassium 4.4 mEq/L (3.5-5.1)
[2021-07-04] MEDS ORDERED: Insulin LISPRO 300 UNITS/3 ML VIAL SUBQ SCH (16:30)
[2021-07-04] MEDS ORDERED: *HR* Metoprolol 5 MG/5 ML VIAL IVP ONE (19:38)
[2021-07-04] MEDS: Insulin DETEMIR 100 UNIT/ML X5UNITS SUBQ SCH (20:04)
[2021-07-04] MEDS: traZODone 50 MG TABLET PO SCH (20:07)
[2021-07-05] MEDS ORDERED: *HR* Metoprolol 5 MG/5 ML VIAL IVP ONE ×2 (03:09→19:51)
[2021-07-05] MEDS: Cholecalciferol (D-3) 1,000 UNIT (25MCG) TABLET PO SCH (07:50)
[2021-07-05] MEDS: lisinopriL 10 MG TABLET PO SCH (07:50)
[2021-07-05] MEDS ORDERED: 0.9 % Sodium Chloride 250 ML IVC PRN (07:59)
[2021-07-05] MEDS: Insulin LISPRO 300 UNITS/3 ML VIAL SUBQ SCH ×7 (08:01→21:18)
[2021-07-05] MEDS: Calcium Acetate 667 MG CAPSULE PO SCH ×3 (08:01→17:51)
[2021-07-05 09:21] LABS: Calcium 8.1 mg/dL (8.6-10.3); Potassium 5.5 mEq/L (3.5-5.1)
[2021-07-05 09:24] LABS: Basophils # 0.1 K/mcL (0.0-0.2); Basophils % 0.9 %; Eosinophils # 0.2 K/mcL (0.0-0.6); Eosinophils % 2.6 %; Hematocrit 27.4 % (37.5-50.1); Hemoglobin 8.3 g/dL (12.9-16.9); Immature Granulocytes % 0.9 % (0-4); Lymphocytes # 1.8 K/mcL (0.6-4.6); Lymphocytes % 19.9 %; Mean Corpuscular HGB Conc 30.3 g/dL (31.6-35.5); Mean Corpuscular Hemoglobin 30.2 pg (28.0-33.3); Mean Corpuscular Volume 99.6 fL (83.0-100.0); Monocytes # 0.7 K/mcL (0.0-1.3); Monocytes % 7.5 %; Neutrophils # 6.3 K/mcL (1.6-8.9); Platelet Count 362 K/mcL (140-400); Red Blood Count 2.75 M/mcL (4.19-5.50); Red Cell Distribution Width 15.2 % (11.5-14.5); Segmented Neutrophils % 68.2 %; White Blood Count 9.2 K/mcL (4.3-11.1)
[2021-07-05 10:55] LABS: Cholesterol,Body Fluid 39 mg/dL
[2021-07-05] MEDS ORDERED: Insulin DETEMIR 100 UNIT/ML X5UNITS SUBQ ONE (11:03)
[2021-07-05] MEDS: Piperacillin/Tazobactam 3.375 GM in 0.9 % Sodium Chloride Mini Bag 100 ML IVPB SCH ×2 (11:19→22:12)
[2021-07-05] MEDS ORDERED: Ondansetron 4 MG/2 ML VIAL ONE (13:38)
[2021-07-05] MEDS ORDERED: *HR* FentaNYL (PF) 100 MCG/2 ML VIAL ONE (13:38)
[2021-07-05] MEDS ORDERED: Lidocaine -MPF 2% 5 ML VIAL ONE (13:38)
[2021-07-05] MEDS ORDERED: Lidocaine 1% 20 ML MDV ONE (13:49)
[2021-07-05] MEDS: traZODone 50 MG TABLET PO SCH (21:19)
[2021-07-05] MEDS: Insulin DETEMIR 100 UNIT/ML X5UNITS SUBQ SCH (21:19)
[2021-07-06 02:04] LABS: Hematocrit 23.5 % (37.5-50.1); Hemoglobin 7.3 g/dL (12.9-16.9); Mean Corpuscular HGB Conc 31.1 g/dL (31.6-35.5); Mean Corpuscular Hemoglobin 29.9 pg (28.0-33.3); Mean Corpuscular Volume 96.3 fL (83.0-100.0); Mean Platelet Volume 9.8 fL (9.4-12.4); Platelet Count 336 K/mcL (140-400); Red Blood Count 2.44 M/mcL (4.19-5.50); Red Cell Distribution Width 15.1 % (11.5-14.5); White Blood Count 11.5 K/mcL (4.3-11.1)
[2021-07-06 02:24] LABS: Calcium 7.4 mg/dL (8.6-10.3); Phosphorous 3.3 mg/dL (2.7-4.5); Potassium 4.3 mEq/L (3.5-5.1)
[2021-07-06] MEDS: lisinopriL 10 MG TABLET PO SCH (08:03)
[2021-07-06] MEDS: Calcium Acetate 667 MG CAPSULE PO SCH ×3 (08:03→16:57)
[2021-07-06] MEDS: Cholecalciferol (D-3) 1,000 UNIT (25MCG) TABLET PO SCH (08:03)
[2021-07-06] MEDS: Insulin LISPRO 300 UNITS/3 ML VIAL SUBQ SCH ×7 (08:13→20:56)
[2021-07-06] MEDS: Piperacillin/Tazobactam 3.375 GM in 0.9 % Sodium Chloride Mini Bag 100 ML IVPB SCH ×2 (12:11→22:41)
[2021-07-06] MEDS: Insulin DETEMIR 100 UNIT/ML X5UNITS SUBQ SCH (21:01)
[2021-07-06] MEDS: traZODone 50 MG TABLET PO SCH (21:01)
[2021-07-07 01:39] LABS: Hematocrit 20.8 % (37.5-50.1); Hemoglobin 6.7 g/dL (12.9-16.9); Mean Corpuscular HGB Conc 32.2 g/dL (31.6-35.5); Mean Corpuscular Volume 96.3 fL (83.0-100.0); Mean Platelet Volume 9.9 fL (9.4-12.4); Platelet Count 299 K/mcL (140-400); Red Blood Count 2.16 M/mcL (4.19-5.50); Red Cell Distribution Width 15.3 % (11.5-14.5); White Blood Count 11.1 K/mcL (4.3-11.1)
[2021-07-07 02:03] LABS: Calcium 7.7 mg/dL (8.6-10.3); Potassium 4.2 mEq/L (3.5-5.1)
[2021-07-07] MEDS: *HR* Dextrose 50 % in Water (Syg) 50 ML SYRINGE IVP PRN (07:01)
[2021-07-07] MEDS: Insulin LISPRO 300 UNITS/3 ML VIAL SUBQ SCH ×2 (07:32→07:33)
[2021-07-07] MEDS: lisinopriL 10 MG TABLET PO SCH (08:02)
[2021-07-07] MEDS: Cholecalciferol (D-3) 1,000 UNIT (25MCG) TABLET PO SCH (08:02)
[2021-07-07] MEDS: Calcium Acetate 667 MG CAPSULE PO SCH ×3 (08:02→17:00)
[2021-07-07] MEDS: amLODIPine 5 MG TABLET PO SCH (12:51)
[2021-07-07] MEDS: Piperacillin/Tazobactam 3.375 GM in 0.9 % Sodium Chloride Mini Bag 100 ML IVPB SCH ×2 (12:51→23:03)
[2021-07-07] MEDS ORDERED: Vancomycin 500 MG in 0.9 % Sodium Chloride Mini Bag 100 ML IVPB ONE (14:00)
[2021-07-07] MEDS: traZODone 50 MG TABLET PO SCH (19:42)
[2021-07-07] MEDS ORDERED: Insulin DETEMIR 100 UNIT/ML X5UNITS SUBQ SCH (21:00)
[2021-07-07] MEDS: Acetaminophen 325 MG TABLET PO PRN (21:21)
[2021-07-07] MEDS: Melatonin 3 MG TABLET PO PRN (21:22)
[2021-07-07] MEDS ORDERED: *HR* Labetalol 20 MG/4 ML SYRINGE IVP ONE (21:41)
[2021-07-08 02:16] LABS: Hematocrit 27.5 % (37.5-50.1); Hemoglobin 8.2 g/dL (12.9-16.9); Mean Corpuscular HGB Conc 29.8 g/dL (31.6-35.5); Mean Corpuscular Volume 97.2 fL (83.0-100.0); Platelet Count 324 K/mcL (140-400); Red Blood Count 2.83 M/mcL (4.19-5.50); Red Cell Distribution Width 18.2 % (11.5-14.5); White Blood Count 11.1 K/mcL (4.3-11.1)
[2021-07-08 02:38] LABS: Calcium 7.8 mg/dL (8.6-10.3); Potassium 5.3 mEq/L (3.5-5.1)
[2021-07-08 02:41] LABS: Iron 34 mcg/dL (65-175)
[2021-07-08] MEDS ORDERED: Insulin LISPRO 300 UNITS/3 ML VIAL SUBQ ONE (02:45)
[2021-07-08 04:28] LABS: Ferritin > 1500 ng/mL (20-250)
[2021-07-08 05:25] LABS: % Iron Saturation 20 % (20-55); Transferrin 120 mg/dL (203-362)
[2021-07-08] MEDS: *HR* SitaGLIPtin 25 MG TABLET PO SCH ×2 (05:44→05:48)
[2021-07-08] MEDS: lisinopriL 10 MG TABLET PO SCH (07:41)
[2021-07-08] MEDS: Cholecalciferol (D-3) 1,000 UNIT (25MCG) TABLET PO SCH (07:41)
[2021-07-08] MEDS: amLODIPine 5 MG TABLET PO SCH (07:42)
[2021-07-08] MEDS: Calcium Acetate 667 MG CAPSULE PO SCH ×3 (07:42→16:56)
[2021-07-08] MEDS ORDERED: Insulin DETEMIR 100 UNIT/ML X5UNITS SUBQ SCH (09:00)
[2021-07-08] MEDS: Piperacillin/Tazobactam 3.375 GM in 0.9 % Sodium Chloride Mini Bag 100 ML IVPB SCH ×2 (10:56→23:11)
[2021-07-08] MEDS: Insulin LISPRO 300 UNITS/3 ML VIAL SUBQ SCH ×2 (10:57→15:51)
[2021-07-08] MEDS: polyethylene glycoL 3350 17 GM POWD.PACK PO SCH (11:47)
[2021-07-08] MEDS: Haloperidol Lactate 5 MG/ML VIAL IVP PRN ×2 (11:47→21:13)
[2021-07-08] MEDS: *HR* Heparin 5,000 UNIT/ML VIAL SQ SCH (16:56)
[2021-07-08] MEDS: traZODone 50 MG TABLET PO SCH (21:13)
[2021-07-08] MEDS: Melatonin 3 MG TABLET PO PRN (21:13)
[2021-07-09] MEDS: *HR* Heparin 5,000 UNIT/ML VIAL SQ SCH ×2 (04:35→17:23)
[2021-07-09 05:31] LABS: Calcium 7.7 mg/dL (8.6-10.3); Potassium 5.3 mEq/L (3.5-5.1)
[2021-07-09 06:47] LABS: Hemoglobin 8.8 g/dL (12.9-16.9); Mean Corpuscular HGB Conc 32.6 g/dL (31.6-35.5); Mean Corpuscular Hemoglobin 29.6 pg (28.0-33.3); Mean Platelet Volume 10.4 fL (9.4-12.4); Platelet Count 292 K/mcL (140-400); Red Blood Count 2.97 M/mcL (4.19-5.50); Red Cell Distribution Width 17.4 % (11.5-14.5)
[2021-07-09 06:47] LABS: VBG HCO3 17 mEq/L (21-27); VBG PCO2 30 mmHg (41-51); VBG PH 7.35 pH Units (7.32-7.42); VBG PO2 80 mmHg (25-50)
[2021-07-09 06:49] LABS: Mean Corpuscular Volume 90.9 fL (83.0-100.0)
[2021-07-09] MEDS ORDERED: Iron Sucrose Complex 400 MG in 0.9 % Sodium Chloride 250 ML IVPB ONE (07:11)
[2021-07-09] MEDS ORDERED: Insulin LISPRO 300 UNITS/3 ML VIAL SUBQ ONE (07:30)
[2021-07-09] MEDS: Insulin LISPRO 300 UNITS/3 ML VIAL SUBQ SCH ×3 (07:55→17:22)
[2021-07-09] MEDS: Calcium Acetate 667 MG CAPSULE PO SCH ×3 (07:57→17:23)
[2021-07-09] MEDS: Insulin DETEMIR 100 UNIT/ML X5UNITS SUBQ SCH (07:59)
[2021-07-09] MEDS: Cholecalciferol (D-3) 1,000 UNIT (25MCG) TABLET PO SCH (07:59)
[2021-07-09] MEDS: *HR* SitaGLIPtin 25 MG TABLET PO SCH (07:59)
[2021-07-09] MEDS: Haloperidol Lactate 5 MG/ML VIAL IVP PRN (08:00)
[2021-07-09] MEDS ORDERED: 0.9 % Sodium Chloride 250 ML IVC PRN (08:04)
[2021-07-09] MEDS: amLODIPine 5 MG TABLET PO SCH (08:07)
[2021-07-09] MEDS: polyethylene glycoL 3350 17 GM POWD.PACK PO SCH (08:07)
[2021-07-09] MEDS: lisinopriL 10 MG TABLET PO SCH (08:08)
[2021-07-09] MEDS ORDERED: *HR* Heparin 10,000 UNIT/10 ML VIAL ONE (08:13)
[2021-07-09] MEDS ORDERED: Heparin 1,000 UNITS/500 mL 500 ML ONE (08:13)
[2021-07-09] MEDS ORDERED: 0.9 % Sodium Chloride 1,000 ML ONE (08:13)
[2021-07-09] MEDS: Piperacillin/Tazobactam 3.375 GM in 0.9 % Sodium Chloride Mini Bag 100 ML IVPB SCH (11:21)
[2021-07-09] MEDS ORDERED: Vancomycin 1,250 MG/262.5 ML IV.SOLN IVPB ONE (16:00)
[2021-07-09] MEDS ORDERED: Vancomycin 500 MG in 0.9 % Sodium Chloride Mini Bag 100 ML IVPB ONE (16:00)
[2021-07-09] MEDS: traZODone 50 MG TABLET PO SCH (20:17)
[2021-07-10] MEDS: Melatonin 3 MG TABLET PO PRN (01:36)
[2021-07-10 01:53] LABS: Hematocrit 26.8 % (37.5-50.1); Hemoglobin 8.7 g/dL (12.9-16.9); Mean Corpuscular HGB Conc 32.5 g/dL (31.6-35.5); Mean Corpuscular Hemoglobin 29.7 pg (28.0-33.3); Mean Corpuscular Volume 91.5 fL (83.0-100.0); Mean Platelet Volume 10.1 fL (9.4-12.4); Platelet Count 365 K/mcL (140-400); Red Blood Count 2.93 M/mcL (4.19-5.50); Red Cell Distribution Width 16.8 % (11.5-14.5)
[2021-07-10 02:19] LABS: Calcium 8.2 mg/dL (8.6-10.3)
[2021-07-10] MEDS: Piperacillin/Tazobactam 3.375 GM in 0.9 % Sodium Chloride Mini Bag 100 ML IVPB SCH ×2 (03:29→16:13)
[2021-07-10] MEDS: *HR* Heparin 5,000 UNIT/ML VIAL SQ SCH ×2 (06:29→18:08)
[2021-07-10] MEDS: Insulin LISPRO 300 UNITS/3 ML VIAL SUBQ SCH ×3 (07:47→17:50)
[2021-07-10] MEDS: Cholecalciferol (D-3) 1,000 UNIT (25MCG) TABLET PO SCH (07:48)
[2021-07-10] MEDS: Calcium Acetate 667 MG CAPSULE PO SCH ×3 (07:49→16:13)
[2021-07-10] MEDS ORDERED: *HR* Heparin 10,000 UNIT/10 ML VIAL IV PRN (08:05)
[2021-07-10] MEDS ORDERED: 0.9 % Sodium Chloride 250 ML IVC PRN (08:05)
[2021-07-10] MEDS: *HR* SitaGLIPtin 25 MG TABLET PO SCH (12:11)
[2021-07-10] MEDS: polyethylene glycoL 3350 17 GM POWD.PACK PO SCH (12:11)
[2021-07-10] MEDS: Insulin DETEMIR 100 UNIT/ML X5UNITS SUBQ SCH (13:25)
[2021-07-10] MEDS ORDERED: Albumin 25% 25gram/100mL 25 GM/100 ML IV.SOLN IVPB STA (14:33)
[2021-07-10] MEDS ORDERED: Albumin 25% 25gram/100mL 25 GM/100 ML IV.SOLN IVPB ONE (17:44)
[2021-07-10] MEDS ORDERED: Vancomycin 500 MG in 0.9 % Sodium Chloride Mini Bag 100 ML IVPB ONE (19:00)
[2021-07-10] MEDS: traZODone 50 MG TABLET PO SCH (20:03)
[2021-07-11 00:32] VITALS: BP 111/66; PULSE 110; TEMP 98.6; O2SAT 94
[2021-07-11] MEDS: Piperacillin/Tazobactam 3.375 GM in 0.9 % Sodium Chloride Mini Bag 100 ML IVPB SCH (03:04)
[2021-07-11] MEDS ORDERED: EPINEPHrine 1 MG/ML VIAL IM ONE (03:42)
[2021-07-11] MEDS ORDERED: EPINEPHrine 1 MG/ML VIAL IV ONE (03:42)
[2021-07-11] MEDS ORDERED: *HR* EPINEPHrine 1 MG/10 ML SYRINGE IVP ONE (03:42)
[2021-07-11] MEDS ORDERED: *HR* EPINEPHrine 1 MG/10 ML SYRINGE ONE (03:43)
== END 2021-07-11 03:43 | disposition expired | DRG 853 ==
LOC: 2ANU 14:13 → EMEROOARM 14:13 → SUATTDRO 21:00 → 2ANU 21:16
PROVIDERS: ADMIT Internal Medicine; ATTEND Internal Medicine